=== PATIENT | female | born 1940 | race Caucasian/White ===

== ENCOUNTER → 2016-04-12 | Outpatient (REF) | payer MEDICARE, MEDICAID ==
[~2016-04-12] MED LIST: LASI40TA PO; LEVO50TA5 PO; METF1000 PO; TYLE325T5 PO
== END ==
LOC: M LAB REF 16:37
PROVIDERS: ATTEND Internal Medicine
DX: J06.9 Acute upper respiratory infection, unspecified (principal); R50.9 Fever, unspecified; R05 Cough

== ENCOUNTER → 2016-04-19 | Outpatient (REF) | payer MEDICARE, MEDICAID ==
[2016-04-19 17:57] LABS: ALBUMIN 3.4 GM/DL (3.2-5.2); ALBUMIN/GLOBULIN RATIO 0.79 (1.00-1.93); ALKALINE PHOSPHATASE 91 U/L (45-117); ALT/SGPT 44 U/L (12-78); ANION GAP 12 MEQ/L (8-16); AST/SGOT 30 U/L (15-37); BILIRUBIN,TOTAL 0.7 MG/DL (0.2-1.0); BLOOD UREA NITROGEN 24 MG/DL (7-18); CALCIUM LEVEL 8.6 MG/DL (8.8-10.2); CARBON DIOXIDE LEVEL 24 MEQ/L (21-32); CHLORIDE LEVEL 103 MEQ/L (98-107); CREATININE FOR GFR 0.92 MG/DL (0.55-1.02); GLOMERULAR FILTRATION RATE > 60.0 (>39); GLUCOSE, FASTING 137 MG/DL (83-110); SODIUM LEVEL 139 MEQ/L (136-145); TOTAL PROTEIN 7.7 GM/DL (6.4-8.2)
[2016-04-19 18:15] LABS: MEAN CORPUSCULAR HEMOGLOBIN 29.9 pg (27.0-33.0); MEAN CORPUSCULAR HGB CONC 32.6 g/dl (32.0-36.5); MEAN CORPUSCULAR VOLUME 91.7 fl (80.0-96.0); RED CELL DISTRIBUTION WIDTH 13.2 % (11.5-14.5); WHITE BLOOD COUNT 10.2 K/mm3 (4.0-10.0)
[2016-04-19 18:17] LABS: POTASSIUM SERUM 5.2 MEQ/L (3.5-5.1)
== END ==
LOC: M LAB REF 16:39
PROVIDERS: ATTEND Surgery
DX: E11.621 Type 2 diabetes mellitus with foot ulcer (principal)
CPT/HCPCS: 36415; 80053; 83036; 85027; 97597; G0463

== ENCOUNTER 2016-06-08 02:29 | Emergency (ER) | payer MEDICAID, MEDICARE ==
[~2016-06-08] VITALS: Ht 170.2 cm; Wt 134.2 kg
[2016-06-08] MEDS ORDERED: VALS1TAB49 (02:46)
[2016-06-08] MEDS ORDERED: ELIQ5TAB (02:46)
[2016-06-08] MEDS ORDERED: TRAD5TAB (02:46)
[2016-06-08] MEDS ORDERED: ISOVUE-370 76% 100ML VIAL (Q9967) As Ordered ONE (03:02)
[2016-06-08 03:23] LABS: BASO % 0.4 % (0.0-1.0); EOS # 0.3 K/mm3 (0.0-0.50); EOS % 2.6 % (0.0-3.0); LARGE UNSTAINED CELL # 0.1 K/mm3 (0.0-0.4); LYMPH % 15.2 % (24.0-44.0); MEAN CORPUSCULAR HEMOGLOBIN 29.5 pg (27.0-33.0); MEAN CORPUSCULAR VOLUME 92.4 fl (80.0-96.0); MONO # 0.6 K/mm3 (0.0-0.8); MONO % 4.8 % (0.0-5.0); NEUTROPHILS # 9.5 K/mm3 (1.8-7.7); PLATELET COUNT, AUTOMATED 258 k/mm3 (150-450); RED CELL DISTRIBUTION WIDTH 13.7 % (11.5-14.5); WHITE BLOOD COUNT 12.6 K/mm3 (4.0-10.0)
[2016-06-08 03:40] LABS: ALBUMIN/GLOBULIN RATIO 0.77 (1.00-1.93); BILIRUBIN,DIRECT 0.1 MG/DL (0.0-0.2); BILIRUBIN,TOTAL 0.5 MG/DL (0.2-1.0); CALCIUM LEVEL 8.5 MG/DL (8.8-10.2); CREATININE FOR GFR 1.32 MG/DL (0.55-1.02); GLOMERULAR FILTRATION RATE 41.8 (>39); POTASSIUM SERUM 4.2 MEQ/L (3.5-5.1); TOTAL PROTEIN 6.9 GM/DL (6.4-8.2)
--- NOTE | 2016-06-08 05:20 | REPUSA ---
CLINICAL HISTORY: Chest pain, exclude PE. TECHNIQUE: Multiple incremental axial, coronal and oblique images are obtained from the thoracic inle t to the upper abdomen. Intravenous contrast material was administered as per pulmonary embolism prot ocol. COMMENTS: Moderate cardiomegaly. There is excellent opacification of pulmonary arterial system without evidence for pulmonary embolism . Aorta is of normal caliber without evidence for dissection or aneurysm. There is no evidence of pleural or parenchymal mass. Bilateral basilar atelectatic pulmonary changes. Associated mild bilateral basilar subpleural interstitial thickening. There are no pleural effusions . There is no evidence of hilar or mediastinal lymphadenopathy. Images of the upper abdomen demonstrate no evidence of adrenal mass. The bony structures are free of lytic or blastic lesions. Multilevel degenerative changes are seen in volving the visualized thoracolumbar spine. Scattered calcifications are seen involving the aorta and major branches compatible with atherosclero sis. IMPRESSION: No evidence for pulmonary embolism. Cardiomegaly. Bilateral basilar atelectatic pulmonary changes. Associated bilateral subpleural interstitial pulmonary thickening. Thank you for your kind referral of this patient.
--- NOTE | 2016-06-08 05:20 | REPUSA ---
CLINICAL HISTORY: Abdominal pain. TECHNIQUE: Multiple axial, sagittal and coronal CT images were obtained through the abdomen and pelvi s after administration of intravenous contrast material. COMMENTS: Small sliding-type hiatal hernia. The liver is moderately enlarged with decreased attenuation without mass or defect. There is no intra or extrahepatic biliary ductal dilatation. The spleen is normal. The gallbladder is significantly di stended containing multiple gallstones. The pancreas is of normal contour and attenuation characteris tics. There is no evidence of adrenal mass. Both kidneys demonstrate prompt and equal nephrograms. The kidneys are normal in size, shape and conf iguration. There is no evidence of renal or ureteral mass. No renal or ureteral calculi are identifie d. There is no hydroureter or hydronephrosis. No evidence for appendicitis. There is no bowel wall thickening. No evidence for small or large yisel l obstruction. There is no evidence of abdominal ascites or lymphadenopathy. There is no evidence of intrinsic or extrinsic bladder mass. Thickened bladder. There is no pelvic as cites or lymphadenopathy. Large anterior abdominal hernia containing nonincarcerated large and small bowels. Images of the lung bases show no evidence of pleural or parenchymal mass. There are no pleural effusi ons. The bony structures are free of lytic or blastic lesions. Multilevel degenerative changes are seen in volving the thoracolumbar spine. Scattered calcifications are seen involving the aorta and major bran ches compatible with atherosclerosis. IMPRESSION: Hepatomegaly with fat infiltration. Distended gallbladder. Multiple gallstones. Anterior abdominal hernia containing nonincarcerated segment of the transverse colon and multiple sma ll bowel loops. No associated bowel obstruction. Thickened bladder. Underdistention versus mild cystitis. Thank you for your kind referral of this patient.
--- NOTE | 2016-06-08 07:00 | REPUSA ---
CLINICAL HISTORY: RUQ pain. TECHNIQUE: Realtime sonographic images were obtained in multiple projections. COMMENTS: The visualized liver is of increased echo texture without evidence of mass or defect. There is no int ra or extrahepatic biliary ductal dilatation. The common bile duct measures 3.8 mm. The gallbladder is underdistended containing multiple calculi. The gallbladder wall is not thickened and there is no pericholecystic fluid. The right kidney measures 11.5x5.3x5.2 cm. The visualized portions of the pancreas are unremarkable. IMPRESSION: Fatty liver infiltration. Cholelithiasis. Nondilated common bile duct. Limited evaluation of the pancreas secondary to gaseous bowel distention. Thank you for your kind referral of this patient.
[2016-06-08 10:36] VITALS: BP 132/80
--- NOTE | 2016-06-08 14:40 | ECGEPIP ---
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
--- NOTE | 2016-06-12 14:33 | ECGEPIP ---
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
== END 2016-06-08 10:38 | disposition home or self-care (01) ==
LOC: EDBD 02:29 → M ED 04:19
DX: K80.50 Calculus of bile duct without cholangitis or cholecystitis without obstruction (principal); I48.91 Unspecified atrial fibrillation; E11.9 Type 2 diabetes mellitus without complications; I10 Essential (primary) hypertension; Z79.899 Other long term (current) drug therapy; Z79.84 Long term (current) use of oral hypoglycemic drugs; Z88.0 Allergy status to penicillin; Z88.5 Allergy status to narcotic agent; Z88.8 Allergy status to other drugs, medicaments and biological substances
CPT/HCPCS: 36415; 71275; 74177; 76705; 80048; 80076; 81001; 82550; 82553; 83605; 83690; 84484; 85025; 93005; 93041; 99285; Q9967

== ENCOUNTER → 2017-08-01 | Outpatient (REF) | payer MEDICARE, MEDICAID | LOC: M LAB REF 17:02 | DX: L30.3 Infective dermatitis (principal) | CPT/HCPCS: 87077 ==

== ENCOUNTER 2017-09-12 15:01 | Inpatient (IN) | payer MEDICARE, MEDICAID ==
[2017-09-12 16:41] LABS: HEMATOCRIT 39.2 % (36.0-47.0); MEAN CORPUSCULAR HEMOGLOBIN 29.7 pg (27.0-33.0); MEAN CORPUSCULAR HGB CONC 33.2 g/dl (32.0-36.5); MEAN CORPUSCULAR VOLUME 89.5 fl (80.0-96.0); PLATELET COUNT, AUTOMATED 276 10^3/uL (150-450); RED BLOOD COUNT 4.38 10^6/uL (4.00-5.40); RED CELL DISTRIBUTION WIDTH 14.5 % (11.5-14.5); WHITE BLOOD COUNT 13.6 10^3/uL (4.0-10.0)
[2017-09-12 17:09] LABS: ANION GAP 8 MEQ/L (8-16); BLOOD UREA NITROGEN 31 MG/DL (7-18); C REACTIVE PROTEIN QUANTITATIV 8.33 MG/DL (0.00-0.30); CARBON DIOXIDE LEVEL 29 MEQ/L (21-32); CHLORIDE LEVEL 101 MEQ/L (98-107); CREATININE FOR GFR 1.09 MG/DL (0.55-1.30); ERYTHROCYTE SEDIMENTATION RATE 71 mm/hr (0-30); GLOMERULAR FILTRATION RATE 51.8 (>39); GLUCOSE, FASTING 175 MG/DL (70-100); POTASSIUM SERUM 3.7 MEQ/L (3.5-5.1); SODIUM LEVEL 138 MEQ/L (136-145)
[2017-09-12] MEDS: VANCOMYCIN HCL 1,000 MG, VIAL MATE ADAPTER 1 EACH in D5W 250 ML IV (17:15)
[2017-09-12] MEDS: metroNIDAZOLE 500 MG in APPROPRIATE DILUENT 1 EA IV (17:19)
[2017-09-12] MEDS ORDERED: GLUCAGON FOR INJ 1 MG VIAL (J1610) SC (19:30)
[2017-09-12] MEDS ORDERED: DEXTROSE 50% 50 ML SYRINGE IV (19:30)
[2017-09-12] MEDS ORDERED: GLUCOSE 4 GM CHEW TABLET PO (19:30)
[2017-09-12] MEDS: HEPARIN SOD (PORCINE) 5000 UNITS/ML VIAL SC (21:18)
[2017-09-12] MEDS: AZTREONAM 1 GM in D5W MINI-BAG PLUS 50 ML IV (21:19)
[2017-09-12] MEDS: LOSARTAN 50 MG TAB PO (21:19)
[2017-09-12] MEDS: FUROSEMIDE 80 MG TAB PO (21:19)
[2017-09-13 00:14] LABS: BEDSIDE GLUCOSE 229 MG/DL (83-110)
[2017-09-13] MEDS: AZTREONAM 1 GM in D5W MINI-BAG PLUS 50 ML IV (05:11)
[2017-09-13] MEDS: LEVOTHYROXINE 125MCG TABLET (0.125MG) PO (05:11)
[2017-09-13] MEDS: HEPARIN SOD (PORCINE) 5000 UNITS/ML VIAL SC ×3 (05:11→21:15)
[2017-09-13 06:48] LABS: HEMATOCRIT 37.2 % (36.0-47.0); MEAN CORPUSCULAR HEMOGLOBIN 29.3 pg (27.0-33.0); MEAN CORPUSCULAR HGB CONC 32.3 g/dl (32.0-36.5); PLATELET COUNT, AUTOMATED 248 10^3/uL (150-450); RED BLOOD COUNT 4.09 10^6/uL (4.00-5.40); RED CELL DISTRIBUTION WIDTH 14.5 % (11.5-14.5); WHITE BLOOD COUNT 10.9 10^3/uL (4.0-10.0)
[2017-09-13 07:02] LABS: ANION GAP 7 MEQ/L (8-16); BLOOD UREA NITROGEN 28 MG/DL (7-18); CALCIUM LEVEL 8.8 MG/DL (8.8-10.2); CARBON DIOXIDE LEVEL 30 MEQ/L (21-32); CHLORIDE LEVEL 101 MEQ/L (98-107); CREATININE FOR GFR 0.89 MG/DL (0.55-1.30); GLOMERULAR FILTRATION RATE > 60.0 (>39); GLUCOSE, FASTING 172 MG/DL (70-100); SODIUM LEVEL 138 MEQ/L (136-145)
[2017-09-13] MEDS: HumaLOG INSULIN (NovoLOG) PER UNIT SC ×3 (07:30→17:11)
[2017-09-13] MEDS: FUROSEMIDE 80 MG TAB PO ×2 (08:18→21:16)
[2017-09-13] MEDS: ASPIRIN ENTERIC 325 MG TAB PO (08:18)
[2017-09-13] MEDS: ZINC SULFATE 220 MG CAP PO (08:18)
[2017-09-13] MEDS: ATORVASTATIN 20 MG TAB PO (08:18)
[2017-09-13] MEDS: CLOPIDOGREL 75 MG TAB PO (08:19)
[2017-09-13] MEDS: SPIRONOLACTONE 12.5MG PER 1/2 TABLET PO (08:19)
[2017-09-13] MEDS: LEVEMIR (INSULIN DETEMIR) 1 UNITS/0.01ML SC (10:30)
[2017-09-13 11:59] LABS: BEDSIDE GLUCOSE 241 MG/DL (83-110)
[2017-09-13] MEDS: VANCOMYCIN HCL 1,000 MG, VIAL MATE ADAPTER 1 EACH in D5W 250 ML IV ×2 (12:01→14:00)
[2017-09-13] MEDS: PIPERACILLIN/TAZOBACTAM SOD 3.375 GM in D5W MINI-BAG PLUS 50 ML IV ×2 (14:00→19:41)
[2017-09-13] MEDS: IBUPROFEN 800 MG TAB PO (15:04)
[2017-09-13 16:46] LABS: BEDSIDE GLUCOSE 175 MG/DL (83-110)
[2017-09-13] MEDS: ACETAMINOPHEN TAB 650MG DOSE (2X325MG) PO (18:48)
[2017-09-13 20:33] LABS: BEDSIDE GLUCOSE 220 MG/DL (83-110)
[2017-09-13] MEDS: LOSARTAN 50 MG TAB PO (21:16)
[2017-09-14] MEDS: VANCOMYCIN HCL 1,000 MG, VIAL MATE ADAPTER 1 EACH in D5W 250 ML IV ×2 (00:19→17:53)
[2017-09-14] MEDS: PIPERACILLIN/TAZOBACTAM SOD 3.375 GM in D5W MINI-BAG PLUS 50 ML IV ×4 (02:37→20:02)
[2017-09-14] MEDS: HEPARIN SOD (PORCINE) 5000 UNITS/ML VIAL SC ×3 (05:30→22:38)
[2017-09-14] MEDS: LEVOTHYROXINE 125MCG TABLET (0.125MG) PO (05:30)
[2017-09-14 06:11] LABS: HEMATOCRIT 37.9 % (36.0-47.0); HEMOGLOBIN 12.5 g/dl (12.0-15.5); MEAN CORPUSCULAR HEMOGLOBIN 29.4 pg (27.0-33.0); MEAN CORPUSCULAR VOLUME 89.2 fl (80.0-96.0); PLATELET COUNT, AUTOMATED 275 10^3/uL (150-450); RED BLOOD COUNT 4.25 10^6/uL (4.00-5.40); RED CELL DISTRIBUTION WIDTH 14.4 % (11.5-14.5); WHITE BLOOD COUNT 9.9 10^3/uL (4.0-10.0)
[2017-09-14] MEDS: IBUPROFEN 800 MG TAB PO (06:36)
[2017-09-14 06:40] LABS: ANION GAP 7 MEQ/L (8-16); BLOOD UREA NITROGEN 33 MG/DL (7-18); CALCIUM LEVEL 8.7 MG/DL (8.8-10.2); CARBON DIOXIDE LEVEL 29 MEQ/L (21-32); CHLORIDE LEVEL 100 MEQ/L (98-107); CREATININE FOR GFR 1.22 MG/DL (0.55-1.30); GLOMERULAR FILTRATION RATE 45.5 (>39); GLUCOSE, FASTING 185 MG/DL (70-100); SODIUM LEVEL 136 MEQ/L (136-145)
[2017-09-14] MEDS: HumaLOG INSULIN (NovoLOG) PER UNIT SC ×3 (08:11→17:19)
[2017-09-14] MEDS: LEVEMIR (INSULIN DETEMIR) 1 UNITS/0.01ML SC (08:12)
[2017-09-14] MEDS: SPIRONOLACTONE 12.5MG PER 1/2 TABLET PO (08:12)
[2017-09-14] MEDS: ZINC SULFATE 220 MG CAP PO (08:12)
[2017-09-14] MEDS: CLOPIDOGREL 75 MG TAB PO (08:12)
[2017-09-14] MEDS: FUROSEMIDE 80 MG TAB PO ×2 (08:12→20:03)
[2017-09-14] MEDS: ASPIRIN ENTERIC 325 MG TAB PO (08:13)
[2017-09-14] MEDS: ATORVASTATIN 20 MG TAB PO (08:13)
[2017-09-14 11:58] LABS: BEDSIDE GLUCOSE 267 MG/DL (83-110)
[2017-09-14 12:12] LABS: VANCOMYCIN LEVEL TROUGH 19.9 UG/ML (10.0-20.0)
[2017-09-14 16:47] LABS: BEDSIDE GLUCOSE 178 MG/DL (83-110)
[2017-09-14] MEDS: LOSARTAN 50 MG TAB PO (20:03)
[2017-09-14 21:05] LABS: BEDSIDE GLUCOSE 273 MG/DL (83-110)
[2017-09-15] MEDS: PIPERACILLIN/TAZOBACTAM SOD 3.375 GM in D5W MINI-BAG PLUS 50 ML IV ×3 (02:24→14:00)
[2017-09-15] MEDS: LEVOTHYROXINE 125MCG TABLET (0.125MG) PO (05:30)
[2017-09-15] MEDS: HEPARIN SOD (PORCINE) 5000 UNITS/ML VIAL SC ×2 (05:30→13:50)
[2017-09-15 06:43] LABS: HEMATOCRIT 37.7 % (36.0-47.0); HEMOGLOBIN 12.3 g/dl (12.0-15.5); MEAN CORPUSCULAR HEMOGLOBIN 29.3 pg (27.0-33.0); MEAN CORPUSCULAR HGB CONC 32.6 g/dl (32.0-36.5); MEAN CORPUSCULAR VOLUME 89.8 fl (80.0-96.0); PLATELET COUNT, AUTOMATED 283 10^3/uL (150-450); RED CELL DISTRIBUTION WIDTH 14.4 % (11.5-14.5); WHITE BLOOD COUNT 10.1 10^3/uL (4.0-10.0)
[2017-09-15 07:02] LABS: ANION GAP 7 MEQ/L (8-16); BLOOD UREA NITROGEN 28 MG/DL (7-18); C REACTIVE PROTEIN QUANTITATIV 4.88 MG/DL (0.00-0.30); CALCIUM LEVEL 8.6 MG/DL (8.8-10.2); CARBON DIOXIDE LEVEL 28 MEQ/L (21-32); CHLORIDE LEVEL 102 MEQ/L (98-107); CREATININE FOR GFR 1.13 MG/DL (0.55-1.30); GLOMERULAR FILTRATION RATE 49.7 (>39); GLUCOSE, FASTING 209 MG/DL (70-100); POTASSIUM SERUM 3.7 MEQ/L (3.5-5.1); SODIUM LEVEL 137 MEQ/L (136-145)
[2017-09-15] MEDS: HumaLOG INSULIN (NovoLOG) PER UNIT SC ×3 (07:37→16:46)
[2017-09-15] MEDS: FUROSEMIDE 80 MG TAB PO ×2 (08:53→20:56)
[2017-09-15] MEDS: ASPIRIN ENTERIC 325 MG TAB PO (08:53)
[2017-09-15] MEDS: SPIRONOLACTONE 12.5MG PER 1/2 TABLET PO (08:53)
[2017-09-15] MEDS: CLOPIDOGREL 75 MG TAB PO (08:54)
[2017-09-15] MEDS: LEVEMIR (INSULIN DETEMIR) 1 UNITS/0.01ML SC (08:54)
[2017-09-15] MEDS: ZINC SULFATE 220 MG CAP PO (08:54)
[2017-09-15] MEDS: ATORVASTATIN 20 MG TAB PO (08:54)
[2017-09-15] MEDS: IBUPROFEN 800 MG TAB PO (10:57)
[2017-09-15 11:18] LABS: BEDSIDE GLUCOSE 231 MG/DL (83-110)
[2017-09-15] MEDS: VANCOMYCIN HCL 1,000 MG, VIAL MATE ADAPTER 1 EACH in D5W 250 ML IV (11:55)
[2017-09-15] MEDS: LevoFLOXacin 500 MG TABLET PO (14:48)
[2017-09-15 16:24] LABS: BEDSIDE GLUCOSE 178 MG/DL (83-110)
[2017-09-15 19:41] LABS: BEDSIDE GLUCOSE 246 MG/DL (83-110)
[2017-09-15] MEDS: LOSARTAN 50 MG TAB PO (20:56)
[2017-09-16] MEDS: IBUPROFEN 800 MG TAB PO ×2 (00:33→20:18)
[2017-09-16] MEDS: LevoFLOXacin 250 MG TABLET PO (05:42)
[2017-09-16] MEDS: LEVOTHYROXINE 125MCG TABLET (0.125MG) PO (05:42)
[2017-09-16 06:03] LABS: HEMATOCRIT 38.6 % (36.0-47.0); HEMOGLOBIN 12.6 g/dl (12.0-15.5); MEAN CORPUSCULAR HEMOGLOBIN 29.6 pg (27.0-33.0); MEAN CORPUSCULAR HGB CONC 32.6 g/dl (32.0-36.5); MEAN CORPUSCULAR VOLUME 90.6 fl (80.0-96.0); PLATELET COUNT, AUTOMATED 285 10^3/uL (150-450); RED BLOOD COUNT 4.26 10^6/uL (4.00-5.40); RED CELL DISTRIBUTION WIDTH 14.5 % (11.5-14.5); WHITE BLOOD COUNT 10.6 10^3/uL (4.0-10.0)
[2017-09-16 06:26] LABS: ANION GAP 7 MEQ/L (8-16); BLOOD UREA NITROGEN 31 MG/DL (7-18); C REACTIVE PROTEIN QUANTITATIV 3.76 MG/DL (0.00-0.30); CALCIUM LEVEL 8.9 MG/DL (8.8-10.2); CARBON DIOXIDE LEVEL 30 MEQ/L (21-32); CHLORIDE LEVEL 100 MEQ/L (98-107); CREATININE FOR GFR 1.14 MG/DL (0.55-1.30); GLOMERULAR FILTRATION RATE 49.2 (>39); GLUCOSE, FASTING 211 MG/DL (70-100); POTASSIUM SERUM 4.3 MEQ/L (3.5-5.1); SODIUM LEVEL 137 MEQ/L (136-145)
[2017-09-16] MEDS: FUROSEMIDE 80 MG TAB PO ×2 (08:59→20:20)
[2017-09-16] MEDS: ZINC SULFATE 220 MG CAP PO (08:59)
[2017-09-16] MEDS: SPIRONOLACTONE 12.5MG PER 1/2 TABLET PO (08:59)
[2017-09-16] MEDS: ATORVASTATIN 20 MG TAB PO (08:59)
[2017-09-16] MEDS: ASPIRIN ENTERIC 325 MG TAB PO (09:00)
[2017-09-16] MEDS: LEVEMIR (INSULIN DETEMIR) 1 UNITS/0.01ML SC (09:00)
[2017-09-16] MEDS: CLOPIDOGREL 75 MG TAB PO (09:00)
[2017-09-16] MEDS: HumaLOG INSULIN (NovoLOG) PER UNIT SC ×3 (09:01→16:58)
[2017-09-16 11:43] LABS: BEDSIDE GLUCOSE 116 MG/DL (83-110)
[2017-09-16] MEDS ORDERED: PROPOFOL 200 MG/20 ML VIAL As Ordered ×2 (12:49→13:48)
[2017-09-16] MEDS ORDERED: LIDOCAINE 2% INJ 100 MG/5 ML SDV (FOR ANES.) As Ordered (12:49)
[2017-09-16] MEDS ORDERED: fentaNYL 100 MCG/2 ML INJECTION (J3010) As Ordered (12:50)
[2017-09-16] MEDS ORDERED: MIDAZOLAM INJ 2 MG/2 ML VIAL (J2250) As Ordered (12:50)
[2017-09-16] MEDS ORDERED: TOBRAMYCIN SULF 1.2 GM VIAL As Ordered (12:55)
[2017-09-16] MEDS: LIDOCAINE 2% MDV 20 ML VIAL As Ordered (13:11)
[2017-09-16] MEDS: BUPIVACAINE HCL 0.5% 30 ML VIAL As Ordered (13:11)
[2017-09-16 14:16] LABS: BEDSIDE GLUCOSE 140 MG/DL (83-110)
[2017-09-16] MEDS ORDERED: fentaNYL 100 MCG/2 ML INJECTION (J3010) IV (14:30)
[2017-09-16] MEDS ORDERED: PERCOCET 5MG/325MG TAB PO (14:30)
[2017-09-16] MEDS ORDERED: ONDANSETRON 4MG/2ML VIAL (J2405) IV (14:30)
[2017-09-16 16:48] LABS: BEDSIDE GLUCOSE 146 MG/DL (83-110)
[2017-09-16] MEDS: LR 1,000 ML IV (18:38)
[2017-09-16 19:45] LABS: BEDSIDE GLUCOSE 322 MG/DL (83-110)
[2017-09-16] MEDS: LOSARTAN 50 MG TAB PO (20:20)
[2017-09-16] MEDS: SILVER SULFADIAZINE 1% CR 50 GM JAR TOP (22:01)
[2017-09-16] MEDS: HEPARIN SOD (PORCINE) 5000 UNITS/ML VIAL SC (22:19)
[2017-09-17] MEDS: ACETAMINOPHEN TAB 650MG DOSE (2X325MG) PO ×3 (01:54→12:17)
[2017-09-17] MEDS: HEPARIN SOD (PORCINE) 5000 UNITS/ML VIAL SC ×3 (06:00→20:23)
[2017-09-17] MEDS: LEVOTHYROXINE 125MCG TABLET (0.125MG) PO (06:00)
[2017-09-17] MEDS: LevoFLOXacin 250 MG TABLET PO (06:00)
[2017-09-17 06:17] LABS: HEMATOCRIT 36.7 % (36.0-47.0); HEMOGLOBIN 12.1 g/dl (12.0-15.5); MEAN CORPUSCULAR HEMOGLOBIN 29.5 pg (27.0-33.0); MEAN CORPUSCULAR VOLUME 89.5 fl (80.0-96.0); PLATELET COUNT, AUTOMATED 272 10^3/uL (150-450); RED CELL DISTRIBUTION WIDTH 14.6 % (11.5-14.5); WHITE BLOOD COUNT 11.9 10^3/uL (4.0-10.0)
[2017-09-17 06:27] LABS: ANION GAP 7 MEQ/L (8-16); BLOOD UREA NITROGEN 29 MG/DL (7-18); C REACTIVE PROTEIN QUANTITATIV 2.49 MG/DL (0.00-0.30); CALCIUM LEVEL 8.5 MG/DL (8.8-10.2); CARBON DIOXIDE LEVEL 28 MEQ/L (21-32); CHLORIDE LEVEL 102 MEQ/L (98-107); CREATININE FOR GFR 1.13 MG/DL (0.55-1.30); GLOMERULAR FILTRATION RATE 49.7 (>39); GLUCOSE, FASTING 208 MG/DL (70-100); SODIUM LEVEL 137 MEQ/L (136-145)
[2017-09-17] MEDS: SPIRONOLACTONE 12.5MG PER 1/2 TABLET PO (08:23)
[2017-09-17] MEDS: ZINC SULFATE 220 MG CAP PO (08:23)
[2017-09-17] MEDS: HumaLOG INSULIN (NovoLOG) PER UNIT SC ×3 (08:23→17:03)
[2017-09-17] MEDS: ATORVASTATIN 20 MG TAB PO (08:23)
[2017-09-17] MEDS: FUROSEMIDE 80 MG TAB PO ×2 (08:23→20:22)
[2017-09-17] MEDS: CLOPIDOGREL 75 MG TAB PO (08:23)
[2017-09-17] MEDS: ASPIRIN ENTERIC 325 MG TAB PO (08:23)
[2017-09-17] MEDS: SILVER SULFADIAZINE 1% CR 50 GM JAR TOP ×2 (08:24→21:55)
[2017-09-17] MEDS: LEVEMIR (INSULIN DETEMIR) 1 UNITS/0.01ML SC (08:24)
[2017-09-17] MEDS: IBUPROFEN 800 MG TAB PO ×2 (09:38→20:23)
[2017-09-17 12:01] LABS: BEDSIDE GLUCOSE 262 MG/DL (83-110)
[2017-09-17 16:36] LABS: BEDSIDE GLUCOSE 176 MG/DL (83-110)
[2017-09-17 19:52] LABS: BEDSIDE GLUCOSE 205 MG/DL (83-110)
[2017-09-17] MEDS: LOSARTAN 50 MG TAB PO (20:22)
[2017-09-18] MEDS: LevoFLOXacin 250 MG TABLET PO (05:33)
[2017-09-18] MEDS: LEVOTHYROXINE 125MCG TABLET (0.125MG) PO (05:33)
[2017-09-18] MEDS: HEPARIN SOD (PORCINE) 5000 UNITS/ML VIAL SC (05:34)
[2017-09-18 05:52] LABS: HEMOGLOBIN 12.5 g/dl (12.0-15.5); MEAN CORPUSCULAR HEMOGLOBIN 29.2 pg (27.0-33.0); MEAN CORPUSCULAR HGB CONC 32.1 g/dl (32.0-36.5); MEAN CORPUSCULAR VOLUME 91.1 fl (80.0-96.0); PLATELET COUNT, AUTOMATED 281 10^3/uL (150-450); RED BLOOD COUNT 4.28 10^6/uL (4.00-5.40); RED CELL DISTRIBUTION WIDTH 14.4 % (11.5-14.5); WHITE BLOOD COUNT 11.3 10^3/uL (4.0-10.0)
[2017-09-18 06:23] LABS: ANION GAP 8 MEQ/L (8-16); BLOOD UREA NITROGEN 26 MG/DL (7-18); C REACTIVE PROTEIN QUANTITATIV 2.35 MG/DL (0.00-0.30); CALCIUM LEVEL 8.5 MG/DL (8.8-10.2); CARBON DIOXIDE LEVEL 28 MEQ/L (21-32); CHLORIDE LEVEL 102 MEQ/L (98-107); CREATININE FOR GFR 1.06 MG/DL (0.55-1.30); GLOMERULAR FILTRATION RATE 53.5 (>39); GLUCOSE, FASTING 238 MG/DL (70-100); SODIUM LEVEL 138 MEQ/L (136-145)
[2017-09-18] MEDS: LEVEMIR (INSULIN DETEMIR) 1 UNITS/0.01ML SC (09:17)
[2017-09-18] MEDS: HumaLOG INSULIN (NovoLOG) PER UNIT SC ×2 (09:18→11:38)
[2017-09-18] MEDS: ASPIRIN ENTERIC 325 MG TAB PO (09:18)
[2017-09-18] MEDS: FUROSEMIDE 80 MG TAB PO (09:18)
[2017-09-18] MEDS: CLOPIDOGREL 75 MG TAB PO (09:18)
[2017-09-18] MEDS: SPIRONOLACTONE 12.5MG PER 1/2 TABLET PO (09:18)
[2017-09-18] MEDS: ATORVASTATIN 20 MG TAB PO (09:18)
[2017-09-18] MEDS: ZINC SULFATE 220 MG CAP PO (09:18)
[2017-09-18] MEDS: SILVER SULFADIAZINE 1% CR 50 GM JAR TOP (09:19)
[2017-09-18 11:30] LABS: BEDSIDE GLUCOSE 245 MG/DL (83-110)
== END 2017-09-18 13:45 | disposition home or self-care (01) | DRG 629 ==
LOC: M MSPAV 09-13 16:14 → M ED 15:01 → M ED INP 19:07 → M MS4PR 19:51
PROC: 0Q8L0ZZ Division of Right Tarsal, Open Approach (ICD-10-PCS; principal; 2017-09-16 13:11)
PROC: 0JDQ0ZZ Extraction of Right Foot Subcutaneous Tissue and Fascia, Open Approach (ICD-10-PCS; 2017-09-16 13:11)
DX: E11.621 Type 2 diabetes mellitus with foot ulcer (principal); M86.9 Osteomyelitis, unspecified; M84.477A Pathological fracture, right toe(s), initial encounter for fracture; L03.031 Cellulitis of right toe; N18.2 Chronic kidney disease, stage 2 (mild); I12.9 Hypertensive chronic kidney disease with stage 1 through stage 4 chronic kidney disease, or unspecified chronic kidney disease; E11.22 Type 2 diabetes mellitus with diabetic chronic kidney disease; B96.89 Other specified bacterial agents as the cause of diseases classified elsewhere; E11.69 Type 2 diabetes mellitus with other specified complication; E03.9 Hypothyroidism, unspecified; L97.529 Non-pressure chronic ulcer of other part of left foot with unspecified severity; E66.01 Morbid (severe) obesity due to excess calories; L97.519 Non-pressure chronic ulcer of other part of right foot with unspecified severity; I87.8 Other specified disorders of veins; I48.0 Paroxysmal atrial fibrillation; I25.10 Atherosclerotic heart disease of native coronary artery without angina pectoris; Z96.653 Presence of artificial knee joint, bilateral; Z79.82 Long term (current) use of aspirin; Z79.02 Long term (current) use of antithrombotics/antiplatelets; Z79.899 Other long term (current) drug therapy; Z79.84 Long term (current) use of oral hypoglycemic drugs; Z88.0 Allergy status to penicillin; Z88.5 Allergy status to narcotic agent; Z88.8 Allergy status to other drugs, medicaments and biological substances; Z87.891 Personal history of nicotine dependence

== ENCOUNTER → 2017-09-12 | Outpatient (REF) | payer MEDICARE, MEDICAID | LOC: M LAB REF 15:42 | DX: L03.039 Cellulitis of unspecified toe (principal) ==

== ENCOUNTER 2018-02-02 06:25 | Day surgery (SDC) | payer MEDICARE, MEDICAID ==
[~2018-02-02] VITALS: Ht 170.2 cm; Wt 126.3 kg
[~2018-02-02 06:25] MED LIST changes: +ASPI-222 PO; +ATOR1TAB21 PO; +ELIQ5TAB; +FURO80TA2 PO; +GLIM2TAB PO; +LEVA250T13 PO; +LEVO125T41 PO; +LOSA50TA73 PO; -METF1000 PO; +METF10004 PO; +METF500T4 PO; +PLAV1TAB2 PO; +SILV50CR TOP; +SPIR-10 PO; +TORS20TA2 PO; +TRAD5TAB PO; +VALS1TAB49; +VITA80003 PO; +ZINC220CA PO
[2018-02-02] MEDS ORDERED: LR 1,000 ML IV ONE (06:45)
[2018-02-02] MEDS ORDERED: VANCOMYCIN HCL 1,000 MG, VIAL MATE ADAPTER 1 EACH in D5W 250 ML IV ONE (07:00)
[2018-02-02] MEDS ORDERED: MIDAZOLAM INJ 2 MG/2 ML VIAL (J2250) As Ordered ONE (07:19)
[2018-02-02] MEDS ORDERED: fentaNYL 100 MCG/2 ML INJECTION (J3010) As Ordered ONE (07:19)
[2018-02-02] MEDS ORDERED: LIDOCAINE 2% INJ 100 MG/5 ML SDV (FOR ANES.) As Ordered ONE (07:20)
[2018-02-02] MEDS ORDERED: ONDANSETRON 4MG/2ML VIAL (J2405) As Ordered ONE (07:20)
[2018-02-02] MEDS ORDERED: PROPOFOL 200 MG/20 ML VIAL As Ordered ONE ×3 (07:20→09:20)
[2018-02-02] MEDS ORDERED: dexameTHASONE 4 MG/ML 1ML VIAL (J1100) As Ordered ONE ×2 (07:20→07:52)
[2018-02-02] MEDS ORDERED: FURO80TA2 PO (07:34)
[2018-02-02] MEDS ORDERED: ROPIvacaine 0.5% 30 ML INJECTION (J2795 PER 1MG) As Ordered ONE (07:51)
[2018-02-02] MEDS ORDERED: NEOSPORIN GU IRRIG 20 ML VIAL As Ordered ONE (07:52)
[2018-02-02] MEDS ORDERED: BUPIVACAINE HCL 0.5% 10 ML VIAL As Ordered ONE (07:52)
[2018-02-02] MEDS ORDERED: LIDOCAINE 2% MDV 20 ML VIAL As Ordered ONE (07:52)
[2018-02-02] MEDS ORDERED: BACITRACIN PWD 50,000 UNITS VIAL As Ordered ONE (07:52)
[2018-02-02] MEDS ORDERED: TOBRAMYCIN INJ 80 MG/2 ML VIAL (J3260) As Ordered ONE (08:39)
[2018-02-02] MEDS ORDERED: TOBRAMYCIN SULF 1.2 GM VIAL As Ordered ONE (08:42)
[2018-02-02] MEDS ORDERED: KETAMINE HCL 200 MG/20 ML VIAL As Ordered ONE (09:59)
[2018-02-02] MEDS ORDERED: METOCLOPRAMIDE INJ 10MG/2ML VIAL (J2765) IV PRN (10:15)
[2018-02-02] MEDS ORDERED: LR 1,000 ML IV SCH (10:15)
[2018-02-02] MEDS ORDERED: ONDANSETRON 4MG/2ML VIAL (J2405) IV PRN (10:15)
[2018-02-02] MEDS ORDERED: PERCOCET 5MG/325MG TAB PO PRN (10:15)
[2018-02-02] MEDS ORDERED: fentaNYL 100 MCG/2 ML INJECTION (J3010) IV PRN (10:15)
--- NOTE | 2018-02-02 10:21 | REP ---
Clinical: Status post bunionectomy. Technique: Portable AP, lateral, oblique views of the left foot. Findings: The patient is status post partial amputation at the level of the first metatarsophalangeal joint consistent with bunionectomy. Small residual bony fragments at the resection site are identified. Alignment appears to be satisfactory. Overlying postsurgical soft tissue swelling and small amounts of subcutaneous emphysema noted. Moderate arthritic degenerative changes involve the ankle and mid/hind foot as well as findings to suggest old injuries. Innumerable calcified granulomata noted in the soft tissues overlying the distal tibia / fibula. Impression: 1. Postoperative changes related to bunionectomy. 2. Moderate arthritic and likely post traumatic degenerative changes involving the ankle and mid/hind foot. Electronically Signed by Benjamin Chappell MD 02/02/2018 10:13 A
[2018-02-02 11:40] VITALS: BP 150/72
--- NOTE | 2018-02-05 11:28 | RO ---
DATE OF PROCEDURE: 02/02/2018 PREPROCEDURE DIAGNOSIS: Hallux limitus deformity, left foot, with stage III ulceration left hallux. POSTPROCEDURE DIAGNOSIS: Hallux limitus deformity, left foot, with stage III ulceration left hallux. PROCEDURE: SURGEON: Dr. Yuri Wilkerson DPM BORDER PATROL AGENT: None. ANESTHESIA: Local monitored anesthesia care (MAC). IRRIGATION: Dilute bacitracin, neomycin and polymyxin B solution. HEMOSTASIS: Ankle pneumatic tourniquet at 250 mmHg for 31 minutes. IMPLANTS UTILIZED: Five 5 mm tobramycin-impregnated absorbable beads. DESCRIPTION OF PROCEDURE: On 02/02/2018, this 77-year-old white female was taken from her hospital room to the operating room and placed on the operating table in the supine position. Following the induction of IV sedation and local and regional anesthesia, the left lower extremity was prepped and draped in the usual aseptic manner. Attention was directed to the patient's left foot. The ulcer was isolated with a glove and a 6 cm incision also placed over the dorsal aspect of the 1st metatarsophalangeal joint. The incision was deepened through subcutaneous tissues and a linear capsulotomy was performed in the same plane as the original skin incision. The capsular and periosteal structures were dissected free dorsally, medially and laterally. The hypertrophied medial eminence was osteotomized from dorsal to proximal, extirpated from the wound. Attention was directed to the base of the proximal phalanx where at the neck of the proximal phalanx utilizing a power saw, an osteotomy was performed at the distal metaphyseal-diaphyseal junction of the proximal phalanx and the base of the proximal phalanx was excised. The wound was flushed with copious amounts of dilute bacitracin, neomycin and polymyxin B solution. Five 5 mm tobramycin-impregnated beads were placed into the joint and utilizing two pursestring stitches of #2-0 Monocryl, the capsule was reefed to separate the proximal phalanx and 1st metatarsal head. Subcutaneous tissues were coapted and maintained using #4-0 Monocryl in a simple interrupted type fashion. Skin incisions were coapted and maintained utilizing #4-0 Prolene in a simple interrupted and horizontal mattress type fashion. A sterile dressing was applied consisting of Adaptic, 4 x4s, Carl and Kerlix. The ankle pneumatic tourniquet was rapidly deflated and instantaneous capillary filling time was noted in digits 1 through 5 of the patient's left foot. The patient having apparently tolerated the surgical procedure well was taken from the operating room to the recovery room for further monitoring by the anesthesia department. Surgical specimens were sent to pathology for gross evaluation and postoperative instructions given upon discharge.
== END 2018-02-02 12:09 | disposition home or self-care (01) ==
LOC: M SDC 06:25
PROVIDERS: ATTEND Podiatrist
DX: M20.22 Hallux rigidus, left foot (principal); L97.522 Non-pressure chronic ulcer of other part of left foot with fat layer exposed; I48.91 Unspecified atrial fibrillation; I10 Essential (primary) hypertension; E78.5 Hyperlipidemia, unspecified; E03.9 Hypothyroidism, unspecified; Z88.0 Allergy status to penicillin; Z88.7 Allergy status to serum and vaccine; E11.42 Type 2 diabetes mellitus with diabetic polyneuropathy; E11.51 Type 2 diabetes mellitus with diabetic peripheral angiopathy without gangrene; E11.621 Type 2 diabetes mellitus with foot ulcer; E11.9 Type 2 diabetes mellitus without complications
CPT/HCPCS: 28292; 73630; 88300; C1713; J1100; J2250; J2405; J2795; J3010; J3370

== ENCOUNTER 2018-05-16 10:07 | Emergency (ER) | payer MEDICARE, MEDICAID ==
[~2018-05-16] VITALS: Ht 172.7 cm; Wt 130.0 kg
[~2018-05-16 10:07] MED LIST changes: -LASI40TA PO; +LASI40TA9 PO; -LOSA50TA73 PO; +LOSA50TA88 PO
[2018-05-16] MEDS ORDERED: ACETAMINOPHEN TAB 650MG DOSE (2X325MG) PO ONE (10:45)
--- NOTE | 2018-05-16 11:15 | REP ---
RIGHT ELBOW, FOUR VIEWS: Four views of the right elbow performed. There is no acute fracture or dislocation. There is mild diffuse joint space narrowing as well as spurring. There appears to be mild chondrocalcinosis in the lateral aspect of the joint. No other intrinsic osseous pathology is seen. IMPRESSION: Mild diffuse degenerative changes. No fracture or intrinsic bone disease. Electronically Signed by Kvng Cadena MD 05/16/2018 03:20 P
--- NOTE | 2018-05-16 11:31 | REP ---
Right upper extremity deep vein duplex ultrasound: The deep veins demonstrate normal compression, normal Doppler color flow and normal Doppler waveforms with respiration and augmentation from the brachial veins to the jugular vein. Impression: There is no right upper extremity deep vein thrombus. Electronically Signed by Kvng Suazo MD 05/16/2018 11:23 A
[2018-05-16 11:59] LABS: BASO # 0.1 10^3/uL (0.0-0.2); BASO % 0.6 % (0.0-1.0); EOS # 0.3 10^3/uL (0.0-0.50); EOS % 2.3 % (0.0-3.0); HEMATOCRIT 34.7 % (36.0-47.0); HEMOGLOBIN 10.8 g/dl (12.0-15.5); LYMPH % 15.6 % (24.0-44.0); MEAN CORPUSCULAR HEMOGLOBIN 27.1 pg (27.0-33.0); MEAN CORPUSCULAR HGB CONC 31.1 g/dl (32.0-36.5); MEAN CORPUSCULAR VOLUME 87.2 fl (80.0-96.0); MONO # 0.8 10^3/uL (0.0-0.8); MONO % 6.5 % (0.0-5.0); NEUTROPHILS # 9.5 10^3/uL (1.8-7.7); NEUTROPHILS % 74.4 % (36.0-66.0); PLATELET COUNT, AUTOMATED 324 10^3/uL (150-450); RED BLOOD COUNT 3.98 10^6/uL (4.00-5.40); WHITE BLOOD COUNT 12.7 10^3/uL (4.0-10.0)
[2018-05-16 12:17] LABS: ERYTHROCYTE SEDIMENTATION RATE 66 mm/hr (0-30)
[2018-05-16] MEDS ORDERED: CLEO300C2 PO (12:31)
[2018-05-16 12:36] VITALS: BP 136/64
== END 2018-05-16 12:44 | disposition home or self-care (01) ==
LOC: M ED 10:07 → EDBD 10:07 → M ED 12:44
DX: M19.021 Primary osteoarthritis, right elbow (principal); R22.31 Localized swelling, mass and lump, right upper limb; I10 Essential (primary) hypertension; F41.9 Anxiety disorder, unspecified; Z88.7 Allergy status to serum and vaccine; Z88.8 Allergy status to other drugs, medicaments and biological substances; Z88.0 Allergy status to penicillin; Z88.5 Allergy status to narcotic agent; Z79.01 Long term (current) use of anticoagulants; Z79.82 Long term (current) use of aspirin; Z79.899 Other long term (current) drug therapy; Z79.890 Hormone replacement therapy

== ENCOUNTER 2018-10-17 15:40 | Inpatient (IN) | payer MEDICARE, MEDICAID ==
[2018-10-17] VITALS (8 sets, daily range): BP systolic 134–150; BP diastolic 63–97; O2SAT 98–99
[~2018-10-17] VITALS: Ht 167.6 cm; Wt 114.8 kg
[~2018-10-17 15:40] MED LIST changes: -ATEN50TA2 PO; -C 50TAB PO; -CONRAY-43 43% 50ML VIAL (Q9960) As Ordered ONE; -D-101000 PO; -FARX1TAB3 PO; -LIDOCAINE 1% MDV 20ML VIAL As Ordered ONE; -LOSA25TA14 PO; -PANT500T PO; -SYNT100T PO; -TRIAMCINOLONE ACETONIDE SUSP 40 MG/ML VIAL (J3301) As Ordered ONE; -TRUL0.5I SC; -XARE15TA PO; -[UNRECOGNIZED DRUG - CODE] OU
[2018-10-17] MEDS ORDERED: GLIM2TAB PO (16:11)
[2018-10-17] MEDS ORDERED: FARX1TAB3 PO (16:11)
[2018-10-17 16:46] LABS: BASO # 0.1 10^3/uL (0.0-0.2); BASO % 0.4 % (0.0-1.0); EOS # 0.2 10^3/uL (0.0-0.5); EOS % 1.7 % (0.0-3.0); HEMATOCRIT 23.2 % (36.0-47.0); LYMPH # 1.4 10^3/uL (1.5-5.0); LYMPH % 10.4 % (24.0-44.0); MEAN CORPUSCULAR HEMOGLOBIN 24.7 pg (27.0-33.0); MEAN CORPUSCULAR HGB CONC 30.2 g/dl (32.0-36.5); MONO # 0.5 10^3/uL (0.0-0.8); MONO % 4.1 % (0.0-5.0); NEUTROPHILS # 10.9 10^3/uL (1.5-8.5); NEUTROPHILS % 82.2 % (36.0-66.0); PLATELET COUNT, AUTOMATED 327 10^3/uL (150-450); RED BLOOD COUNT 2.83 10^6/uL (4.00-5.40); WHITE BLOOD COUNT 13.3 10^3/uL (4.0-10.0)
[2018-10-17 17:19] LABS: CALCIUM LEVEL 8.8 MG/DL (8.8-10.2); CK-MB VALUE MASS 1.6 NG/ML (<3.6); CREATININE FOR GFR 1.24 MG/DL (0.55-1.30); GLOMERULAR FILTRATION RATE 44.5 (>39); MB/CK RELATIVE INDEX 3.9 (< OR =4); POTASSIUM SERUM 3.9 MEQ/L (3.5-5.1); TROPONIN I 0.08 NG/ML (< 0.10)
[2018-10-17 17:28] LABS: INR 2.67; PROTHROMBIN TIME 28.3 SECONDS (11.8-14.0)
[2018-10-17 17:29] LABS: PARTIAL THROMBOPLASTIN TIME 43.1 SECONDS (25.0-38.4)
--- NOTE | 2018-10-17 18:26 | REP ---
Portable chest x-ray: Single view. History: Dyspnea and cough. Comparison study: November 19, 2012. Findings: Lungs are symmetrically aerated. No infiltrate is seen. Pleural angles are sharp. The heart is mildly prominent unchanged. Pulmonary vasculature is somewhat cephalized. There are osteoarthritic changes in the shoulders. Impression: Mildly prominent heart. Vascular cephalization. Otherwise no acute disease. Electronically Signed by Trenton Carter MD 10/18/2018 07:51 A
[2018-10-17] MEDS ORDERED: PANTOPRAZOLE 40MG INJ (PROTONIX) (C9113) IV ONE (18:45)
[2018-10-17] MEDS ORDERED: MOM 30ML SUSPENSION UDC PO PRN (19:00)
[2018-10-17] MEDS ORDERED: MAALOX 30 ML SUSP *UDC PO PRN (19:00)
[2018-10-17] MEDS ORDERED: TRUL0.5I SC (19:30)
[2018-10-17] MEDS ORDERED: TRAD5TAB PO (19:30)
[2018-10-17] MEDS ORDERED: ATEN50TA2 PO (20:34)
[2018-10-17] MEDS ORDERED: LOSA25TA14 PO (20:34)
[2018-10-17] MEDS ORDERED: [UNRECOGNIZED DRUG - CODE] OU (20:34)
[2018-10-17] MEDS ORDERED: BYDU2INJ7 SC (20:34)
[2018-10-17] MEDS ORDERED: C 50TAB PO (20:34)
[2018-10-17] MEDS ORDERED: XARE15TA PO (20:34)
[2018-10-17] MEDS ORDERED: D-101000 PO (20:34)
[2018-10-17] MEDS ORDERED: SYNT100T PO (20:34)
[2018-10-17] MEDS ORDERED: PANT500T PO (20:34)
[2018-10-17] MEDS ORDERED: ATOR1TAB21 PO (20:35)
[2018-10-17] MEDS: DOCUSATE SODIUM 100 MG CAP PO SCH (22:09)
[2018-10-17] MEDS: HumaLOG INSULIN (NovoLOG) PER UNIT SC SCH (22:15)
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
[2018-10-17] MEDS ORDERED: SLF 3 ML SYR IV PRN (23:15)
[2018-10-18] VITALS (27 sets, daily range): BP systolic 122–166; BP diastolic 57–75; O2SAT 96–99
[2018-10-18] MEDS ORDERED: FUROSEMIDE 20 MG/2 ML VIAL (J1940) IV ONE ×2 (01:00→04:45)
[2018-10-18] MEDS ORDERED: NS 1,000 ML IV SCH (01:00)
[2018-10-18 02:23] LABS: APPEARANCE, URINE CLEAR (CLEAR); BACTERIA, URINE AUTO 1+ (NEGATIVE); BILIRUBIN, URINE AUTO NEGATIVE (NEGATIVE); BLOOD, URINE BLOOD NEGATIVE (NEGATIVE); COLOR, URINE YELLOW (YELLOW); GLUCOSE, URINE (UA) AUTO 3+ mg/dL (NEGATIVE); KETONE, URINE AUTO NEGATIVE (NEGATIVE); LEUKOCYTE ESTERASE, URINE AUTO NEGATIVE (NEGATIVE); MUCUS, URINE SMALL (NEGATIVE); NITRITE, URINE AUTO NEGATIVE (NEGATIVE); PROTEIN, URINE AUTO NEGATIVE (NEGATIVE); RBC, URINE AUTO 0 /HPF (0-3); SPECIFIC GRAVITY URINE AUTO 1.011 (1.002-1.035); SQUAMOUS EPITHELIAL CELL UR AU 0 /HPF (0-6); UROBILINOGEN, URINE AUTO 0.2 mg/dL (0.0-2.0); WBC, URINE AUTO 4 /HPF (0-3)
[2018-10-18 03:59] LABS: BASO % 0.1 % (0.0-1.0); HEMATOCRIT 27.4 % (36.0-47.0); HEMOGLOBIN 8.6 g/dl (12.0-15.5); LYMPH # 0.8 10^3/uL (1.5-5.0); LYMPH % 7.1 % (24.0-44.0); MEAN CORPUSCULAR HEMOGLOBIN 25.4 pg (27.0-33.0); MEAN CORPUSCULAR HGB CONC 31.4 g/dl (32.0-36.5); MEAN CORPUSCULAR VOLUME 81.1 fl (80.0-96.0); MONO # 0.2 10^3/uL (0.0-0.8); MONO % 2.1 % (0.0-5.0); NEUTROPHILS # 9.7 10^3/uL (1.5-8.5); NEUTROPHILS % 89.9 % (36.0-66.0); PLATELET COUNT, AUTOMATED 304 10^3/uL (150-450); RED BLOOD COUNT 3.38 10^6/uL (4.00-5.40); WHITE BLOOD COUNT 10.8 10^3/uL (4.0-10.0)
[2018-10-18 04:10] LABS: INR 1.54; PROTHROMBIN TIME 18.2 SECONDS (11.8-14.0)
[2018-10-18 04:16] LABS: HEMOGLOBIN A1c 6.7 %
[2018-10-18 04:30] LABS: ALBUMIN 2.9 GM/DL (3.2-5.2); BILIRUBIN,TOTAL 0.7 MG/DL (0.2-1.0); CALCIUM LEVEL 8.5 MG/DL (8.8-10.2); CREATININE FOR GFR 1.35 MG/DL (0.55-1.30); GLOMERULAR FILTRATION RATE 40.4 (>39); MAGNESIUM LEVEL 2.1 MG/DL (1.8-2.4); POTASSIUM SERUM 4.2 MEQ/L (3.5-5.1); TOTAL PROTEIN 6.6 GM/DL (6.4-8.2); TROPONIN I 0.15 NG/ML (< 0.10)
[2018-10-18] MEDS: SLF 3 ML SYR IV SCH ×3 (06:22→21:42)
[2018-10-18] MEDS: LEVOTHYROXINE 100MCG TABLET (0.1MG) PO SCH (06:22)
[2018-10-18] MEDS ORDERED: IPRATROPIUM 0.5MG/ALBUTEROL 2.5MG INH SOL UD 3ML (DUONEB)(J7620) NEB PRN (06:45)
--- NOTE | 2018-10-18 07:28 | ECGEPIP ---
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
[2018-10-18] MEDS: HumaLOG INSULIN (NovoLOG) PER UNIT SC SCH ×4 (07:52→21:00)
[2018-10-18 08:09] LABS: ABG BASE EXCESS -6.9 (-2.0-2.0); ABG HCO3 16.7 MEQ/L (22.0-26.0); ABG O2 SATURATION 97.5 % (95.0-99.0); ABG PARTIAL PRESSURE CO2 27.2 mmHg (35.0-45.0); ABG PARTIAL PRESSURE O2 156.2 mmHg (75.0-100.0); ABG STANDARD HCO3 18.8 MEQ/L (22.0-26.0); ABG TOTAL CO2 17.6 MEQ/L (23.0-31.0); ABG pH (ARTERIAL) 7.407 UNITS (7.350-7.450)
[2018-10-18] MEDS: SPIRONOLACTONE 12.5MG PER 1/2 TABLET PO SCH (08:29)
[2018-10-18] MEDS: GLIMEPIRIDE 2 MG TAB PO SCH (08:29)
[2018-10-18] MEDS: TORSEMIDE 20 MG TAB PO SCH ×2 (08:29→17:08)
[2018-10-18] MEDS: ATORVASTATIN 20 MG TAB PO SCH (08:30)
[2018-10-18] MEDS: ATENOLOL 50 MG TAB PO SCH (08:30)
[2018-10-18] MEDS: metFORMIN XR 500MG TAB *GLUCOPHAGE XR PO SCH ×2 (08:31→21:27)
[2018-10-18] MEDS: DOCUSATE SODIUM 100 MG CAP PO SCH ×2 (08:31→21:27)
--- NOTE | 2018-10-18 08:53 | ECGEPIP ---
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 Small inferior Q waves; could not rule out prior inferior injury. Diffuse ST/T-wave abnormalities No change from 10/17/18. Electronically Signed on 10-18-2018 8:52:58 EDT by Yuri Moreno
[2018-10-18] MEDS ORDERED: FUROSEMIDE 20 MG/2 ML VIAL (J1940) IV SCH (09:00)
[2018-10-18] MEDS: ACETAMINOPHEN TAB 650MG DOSE (2X325MG) PO PRN (13:48)
--- NOTE | 2018-10-18 15:36 | IPNPDOC ---
Text Note Date of Service The patient was seen on 10/18/18. NOTE SUBJECTIVE: This is a 78-year-old female who presented with complaints primarily of shortness of breath and dizziness. She has not had chest pain. She has been intolerant of activity. She has noted remarkable fatigue. Additionally, she is found to have anemia of unclear etiology. Patient has underlying history of atrial fibrillation for which she was usually on chronic anticoagulation with Xarelto. OBJECTIVE: HENT: Neck is supple, no adenopathy or thyromegaly, no remarkable conjunctival pallor Cardiovascular: Patient does have irregular rhythm and grade 2/6 systolic mu rmur. Respiratory: Clear to auscultation, good air movement. Abdomen: Soft, nontender, nondistended, notable central obesity. Bowel tones present. Extremities: Patient does have pitting edema to her feet and ankles and legs, pedal pulses are palpable Neuro: No focal neuromotor or sensory deficits, mobility is limited by fatigue and shortness of breath. Imaging: chest xray Impression: Mildly prominent heart. Vascular cephalization. Otherwise no acute disease. Electronically Signed by Trenton Carter MD 10/18/2018 07:51 A ASSESSMENT/PLAN: 1. Dyspnea. Patient does have cardiomegaly on her chest x-ray. She also had an elevated BNP. She is on a diuresis regimen but still has some peripheral edema.. Plans are to obtain an echocardiogram as we cannot locate any recent one. Concern is raised for some form of congestive heart failure; echocardiogram may help us to characterize this. 2. Chronic atrial fibrillation. The patient remains on atenolol for rate control. We are holding her Xarelto out of concern for GI blood loss. The patient otherwise has SCDs for DVT prophylaxis . 3. Anemia. This is of unclear etiology. We are suspecting GI blood loss. Patient's hemoglobin has improved from 7.0 - 8.6 after transfusion of 1 unit of packed red blood cells. We do not yet have results of stool guaiac. Patient's Xarelto has been held in the interim. 4. Elevated troponin. Troponin has increased to 0.28. May reflect demand ischemia. Following trend, patient remains asymptomatic. 5. Jud-ynnhphm-nongdgzxr diabetes mellitus. Patient has been continued on her usual regimen inclusive of metformin and Amaryl. She also has sliding scale insulin available. Blood sugars are currently ranging 241 - 358. A1c is 6.7. 6. Elevated lactic acid. Patient had lactic acid elevated to 3.5. There is no associated hypotension or tachycardia. There was some leukocytosis with white blood cell count of 13.3, that has resolved to 10.8. Lactic acid has come down to 2.4. There are otherwise no signs of sepsis. We will continue to follow. VS,Fishbone, I+O VS, Fishbone, I+O Laboratory Tests 10/17/18 16:34 Red Blood Count 2.83 L, Mean Corpuscular Volume 82.0, Mean Corpuscular Hemoglobin 24.7 L, Mean Corpuscular Hemoglobin Concent 30.2 L, Red Cell Distribution Width 18.4 H, Neutrophils (%) (Auto) 82.2 H, Lymphocytes (%) (Auto) 10.4 L, Monocytes (%) (Auto) 4.1, Eosinophils (%) (Auto) 1.7, Basophils (%) (Auto) 0.4, Neutrophils # (Auto) 10.9 H, Lymphocytes # (Auto) 1.4 L, Monocytes # (Auto) 0.5, Eosinophils # (Auto) 0.2, Basophils # (Auto) 0.1, Calcium Level 8.8, Total Creatine Kinase 41 10/18/18 03:49 Red Blood Count 3.38 L, Mean Corpuscular Volume 81.1, Mean Corpuscular Hemoglobin 25.4 L, Mean Corpuscular Hemoglobin Concent 31.4 L, Red Cell Distribution Width 17.8 H, Neutrophils (%) (Auto) 89.9 H, Lymphocytes (%) (Auto) 7.1 L, Monocytes (%) (Auto) 2.1, Eosinophils (%) (Auto) 0.0, Basophils (%) (Auto ) 0.1, Neutrophils # (Auto) 9.7 H, Lymphocytes # (Auto) 0.8 L, Monocytes # (Auto) 0.2, Eosinophils # (Auto) 0.0, Basophils # (Auto) 0.0, Calcium Level 8.5 L, Aspartate Amino Transf (AST/SGOT) 25, Alanine Aminotransferase (ALT/SGPT) 40, Alkaline Phosphatase 120 H, Total Bilirubin 0.7, Total Protein 6.6, Albumin 2.9 L Vital Signs Date Time Temp Pulse Resp B/P (MAP) Pulse Ox O2 Delivery O2 Flow Rate FiO2 9/12/19 13:00 98 Room Air 10/18/18 12:00 97.4 78 18 122/57 (78) I&O- Last 24 Hours up to 6 AM 10/18/18 06:00 Intake Total 1300 ml Output Total 1250 ml Balance 50 ml ELIZABET PATINO MD Oct 18, 2018 15:36
[2018-10-18] MEDS: LOSARTAN 25 MG TAB PO SCH (17:09)
--- NOTE | 2018-10-18 18:48 | ECHO ---
DATE OF PROCEDURE:10/18/2018 REFERRING PHYSICIAN: Dr. Munoz. INDICATIONS: Atrial fibrillation. Height: 168 cm Weight: 122 kg DIMENSIONS: IVS 1.2 LV 4.7 LVPW 1.2 Aorta 3.1 LA 4.6 IVC 2.9 FINDINGS: The study is of limited technical quality. It is corresponding to patient's body habitus and the fact that the study was performed only in sitting position. The patient is in atrial fibrillation with controlled rate. Left ventricle is normal size. Overall there is likely normal LV systolic function, I estimate EF around 60-65%. I cannot rule out segmental wall motion abnormalities but it seems unlikely. Right ventricle appears grossly normal size. There is severe biatrial enlargement. Aortic valve is heavily sclerotic, it was poorly visualized so I cannot comment much on its structure. There also very prominent degenerative abnormalities of mitral valve with thickening of mitral leaflets and calcifications at the mitral annulus. Tricuspid and pulmonic valves appear grossly normal. No pericardial effusion is noted. Inferior vena cava is dilated and there is fairly minimal collapse with respiration indicative of likely very high central venous pressure. Aortic root is normal. Aortic arch and abdominal aorta were not well seen. Doppler interrogation of aortic valve reveals mild insufficiency and mild stenosis. Mean gradient was less than 10 mmHg. There is mild mitral insufficiency and mild tricuspid insufficiency. Calculated pulmonary artery pressure is at the minimum in 40s which would correspond to moderate pulmonary hypertension. Evaluation of diastolic function is inconclusive due to underlying atrial fibrillation. CONCLUSIONS: 1. Study is of fair technical quality. 2. Normal LV size with mild LVH and normal LV systolic function. 3. Prominent aortic sclerosis with mild stenosis and mild insufficiency. 4. Degenerative abnormalities of mitral valve resulting in mild mitral insufficiency. 5. Very high central venous pressure. 6. At least moderate pulmonary hypertension. COMMENT: SBE prophylaxis is not recommended. The study is consistent with hypertensive heart disease and probably chronic atrial fibrillation based on severe biatrial enlargement. MTDD
[2018-10-19] VITALS (24 sets, daily range): BP systolic 102–148; BP diastolic 58–66; O2SAT 82–100
[2018-10-19] MEDS: ACETAMINOPHEN TAB 650MG DOSE (2X325MG) PO PRN (04:26)
[2018-10-19] MEDS: LEVOTHYROXINE 100MCG TABLET (0.1MG) PO SCH (04:26)
[2018-10-19 06:19] LABS: CALCIUM LEVEL 8.4 MG/DL (8.8-10.2); CREATININE FOR GFR 1.35 MG/DL (0.55-1.30); GLOMERULAR FILTRATION RATE 40.4 (>39); POTASSIUM SERUM 3.7 MEQ/L (3.5-5.1); TROPONIN I 0.15 NG/ML (< 0.10)
[2018-10-19] MEDS: SLF 3 ML SYR IV SCH ×3 (06:28→21:38)
[2018-10-19 06:35] LABS: HEMATOCRIT 25.8 % (36.0-47.0); MEAN CORPUSCULAR HEMOGLOBIN 24.8 pg (27.0-33.0); MEAN CORPUSCULAR VOLUME 80.1 fl (80.0-96.0); PLATELET COUNT, AUTOMATED 319 10^3/uL (150-450); RED BLOOD COUNT 3.22 10^6/uL (4.00-5.40); WHITE BLOOD COUNT 16.6 10^3/uL (4.0-10.0)
[2018-10-19] MEDS: HumaLOG INSULIN (NovoLOG) PER UNIT SC SCH ×4 (07:53→21:00)
[2018-10-19] MEDS: GLIMEPIRIDE 2 MG TAB PO SCH (07:54)
[2018-10-19] MEDS: TORSEMIDE 20 MG TAB PO SCH (08:15)
[2018-10-19] MEDS: ATENOLOL 50 MG TAB PO SCH (08:16)
[2018-10-19] MEDS: ATORVASTATIN 20 MG TAB PO SCH (08:16)
[2018-10-19] MEDS: metFORMIN XR 500MG TAB *GLUCOPHAGE XR PO SCH ×2 (08:16→21:38)
[2018-10-19] MEDS: SPIRONOLACTONE 12.5MG PER 1/2 TABLET PO SCH (08:16)
[2018-10-19] MEDS: DOCUSATE SODIUM 100 MG CAP PO SCH ×2 (08:16→21:37)
[2018-10-19] MEDS ORDERED: PREVNAR 13 VACCINE SYRINGE (CPT CODE:90670) IM ONE (09:00)
--- NOTE | 2018-10-19 09:42 | IPN ---
DATE OF SERVICE: 10/19/2018 SUBJECTIVE: Patient still complains of some shortness of breath. She has been net negative balance of -1.7 liters, feeling thirsty and requesting for some cold water with ice. Patient's weight is unchanged 123.3 kg with no weight loss over the past 2 days. No fever or chills overnight. OBJECTIVE: PHYSICAL EXAMINATION: Vitals: Temperature 98.4, pulse 67, respiratory 17, blood pressure 148/66, 99% on room air. Generally, patient is awake, alert, oriented to person and place, answering questions appropriately. No use of respiratory accessory muscles. Positive jugular venous distention. Lungs: Diminished, slight crackles at the bases. Heart: S1, S2, regularly irregular. Abdomen is soft, nontender, nondistended. Extremities: 2+ pitting edema. Chronic venous stasis changes. CURRENT MEDICATIONS: - Losartan 25 - atenolol 50 - Lipitor 20 - metformin 1 gram twice daily - spironolactone 12.5 daily - torsemide 40 mg twice daily - glimepiride 2 mg daily - Lispro sliding scale - DuoNebs 3 mL as needed - levothyroxine - saline flush - Colace - acetaminophen - mag oxide - Mylanta LABORATORY DATA: White count 16.6, hemoglobin 8, hematocrit 25.8, platelet count 319. Sodium 139, potassium 3.7, chloride 107, bicarbonate 24, BUN 53, creatinine 1.35, glucose 174, lactic acid 1.8, calcium of 8.4, troponin 0.15. Microbiology: Hemoccult stool positive. Chest x-ray 10/17: Vascular cephalization, no acute disease. Mild prominent heart. Echocardiogram read by Dr. Vergara: Ejection fraction of 60-65%. Cannot rule out segmental wall motion abnormalities but unlikely. Grossly normal RV. Normal LV size, systolic function. Prominent aortic sclerosis with mild stenosis. Very high central venous pressure. At least moderate pulmonary hypertension. ASSESSMENT AND PLAN: This is a 78-year-old female with past medical history significant for chronic atrial fibrillation, hypertensive heart disease, type 2 diabetes, chronic back pain, hypothyroidism and reflex, presented to the emergency room with diaphoresis, shortness of breath, weakness and dizziness who was felt to have severe anemia which was symptomatic and required 2 units of red blood cell transfusion, currently with heme positive stool. IMPRESSION: 1. Symptomatic anemia with shortness of breath, dizziness, palpitations with heme positive stool secondary to gastrointestinal bleed. Patient is agreeable to colonoscopy but will need to get her breathing improved prior to medical clearance to proceed with endoscopy. At this time, patient has been transfused 2 units of blood with improvement of hemoglobin from admission of 7 to 8.6 but currently at 8. She did receive some fluid hydration of 1.2 liters yesterday but remained net negative at -1740. She is continued on fluid restriction. 2. Fluid overload with vascular cephalization and positive lower extremity edema. Echo showed LV size and systolic function are normal with preserved ejection fraction, ejection fraction of 60-65%. She is currently on fluid restriction at 1.2 liters as well as net negative balance with torsemide which we will keep at this time. Continue on spironolactone. May need to reconsider discontinuing metformin if patient currently has persistent fluid overload. 3. Chronic venous insufficiency on torsemide. 4. Possible gastrointestinal bleed with heme positive stool and symptomatic anemia. Colonoscopy once the patient's breathing status is improved. 5. Acute kidney injury secondary to diuresis. Will monitor and renally dose all medications. 6. Chronic atrial fibrillation. Currently rate controlled on atenolol. On no anticoagulation due to heme positive stool and symptomatic anemia on workup for GI to be done once breathing is improved. 7. Dyslipidemia, continue on Lipitor. 8. Type 2 diabetes currently on metformin, glimepiride, sliding scale. Will need to discontinue if patient has persistent fluid overload with heart failure. 9. Hypothyroidism, continue on Synthroid. MTDD
[2018-10-19] MEDS: LOSARTAN 25 MG TAB PO SCH (18:07)
[2018-10-20] VITALS (13 sets, daily range): BP systolic 100–142; BP diastolic 51–63; O2SAT 90–98
[2018-10-20] MEDS: ACETAMINOPHEN TAB 650MG DOSE (2X325MG) PO PRN ×2 (00:15→20:53)
[2018-10-20] MEDS: SLF 3 ML SYR IV SCH ×3 (05:47→20:54)
[2018-10-20] MEDS: LEVOTHYROXINE 100MCG TABLET (0.1MG) PO SCH (05:47)
[2018-10-20] MEDS: ATORVASTATIN 20 MG TAB PO SCH (09:01)
[2018-10-20] MEDS: HumaLOG INSULIN (NovoLOG) PER UNIT SC SCH ×4 (09:01→21:00)
[2018-10-20] MEDS: DOCUSATE SODIUM 100 MG CAP PO SCH ×2 (09:01→20:53)
[2018-10-20] MEDS: metFORMIN XR 500MG TAB *GLUCOPHAGE XR PO SCH ×2 (09:02→20:54)
[2018-10-20] MEDS: SPIRONOLACTONE 12.5MG PER 1/2 TABLET PO SCH (09:02)
[2018-10-20] MEDS: GLIMEPIRIDE 2 MG TAB PO SCH (09:02)
[2018-10-20] MEDS: ATENOLOL 50 MG TAB PO SCH (09:02)
[2018-10-20 09:09] LABS: HEMATOCRIT 28.1 % (36.0-47.0); HEMOGLOBIN 8.6 g/dl (12.0-15.5); MEAN CORPUSCULAR HEMOGLOBIN 25.6 pg (27.0-33.0); MEAN CORPUSCULAR HGB CONC 30.6 g/dl (32.0-36.5); MEAN CORPUSCULAR VOLUME 83.6 fl (80.0-96.0); PLATELET COUNT, AUTOMATED 327 10^3/uL (150-450); RED BLOOD COUNT 3.36 10^6/uL (4.00-5.40); WHITE BLOOD COUNT 14.3 10^3/uL (4.0-10.0)
[2018-10-20 09:25] LABS: ALBUMIN 2.7 GM/DL (3.2-5.2); BILIRUBIN,TOTAL 0.5 MG/DL (0.2-1.0); CALCIUM LEVEL 8.5 MG/DL (8.8-10.2); CREATININE FOR GFR 1.27 MG/DL (0.55-1.30); GLOMERULAR FILTRATION RATE 43.3 (>39); POTASSIUM SERUM 3.7 MEQ/L (3.5-5.1); TOTAL PROTEIN 6.6 GM/DL (6.4-8.2)
[2018-10-20] MEDS: TORSEMIDE 20 MG TAB PO SCH ×2 (12:16→17:41)
[2018-10-20] MEDS: POTASSIUM CHLORIDE 10 MEQ SR TABLET PO SCH (12:17)
--- NOTE | 2018-10-20 15:08 | IPN ---
DATE: 10/20/2018 Kala is seen in the progressive care unit (PCU) while rounding for the hospitalists. She has symptomatic anemia from presumed slow gastrointestinal (GI) blood loss, as well as congestive heart failure with preserved ejection fraction. She was having a good gradual diuresis. She feels progressively less short of breath but still volume overloaded by exam. PHYSICAL EXAM: Blood pressure 142/63, pulse 76, oxygen saturation 98% on room air. Input/output: Negative 2600 over the last 2 days. General appearance: She is lying in a recliner, no distress. No jugular venous distention (JVD) present. Lungs have rales both bases. Heart: Regular rhythm. Abdomen: Soft, nontender. There is 1 to 2+ pitting edema bilaterally. LABORATORY: White count 14.3, hemoglobin 8.6, platelets 327. Sodium 138, potassium 3.7, BUN 54, creatinine 1.27. Blood sugars are less than 200. IMPRESSION: 1. Gastrointestinal bleed. Continue serial CBCs. Colonoscopy pending once her congestive heart failure (CHF) is compensated. 2. Congestive heart failure, preserved ejection fraction. She is having good diuresis, trying to get about a liter per day off. I am going to restart her torsemide 40 mg twice a day, which I think she needs to maintain this diuresis. Supplemental potassium has been ordered. 3. Diabetes. I recommend holding her glimepiride as it will make her prone to hypoglycemia. When she starts her colonoscopy prep, sliding scale insulin and metformin should be sufficient. 4. Chronic kidney disease. Her renal function is improving as she diureses. 5. Hypertensive heart disease. Blood pressure is well controlled on current regimen. 6. Hyperlipidemia. Continue current dose of atorvastatin.
[2018-10-20] MEDS: LOSARTAN 25 MG TAB PO SCH (17:41)
[2018-10-21] VITALS (16 sets, daily range): BP systolic 100–132; BP diastolic 48–65; O2SAT 94–100
[2018-10-21] MEDS: ACETAMINOPHEN TAB 650MG DOSE (2X325MG) PO PRN ×2 (01:58→08:04)
[2018-10-21] MEDS: LEVOTHYROXINE 100MCG TABLET (0.1MG) PO SCH (04:27)
[2018-10-21] MEDS: SLF 3 ML SYR IV SCH ×3 (04:27→21:05)
[2018-10-21 05:36] LABS: HEMATOCRIT 27.2 % (36.0-47.0); HEMOGLOBIN 8.3 g/dl (12.0-15.5); MEAN CORPUSCULAR HEMOGLOBIN 24.9 pg (27.0-33.0); MEAN CORPUSCULAR HGB CONC 30.5 g/dl (32.0-36.5); MEAN CORPUSCULAR VOLUME 81.7 fl (80.0-96.0); PLATELET COUNT, AUTOMATED 316 10^3/uL (150-450); RED BLOOD COUNT 3.33 10^6/uL (4.00-5.40); WHITE BLOOD COUNT 12.7 10^3/uL (4.0-10.0)
[2018-10-21 05:48] LABS: CALCIUM LEVEL 8.2 MG/DL (8.8-10.2); CREATININE FOR GFR 1.23 MG/DL (0.55-1.30); POTASSIUM SERUM 3.8 MEQ/L (3.5-5.1)
[2018-10-21] MEDS: GLIMEPIRIDE 2 MG TAB PO SCH (08:04)
[2018-10-21] MEDS: POTASSIUM CHLORIDE 10 MEQ SR TABLET PO SCH (08:05)
[2018-10-21] MEDS: ATORVASTATIN 20 MG TAB PO SCH (08:05)
[2018-10-21] MEDS: DOCUSATE SODIUM 100 MG CAP PO SCH ×2 (08:05→21:05)
[2018-10-21] MEDS: HumaLOG INSULIN (NovoLOG) PER UNIT SC SCH ×4 (08:05→21:00)
[2018-10-21] MEDS: metFORMIN XR 500MG TAB *GLUCOPHAGE XR PO SCH ×2 (08:05→21:04)
[2018-10-21] MEDS: SPIRONOLACTONE 12.5MG PER 1/2 TABLET PO SCH (08:05)
[2018-10-21] MEDS: TORSEMIDE 20 MG TAB PO SCH ×2 (08:05→17:13)
[2018-10-21] MEDS: ATENOLOL 50 MG TAB PO SCH (08:26)
[2018-10-21] MEDS: LOSARTAN 25 MG TAB PO SCH (17:12)
--- NOTE | 2018-10-21 17:32 | IPNPDOC ---
Text Note Date of Service The patient was seen on 10/21/18. NOTE The patient does not have any complaints of chest pain, shortness of breath or abdominal pain. She still has remarkable peripheral edema. Physical exam See vital signs below HENT: Neck is supple, no adenopathy or thyromegaly, no remarkable conjunctival pallor Cardiovascular: Patient does have irregular rhythm and grade 2/6 systolic murmur. Respiratory: Clear to auscultation, good air movement. Abdomen: Soft, nontender, nondistended, notable central obesity. Bowel tones present. Extremities: Patient does have pitting edema to her feet and ankles and legs, she has developed a shallow weeping ulcer to her right lower extremity, pedal pulses are palpable Neuro: No focal neuromotor or sensory deficits, mobility is limited by fatigue ASSESSMENT/PLAN: Anemia. The patient has confirmed guaiac positive stools. Hemoglobin is currently 8.6; patient received transfusion of 1 unit of packed red blood cells a couple of days ago. Patient is usually on Xarelto for anticoagulation; this has been held. Patient needs optimization of her underlying congestive heart failure prior to undergoing endoscopy. We will need to discuss with the GI service. Atrial fibrillation. The patient remains on atenolol for rate control. We are holding her Xarelto due to GI blood loss. The patient has SCDs for DVT prophylaxis. Acute diastolic Congestive heart failure. The patient does have at least diastolic congestive heart failure. She has moderate pulmonary hypertension with severe biatrial enlargement. Continues on her current diuresis regimen. Her overall respiratory status is stable. Tla-lxfwejb-iudgcuxam diabetes mellitus. Blood sugars range 149-192. Remains on metformin and sliding scale insulin. VS,Fishbone, I+O VS, Fishbone, I+O Laboratory Tests 10/21/18 05:04 Red Blood Count 3.33 L, Mean Corpuscular Volume 81.7, Mean Corpuscular Hemoglobin 24.9 L, Mean Corpuscular Hemoglobin Concent 30.5 L, Red Cell Distribution Width 18.3 H, Calcium Level 8.2 L Vital Signs Date Time Temp Pulse Resp B/P (MAP) Pulse Ox O2 Delivery O2 Flow Rate FiO2 10/21/18 17:12 126/60 10/21/18 16:00 97.9 79 18 98 10/21/18 08:00 Room Air I&O- Last 24 Hours up to 6 AM 10/21/18 06:00 Intake Total 1440 ml Output Total 3250 ml Balance -1810 ml ELIZABET PATINO MD Oct 21, 2018 17:32
[2018-10-22] VITALS (15 sets, daily range): BP systolic 101–131; BP diastolic 53–62; O2SAT 97–100
[2018-10-22] MEDS: ACETAMINOPHEN TAB 650MG DOSE (2X325MG) PO PRN ×2 (00:20→04:12)
[2018-10-22] MEDS: LEVOTHYROXINE 100MCG TABLET (0.1MG) PO SCH (05:38)
[2018-10-22] MEDS: SLF 3 ML SYR IV SCH ×3 (05:38→20:33)
[2018-10-22 06:26] LABS: HEMATOCRIT 28.1 % (36.0-47.0); HEMOGLOBIN 8.5 g/dl (12.0-15.5); MEAN CORPUSCULAR HEMOGLOBIN 25.1 pg (27.0-33.0); MEAN CORPUSCULAR HGB CONC 30.2 g/dl (32.0-36.5); MEAN CORPUSCULAR VOLUME 83.1 fl (80.0-96.0); PLATELET COUNT, AUTOMATED 316 10^3/uL (150-450); RED BLOOD COUNT 3.38 10^6/uL (4.00-5.40); WHITE BLOOD COUNT 13.8 10^3/uL (4.0-10.0)
[2018-10-22 06:48] LABS: CALCIUM LEVEL 8.7 MG/DL (8.8-10.2); CREATININE FOR GFR 1.03 MG/DL (0.55-1.30); GLOMERULAR FILTRATION RATE 55.2 (>39); POTASSIUM SERUM 3.7 MEQ/L (3.5-5.1)
[2018-10-22] MEDS: HumaLOG INSULIN (NovoLOG) PER UNIT SC SCH ×4 (07:48→20:32)
[2018-10-22] MEDS: DOCUSATE SODIUM 100 MG CAP PO SCH ×2 (09:00→20:39)
[2018-10-22] MEDS: POTASSIUM CHLORIDE 10 MEQ SR TABLET PO SCH (09:22)
[2018-10-22] MEDS: ATORVASTATIN 20 MG TAB PO SCH (09:22)
[2018-10-22] MEDS: SPIRONOLACTONE 12.5MG PER 1/2 TABLET PO SCH (09:22)
[2018-10-22] MEDS: GLIMEPIRIDE 2 MG TAB PO SCH (09:22)
[2018-10-22] MEDS: metFORMIN XR 500MG TAB *GLUCOPHAGE XR PO SCH ×2 (09:23→20:39)
[2018-10-22] MEDS: TORSEMIDE 20 MG TAB PO SCH ×2 (09:23→17:19)
[2018-10-22] MEDS: ATENOLOL 50 MG TAB PO SCH (12:42)
[2018-10-22] MEDS: LOSARTAN 25 MG TAB PO SCH (17:20)
--- NOTE | 2018-10-22 21:32 | IPNPDOC ---
Text Note Date of Service The patient was seen on 10/22/18. NOTE The patient does not have any complaints of chest pain, shortness of breath or abdominal pain. She still has remarkable peripheral edema. She exhibits remarkably poor mobility; she requires much assistance to get into a standing position with her walker and her gait is poor. Physical exam See vital signs below HENT: Neck is supple, no adenopathy or thyromegaly, no remarkable conjunctival pallor Cardiovascular: Patient does have irregular rhythm and grade 2/6 systolic murmur. Respiratory: Clear to auscultation, good air movement. Abdomen: Soft, nontender, nondistended, morbid central obesity. Bowel tones present. Extremities: Patient does have pitting edema to her feet and ankles and legs, she has developed a shallow weeping ulcer to her right lower extremity, pedal pulses are palpable Neuro: No focal neuromotor or sensory deficits, mobility is limited by fatigue ASSESSMENT/PLAN: Anemia. The patient has confirmed guaiac positive stools. Hemoglobin is currently 8.6; patient received transfusion of 1 unit of packed red blood cells a couple of days ago. Patient is usually on Xarelto for anticoagulation; this has been held. Patient needs optimization of her underlying congestive heart failure prior to undergoing endoscopy. Hemoglobin is 8.5 today. As she is remaining stable and has underlying medical conditions that pose risks she will need to be optimized before undergoing endoscopy. Would strongly suggest that this be an initial outpatient evaluation. Atrial fibrillation. The patient remains on atenolol for rate control. We are holding her Xarelto due to GI blood loss. The patient has SCDs for DVT prophylaxis. Acute diastolic Congestive heart failure. The patient does have at least diastolic congestive heart failure. She has moderate pulmonary hypertension with severe biatrial enlargement. Continues on her current diuresis regimen. Her overall respiratory status is stable. Fluid balance is a challenge given her underlying obesity. Vog-zrrwgny-unfoxzizx diabetes mellitus. Blood sugars range 149-192. Remains on metformin and sliding scale insulin. VS,Fishbone, I+O VS, Fishbone, I+O Laboratory Tests 10/22/18 05:55 Red Blood Count 3.38 L, Mean Corpuscular Volume 83.1, Mean Corpuscular Hemoglobin 25.1 L, Mean Corpuscular Hemoglobin Concent 30.2 L, Red Cell Distribution Width 18.1 H, Calcium Level 8.7 L Vital Signs Date Time Temp Pulse Resp B/P (MAP) Pulse Ox O2 Delivery O2 Flow Rate FiO2 10/22/18 20:00 97.3 73 18 129/62 (84) 98 10/22/18 13:00 Room Air I&O- Last 24 Hours up to 6 AM 10/22/18 06:00 Intake Total 1080 ml Output Total 3725 ml Balance -2645 ml ELIZABET PATINO MD Oct 22, 2018 21:32
[2018-10-23 04:00] VITALS: BP 142/72
[2018-10-23 05:40] LABS: HEMOGLOBIN 9.3 g/dl (12.0-15.5); MEAN CORPUSCULAR HEMOGLOBIN 24.2 pg (27.0-33.0); MEAN CORPUSCULAR VOLUME 80.7 fl (80.0-96.0); PLATELET COUNT, AUTOMATED 396 10^3/uL (150-450); RED BLOOD COUNT 3.84 10^6/uL (4.00-5.40); WHITE BLOOD COUNT 19.1 10^3/uL (4.0-10.0)
[2018-10-23] MEDS: ACETAMINOPHEN TAB 650MG DOSE (2X325MG) PO PRN ×3 (05:40→23:59)
[2018-10-23] MEDS: LEVOTHYROXINE 100MCG TABLET (0.1MG) PO SCH (05:40)
[2018-10-23] MEDS: SLF 3 ML SYR IV SCH ×3 (05:41→20:27)
[2018-10-23 06:02] LABS: CREATININE FOR GFR 1.04 MG/DL (0.55-1.30); GLOMERULAR FILTRATION RATE 54.6 (>39); POTASSIUM SERUM 4.1 MEQ/L (3.5-5.1)
[2018-10-23] MEDS: HumaLOG INSULIN (NovoLOG) PER UNIT SC SCH ×4 (07:27→20:27)
[2018-10-23 08:00] VITALS: BP 126/62
[2018-10-23] MEDS: GLIMEPIRIDE 2 MG TAB PO SCH (08:15)
[2018-10-23] MEDS: SPIRONOLACTONE 12.5MG PER 1/2 TABLET PO SCH (08:15)
[2018-10-23] MEDS: ATENOLOL 50 MG TAB PO SCH (08:15)
[2018-10-23] MEDS: POTASSIUM CHLORIDE 10 MEQ SR TABLET PO SCH (08:15)
[2018-10-23] MEDS: DOCUSATE SODIUM 100 MG CAP PO SCH ×2 (08:15→20:27)
[2018-10-23] MEDS: TORSEMIDE 20 MG TAB PO SCH ×2 (08:16→17:37)
[2018-10-23] MEDS: ATORVASTATIN 20 MG TAB PO SCH (08:16)
[2018-10-23] MEDS: metFORMIN XR 500MG TAB *GLUCOPHAGE XR PO SCH ×2 (08:16→20:27)
[2018-10-23 12:00] VITALS: BP 115/55
[2018-10-23 16:00] VITALS: BP 142/72
--- NOTE | 2018-10-23 16:32 | IPNPDOC ---
Subjective Date Seen The patient was seen on 10/23/18. Subjective Chief Complaint/HPI On room air in no distress. No active bleeding. has not required a transfusion since admission. hgb stable for past 3 days. She does not have acute diastolic CHF General: Reports: Normal Appetite; Denies: Chills, Night Sweats, Fatigue, Malaise Constitutional: Reports: Fatigue Eyes: Denies: Pain, Vision change ENT: Denies: Head Aches, Ear Pain, Dysphagia Skin: Denies: Rash, Lesions, Breakdown Pulmonary: Reports: Other Symptoms (no orthopnea) Cardiovascular: Reports: Edema (Chronic lymphedema); Denies: Chest Pain, Palpitations, Orthopnea, Paroxysmal Noc. Dyspnea, Lt Headedness Gastrointestinal: Denies: Nausea, Vomiting, Abdominal Pain, Diarrhea, Constipat ion Genitourinary: Denies: Dysuria, Frequency, Incontinence, Retention Hematologic: Denies: Bruising, Bleeding Excessively Musculoskeletal: Denies: Neck Pain, Back Pain, Joint Pain, Muscle Pain, Spasms Neurological: Denies: Weakness, Numbness, Change in speech, Confusion Objective Physical Examination General Exam: Positive: Alert, Cooperative Eye Exam: Positive: Conjunctiva & lids normal ENT Exam: Positive: Atraumatic, Pharynx Normal, Nares Patent Neck Exam: Positive: Supple, +2 carotid pulse wo bruit Chest Exam: Positive: Wheezing (Right apical lobe) Heart Exam: Positive: Irregular Rhythm, Normal S1, Normal S2 Telemetry: Positive: Atrial fibrillation Abdomen Exam: Positive: Normal bowel sounds, Soft Extremity Exam: Positive: Normal pulses, Swelling (2+ bilaterally) Skin Exam: Positive: Nl turgor and temperature, Breakdown (right foot and great toe-wound, kerlex dressing attached with 2x2 gauze. wound w/o erythema or pustular discharge) Neuro Exam: Positive: Normal Speech, Normal Tone, Cranial Nerves 3-12 NL Psych Exam: Positive: Mental status NL, Mood NL, Oriented x 3 Assessment /Plan Assessment # Acute on chronic blood loss Anemia. - The patient has confirmed guaiac positive stools. Hemoglobin is stable following tx prbcs for past 3 days. - consult GI for colonoscopy - continue to hold xarelto - can transfer to floor does not require PCU bed # Paroxysmal Atrial fibrillation. - The patient remains on atenolol for rate control. We are holding her Xarelto due to GI blood loss. The patient has SCDs for DVT prophylaxis. # Chronic diastolic Congestive heart failure. - patient does not have acute diastolic CHF, continue torsemide - She does not require a fluid restriction # Pkg-iodmjzb-elxsuphhk diabetes mellitus. - Blood sugars range 149-192. Remains on metformin and sliding scale insulin. Plan/VTE VTE Prophylaxis Ordered?: Yes VTE Exclusion Mechanical Proph: Miquel Lower Ex DVT VTE Exclusion Pharmacological: Active Bleeding (positive FOC) Plan/Urinary Catheter Urinary Catheter: Place Roberts Reason for insertion/continuin: Assist wound healing Plan IVF: Initiate (small amount due to high BNP and creatinine 1.3) Diet: Advance Activity: Bedrest Therapy: Wound Consult Medications: Bowel Regimen Respiratory: Pulse Ox on Room Air Diagnostics: Check Labs, Repeat Labs in AM, Xrays, Repeat EKG VS, I&O, 24H, Fishbone Vital Signs/I&O Vital Signs Date Time Temp Pulse Resp B/P (MAP) Pulse Ox O2 Delivery O2 Flow Rate FiO2 10/23/18 12:00 99.8 70 17 115/55 (75) 97 10/22/18 13:00 Room Air I&O- Last 24 Hours up to 6 AM 10/23/18 05:59 Intake Total 930 ml Output Total 1150 ml Balance -220 ml Laboratory Data 24H LABS Laboratory Tests 2 10/22/18 16:39: Bedside Glucose (Misc Panel) 116H 10/22/18 20:25: Bedside Glucose (Misc Panel) 161H 10/23/18 05:22: Nucleated Red Blood Cells % (auto) 0.1H, Anion Gap 7L, Glomerular Filtration Rate 54.6, Blood Urea Nitrogen 34H, Creatinine 1.04, Sodium Level 141, Potassium Level 4.1, Chloride Level 104, Carbon Dioxide Level 30, Calcium Level 9.0 10/23/18 11:27: Bedside Glucose (Misc Panel) 277H 10/23/18 16:09: Bedside Glucose (Misc Panel) 106 CBC/BMP Laboratory Tests 10/23/18 05:22 Red Blood Count 3.84 L, Mean Corpuscular Volume 80.7, Mean Corpuscular Hem oglobin 24.2 L, Mean Corpuscular Hemoglobin Concent 30.0 L, Red Cell Distribution Width 18.3 H, Calcium Level 9.0 Microbiology Microbiology 9/12/19 Stool Occult Blood (YURY) - Final, Complete GÉNESIS ARIAS MD Oct 23, 2018 16:32
[2018-10-23] MEDS: LOSARTAN 25 MG TAB PO SCH (17:37)
[2018-10-23 20:00] VITALS: BP 130/60
[2018-10-24 04:00] VITALS: BP 111/53
[2018-10-24 05:40] LABS: HEMATOCRIT 26.6 % (36.0-47.0); HEMOGLOBIN 8.2 g/dl (12.0-15.5); MEAN CORPUSCULAR HEMOGLOBIN 24.9 pg (27.0-33.0); MEAN CORPUSCULAR HGB CONC 30.8 g/dl (32.0-36.5); MEAN CORPUSCULAR VOLUME 80.9 fl (80.0-96.0); PLATELET COUNT, AUTOMATED 299 10^3/uL (150-450); RED BLOOD COUNT 3.29 10^6/uL (4.00-5.40); WHITE BLOOD COUNT 15.3 10^3/uL (4.0-10.0)
[2018-10-24] MEDS: SLF 3 ML SYR IV SCH ×3 (05:55→20:40)
[2018-10-24] MEDS: LEVOTHYROXINE 100MCG TABLET (0.1MG) PO SCH (05:55)
[2018-10-24 06:01] LABS: CALCIUM LEVEL 8.4 MG/DL (8.8-10.2); CREATININE FOR GFR 1.04 MG/DL (0.55-1.30); GLOMERULAR FILTRATION RATE 54.6 (>39); POTASSIUM SERUM 3.4 MEQ/L (3.5-5.1)
[2018-10-24 08:00] VITALS: BP 109/56
[2018-10-24] MEDS: TORSEMIDE 20 MG TAB PO SCH ×2 (08:11→17:18)
[2018-10-24] MEDS: GLIMEPIRIDE 2 MG TAB PO SCH (08:11)
[2018-10-24] MEDS: HumaLOG INSULIN (NovoLOG) PER UNIT SC SCH ×4 (08:11→20:35)
[2018-10-24] MEDS: POTASSIUM CHLORIDE 10 MEQ SR TABLET PO SCH (08:12)
[2018-10-24] MEDS: ATENOLOL 50 MG TAB PO SCH (08:12)
[2018-10-24] MEDS: ATORVASTATIN 20 MG TAB PO SCH (08:13)
[2018-10-24] MEDS: DOCUSATE SODIUM 100 MG CAP PO SCH ×2 (08:13→20:39)
[2018-10-24] MEDS: SPIRONOLACTONE 12.5MG PER 1/2 TABLET PO SCH (08:13)
[2018-10-24] MEDS: metFORMIN XR 500MG TAB *GLUCOPHAGE XR PO SCH ×2 (08:13→20:39)
[2018-10-24 12:00] VITALS: BP 129/60
[2018-10-24] MEDS ORDERED: POTASSIUM CHLORIDE 10 MEQ SR TABLET PO ONE (12:00)
--- NOTE | 2018-10-24 13:13 | IPNPDOC ---
Subjective Date Seen The patient was seen on 10/24/18. Subjective Chief Complaint/HPI c/o right foot sole pain. No trauma overnight. Objective Physical Examination General Exam: Positive: Alert, Cooperative, No Acute Distress Eye Exam: Positive: PERRLA, Conjunctiva & lids normal, EOMI ENT Exam: Positive: Atraumatic, Mucous membr. moist/pink, Pharynx Normal Neck Exam: Positive: Supple; Negative: JVD, thyromegaly Chest Exam: Positive: Wheezing (Right apical lobe) Heart Exam: Positive: Irregular Rhythm, Normal S1, Normal S2 Telemetry: Positive: Atrial fibrillation Abdomen Exam: Positive: Normal bowel sounds, Soft Extremity Exam: Positive: Normal pulses, Swelling (2+ bilaterally), Other (right foot w/o signs of trauma or hematoma. ) Skin Exam: Positive: Nl turgor and temperature, Breakdown (right foot and great toe-wound, kerlex dressing attached with 2x2 gauze. wound w/o erythema or pustular discharge) Neuro Exam: Positive: Normal Speech, Normal Tone, Cranial Nerves 3-12 NL Psych Exam: Positive: Mental status NL, Mood NL, Oriented x 3 Assessment /Plan Assessment # Acute on chronic blood loss Anemia. - The patient has confirmed guaiac positive stools. Hemoglobin remains relatively stable no need for tx at this time. - colonoscopy on 10/26 - continue to hold xarelto # Paroxysmal Atrial fibrillation. - The patient remains on atenolol for rate control. We are holding her Xarelto due to GI blood loss. The patient has SCDs for DVT prophylaxis. # Chronic diastolic Congestive heart failure. - patient does not have acute diastolic CHF, continue torsemide - She does not require a fluid restriction # Jwl-wanvakm-gduiqqhyo diabetes mellitus. - Blood sugars range 149-192. Remains on metformin and sliding scale insulin. # Hypokalemia - continue daily supplementation - K dur 20 mEQ x 1 Plan/VTE VTE Prophylaxis Ordered?: Yes VTE Exclusion Mechanical Proph: Miquel Lower Ex DVT VTE Exclusion Pharmacological: Active Bleeding (positive FOC) VS, I&O, 24H, Fishbone Vital Signs/I&O Vital Signs Date Time Temp Pulse Resp B/P (MAP) Pulse Ox O2 Delivery O2 Flow Rate FiO2 10/24/18 12:00 97.1 76 20 129/60 (83) 99 10/22/18 13:00 Room Air I&O- Last 24 Hours up to 6 AM 10/24/18 06:00 Intake Total 2340 ml Output Total 2150 ml Balance 190 ml Laboratory Data 24H LABS Laboratory Tests 2 10/23/18 16:09: Bedside Glucose (Misc Panel) 106 10/23/18 20:01: Bedside Glucose (Misc Panel) 263H 10/24/18 05:09: Nucleated Red Blood Cells % (auto) 0.0, Anion Gap 8, Glomerular Filtration Rate 54.6, Blood Urea Nitrogen 36H, Creatinine 1.04, Sodium Level 137, Potassium Level 3.4L, Chloride Level 101, Carbon Dioxide Level 28, Calcium Level 8.4L 10/24/18 11:32: Bedside Glucose (Misc Panel) 264H CBC/BMP Laboratory Tests 10/24/18 05:09 Red Blood Count 3.29 L, Mean Corpuscular Volume 80.9, Mean Corpuscular Hemoglobin 24.9 L, Mean Corpuscular Hemoglobin Concent 30.8 L, Red Cell Distribution Width 18.2 H, Calcium Level 8.4 L Microbiology Microbiology 10/18/18 Stool Occult Blood (YURY) - Final, Complete GÉNESIS ARIAS MD Oct 24, 2018 13:13
[2018-10-24] MEDS ORDERED: traMADol 50 MG TAB PO ONE (14:00)
[2018-10-24 16:00] VITALS: BP 103/52
[2018-10-24] MEDS: LOSARTAN 25 MG TAB PO SCH (17:18)
[2018-10-24 20:00] VITALS: BP 113/55
[2018-10-25] MEDS: ACETAMINOPHEN TAB 650MG DOSE (2X325MG) PO PRN (02:50)
[2018-10-25 04:00] VITALS: BP 108/54
[2018-10-25] MEDS: LEVOTHYROXINE 100MCG TABLET (0.1MG) PO SCH (05:32)
[2018-10-25] MEDS: SLF 3 ML SYR IV SCH ×3 (05:33→22:34)
[2018-10-25] MEDS ORDERED: traMADol 50 MG TAB PO ONE (06:00)
[2018-10-25 06:07] LABS: HEMATOCRIT 27.2 % (36.0-47.0); HEMOGLOBIN 8.4 g/dl (12.0-15.5); MEAN CORPUSCULAR HEMOGLOBIN 25.1 pg (27.0-33.0); MEAN CORPUSCULAR HGB CONC 30.9 g/dl (32.0-36.5); MEAN CORPUSCULAR VOLUME 81.4 fl (80.0-96.0); PLATELET COUNT, AUTOMATED 296 10^3/uL (150-450); RED BLOOD COUNT 3.34 10^6/uL (4.00-5.40); WHITE BLOOD COUNT 15.8 10^3/uL (4.0-10.0)
[2018-10-25 06:35] LABS: CALCIUM LEVEL 8.4 MG/DL (8.8-10.2); CREATININE FOR GFR 1.17 MG/DL (0.55-1.30); GLOMERULAR FILTRATION RATE 47.6 (>39); POTASSIUM SERUM 3.7 MEQ/L (3.5-5.1)
[2018-10-25] MEDS ORDERED: GOLYTELY SOLN 4000 ML BTL PO ONE ×2 (07:00→18:00)
[2018-10-25 07:23] VITALS: BP 93/50
[2018-10-25] MEDS: metFORMIN XR 500MG TAB *GLUCOPHAGE XR PO SCH ×2 (08:28→22:34)
[2018-10-25] MEDS: TORSEMIDE 20 MG TAB PO SCH ×2 (08:29→17:42)
[2018-10-25] MEDS: GLIMEPIRIDE 2 MG TAB PO SCH (08:29)
[2018-10-25] MEDS: SPIRONOLACTONE 12.5MG PER 1/2 TABLET PO SCH (08:30)
[2018-10-25] MEDS: DOCUSATE SODIUM 100 MG CAP PO SCH ×2 (08:30→21:00)
[2018-10-25] MEDS: POTASSIUM CHLORIDE 10 MEQ SR TABLET PO SCH (08:30)
[2018-10-25] MEDS: ATORVASTATIN 20 MG TAB PO SCH (08:30)
[2018-10-25] MEDS: ATENOLOL 50 MG TAB PO SCH (08:34)
[2018-10-25] MEDS: HumaLOG INSULIN (NovoLOG) PER UNIT SC SCH ×4 (08:35→22:35)
[2018-10-25 13:10] VITALS: BP 145/74
[2018-10-25 14:00] VITALS: BP 107/51
--- NOTE | 2018-10-25 14:33 | IPNPDOC ---
Subjective Date Seen The patient was seen on 10/25/18. Subjective Chief Complaint/HPI c/o left heel pain this morning, Right sole pain improved with tramadol. No other issues. Objective Physical Examination General Exam: Positive: Alert, Cooperative, No Acute Distress Eye Exam: Positive: PERRLA, Conjunctiva & lids normal, EOMI ENT Exam: Positive: Atraumatic, Mucous membr. moist/pink, Pharynx Normal Neck Exam: Positive: Supple; Negative: JVD, thyromegaly Chest Exam: Positive: Wheezing (Right apical lobe) Heart Exam: Positive: Irregular Rhythm, Normal S1, Normal S2 Telemetry: Positive: Atrial fibrillation Abdomen Exam: Positive: Normal bowel sounds, Soft Extremity Exam: Positive: Normal pulses, Swelling (2+ bilaterally), Other (left foot w/o signs of trauma or hematoma. point tenderness with palpation at left heel) Skin Exam: Positive: Nl turgor and temperature, Breakdown (right foot and great toe-wound, kerlex dressing attached with 2x2 gauze. wound w/o erythema or pus tular discharge) Neuro Exam: Positive: Normal Speech, Normal Tone, Cranial Nerves 3-12 NL Psych Exam: Positive: Mental status NL, Mood NL, Oriented x 3 Assessment /Plan Assessment # Acute on chronic blood loss Anemia. - The patient has confirmed guaiac positive stools. Hemoglobin remains relatively stable no need for tx at this time. - colonoscopy on 10/26, bowel prep tonight - continue to hold xarelto # Paroxysmal Atrial fibrillation. - The patient remains on atenolol for rate control. We are holding her Xarelto due to GI blood loss. The patient has SCDs for DVT prophylaxis. # Chronic diastolic Congestive heart failure. - patient does not have acute diastolic CHF, continue torsemide - She does not require a fluid restriction # Tkz-bfbvpqf-uowbdymzc diabetes mellitus. - Blood sugars range 149-192. Remains on metformin and sliding scale insulin. # Hypokalemia - K 3.7 following supplementation # B/l heel pain likely mild plantar fasciitis - tramadol prn pain Plan/VTE VTE Prophylaxis Ordered?: Yes VTE Exclusion Mechanical Proph: Miquel Lower Ex DVT VTE Exclusion Pharmacological: Active Bleeding (positive FOC) VS, I&O, 24H, Fishbone Vital Signs/I&O Vital Signs Date Time Temp Pulse Resp B/P (MAP) Pulse Ox O2 Delivery O2 Flow Rate FiO2 10/25/18 08:34 84 136/64 10/25/18 07:23 97.9 20 95 10/22/18 13:00 Room Air I&O- Last 24 Hours up to 6 AM 10/25/18 06:00 Intake Total 900 ml Output Total 2200 ml Balance -1300 ml Laboratory Data 24H LABS Laboratory Tests 2 10/24/18 17:07: Bedside Glucose (Misc Panel) 215H 10/24/18 20:32: Bedside Glucose (Misc Panel) 178H 10/25/18 05:42: Nucleated Red Blood Cells % (auto) 0.0, Anion Gap 8, Glomerular Filtration Rate 47.6, Blood Urea Nitrogen 42H, Creatinine 1.17, Sodium Level 134L, Potassium Level 3.7, Chloride Level 99, Carbon Dioxide Level 27, Calcium Level 8.4L 10/25/18 12:00: Bedside Glucose (Misc Panel) 152H CBC/BMP Laboratory Tests 10/25/18 05:42 Red Blood Count 3.34 L, Mean Corpuscular Volume 81.4, Mean Corpuscular Hemog lobin 25.1 L, Mean Corpuscular Hemoglobin Concent 30.9 L, Red Cell Distribution Width 18.0 H, Calcium Level 8.4 L Microbiology Microbiology 10/18/18 Stool Occult Blood (YURY) - Final, Complete GÉNESIS ARIAS MD Oct 25, 2018 14:33
[2018-10-25] MEDS: LOSARTAN 25 MG TAB PO SCH (17:42)
[2018-10-25 22:00] VITALS: BP 150/82
[2018-10-25] MEDS: traMADol 50 MG TAB PO PRN (22:43)
[2018-10-26] MEDS: SLF 3 ML SYR IV SCH ×3 (05:59→22:00)
[2018-10-26] MEDS: LEVOTHYROXINE 100MCG TABLET (0.1MG) PO SCH (05:59)
[2018-10-26 06:00] VITALS: BP 130/74
[2018-10-26 06:16] LABS: HEMATOCRIT 30.4 % (36.0-47.0); HEMOGLOBIN 9.2 g/dl (12.0-15.5); MEAN CORPUSCULAR HEMOGLOBIN 24.7 pg (27.0-33.0); MEAN CORPUSCULAR HGB CONC 30.3 g/dl (32.0-36.5); MEAN CORPUSCULAR VOLUME 81.7 fl (80.0-96.0); PLATELET COUNT, AUTOMATED 390 10^3/uL (150-450); RED BLOOD COUNT 3.72 10^6/uL (4.00-5.40); WHITE BLOOD COUNT 20.1 10^3/uL (4.0-10.0)
[2018-10-26 06:32] LABS: CALCIUM LEVEL 8.7 MG/DL (8.8-10.2); CREATININE FOR GFR 1.04 MG/DL (0.55-1.30); GLOMERULAR FILTRATION RATE 54.6 (>39); POTASSIUM SERUM 3.4 MEQ/L (3.5-5.1)
[2018-10-26] MEDS: ATENOLOL 50 MG TAB PO SCH (08:04)
[2018-10-26] MEDS: ATORVASTATIN 20 MG TAB PO SCH (08:05)
[2018-10-26] MEDS: metFORMIN XR 500MG TAB *GLUCOPHAGE XR PO SCH (08:05)
[2018-10-26] MEDS: POTASSIUM CHLORIDE 10 MEQ SR TABLET PO SCH (08:05)
[2018-10-26] MEDS: GLIMEPIRIDE 2 MG TAB PO SCH (08:06)
[2018-10-26] MEDS: HumaLOG INSULIN (NovoLOG) PER UNIT SC SCH ×4 (08:07→21:00)
[2018-10-26] MEDS: DOCUSATE SODIUM 100 MG CAP PO SCH ×2 (08:07→21:00)
[2018-10-26] MEDS: ACETAMINOPHEN TAB 650MG DOSE (2X325MG) PO PRN (08:18)
[2018-10-26] MEDS: TORSEMIDE 20 MG TAB PO SCH ×2 (09:48→17:38)
[2018-10-26] MEDS: SPIRONOLACTONE 12.5MG PER 1/2 TABLET PO SCH (09:48)
[2018-10-26 14:00] VITALS: BP 126/64
[2018-10-26] MEDS ORDERED: PROPOFOL 200 MG/20 ML VIAL As Ordered ONE (15:08)
[2018-10-26] MEDS ORDERED: LIDOCAINE 2% INJ 100 MG/5 ML SDV (FOR ANES.) As Ordered ONE (15:08)
[2018-10-26] MEDS ORDERED: PHENYLephrine HCL 500 MCG/5 ML (100MCG/ML) SYRINGE (J2370) As Ordered ONE (15:21)
--- NOTE | 2018-10-26 15:29 | ROOR ---
Patient Name: Kala Melendez Procedure Date: 10/26/2018 3:07 PM Date of : 1940 Age: 78 Room: [facility] Gender: Female Note Status: Finalized Procedure: Upper Endoscopy + Biopsies Indications: Iron deficiency anemia Providers: Refugio Joseph MD Referring MD: Caterina Lugo DO Requesting Provider: Medicines: Monitored Anesthesia Care Complications: No immediate complications. Procedure: Pre-Anesthesia Assessment: - The heart rate, respiratory rate, oxygen saturations, blood pressure, adequacy of pulmonary ventilation, and response to care were monitored throughout the procedure. The Endoscope was introduced through the mouth, and advanced to the second part of duodenum. The upper GI endoscopy was accomplished without difficulty. The patient tolerated the procedure well. Findings: The Z-line was irregular and was found 40 cm from the incisors. Diffuse mild inflammation characterized by congestion (edema), erosions, erythema and friability was found on the greater curvature of the stomach. Biopsies were taken with a cold forceps for histology. The exam of the duodenum was otherwise normal. Biopsies for histology were taken with a cold forceps in the first portion of the duodenum for evaluation of celiac disease. The exam was otherwise without abnormality. Impression: - Z-line irregular, 40 cm from the incisors. - Mucosal changes suspicious for gastritis. Biopsied. - The examination was otherwise normal. - Biopsies were taken with a cold forceps for evaluation of celiac disease. - The examination was otherwise normal. Recommendation: - Patient has a contact number available for emergencies. The signs and symptoms of potential delayed complications were discussed with the patient. Return to normal activities tomorrow. Written discharge instructions were provided to the patient. - Resume previous diet. - Return patient to hospital [facility] for ongoing care. - The findings and recommendations were discussed with the patient. Refugio Joseph MD Refugio Joseph MD 10/26/2018 3:28:58 PM Electronically signed by Refugio Joseph MD Number of Addenda: 0 Note Initiated On: 10/26/2018 3:07 PM Estimated Blood Loss: Estimated blood loss: none.
--- NOTE | 2018-10-26 15:48 | IPNPDOC ---
Subjective Date Seen The patient was seen on 10/26/18. Subjective Chief Complaint/HPI Resting in bed, was on the toilet for 6 hours last night with bowel prep. Objective Physical Examination General Exam: Positive: Alert, Cooperative, No Acute Distress Eye Exam: Positive: PERRLA, Conjunctiva & lids normal, EOMI ENT Exam: Positive: Atraumatic, Mucous membr. moist/pink, Pharynx Normal Neck Exam: Positive: Supple; Negative: JVD, thyromegaly Chest Exam: Positive: Clear to auscultation, Normal air movement Heart Exam: Positive: Irregular Rhythm, Normal S1, Normal S2 Abdomen Exam: Positive: Normal bowel sounds, Soft Extremity Exam: Positive: Normal pulses, Swelling (2+ bilaterally), Other (left foot w/o signs of trauma or hematoma. point tenderness with palpation at left heel) Skin Exam: Positive: Nl turgor and temperature, Breakdown (right foot and great toe-wound, kerlex dressing attached with 2x2 gauze. wound w/o erythema or pustular discharge) Neuro Exam: Positive: Normal Speech, Normal Tone, Cranial Nerves 3-12 NL Psych Exam: Positive: Mental status NL, Oriented x 3 Assessment /Plan Assessment # Acute on chronic blood loss Anemia. - The patient has confirmed guaiac positive stools. Hemoglobin remains relatively stable no need for tx at this time. - colonoscopy/EGD today - continue to hold xarelto # Paroxysmal Atrial fibrillation. - The patient remains on atenolol for rate control. We are holding her Xarelto due to GI blood loss. The patient has SCDs for DVT prophylaxis. # Chronic diastolic Congestive heart failure. - patient does not have acute diastolic CHF, continue torsemide - She does not require a fluid restriction # Pil-bvpmxpe-nfuztmgye diabetes mellitus. - continue metformin and sliding scale insulin. # Hypokalemia - increase to Kdur to bid with recent bowel prep # B/l heel pain likely mild plantar fasciitis - tramadol prn pain Plan/VTE VTE Prophylaxis Ordered?: Yes VTE Exclusion Mechanical Proph: Miquel Lower Ex DVT VTE Exclusion Pharmacological: Active Bleeding (positive FOC) VS, I&O, 24H, Fishbone Vital Signs/I&O Vital Signs Date Time Temp Pulse Resp B/P (MAP) Pulse Ox O2 Delivery O2 Flow Rate FiO2 10/26/18 14:00 99.1 80 17 126/64 (84) 99 10/22/18 13:00 Room Air I&O- Last 24 Hours up to 6 AM 10/26/18 06:00 Intake Total 4850 ml Output Total 701 ml Balance 4149 ml Laboratory Data 24H LABS Laboratory Tests 2 10/25/18 17:26: Bedside Glucose (Misc Panel) 159H 10/25/18 20:54: Bedside Glucose (Misc Panel) 306H 10/25/18 22:31: Bedside Glucose (Misc Panel) 389H 10/26/18 05:33: Nucleated Red Blood Cells % (auto) 0.0, Anion Gap 10, Glomerular Filtration Rate 54.6, Blood Urea Nitrogen 27H, Creatinine 1.04, Sodium Level 138, Potassium Level 3.4L, Chloride Level 99, Carbon Dioxide Level 29, Calcium Level 8.7L 10/26/18 11:36: Bedside Glucose (Misc Panel) 99 CBC/BMP Laboratory Tests 10/26/18 05:33 Red Blood Count 3.72 L, Mean Corpuscular Volume 81.7, Mean Corpuscular Hemoglobin 24.7 L, Mean Corpuscular Hemoglobin Concent 30.3 L, Red Cell Distribution Width 18.5 H, Calcium Level 8.7 L Microbiology Microbiology 10/18/18 Stool Occult Blood (YURY) - Final, Complete GÉNESIS ARIAS MD Oct 26, 2018 15:48
--- NOTE | 2018-10-26 15:58 | ROOR ---
Patient Name: Kala Melendez Procedure Date: 10/26/2018 3:07 PM Date of : 1940 Age: 78 Room: [facility] Gender: Female Note Status: Finalized Procedure: Total Colonoscopy to Cecum Indications: Iron deficiency anemia Providers: Refugio Joseph MD Referring MD: Caterina Lugo DO Requesting Provider: Medicines: Monitored Anesthesia Care Complications: No immediate complications. Procedure: Pre-Anesthesia Assessment: - The heart rate, respiratory rate, oxygen saturations, blood pressure, adequacy of pulmonary ventilation, and response to care were monitored throughout the procedure. The Colonoscope was introduced through the anus and advanced to the cecum, identified by appendiceal orifice and ileocecal valve. The colonoscopy was performed without difficulty. The patient tolerated the procedure well. The quality of the bowel preparation was good. Findings: The perianal and digital rectal examinations were normal. Non-bleeding internal hemorrhoids were found during retroflexion. The hemorrhoids were small and Grade I (internal hemorrhoids that do not prolapse). Multiple small and large-mouthed diverticula were found in the recto-sigmoid colon, sigmoid colon and descending colon. The exam was otherwise without abnormality on direct and retroflexion views. Impression: - Non-bleeding internal hemorrhoids. - Diverticulosis in the recto-sigmoid colon, in the sigmoid colon and in the descending colon. - The examination was otherwise normal on direct and retroflexion views. - No specimens collected. - The exam was otherwise normal to the cecum. Recommendation: - Patient has a contact number available for emergencies. The signs and symptoms of potential delayed complications were discussed with the patient. Return to normal activities tomorrow. Written discharge instructions were provided to the patient. - High fiber diet. - Discharge patient to home. - Continue present medications. - Return to referring physician. - The findings and recommendations were discussed with the patient. Refugio Joseph MD Refugio Joseph MD 10/26/2018 3:58:16 PM Electronically signed by Refugio Joseph MD Number of Addenda: 0 Note Initiated On: 10/26/2018 3:07 PM Estimated Blood Loss: Estimated blood loss: none.
[2018-10-26 17:10] VITALS: BP 126/63
[2018-10-26] MEDS: LOSARTAN 25 MG TAB PO SCH (17:39)
[2018-10-26] MEDS: traMADol 50 MG TAB PO PRN (18:41)
[2018-10-26 22:00] VITALS: BP 118/65
[2018-10-27] MEDS: POTASSIUM CHLORIDE 10 MEQ SR TABLET PO SCH ×3 (01:12→20:45)
[2018-10-27] MEDS: metFORMIN XR 500MG TAB *GLUCOPHAGE XR PO SCH ×3 (01:12→20:45)
[2018-10-27] MEDS: LEVOTHYROXINE 100MCG TABLET (0.1MG) PO SCH (05:49)
[2018-10-27] MEDS: traMADol 50 MG TAB PO PRN (05:49)
[2018-10-27] MEDS: SLF 3 ML SYR IV SCH ×3 (05:49→20:46)
[2018-10-27 06:00] VITALS: BP 132/70
[2018-10-27 06:20] LABS: HEMOGLOBIN 8.2 g/dl (12.0-15.5); MEAN CORPUSCULAR HEMOGLOBIN 24.6 pg (27.0-33.0); MEAN CORPUSCULAR HGB CONC 30.4 g/dl (32.0-36.5); MEAN CORPUSCULAR VOLUME 81.1 fl (80.0-96.0); PLATELET COUNT, AUTOMATED 272 10^3/uL (150-450); RED BLOOD COUNT 3.33 10^6/uL (4.00-5.40); WHITE BLOOD COUNT 12.7 10^3/uL (4.0-10.0)
[2018-10-27 06:44] LABS: BLOOD UREA NITROGEN 22 MG/DL (7-18); CALCIUM LEVEL 8.4 MG/DL (8.8-10.2); CARBON DIOXIDE LEVEL 29 MEQ/L (21-32); CHLORIDE LEVEL 99 MEQ/L (98-107); CREATININE FOR GFR 0.92 MG/DL (0.55-1.30); GLOMERULAR FILTRATION RATE > 60.0 (>39); GLUCOSE, FASTING 132 MG/DL (70-100); POTASSIUM SERUM 3.6 MEQ/L (3.5-5.1); SODIUM LEVEL 135 MEQ/L (136-145)
[2018-10-27] MEDS: ATENOLOL 50 MG TAB PO SCH (09:00)
[2018-10-27] MEDS: DOCUSATE SODIUM 100 MG CAP PO SCH ×2 (09:00→20:45)
[2018-10-27] MEDS: SPIRONOLACTONE 12.5MG PER 1/2 TABLET PO SCH (09:00)
[2018-10-27] MEDS: TORSEMIDE 20 MG TAB PO SCH ×2 (09:00→17:00)
[2018-10-27] MEDS: GLIMEPIRIDE 2 MG TAB PO SCH (09:48)
[2018-10-27] MEDS: ATORVASTATIN 20 MG TAB PO SCH (09:48)
[2018-10-27] MEDS: HumaLOG INSULIN (NovoLOG) PER UNIT SC SCH ×4 (09:49→20:47)
[2018-10-27 14:00] VITALS: BP 112/86
--- NOTE | 2018-10-27 14:23 | IPNPDOC ---
Subjective Date Seen The patient was seen on 10/27/18. Subjective Chief Complaint/HPI Doing fine this morning, her feet her less. No bleeding following EGD w/ biopsy or colonscopy. No abd pain. c/o LUE arm pain w/o swelling, I told her it's likely from positioning during scope. Pulmonary: Denies: Other Symptoms Objective Physical Examination General Exam: Positive: Alert, Cooperative, No Acute Distress Eye Exam: Positive: PERRLA, EOMI ENT Exam: Positive: Atraumatic, Mucous membr. moist/pink, Pharynx Normal Neck Exam: Positive: Supple; Negative: JVD, thyromegaly Chest Exam: Positive: Clear to auscultation, Normal air movement Heart Exam: Positive: Irregular Rhythm, Normal S1, Normal S2 Abdomen Exam: Positive: Normal bowel sounds, Soft; Negative: Tenderness Extremity Exam: Positive: Normal pulses, Swelling (2+ bilaterally), Other (left foot w/o signs of trauma or hematoma. point tenderness with palpation at left heel) Skin Exam: Positive: Nl turgor and temperature, Breakdown (right foot and great toe-wound, kerlex dressing attached with 2x2 gauze. wound w/o erythema or pustular discharge) Neuro Exam: Positive: Normal Speech, Normal Tone Psych Exam: Positive: Mental status NL, Oriented x 3 Assessment /Plan Assessment # Acute on chronic blood loss Anemia. - The patient has confirmed guaiac positive stools. Hemoglobin remains relatively stable no need for tx at this time. - s/p colonoscopy/EGD (10/26) reports reviewed: mild gastritis s/p gastric biopsy, diverticulosis w/o signs of bleeding, and internal hemorrhoids - suspect she likely had diverticular bleed vs SB bleed - resume xarelto, and monitor - CBC + BMP daily # Paroxysmal Atrial fibrillation. - rate controlled with atenolol, resume xarelto 15 mg daily. # Chronic diastolic Congestive heart failure. - patient does not have acute diastolic CHF, continue torsemide - She does not require a fluid restriction # Qiy-nidshbw-nwuyippuc diabetes mellitus. - continue metformin and sliding scale insulin. # Hypokalemia - increase to Kdur to bid with recent bowel prep # B/l heel pain likely mild plantar fasciitis - tramadol prn pain Dispo: ECF on monday, if CBC stable on xarelto Plan/VTE VTE Prophylaxis Ordered?: Yes VTE Exclusion Mechanical Proph: N/A:VTE Prophy Ordered VTE Exclusion Pharmacological: N/A:VTE Prophy Ordered VS, I&O, 24H, Fishbone Vital Signs/I&O Vital Signs Date Time Temp Pulse Resp B/P (MAP) Pulse Ox O2 Delivery O2 Flow Rate FiO2 10/27/18 09:00 93 112/60 10/27/18 06:19 16 10/27/18 06:00 98.6 94 10/22/18 13:00 Room Air I&O- Last 24 Hours up to 6 AM 10/27/18 06:00 Intake Total 420 ml Output Total 700 ml Balance -280 ml Laboratory Data 24H LABS Laboratory Tests 2 10/26/18 17:06: Bedside Glucose (Misc Panel) 104 10/26/18 22:08: Bedside Glucose (Misc Panel) 237H 10/27/18 06:00: Nucleated Red Blood Cells % (auto) 0.0, Anion Gap 7L, Glomerular Filtration Rate > 60.0, Blood Urea Nitrogen 22H, Creatinine 0.92, Sodium Level 135L, Potassium Level 3.6, Chloride Level 99, Carbon Dioxide Level 29, Calcium Level 8.4L 10/27/18 11:55: Bedside Glucose (Misc Panel) 183H CBC/BMP Laboratory Tests 10/27/18 06:00 Red Blood Count 3.33 L, Mean Corpuscular Volume 81.1, Mean Corpuscular Hemoglobin 24.6 L, Mean Corpuscular Hemoglobin Concent 30.4 L, Red Cell Distr ibution Width 18.1 H, Calcium Level 8.4 L Microbiology Microbiology 10/18/18 Stool Occult Blood (YURY) - Final, Complete GÉNESIS ARIAS MD Oct 27, 2018 14:23
[2018-10-27] MEDS: VITAMIN D 1,000 INTERNATIONAL UNITS TABLET PO SCH (15:18)
[2018-10-27] MEDS: PANTOPRAZOLE 20 MG TAB PO SCH (15:19)
[2018-10-27] MEDS: LOSARTAN 25 MG TAB PO SCH (17:03)
[2018-10-27] MEDS: RIVAROXABAN 15 MG TAB (XARELTO) PO SCH (17:06)
[2018-10-27 22:00] VITALS: BP 107/58
[2018-10-28] MEDS: traMADol 50 MG TAB PO PRN ×3 (01:16→19:22)
[2018-10-28] MEDS: ACETAMINOPHEN TAB 650MG DOSE (2X325MG) PO PRN (03:50)
[2018-10-28 06:00] VITALS: BP 131/64
[2018-10-28] MEDS: LEVOTHYROXINE 100MCG TABLET (0.1MG) PO SCH (06:02)
[2018-10-28] MEDS: SLF 3 ML SYR IV SCH ×3 (06:03→20:04)
[2018-10-28 06:17] LABS: HEMATOCRIT 25.3 % (36.0-47.0); HEMOGLOBIN 7.8 g/dl (12.0-15.5); MEAN CORPUSCULAR HGB CONC 30.8 g/dl (32.0-36.5); MEAN CORPUSCULAR VOLUME 81.1 fl (80.0-96.0); PLATELET COUNT, AUTOMATED 254 10^3/uL (150-450); RED BLOOD COUNT 3.12 10^6/uL (4.00-5.40); WHITE BLOOD COUNT 13.2 10^3/uL (4.0-10.0)
[2018-10-28 06:41] LABS: BLOOD UREA NITROGEN 21 MG/DL (7-18); CALCIUM LEVEL 8.4 MG/DL (8.8-10.2); CARBON DIOXIDE LEVEL 24 MEQ/L (21-32); CHLORIDE LEVEL 103 MEQ/L (98-107); CREATININE FOR GFR 0.87 MG/DL (0.55-1.30); GLOMERULAR FILTRATION RATE > 60.0 (>39); GLUCOSE, FASTING 137 MG/DL (70-100); SODIUM LEVEL 136 MEQ/L (136-145)
[2018-10-28] MEDS: TORSEMIDE 20 MG TAB PO SCH ×2 (08:25→18:08)
[2018-10-28] MEDS: DOCUSATE SODIUM 100 MG CAP PO SCH ×2 (08:25→20:03)
[2018-10-28] MEDS: GLIMEPIRIDE 2 MG TAB PO SCH (08:26)
[2018-10-28] MEDS: ATORVASTATIN 20 MG TAB PO SCH (08:26)
[2018-10-28] MEDS: metFORMIN XR 500MG TAB *GLUCOPHAGE XR PO SCH ×2 (08:26→20:03)
[2018-10-28] MEDS: SPIRONOLACTONE 12.5MG PER 1/2 TABLET PO SCH (08:26)
[2018-10-28] MEDS: VITAMIN D 1,000 INTERNATIONAL UNITS TABLET PO SCH (08:26)
[2018-10-28] MEDS: POTASSIUM CHLORIDE 10 MEQ SR TABLET PO SCH ×2 (08:26→20:03)
[2018-10-28] MEDS: PANTOPRAZOLE 20 MG TAB PO SCH (08:26)
[2018-10-28] MEDS: HumaLOG INSULIN (NovoLOG) PER UNIT SC SCH ×4 (08:27→20:34)
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
[2018-10-28] MEDS: ATENOLOL 50 MG TAB PO SCH (09:09)
--- NOTE | 2018-10-28 10:09 | IPNPDOC ---
Subjective Date Seen The patient was seen on 10/28/18. Subjective Chief Complaint/HPI c/o left arm and neck pain following EGD and colonscopy on monday. No other complaints. No melena/hematochezia since receiving xarelto last night. Objective Physical Examination General Exam: Positive: Alert, Cooperative, Mild Distress (neck pain) Eye Exam: Positive: PERRLA, EOMI ENT Exam: Positive: Atraumatic, Mucous membr. moist/pink, Pharynx Normal Neck Exam: Positive: Supple; Negative: JVD, thyromegaly Chest Exam: Positive: Clear to auscultation, Normal air movement Heart Exam: Positive: Irregular Rhythm, Normal S1, Normal S2 Abdomen Exam: Positive: Normal bowel sounds, Soft; Negative: Tenderness Extremity Exam: Positive: Normal pulses, Tenderness (LUE and neck tenderness to palpation, no signs of hematoma, erythema or trauma), Swelling (2+ bilaterally), Other (left foot w/o signs of trauma or hematoma. point tenderness with palpation at left heel) Skin Exam: Positive: Nl turgor and temperature, Breakdown (right foot and great toe-wound, kerlex dressing attached with 2x2 gauze. wound w/o erythema or pustular discharge) Neuro Exam: Positive: Normal Speech, Normal Tone Psych Exam: Positive: Mental status NL, Oriented x 3 Assessment /Plan Assessment # Acute on chronic blood loss Anemia. - The patient has confirmed guaiac positive stools. Hemoglobin remains relatively stable no need for tx at this time. - s/p colonoscopy/EGD (10/26) reports reviewed: mild gastritis s/p gastric biopsy, diverticulosis w/o signs of bleeding, and internal hemorrhoids - suspect she likely had diverticular bleed vs SB bleed - resume xarelto, and monitor - hgb 7.8 mg/dl this am, but was 8.2 gm/dl 4 days ago, likely represents lab variance, no signs of active bleeding. - can start iron tablets tomorrow - CBC + BMP daily # Paroxysmal Atrial fibrillation. - rate controlled with atenolol, resumed xarelto 15 mg daily. # Chronic diastolic Congestive heart failure. - patient does not have acute diastolic CHF, continue torsemide - She does not require a fluid restriction # Kbm-kwhazlx-njfpowjos diabetes mellitus. - continue metformin and sliding scale insulin. # Hypokalemia - increase to Kdur to bid with recent bowel prep. K+ stable this am. # B/l heel pain likely mild plantar fasciitis # LUE arm and Neck pain following EGD and colonoscopy likely due to positioning during procedure - tramadol prn pain # Mild Gastritis - protonix 20 mg daily Dispo: ECF on monday, if CBC stable on xarelto Problems (1) GI bleed Status: Acute Response to Treatment: Worse Discussed With: Patient Problem Text: Plan/VTE VTE Prophylaxis Ordered?: Yes VTE Exclusion Mechanical Proph: N/A:VTE Prophy Ordered VTE Exclusion Pharmacological: N/A:VTE Prophy Ordered VS, I&O, 24H, Fishbone Vital Signs/I&O Vital Signs Date Time Temp Pulse Resp B/P (MAP) Pulse Ox O2 Delivery O2 Flow Rate FiO2 10/28/18 09:09 98 131/64 10/28/18 06:00 98.4 17 95 10/22/18 13:00 Room Air I&O- Last 24 Hours up to 6 AM 10/28/18 06:00 Intake Total 880 ml Output Total 1000 ml Balance -120 ml Laboratory Data 24H LABS Laboratory Tests 2 10/27/18 11:55: Bedside Glucose (Misc Panel) 183H 10/27/18 16:36: Bedside Glucose (Misc Panel) 173H 10/27/18 20:47: Bedside Glucose (Misc Panel) 198H 10/28/18 06:01: Nucleated Red Blood Cells % (auto) 0.0, Anion Gap 9, Glomerular Filtration Rate > 60.0, Blood Urea Nitrogen 21H, Creatinine 0.87, Sodium Level 136, Potassium Level 4.0, Chloride Level 103, Carbon Dioxide Level 24, Calcium Level 8.4L CBC/BMP Laboratory Tests 10/28/18 06:01 Red Blood Count 3.12 L, Mean Corpuscular Volume 81.1, Mean Corpuscular Hemoglobin 25.0 L, Mean Corpuscular Hemoglobin Concent 30.8 L, Red Cell Distribution Width 18.4 H, Calcium Level 8.4 L Microbiology Microbiology 10/18/18 Stool Occult Blood (YURY) - Final, Complete GÉNESIS ARIAS MD Oct 28, 2018 10:09
[2018-10-28 14:00] VITALS: BP 106/49
[2018-10-28] MEDS: RIVAROXABAN 15 MG TAB (XARELTO) PO SCH (18:08)
[2018-10-28] MEDS: LOSARTAN 25 MG TAB PO SCH (18:09)
[2018-10-28] MEDS ORDERED: PILL CUTTER 1 EACH XX PRN (19:45)
[2018-10-28 22:00] VITALS: BP 125/53
[2018-10-29] MEDS: traMADol 50 MG TAB PO PRN ×2 (01:56→05:58)
[2018-10-29] MEDS: ACETAMINOPHEN TAB 650MG DOSE (2X325MG) PO PRN (04:29)
[2018-10-29] MEDS: SLF 3 ML SYR IV SCH ×3 (05:57→20:30)
[2018-10-29] MEDS: LEVOTHYROXINE 100MCG TABLET (0.1MG) PO SCH (05:57)
[2018-10-29 06:00] VITALS: BP 122/54
[2018-10-29 06:06] LABS: HEMATOCRIT 25.4 % (36.0-47.0); HEMOGLOBIN 7.8 g/dl (12.0-15.5); MEAN CORPUSCULAR HEMOGLOBIN 24.2 pg (27.0-33.0); MEAN CORPUSCULAR HGB CONC 30.7 g/dl (32.0-36.5); MEAN CORPUSCULAR VOLUME 78.9 fl (80.0-96.0); PLATELET COUNT, AUTOMATED 273 10^3/uL (150-450); RED BLOOD COUNT 3.22 10^6/uL (4.00-5.40); WHITE BLOOD COUNT 13.4 10^3/uL (4.0-10.0)
[2018-10-29 06:24] LABS: BLOOD UREA NITROGEN 21 MG/DL (7-18); CALCIUM LEVEL 8.2 MG/DL (8.8-10.2); CARBON DIOXIDE LEVEL 26 MEQ/L (21-32); CHLORIDE LEVEL 100 MEQ/L (98-107); CREATININE FOR GFR 0.92 MG/DL (0.55-1.30); GLOMERULAR FILTRATION RATE > 60.0 (>39); GLUCOSE, FASTING 107 MG/DL (70-100); POTASSIUM SERUM 3.9 MEQ/L (3.5-5.1); SODIUM LEVEL 135 MEQ/L (136-145)
[2018-10-29] MEDS: HumaLOG INSULIN (NovoLOG) PER UNIT SC SCH ×4 (07:30→20:21)
[2018-10-29] MEDS: ATENOLOL 50 MG TAB PO SCH (09:00)
[2018-10-29] MEDS: ATORVASTATIN 20 MG TAB PO SCH (10:19)
[2018-10-29] MEDS: GLIMEPIRIDE 2 MG TAB PO SCH (10:19)
[2018-10-29] MEDS: FERROUS SULFATE 325MG TAB PO SCH (10:20)
[2018-10-29] MEDS: POTASSIUM CHLORIDE 10 MEQ SR TABLET PO SCH ×2 (10:20→20:38)
[2018-10-29] MEDS: TORSEMIDE 20 MG TAB PO SCH ×2 (10:21→17:50)
[2018-10-29] MEDS: DOCUSATE SODIUM 100 MG CAP PO SCH ×2 (10:21→20:38)
[2018-10-29] MEDS: VITAMIN D 1,000 INTERNATIONAL UNITS TABLET PO SCH (10:22)
[2018-10-29] MEDS: PANTOPRAZOLE 20 MG TAB PO SCH (10:22)
[2018-10-29] MEDS: SPIRONOLACTONE 12.5MG PER 1/2 TABLET PO SCH (10:22)
[2018-10-29] MEDS: metFORMIN XR 500MG TAB *GLUCOPHAGE XR PO SCH ×2 (10:25→20:38)
[2018-10-29 14:00] VITALS: BP 101/59
--- NOTE | 2018-10-29 14:12 | IPNPDOC ---
Subjective Date Seen The patient was seen on 10/29/18. Subjective Chief Complaint/HPI LUE and neck pain better today. No active bleeding since resuming xarelto. Denies any CP/lightheadedness/back pain. arthalgias and myalgias controlled tramadol. Objective Physical Examination General Exam: Positive: Alert, Cooperative, No Acute Distress Eye Exam: Positive: PERRLA, EOMI ENT Exam: Positive: Atraumatic, Mucous membr. moist/pink, Pharynx Normal Neck Exam: Positive: Supple; Negative: JVD, thyromegaly Chest Exam: Positive: Clear to auscultation, Normal air movement Heart Exam: Positive: Irregular Rhythm, Normal S1, Normal S2 Abdomen Exam: Positive: Normal bowel sounds, Soft; Negative: Tenderness Extremity Exam: Positive: Normal pulses, Tenderness (LUE and neck tenderness to palpation, no signs of hematoma, erythema or trauma), Swelling (2+ bilaterally) Skin Exam: Positive: Nl turgor and temperature, Breakdown (right foot and great toe-wound, kerlex dressing attached with 2x2 gauze. wound w/o erythema or pustular discharge) Neuro Exam: Positive: Normal Speech, Normal Tone Psych Exam: Positive: Mental status NL, Oriented x 3 Assessment /Plan Assessment # Symptomatic acute on chronic blood loss Anemia. - The patient has confirmed guaiac positive stools. Hemoglobin remains relatively stable no need for tx at this time. - s/p PRBC tx x 2 (10/18) - s/p colonoscopy/EGD (10/26) reports reviewed: mild gastritis s/p gastric biopsy, diverticulosis w/o signs of bleeding, and internal hemorrhoids - suspect she likely had diverticular bleed vs SB bleed - xarelto resumed, hgb remains stable - hgb 7.8 mg/dl this am, but was 8.2 gm/dl 5 days ago, likely represents lab variance, no signs of active bleeding. - start Ferrous sulfate 325 mg daily, will need repeat CBC in 1 week after discharge - CBC + BMP daily # Paroxysmal Atrial fibrillation. - rate controlled with atenolol, Xarelto 15 mg daily. - BP lower since bowel prep, will decrease atenolol to 25 mg daily today # Chronic diastolic Congestive heart failure. - patient does not have acute diastolic CHF, continue torsemide - She does not require a fluid restriction # Jva-wnqpfto-kvihfxuqa diabetes mellitus. - continue metformin and sliding scale insulin. # Hypokalemia - increase to Kdur to bid with recent bowel prep. K+ (3.9) stable this am. # B/l heel pain likely mild plantar fasciitis # LUE arm and Neck pain following EGD and colonoscopy likely due to positioning during procedure - tramadol prn pain # Mild Gastritis - protonix 20 mg daily Dispo: Discussed at [facility] this am, medically stable for discharge to ECF/ARU, CM working on bed. Plan/VTE VTE Prophylaxis Ordered?: Yes VTE Exclusion Mechanical Proph: N/A:VTE Prophy Ordered VTE Exclusion Pharmacological: N/A:VTE Prophy Ordered VS, I&O, 24H, Fishbone Vital Signs/I&O Vital Signs Date Time Temp Pulse Resp B/P (MAP) Pulse Ox O2 Delivery O2 Flow Rate FiO2 10/29/18 09:00 88 105/55 10/29/18 06:28 17 10/29/18 06:00 97.6 93 I&O- Last 24 Hours up to 6 AM 10/29/18 06:00 Intake Total 1560 ml Output Total 1750 ml Balance -190 ml Laboratory Data 24H LABS Laboratory Tests 2 10/28/18 16:43: Bedside Glucose (Misc Panel) 162H 10/28/18 20:33: Bedside Glucose (Misc Panel) 240H 10/29/18 05:50: Nucleated Red Blood Cells % (auto) 0.0, Anion Gap 9, Glomerular Filtration Rate > 60.0, Blood Urea Nitrogen 21H, Creatinine 0.92, Sodium Level 135L, Potassium Level 3.9, Chloride Level 100, Carbon Dioxide Level 26, Calcium Level 8.2L 10/29/18 10:20: Bedside Glucose (Misc Panel) 228H 10/29/18 11:08: Bedside Glucose (Misc Panel) 242H CBC/BMP Laboratory Tests 10/29/18 05:50 Red Blood Count 3.22 L, Mean Corpuscular Volume 78.9 L, Mean Corpuscular Hemoglobin 24.2 L, Mean Corpuscular Hemoglobin Concent 30.7 L, Red Cell Distribution Width 18.4 H, Calcium Level 8.2 L GÉNESIS ARIAS MD Oct 29, 2018 14:12
[2018-10-29] MEDS: RIVAROXABAN 15 MG TAB (XARELTO) PO SCH (17:50)
[2018-10-29] MEDS: LOSARTAN 25 MG TAB PO SCH (17:53)
[2018-10-29] MEDS ORDERED: DEXTROSE 50% 50 ML SYRINGE IV PRN (19:45)
[2018-10-29] MEDS ORDERED: GLUCOSE 4 GM CHEW TABLET PO PRN (19:45)
[2018-10-29] MEDS ORDERED: GLUCAGON FOR INJ 1 MG VIAL (J1610) SC PRN (19:45)
[2018-10-29 22:00] VITALS: BP 118/58
[2018-10-30 04:00] VITALS: BP 121/54
[2018-10-30] MEDS: SLF 3 ML SYR IV SCH (06:00)
[2018-10-30 06:17] LABS: HEMATOCRIT 28.3 % (36.0-47.0); HEMOGLOBIN 8.6 g/dl (12.0-15.5); MEAN CORPUSCULAR HEMOGLOBIN 24.7 pg (27.0-33.0); MEAN CORPUSCULAR HGB CONC 30.4 g/dl (32.0-36.5); MEAN CORPUSCULAR VOLUME 81.3 fl (80.0-96.0); PLATELET COUNT, AUTOMATED 304 10^3/uL (150-450); RED BLOOD COUNT 3.48 10^6/uL (4.00-5.40); WHITE BLOOD COUNT 12.6 10^3/uL (4.0-10.0)
[2018-10-30] MEDS: LEVOTHYROXINE 100MCG TABLET (0.1MG) PO SCH (06:18)
[2018-10-30 06:49] LABS: BLOOD UREA NITROGEN 24 MG/DL (7-18); CALCIUM LEVEL 8.6 MG/DL (8.8-10.2); CARBON DIOXIDE LEVEL 28 MEQ/L (21-32); CHLORIDE LEVEL 98 MEQ/L (98-107); CREATININE FOR GFR 0.89 MG/DL (0.55-1.30); GLOMERULAR FILTRATION RATE > 60.0 (>39); GLUCOSE, FASTING 90 MG/DL (70-100); POTASSIUM SERUM 3.7 MEQ/L (3.5-5.1); SODIUM LEVEL 135 MEQ/L (136-145)
[2018-10-30] MEDS: HumaLOG INSULIN (NovoLOG) PER UNIT SC SCH ×4 (07:30→21:00)
[2018-10-30] MEDS: metFORMIN XR 500MG TAB *GLUCOPHAGE XR PO SCH ×2 (09:19→21:31)
[2018-10-30] MEDS: VITAMIN D 1,000 INTERNATIONAL UNITS TABLET PO SCH (09:20)
[2018-10-30] MEDS: ATENOLOL 25 MG TAB PO SCH (09:21)
[2018-10-30] MEDS: SPIRONOLACTONE 12.5MG PER 1/2 TABLET PO SCH (09:21)
[2018-10-30] MEDS: DOCUSATE SODIUM 100 MG CAP PO SCH ×2 (09:22→21:30)
[2018-10-30] MEDS: FERROUS SULFATE 325MG TAB PO SCH (09:22)
[2018-10-30] MEDS: GLIMEPIRIDE 2 MG TAB PO SCH (09:23)
[2018-10-30] MEDS: TORSEMIDE 20 MG TAB PO SCH ×2 (09:23→18:11)
[2018-10-30] MEDS: POTASSIUM CHLORIDE 10 MEQ SR TABLET PO SCH ×2 (09:24→21:30)
[2018-10-30] MEDS: ATORVASTATIN 20 MG TAB PO SCH (09:24)
[2018-10-30] MEDS: PANTOPRAZOLE 20 MG TAB PO SCH (09:25)
[2018-10-30 14:00] VITALS: BP 127/56
[2018-10-30] MEDS: RIVAROXABAN 15 MG TAB (XARELTO) PO SCH (18:11)
[2018-10-30] MEDS: LOSARTAN 25 MG TAB PO SCH (18:14)
--- NOTE | 2018-10-30 18:49 | IPNPDOC ---
Text Note Date of Service The patient was seen on 10/30/18. NOTE Subjective Her neck pain, arthalgias and myalgias are well controlled with her tramadol, no complaints this morning Objective Vitals: see below General Exam: Alert, Cooperative, No Acute Distress Eye Exam: PERRLA, EOMI, anicteric ENT Exam: Atraumatic, MMM, Pharynx Normal Neck Exam: Supple Chest Exam: Clear to auscultation, no crackles or wheezing Heart Exam: Irregularly irregular Abdomen Exam: Normoactive bowel sounds, Soft, nontender Extremity Exam: Good distal pulses, LUE and neck continue to be tender to palpation. Swelling (2+ bilaterally) Skin Exam: Right foot and great toe-wound with dressing, no erythema or discharge noted Psych Exam: Positive: Mental status NL, Oriented x 3 Labs: reviewed. No new imaging. Assessment 78 yo W with AF on xeralto who was admitted with symptomatic anemia with +FOBT s/p EGD/colo without sites of active bleeding s/p 2U pRBCs now stable and restarted back on xeralto with stable Hgb, pending placement. Assessment # Symptomatic acute on chronic blood loss Anemia. - The patient has confirmed guaiac positive stools. - s/p colonoscopy/EGD (10/26) reports reviewed: mild gastritis s/p gastric biopsy, diverticulosis w/o signs of bleeding, and internal hemorrhoids - suspect she likely had diverticular bleed vs SB bleed - xarelto resumed, hgb remains stable - continue Ferrous sulfate 325 mg daily, will need repeat CBC in 1 week after discharge - CBC + BMP daily # Paroxysmal Atrial fibrillation. - rate controlled with atenolol, Xarelto 15 mg daily. - BP lower since bowel prep, continue atenolol @ 25 mg today # Chronic diastolic Congestive heart failure. - patient does not have acute diastolic CHF, continue torsemide - She does not require a fluid restriction # Ukx-gbmzuat-joxovscdd diabetes mellitus. - continue metformin and sliding scale insulin. # Hypokalemia - monitor daily and replete # B/l heel pain likely mild plantar fasciitis # LUE arm and Neck pain following EGD and colonoscopy likely due to positioning during procedure - tramadol prn for pain # Mild Gastritis - protonix 20 mg daily Dispo:Medically stable for discharge to ECF/STR, CM working on bed. VS,Fishbone, I+O VS, Jerrellquincy, I+O Laboratory Tests 10/30/18 05:56 Red Blood Count 3.48 L, Mean Corpuscular Volume 81.3, Mean Corpuscular Hemoglobin 24.7 L, Mean Corpuscular Hemoglobin Concent 30.4 L, Red Cell Distribution Width 18.5 H, Calcium Level 8.6 L Vital Signs Date Time Temp Pulse Resp B/P (MAP) Pulse Ox O2 Delivery O2 Flow Rate FiO2 10/30/18 18:14 117/89 10/30/18 14:00 98.2 89 20 97 I&O- Last 24 Hours up to 6 AM 10/30/18 05:59 Intake Total 2060 ml Output Total 2700 ml Balance -640 ml RADHA DANIEL MD Oct 30, 2018 18:49
--- NOTE | 2018-10-30 21:36 | DSES ---
DATE OF ADMISSION: 10/17/2018 DATE OF DISCHARGE: DISCHARGE DIAGNOSES: 1. Symptomatic acute on chronic blood loss anemia. 2. Paroxysmal atrial fibrillation. 3. Acute on chronic diastolic congestive heart failure. 4. Chronic venous stasis dermatitis. 5. Ghx-noaswcm-vejcmoonx diabetes mellitus, type 2. 6. Hypokalemia. 7. Mild gastritis, status post esophagogastroduodenoscopy (EGD) with gastric bypass. 8. Acute kidney injury secondary to overdiuresis which has resolved. 9. Hyperlipidemia. PROCEDURES PERFORMED DURING THIS HOSPITALIZATION: 1. Esophagogastroduodenoscopy (EGD) with biopsy. 2. Colonoscopy. 3. Transfusion of two units of packed red blood cells on 10/17/2018. CONSULTANTS ON THE CASE: Dr. Joseph of gastroenterology service. DISPOSITION: The patient will be discharged to an extended care facility. DISCHARGE INSTRUCTIONS: The patient is instructed to have a repeat complete blood count (CBC) in one week. She is to continue with her Xarelto. Should her CBC counts drop, her Xarelto is to be immediately stopped. The patient should be transfused as needed and she should likely followup with Dr. Joseph as an outpatient for capsule endoscopy and with her calculator operator for consideration for a Watchman's procedure. CONDITION ON DISCHARGE: Stable. RELEVANT IMAGING STUDIES: Echocardiogram showed moderate pulmonary hypertension, mild aortic stenosis with mild aortic insufficiency, mild mitral insufficiency, bilateral atrial enlargement, and preserved left ventricular ejection fraction. Chest x-ray showed mildly prominent heart, vascular cephalization, otherwise no acute disease. RELEVANT LABORATORY DATA: On admission, the patient's white count was 13.3, hemoglobin was 7, hematocrit was 23.2, platelet count was 327,000. Following transfusion of two units of packed red blood cells, her hemoglobin improved to 8.6 with hematocrit 27.4 and her platelet count of 304. On admission, her PT was 28.3, INR was 2.67, PTT was 43.1. Sodium was 138, potassium was 3.4, chloride 99, bicarbonate 29, anion gap 10, BUN was 27, creatinine was 1, glucose 189, calcium was 8.7, procalcitonin was 0.08. Lactic acid on admission was 3.5 and normalized with treatment. NT-pro BNP was 21,830, troponin 0.08, TSH was 2, initial troponin was 0.08 but did peak at 0.28 before trending down to 0.15. This was felt to be secondary to her acute blood loss anemia. Echocardiogram as listed above did not show any evidence of wall motion abnormalities. Stool was positive for occult blood. For discharge medications, please reference discharge paperwork. HOSPITAL COURSE: Ms. Melendez is a pleasant 78-year-old woman who has history of paroxysmal to chronic atrial fibrillation and she is on Xarelto. She had presented to the hospital following a presyncopal event associated with increasing shortness of breath, lightheadedness, and weakness. Upon admission, she was found to have a hemoglobin of 7 which was a significant decline from her previous hemoglobin on record. She was transfused two units of packed red blood cells with improvement in her hemoglobin to 8.6. She was noted to be quite dehydrated with a lactic acidemia. The patient was hydrated with IV fluids with improvement in her lactic acid. Chest x-ray showed some mild pulmonary vascular congestion and she has chronic venous stasis dermatitis and lymphedema. Echocardiogram was obtained as she had mildly elevated troponins. This failed to show any wall motion abnormalities. She did have moderate pulmonary hypertension with preserved left ventricular ejection fraction. The patient was initially diuresed as they were concerned that she was in acute heart failure. Therefore, her hospitalization was prolonged. Her hemoglobin has remained stable and her symptoms resolved once she received blood. She was treated with IV Lasix. However, this led to some mild acute kidney injury (ELISA) and this was discontinued. She was switched over to her torsemide. Gastroenterology was consulted. The patient underwent esophagogastroduodenoscopy (EGD). She was found to have mild gastritis on her EGD. Biopsies were taken and the results are pending at this time. She then underwent a colonoscopy following a good preparation. No evidence of acute bleeding was noted. The patient was resumed on her Xarelto. Her hemoglobin levels have been monitored and have remained stable. She has been started on iron tablets. She has been seen by physical therapy (PT) and occupational therapy (OT) and deemed a candidate for subacute rehabilitation given her generalized deconditioning from this hospitalization. She will be discharged to an extended care facility once a bed is available to her. She will need a repeat complete blood count (CBC) within a week's time and ongoing vigilance for any possible gastrointestinal (GI) bleeding while on Xarelto. At discharge, the patient's temperature is 97.5, pulse is 88, respirations 17, blood pressure is 105/55, oxygen saturation is 93% on room air. In general, the patient is alert and oriented times three. She appears in no acute distress. She is resting comfortably. Her breathing is nonlabored. She is acyanotic. Head is atraumatic. Her pupils are symmetric and react to light. Oropharynx is clear. Neck is supple. No visible jugular venous distention. Lung sounds appreciated without wheezes, rales or rhonchi. Heart is S1, S2. She is currently in an irregular rate and rhythm consistent with rate controlled atrial fibrillation. Abdomen is soft, nontender, nondistended. She has no ascites. She has a protuberant abdomen consistent with a central adiposity. Her extremities are without any significant cyanosis or clubbing. She has chronic lower extremity lymphedema, 3+ bilaterally without any significant lower extremity lesions. On neurologic examination, cranial nerves II-XII are grossly intact. The patient has no facial asymmetry. Her speech is fluent. She is moving all four extremities in a coordinating and spontaneous manner. Gait is observed with the walker and appears to be stable. She is not favoring any one particular side. A total of 40 minutes was spent on discharge.
[2018-10-30 22:00] VITALS: BP 127/84
[2018-10-31] MEDS: LEVOTHYROXINE 100MCG TABLET (0.1MG) PO SCH (05:34)
[2018-10-31 06:00] VITALS: BP 113/55
[2018-10-31 06:08] LABS: HEMATOCRIT 27.3 % (36.0-47.0); HEMOGLOBIN 8.4 g/dl (12.0-15.5); MEAN CORPUSCULAR HEMOGLOBIN 24.9 pg (27.0-33.0); MEAN CORPUSCULAR HGB CONC 30.8 g/dl (32.0-36.5); PLATELET COUNT, AUTOMATED 303 10^3/uL (150-450); RED BLOOD COUNT 3.37 10^6/uL (4.00-5.40); WHITE BLOOD COUNT 9.9 10^3/uL (4.0-10.0)
[2018-10-31 06:31] LABS: BLOOD UREA NITROGEN 26 MG/DL (7-18); CALCIUM LEVEL 8.3 MG/DL (8.8-10.2); CARBON DIOXIDE LEVEL 30 MEQ/L (21-32); CHLORIDE LEVEL 98 MEQ/L (98-107); GLOMERULAR FILTRATION RATE > 60.0 (>39); GLUCOSE, FASTING 89 MG/DL (70-100); POTASSIUM SERUM 3.8 MEQ/L (3.5-5.1); SODIUM LEVEL 137 MEQ/L (136-145)
[2018-10-31] MEDS: HumaLOG INSULIN (NovoLOG) PER UNIT SC SCH ×4 (07:30→21:00)
[2018-10-31] MEDS: VITAMIN D 1,000 INTERNATIONAL UNITS TABLET PO SCH (07:57)
[2018-10-31] MEDS: metFORMIN XR 500MG TAB *GLUCOPHAGE XR PO SCH ×2 (07:57→21:58)
[2018-10-31] MEDS: TORSEMIDE 20 MG TAB PO SCH ×2 (07:57→17:37)
[2018-10-31] MEDS: DOCUSATE SODIUM 100 MG CAP PO SCH ×2 (07:57→21:58)
[2018-10-31] MEDS: ATENOLOL 25 MG TAB PO SCH (07:58)
[2018-10-31] MEDS: ATORVASTATIN 20 MG TAB PO SCH (07:58)
[2018-10-31] MEDS: FERROUS SULFATE 325MG TAB PO SCH (07:58)
[2018-10-31] MEDS: SPIRONOLACTONE 12.5MG PER 1/2 TABLET PO SCH (07:58)
[2018-10-31] MEDS: GLIMEPIRIDE 2 MG TAB PO SCH (07:58)
[2018-10-31] MEDS: PANTOPRAZOLE 20 MG TAB PO SCH (07:58)
[2018-10-31] MEDS: POTASSIUM CHLORIDE 10 MEQ SR TABLET PO SCH ×2 (07:59→21:58)
--- NOTE | 2018-10-31 14:01 | IPNPDOC ---
Text Note Date of Service The patient was seen on 10/31/18. NOTE Subjective No complaints this morning, sitting in chair doing word search Objective Vitals: see below General Exam: Alert, Cooperative, No Acute Distress Eye Exam: PERRLA, EOMI, anicteric ENT Exam: Atraumatic, MMM, Pharynx Normal Neck Exam: Supple Chest Exam: Clear to auscultation, no crackles or wheezing Heart Exam: regular this morning, no murmurs Abdomen Exam: Normoactive bowel sounds, Soft, nontender Extremity Exam: Good distal pulses, LUE and neck continue to be tender to palpation. 2+ LE edema Skin Exam: Right foot and great toe-wound with dressing, no erythema or discharge noted Psych Exam: Positive: Mental status NL, Oriented x 3 Labs: reviewed. No new imaging. Assessment 78 yo W with AF on xeralto who was admitted with symptomatic anemia with +FOBT s/p EGD/colo without sites of active bleeding s/p 2U pRBCs now stable and restarted back on xeralto with stable Hgb, pending placement. Assessment # Symptomatic acute on chronic blood loss Anemia. - The patient has confirmed guaiac positive stools. - s/p colonoscopy/EGD (10/26) reports reviewed: mild gastritis s/p gastric biopsy, diverticulosis w/o signs of bleeding, and internal hemorrhoids - suspect she likely had diverticular bleed vs SB bleed - xarelto resumed, hgb remains stable - continue Ferrous sulfate 325 mg daily, will need repeat CBC in 1 week after discharge - CBC + BMP daily, stable # Paroxysmal Atrial fibrillation. - rate controlled with atenolol, Xarelto 15 mg daily. - BP lower since bowel prep, continue atenolol @ 25 mg today # Chronic diastolic Congestive heart failure. - patient does not have acute diastolic CHF, continue home torsemide - She does not require a fluid restriction # Fwy-oqiskuk-kdwrdyjzi diabetes mellitus. - continue metformin and sliding scale insulin. # Hypokalemia - monitor daily and replete # B/l heel pain likely mild plantar fasciitis # LUE arm and Neck pain following EGD and colonoscopy likely due to positioning during procedure - tramadol prn for pain # Mild Gastritis - protonix 20 mg daily Dispo:Medically stable for discharge to ECF/STR, GLADYS working on placement VS,Fishbone, I+O VS, Fishbone, I+O Laboratory Tests 10/31/18 05:38 Red Blood Count 3.37 L, Mean Corpuscular Volume 81.0, Mean Corpuscular Hemoglobin 24.9 L, Mean Corpuscular Hemoglobin Concent 30.8 L, Red Cell Distribu tion Width 18.4 H, Calcium Level 8.3 L Vital Signs Date Time Temp Pulse Resp B/P (MAP) Pulse Ox O2 Delivery O2 Flow Rate FiO2 10/31/18 07:58 69 122/60 10/31/18 06:00 98.1 20 97 I&O- Last 24 Hours up to 6 AM 10/31/18 06:00 Intake Total 1373 ml Output Total 1950 ml Balance -577 ml RADHA DANIEL MD Oct 31, 2018 14:01
[2018-10-31] MEDS: LOSARTAN 25 MG TAB PO SCH (17:37)
[2018-10-31] MEDS: RIVAROXABAN 15 MG TAB (XARELTO) PO SCH (17:37)
[2018-10-31 22:00] VITALS: BP 164/64
[2018-11-01] MEDS: traMADol 50 MG TAB PO PRN (03:53)
[2018-11-01] MEDS: ACETAMINOPHEN TAB 650MG DOSE (2X325MG) PO PRN (05:43)
[2018-11-01] MEDS: LEVOTHYROXINE 100MCG TABLET (0.1MG) PO SCH (05:43)
[2018-11-01 06:00] VITALS: BP 123/58
[2018-11-01] MEDS: FERROUS SULFATE 325MG TAB PO SCH (08:27)
[2018-11-01] MEDS: HumaLOG INSULIN (NovoLOG) PER UNIT SC SCH ×4 (08:27→21:00)
[2018-11-01] MEDS: ATORVASTATIN 20 MG TAB PO SCH (08:28)
[2018-11-01] MEDS: metFORMIN XR 500MG TAB *GLUCOPHAGE XR PO SCH ×2 (08:28→20:26)
[2018-11-01] MEDS: VITAMIN D 1,000 INTERNATIONAL UNITS TABLET PO SCH (08:28)
[2018-11-01] MEDS: PANTOPRAZOLE 20 MG TAB PO SCH ×2 (08:28→20:26)
[2018-11-01] MEDS: DOCUSATE SODIUM 100 MG CAP PO SCH ×2 (08:28→20:25)
[2018-11-01] MEDS: GLIMEPIRIDE 2 MG TAB PO SCH (08:28)
[2018-11-01] MEDS: POTASSIUM CHLORIDE 10 MEQ SR TABLET PO SCH ×2 (08:29→20:25)
[2018-11-01 08:30] VITALS: BP 97/49
[2018-11-01] MEDS: ATENOLOL 25 MG TAB PO SCH (08:30)
--- NOTE | 2018-11-01 08:32 | IPNPDOC ---
Text Note Date of Service The patient was seen on 11/01/18. NOTE Subjective No complaints this morning, sitting in her usual chair, napping Objective Vitals: see below General Exam: Alert, Cooperative, No Acute Distress Eye Exam: PERRLA, EOMI, anicteric ENT Exam: Atraumatic, MMM, Pharynx Normal Neck Exam: Supple Chest Exam: Clear to auscultation, no crackles or wheezing Heart Exam: regular this morning, no murmurs Abdomen Exam: Normoactive bowel sounds, Soft, nontender Extremity Exam: Good distal pulses, LUE and neck continue to be tender to palpation. 2+ LE edema Skin Exam: Right foot and great toe-wound with dressing, no erythema or discharge noted Psych Exam: Positive: Mental status NL, Oriented x 3 Labs: reviewed. No new imaging. Assessment 78 yo W with AF on xeralto who was admitted with symptomatic anemia with +FOBT s/p EGD/colo without sites of active bleeding s/p 2U pRBCs now stable and restarted back on xeralto with stable Hgb, pending placement. Plan: Remains the same as yesterday, pending placement. At this time tolerating Xeralto with stable H/H. # Symptomatic acute on chronic blood loss Anemia. - The patient has confirmed guaiac positive stools. - s/p colonoscopy/EGD (10/26) reports reviewed: mild gastritis s/p gastric biopsy, diverticulosis w/o signs of bleeding, and internal hemorrhoids - suspect she likely had diverticular bleed vs SB bleed - xarelto resumed, hgb remains stable - continue Ferrous sulfate 325 mg daily, will need repeat CBC in 1 week after discharge - CBC + BMP daily, stable # Paroxysmal Atrial fibrillation. - rate controlled with atenolol, Xarelto 15 mg daily. - BP lower since bowel prep, continue atenolol @ 25 mg today # Chronic diastolic Congestive heart failure. - patient does not have acute diastolic CHF, continue home torsemide - She does not require a fluid restriction # Pwy-tjmaikh-etpsjiucd diabetes mellitus. - continue metformin and sliding scale insulin. # Hypokalemia - monitor daily and replete # B/l heel pain likely mild plantar fasciitis # LUE arm and Neck pain following EGD and colonoscopy likely due to positioning during procedure - tramadol prn for pain # Mild Gastritis - protonix 20 mg daily Dispo:Medically stable for discharge to ECF/STR, CM working on placement VS,Fishbone, I+O VS, Fishbone, I+O Vital Signs Date Time Temp Pulse Resp B/P (MAP) Pulse Ox O2 Delivery O2 Flow Rate FiO2 11/01/18 06:00 97.2 68 18 123/58 (79) 96 I&O- Last 24 Hours up to 6 AM 11/01/18 05:59 Intake Total 1870 ml Output Total 2800 ml Balance -930 ml RADHA DANIEL MD Nov 01, 2018 08:32
[2018-11-01] MEDS: SPIRONOLACTONE 12.5MG PER 1/2 TABLET PO SCH (09:00)
[2018-11-01] MEDS: TORSEMIDE 20 MG TAB PO SCH ×2 (09:00→17:06)
[2018-11-01 10:30] VITALS: BP 104/48
[2018-11-01 14:00] VITALS: BP 110/56
[2018-11-01] MEDS: LOSARTAN 25 MG TAB PO SCH (17:07)
[2018-11-01] MEDS: RIVAROXABAN 15 MG TAB (XARELTO) PO SCH (17:07)
[2018-11-01] MEDS: metroNIDAZOLE (FLAGYL) 500 MG TAB PO SCH (20:25)
[2018-11-01] MEDS: CLARITHROMYCIN 250 MG TAB PO SCH (20:26)
[2018-11-01 22:00] VITALS: BP 116/69
[2018-11-02] MEDS: LEVOTHYROXINE 100MCG TABLET (0.1MG) PO SCH (05:54)
[2018-11-02 06:00] VITALS: BP 124/61
[2018-11-02 07:03] LABS: HEMATOCRIT 28.8 % (36.0-47.0); HEMOGLOBIN 8.9 g/dl (12.0-15.5); MEAN CORPUSCULAR HEMOGLOBIN 24.3 pg (27.0-33.0); MEAN CORPUSCULAR HGB CONC 30.9 g/dl (32.0-36.5); MEAN CORPUSCULAR VOLUME 78.7 fl (80.0-96.0); PLATELET COUNT, AUTOMATED 355 10^3/uL (150-450); RED BLOOD COUNT 3.66 10^6/uL (4.00-5.40); WHITE BLOOD COUNT 9.8 10^3/uL (4.0-10.0)
[2018-11-02 07:20] LABS: CALCIUM LEVEL 8.6 MG/DL (8.8-10.2); CREATININE FOR GFR 0.97 MG/DL (0.55-1.30); GLOMERULAR FILTRATION RATE 59.1 (>39); POTASSIUM SERUM 3.5 MEQ/L (3.5-5.1)
[2018-11-02] MEDS: HumaLOG INSULIN (NovoLOG) PER UNIT SC SCH ×4 (07:30→20:29)
[2018-11-02] MEDS: DOCUSATE SODIUM 100 MG CAP PO SCH ×2 (07:52→20:41)
[2018-11-02] MEDS: VITAMIN D 1,000 INTERNATIONAL UNITS TABLET PO SCH (07:52)
[2018-11-02] MEDS: TORSEMIDE 20 MG TAB PO SCH ×2 (07:52→17:26)
[2018-11-02] MEDS: ATORVASTATIN 20 MG TAB PO SCH (07:52)
[2018-11-02] MEDS: PANTOPRAZOLE 20 MG TAB PO SCH ×2 (07:52→20:39)
[2018-11-02] MEDS: CLARITHROMYCIN 250 MG TAB PO SCH ×2 (07:53→20:40)
[2018-11-02] MEDS: ATENOLOL 25 MG TAB PO SCH (07:53)
[2018-11-02] MEDS: SPIRONOLACTONE 12.5MG PER 1/2 TABLET PO SCH (07:53)
[2018-11-02] MEDS: GLIMEPIRIDE 2 MG TAB PO SCH (07:53)
[2018-11-02] MEDS: POTASSIUM CHLORIDE 10 MEQ SR TABLET PO SCH ×2 (07:53→20:40)
[2018-11-02] MEDS: metFORMIN XR 500MG TAB *GLUCOPHAGE XR PO SCH ×2 (07:53→20:40)
[2018-11-02] MEDS: metroNIDAZOLE (FLAGYL) 500 MG TAB PO SCH ×3 (07:54→20:39)
[2018-11-02] MEDS: FERROUS SULFATE 325MG TAB PO SCH (07:54)
--- NOTE | 2018-11-02 07:58 | IPNPDOC ---
Text Note Date of Service The patient was seen on 11/02/18. NOTE Subjective No complaints this morning, sitting up in chair, doing a word search Objective: STABLE EXAM Vitals: see below General Exam: Alert, Cooperative, No Acute Distress Eye Exam: PERRLA, EOMI, anicteric ENT Exam: Atraumatic, MMM, Pharynx Normal Neck Exam: Supple Chest Exam: Clear to auscultation, no crackles or wheezing Heart Exam: regular this morning, no murmurs Abdomen Exam: Normoactive bowel sounds, Soft, nontender Extremity Exam: Good distal pulses, LUE and neck continue to be tender to palpation. 2+ LE edema Skin Exam: Right foot and great toe-wound with dressing, no erythema or discharge noted Psych Exam: Positive: Mental status NL, Oriented x 3 Labs: reviewed. No new imaging. Assessment 78 yo W with AF on xeralto who was admitted with symptomatic anemia with +FOBT s/p EGD/colo without sites of active bleeding s/p 2U pRBCs now stable and res tarted back on xeralto with stable Hgb, with EGD path report showing H.pylori infection, thus started on triple therapy, pending placement. Plan: EGD pathology results showed H.pylori infection, so was started on triple therapy. Otherwise the plan remains the same, pending placement. # Symptomatic acute on chronic blood loss Anemia. - The patient has confirmed guaiac positive stools. - s/p colonoscopy/EGD (10/26) reports reviewed: mild gastritis s/p gastric biopsy, diverticulosis w/o signs of bleeding, and internal hemorrhoids - suspect she likely had diverticular bleed vs SB bleed - xarelto resumed, hgb remains stable - continue Ferrous sulfate 325 mg daily, will need repeat CBC in 1 week after discharge - CBC + BMP daily, stable #H.pylori infection confirmed by gastric biopsies per EGD path report: -started claritho BID/switched PPI to BID/flagyl TID (allergic to amox) # Paroxysmal Atrial fibrillation. - rate controlled with atenolol, Xarelto 15 mg daily. - BP lower since bowel prep, continue atenolol @ 25 mg today # Chronic diastolic Congestive heart failure. - patient does not have acute diastolic CHF, continue home torsemide - She does not require a fluid restriction # Hxb-ieotrde-sefesttql diabetes mellitus. - continue metformin and sliding scale insulin. # Hypokalemia - monitor daily and replete # B/l heel pain likely mild plantar fasciitis # LUE arm and Neck pain following EGD and colonoscopy likely due to positioning during procedure - tramadol prn for pain # Mild Gastritis - protonix 20 mg BID Dispo:Medically stable for discharge to ECF/STR, CM working on placement VS,Fishbone, I+O VS, Fishbone, I+O Laboratory Tests 11/02/18 06:45 Red Blood Count 3.66 L, Mean Corpuscular Volume 78.7 L, Mean Corpuscular Hemoglobin 24.3 L, Mean Corpuscular Hemoglobin Concent 30.9 L, Red Cell Dis tribution Width 18.5 H, Calcium Level 8.6 L Vital Signs Date Time Temp Pulse Resp B/P (MAP) Pulse Ox O2 Delivery O2 Flow Rate FiO2 11/02/18 06:00 99.3 89 20 124/61 (82) 96 I&O- Last 24 Hours up to 6 AM 11/02/18 06:00 Intake Total 2260 ml Output Total 2350 ml Balance -90 ml RADHA DANIEL MD Nov 02, 2018 07:58
[2018-11-02] MEDS ORDERED: POTASSIUM CHLORIDE 10 MEQ SR TABLET PO ONE (08:00)
[2018-11-02 14:00] VITALS: BP 100/46
[2018-11-02] MEDS: LOSARTAN 25 MG TAB PO SCH (17:25)
[2018-11-02] MEDS: RIVAROXABAN 15 MG TAB (XARELTO) PO SCH (17:26)
[2018-11-02 22:00] VITALS: BP 106/48
[2018-11-03] MEDS: LEVOTHYROXINE 100MCG TABLET (0.1MG) PO SCH (05:43)
[2018-11-03] MEDS: traMADol 50 MG TAB PO PRN ×2 (05:44→14:44)
[2018-11-03 06:00] VITALS: BP 105/48
[2018-11-03 07:06] LABS: HEMATOCRIT 28.8 % (36.0-47.0); HEMOGLOBIN 8.8 g/dl (12.0-15.5); MEAN CORPUSCULAR HEMOGLOBIN 24.9 pg (27.0-33.0); MEAN CORPUSCULAR HGB CONC 30.6 g/dl (32.0-36.5); MEAN CORPUSCULAR VOLUME 81.4 fl (80.0-96.0); PLATELET COUNT, AUTOMATED 370 10^3/uL (150-450); RED BLOOD COUNT 3.54 10^6/uL (4.00-5.40); WHITE BLOOD COUNT 10.3 10^3/uL (4.0-10.0)
--- NOTE | 2018-11-03 07:17 | IPNPDOC ---
Text Note Date of Service The patient was seen on 11/03/18. NOTE Subjective No complaints this morning Objective: STABLE EXAM Vitals: see below General Exam: Alert, Cooperative, No Acute Distress Eye Exam: PERRLA, EOMI, anicteric ENT Exam: Atraumatic, MMM, Pharynx Normal Neck Exam: Supple Chest Exam: Clear to auscultation, no crackles or wheezing Heart Exam: regular this morning, no murmurs Abdomen Exam: Normoactive bowel sounds, Soft, nontender Extremity Exam: Good distal pulses, LUE and neck continue to be tender to palpation. 2+ LE edema Skin Exam: Right foot and great toe-wound with dressing, no erythema or discharge noted Psych Exam: Positive: Mental status NL, Oriented x 3 Labs: reviewed. No new imaging. Assessment 78 yo W with AF on xeralto who was admitted with symptomatic anemia with +FOBT s/p EGD/colo without sites of active bleeding s/p 2U pRBCs now stable and restarted back on xeralto with stable Hgb, with EGD path report showing H.pylori infection, thus started on triple therapy, pending placement. Plan: pending placement # Symptomatic acute on chronic blood loss Anemia. - +FOBT --> s/p colonoscopy/EGD (10/26) reports reviewed: mild gastritis s/p gastric biopsy, diverticulosis w/o signs of bleeding, and internal hemorrhoids - suspect she likely had diverticular bleed vs SB bleed - xarelto resumed, hgb remains stable - continue Ferrous sulfate 325 mg daily, will need repeat CBC in 1 week after discharge - CBC + BMP daily, stable #H.pylori infection confirmed by gastric biopsies per EGD path report: -started claritho BID/PPI BID/flagyl TID (allergic to amox) on 11/01 - to end on 11/10/2018 # Paroxysmal Atrial fibrillation. - rate controlled with atenolol, Xarelto 15 mg daily. - BP lower since bowel prep, continue atenolol @ 25 mg today # Chronic diastolic Congestive heart failure. - patient does not have acute diastolic CHF, continue home torsemide - She does not require a fluid restriction # Vhx-kawbmqe-gssfjlakf diabetes mellitus. - continue metformin and sliding scale insulin. # Hypokalemia - monitor daily and replete # B/l heel pain likely mild plantar fasciitis # LUE arm and Neck pain following EGD and colonoscopy likely due to positioning during procedure - tramadol prn for pain # Mild Gastritis - protonix 20 mg BID Dispo:Medically stable for discharge to [facility]/STR, CM working on placement VS,Fishbone, I+O VS, Fishbone, I+O Laboratory Tests 11/03/18 06:34 Red Blood Count 3.54 L, Mean Corpuscular Volume 81.4, Mean Corpuscular Hemoglobin 24.9 L, Mean Corpuscular Hemoglobin Concent 30.6 L, Red Cell Distribution Width 18.5 H Vital Signs Date Time Temp Pulse Resp B/P (MAP) Pulse Ox O2 Delivery O2 Flow Rate FiO2 11/03/18 06:14 16 11/03/18 06:00 97.3 97 105/48 (59) 96 I&O- Last 24 Hours up to 6 AM 11/03/18 05:59 Intake Total 2700 ml Output Total 3150 ml Balance -450 ml RADHA DANIEL MD Nov 03, 2018 07:17
[2018-11-03 07:42] LABS: CREATININE FOR GFR 0.97 MG/DL (0.55-1.30); GLOMERULAR FILTRATION RATE 59.1 (>39); MAGNESIUM LEVEL 1.2 MG/DL (1.8-2.4); POTASSIUM SERUM 3.8 MEQ/L (3.5-5.1)
[2018-11-03] MEDS: metFORMIN XR 500MG TAB *GLUCOPHAGE XR PO SCH ×2 (08:43→22:08)
[2018-11-03] MEDS: metroNIDAZOLE (FLAGYL) 500 MG TAB PO SCH ×3 (08:43→22:09)
[2018-11-03] MEDS: HumaLOG INSULIN (NovoLOG) PER UNIT SC SCH ×4 (08:43→22:10)
[2018-11-03] MEDS: TORSEMIDE 20 MG TAB PO SCH ×2 (08:44→17:10)
[2018-11-03] MEDS: VITAMIN D 1,000 INTERNATIONAL UNITS TABLET PO SCH (08:44)
[2018-11-03] MEDS: CLARITHROMYCIN 250 MG TAB PO SCH ×2 (08:44→22:09)
[2018-11-03] MEDS: SPIRONOLACTONE 12.5MG PER 1/2 TABLET PO SCH (08:44)
[2018-11-03] MEDS: POTASSIUM CHLORIDE 10 MEQ SR TABLET PO SCH ×2 (08:45→22:09)
[2018-11-03] MEDS: ATENOLOL 25 MG TAB PO SCH (08:45)
[2018-11-03] MEDS: GLIMEPIRIDE 2 MG TAB PO SCH (08:45)
[2018-11-03] MEDS: PANTOPRAZOLE 20 MG TAB PO SCH ×2 (08:45→22:09)
[2018-11-03] MEDS: ATORVASTATIN 20 MG TAB PO SCH (08:46)
[2018-11-03] MEDS: FERROUS SULFATE 325MG TAB PO SCH (08:46)
[2018-11-03] MEDS: DOCUSATE SODIUM 100 MG CAP PO SCH ×2 (08:46→22:09)
[2018-11-03 14:00] VITALS: BP 120/56
[2018-11-03] MEDS: RIVAROXABAN 15 MG TAB (XARELTO) PO SCH (17:09)
[2018-11-03] MEDS: LOSARTAN 25 MG TAB PO SCH (17:09)
[2018-11-03 22:00] VITALS: BP 105/41
[2018-11-04] MEDS: traMADol 50 MG TAB PO PRN (03:42)
[2018-11-04] MEDS ORDERED: ONDANSETRON 4 MG ORAL DISINTEGRATING TAB (Q0162 PER 1MG) PO PRN (05:00)
[2018-11-04] MEDS: LEVOTHYROXINE 100MCG TABLET (0.1MG) PO SCH (05:19)
[2018-11-04 06:00] VITALS: BP 106/42
[2018-11-04 07:28] LABS: HEMATOCRIT 28.5 % (36.0-47.0); HEMOGLOBIN 8.6 g/dl (12.0-15.5); MEAN CORPUSCULAR HEMOGLOBIN 24.6 pg (27.0-33.0); MEAN CORPUSCULAR HGB CONC 30.2 g/dl (32.0-36.5); MEAN CORPUSCULAR VOLUME 81.7 fl (80.0-96.0); PLATELET COUNT, AUTOMATED 396 10^3/uL (150-450); RED BLOOD COUNT 3.49 10^6/uL (4.00-5.40); WHITE BLOOD COUNT 11.1 10^3/uL (4.0-10.0)
[2018-11-04 07:53] LABS: CALCIUM LEVEL 8.2 MG/DL (8.8-10.2); CREATININE FOR GFR 1.08 MG/DL (0.55-1.30); GLOMERULAR FILTRATION RATE 52.2 (>39); POTASSIUM SERUM 3.7 MEQ/L (3.5-5.1)
--- NOTE | 2018-11-04 08:58 | IPNPDOC ---
Text Note Date of Service The patient was seen on 11/04/18. NOTE Subjective No complaints this morning, doing her usual word search in a chair Objective: STABLE EXAM Vitals: see below General Exam: Alert, Cooperative, No Acute Distress Eye Exam: PERRLA, EOMI, anicteric ENT Exam: Atraumatic, MMM, Pharynx Normal Neck Exam: Supple Chest Exam: Clear to auscultation, no crackles or wheezing Heart Exam: regular this morning, no murmurs Abdomen Exam: Normoactive bowel sounds, Soft, nontender Extremity Exam: Good distal pulses, LUE and neck continue to be tender to palpation. 2+ LE edema Skin Exam: Right foot and great toe-wound with dressing, no erythema or discharge noted Psych Exam: Positive: Mental status NL, Oriented x 3 Labs: reviewed. No new imaging. Assessment 78 yo W with AF on xeralto who was admitted with symptomatic anemia with +FOBT s/p EGD/colo without sites of active bleeding s/p 2U pRBCs now stable and resta rted back on xeralto with stable Hgb, with EGD path report showing H.pylori infection, thus started on triple therapy, pending placement. Plan: pending placement # Symptomatic acute on chronic blood loss Anemia. - +FOBT --> s/p colonoscopy/EGD (10/26) reports reviewed: mild gastritis s/p gastric biopsy, diverticulosis w/o signs of bleeding, and internal hemorrhoids - suspect she likely had diverticular bleed vs SB bleed - xarelto resumed, hgb remains stable - continue Ferrous sulfate 325 mg daily, will need repeat CBC in 1 week after discharge - CBC + BMP daily, stable #H.pylori infection confirmed by gastric biopsies per EGD path report: -started claritho BID/PPI BID/flagyl TID (allergic to amox) on 11/01 - to end on 11/10/2018 # Paroxysmal Atrial fibrillation. - rate controlled with atenolol, Xarelto 15 mg daily. - BP lower since bowel prep, continue atenolol @ 25 mg today # Chronic diastolic Congestive heart failure. - patient does not have acute diastolic CHF, continue home torsemide - She does not require a fluid restriction # Vwi-joilnut-modszhfzf diabetes mellitus. - continue metformin and sliding scale insulin. # Hypokalemia - monitor daily and replete # B/l heel pain likely mild plantar fasciitis # LUE arm and Neck pain following EGD and colonoscopy likely due to positioning during procedure - tramadol prn for pain # Mild Gastritis - protonix 20 mg BID Dispo:Medically stable for discharge to [facility]/STR, CM working on placement VS,Fishbone, I+O VS, Fishbone, I+O Laboratory Tests 11/04/18 07:01 Red Blood Count 3.49 L, Mean Corpuscular Volume 81.7, Mean Corpuscular Hemoglobin 24.6 L, Mean Corpuscular Hemoglobin Concent 30.2 L, Red Cell Distribution Width 18.5 H, Calcium Level 8.2 L Vital Signs Date Time Temp Pulse Resp B/P (MAP) Pulse Ox O2 Delivery O2 Flow Rate FiO2 11/04/18 06:00 96.9 83 17 106/42 (76) 96 I&O- Last 24 Hours up to 6 AM 11/04/18 05:59 Intake Total 1836 ml Output Total 2900 ml Balance -1064 ml RADHA DANIEL MD Nov 04, 2018 08:58
[2018-11-04] MEDS: metFORMIN XR 500MG TAB *GLUCOPHAGE XR PO SCH ×2 (09:11→21:11)
[2018-11-04] MEDS: DOCUSATE SODIUM 100 MG CAP PO SCH ×2 (09:12→21:11)
[2018-11-04] MEDS: ATORVASTATIN 20 MG TAB PO SCH (09:12)
[2018-11-04] MEDS: SPIRONOLACTONE 12.5MG PER 1/2 TABLET PO SCH (09:12)
[2018-11-04] MEDS: CLARITHROMYCIN 250 MG TAB PO SCH ×2 (09:12→21:11)
[2018-11-04] MEDS: PANTOPRAZOLE 20 MG TAB PO SCH ×2 (09:12→21:13)
[2018-11-04] MEDS: VITAMIN D 1,000 INTERNATIONAL UNITS TABLET PO SCH (09:12)
[2018-11-04] MEDS: POTASSIUM CHLORIDE 10 MEQ SR TABLET PO SCH ×2 (09:12→21:10)
[2018-11-04] MEDS: GLIMEPIRIDE 2 MG TAB PO SCH (09:13)
[2018-11-04] MEDS: metroNIDAZOLE (FLAGYL) 500 MG TAB PO SCH ×3 (09:13→21:11)
[2018-11-04] MEDS: FERROUS SULFATE 325MG TAB PO SCH (09:13)
[2018-11-04] MEDS: TORSEMIDE 20 MG TAB PO SCH ×2 (09:13→16:47)
[2018-11-04] MEDS: HumaLOG INSULIN (NovoLOG) PER UNIT SC SCH ×4 (09:14→21:00)
[2018-11-04] MEDS: ATENOLOL 25 MG TAB PO SCH (09:18)
[2018-11-04 14:00] VITALS: BP 102/42
[2018-11-04] MEDS: RIVAROXABAN 15 MG TAB (XARELTO) PO SCH (16:48)
[2018-11-04] MEDS: LOSARTAN 25 MG TAB PO SCH (16:48)
[2018-11-05] MEDS: traMADol 50 MG TAB PO PRN (01:36)
[2018-11-05] MEDS: ACETAMINOPHEN TAB 650MG DOSE (2X325MG) PO PRN (04:31)
[2018-11-05] MEDS: LEVOTHYROXINE 100MCG TABLET (0.1MG) PO SCH (05:59)
[2018-11-05 06:12] LABS: HEMATOCRIT 26.2 % (36.0-47.0); HEMOGLOBIN 8.2 g/dl (12.0-15.5); MEAN CORPUSCULAR HEMOGLOBIN 24.6 pg (27.0-33.0); MEAN CORPUSCULAR HGB CONC 31.3 g/dl (32.0-36.5); MEAN CORPUSCULAR VOLUME 78.4 fl (80.0-96.0); PLATELET COUNT, AUTOMATED 405 10^3/uL (150-450); RED BLOOD COUNT 3.34 10^6/uL (4.00-5.40); WHITE BLOOD COUNT 11.8 10^3/uL (4.0-10.0)
[2018-11-05 06:33] LABS: CREATININE FOR GFR 1.12 MG/DL (0.55-1.30); GLOMERULAR FILTRATION RATE 50.1 (>39); POTASSIUM SERUM 3.8 MEQ/L (3.5-5.1)
[2018-11-05 08:45] VITALS: BP 104/48
[2018-11-05] MEDS: HumaLOG INSULIN (NovoLOG) PER UNIT SC SCH ×4 (08:48→20:20)
[2018-11-05] MEDS: metroNIDAZOLE (FLAGYL) 500 MG TAB PO SCH ×3 (08:48→20:19)
[2018-11-05] MEDS: FERROUS SULFATE 325MG TAB PO SCH (08:49)
[2018-11-05] MEDS: metFORMIN XR 500MG TAB *GLUCOPHAGE XR PO SCH ×2 (08:49→20:19)
[2018-11-05] MEDS: PANTOPRAZOLE 20 MG TAB PO SCH ×2 (08:49→20:19)
[2018-11-05] MEDS: POTASSIUM CHLORIDE 10 MEQ SR TABLET PO SCH ×2 (08:49→20:19)
[2018-11-05] MEDS: DOCUSATE SODIUM 100 MG CAP PO SCH ×2 (08:49→20:19)
[2018-11-05] MEDS: ATORVASTATIN 20 MG TAB PO SCH (08:49)
[2018-11-05] MEDS: VITAMIN D 1,000 INTERNATIONAL UNITS TABLET PO SCH (08:50)
[2018-11-05] MEDS: CLARITHROMYCIN 250 MG TAB PO SCH ×2 (08:50→20:20)
[2018-11-05] MEDS: GLIMEPIRIDE 2 MG TAB PO SCH (08:50)
--- NOTE | 2018-11-05 08:50 | IPNPDOC ---
Text Note Date of Service The patient was seen on 11/05/18. NOTE Subjective No complaints this morning I am to update HCP today on her clinical status and discharge planning progress Objective: STABLE EXAM Vitals: see below General Exam: Alert, Cooperative, No Acute Distress Eye Exam: PERRLA, EOMI, anicteric ENT Exam: Atraumatic, MMM, Pharynx Normal Neck Exam: Supple Chest Exam: Clear to auscultation, no crackles or wheezing Heart Exam: regular this morning, no murmurs Abdomen Exam: Normoactive bowel sounds, Soft, nontender Extremity Exam: Good distal pulses, LUE and neck continue to be tender to palpation. 2+ LE edema Skin Exam: Right foot and great toe-wound with dressing, no erythema or discharge noted Psych Exam: Positive: Mental status NL, Oriented x 3 Labs: reviewed. No new imaging. Assessment 78 yo W with AF on xeralto who was admitted with symptomatic anemia with +FOBT s/p EGD/colo without sites of active bleeding s/p 2U pRBCs now stable and restarted back on xeralto with stable Hgb, with EGD path report showing H.pylori infection, thus started on triple therapy, pending placement. Plan: pending placement # Symptomatic acute on chronic blood loss Anemia. - +FOBT --> s/p colonoscopy/EGD (10/26) reports reviewed: mild gastritis s/p gastric biopsy, diverticulosis w/o signs of bleeding, and internal hemorrhoids - suspect she likely had diverticular bleed vs SB bleed - xarelto resumed, hgb remains stable - continue Ferrous sulfate 325 mg daily, will need repeat CBC in 1 week after discharge - CBC + BMP daily, stable #H.pylori infection confirmed by gastric biopsies per EGD path report: -started claritho BID/PPI BID/flagyl TID (allergic to amox) on 11/01 - to end on 11/10/2018 # Paroxysmal Atrial fibrillation. - rate controlled with atenolol, Xarelto 15 mg daily. - BP lower since bowel prep, continue atenolol @ 25 mg today # Chronic diastolic Congestive heart failure. - patient does not have acute diastolic CHF, continue home torsemide - She does not require a fluid restriction # Jyp-ozurgvv-totrdhxdu diabetes mellitus. - continue metformin and sliding scale insulin. # Hypokalemia - monitor daily and replete # B/l heel pain likely mild plantar fasciitis # LUE arm and Neck pain following EGD and colonoscopy likely due to positioning during procedure - tramadol prn for pain # Mild Gastritis - protonix 20 mg BID Dispo:Medically stable for discharge to [facility]/STR, CM working on placement VS,Fishbone, I+O VS, Fishbone, I+O Laboratory Tests 11/05/18 05:44 Red Blood Count 3.34 L, Mean Corpuscular Volume 78.4 L, Mean Corpuscular Hemoglobin 24.6 L, Mean Corpuscular Hemoglobin Concent 31.3 L, Red Cell Distribution Width 18.5 H, Calcium Level 8.0 L Vital Signs Date Time Temp Pulse Resp B/P (MAP) Pulse Ox O2 Delivery O2 Flow Rate FiO2 11/05/18 02:06 18 11/04/18 16:48 102/42 11/04/18 14:00 97.1 76 96 I&O- Last 24 Hours up to 6 AM 11/05/18 06:00 Intake Total 600 ml Output Total 1250 ml Balance -650 ml RADHA DANIEL MD Nov 05, 2018 08:50
[2018-11-05] MEDS: SPIRONOLACTONE 12.5MG PER 1/2 TABLET PO SCH (09:00)
[2018-11-05] MEDS: ATENOLOL 25 MG TAB PO SCH (09:00)
[2018-11-05] MEDS: TORSEMIDE 20 MG TAB PO SCH ×2 (09:00→17:12)
[2018-11-05 14:00] VITALS: BP 118/53
[2018-11-05 14:12] VITALS: BP 112/46
[2018-11-05] MEDS: LOSARTAN 25 MG TAB PO SCH (17:11)
[2018-11-05] MEDS: RIVAROXABAN 15 MG TAB (XARELTO) PO SCH (17:11)
[2018-11-05 22:00] VITALS: BP 138/66
[2018-11-06] MEDS: traMADol 50 MG TAB PO PRN ×2 (04:30→08:46)
[2018-11-06] MEDS: LEVOTHYROXINE 100MCG TABLET (0.1MG) PO SCH (05:32)
[2018-11-06 06:00] VITALS: BP 134/64
[2018-11-06 06:44] LABS: HEMATOCRIT 28.9 % (36.0-47.0); HEMOGLOBIN 8.9 g/dl (12.0-15.5); MEAN CORPUSCULAR HEMOGLOBIN 24.9 pg (27.0-33.0); MEAN CORPUSCULAR HGB CONC 30.8 g/dl (32.0-36.5); MEAN CORPUSCULAR VOLUME 80.7 fl (80.0-96.0); PLATELET COUNT, AUTOMATED 456 10^3/uL (150-450); RED BLOOD COUNT 3.58 10^6/uL (4.00-5.40)
[2018-11-06 07:05] LABS: CALCIUM LEVEL 8.8 MG/DL (8.8-10.2); CREATININE FOR GFR 0.96 MG/DL (0.55-1.30); GLOMERULAR FILTRATION RATE 59.8 (>39); POTASSIUM SERUM 3.8 MEQ/L (3.5-5.1)
[2018-11-06] MEDS: HumaLOG INSULIN (NovoLOG) PER UNIT SC SCH ×4 (07:30→21:00)
[2018-11-06 07:55] LABS: MAGNESIUM LEVEL 1.4 MG/DL (1.8-2.4)
[2018-11-06 08:33] VITALS: BP 122/52
[2018-11-06] MEDS: VITAMIN D 1,000 INTERNATIONAL UNITS TABLET PO SCH (08:35)
[2018-11-06] MEDS: metroNIDAZOLE (FLAGYL) 500 MG TAB PO SCH ×3 (08:35→21:37)
[2018-11-06] MEDS: ATORVASTATIN 20 MG TAB PO SCH (08:36)
[2018-11-06] MEDS: CLARITHROMYCIN 250 MG TAB PO SCH ×2 (08:36→21:37)
[2018-11-06] MEDS: FERROUS SULFATE 325MG TAB PO SCH (08:36)
[2018-11-06] MEDS: POTASSIUM CHLORIDE 10 MEQ SR TABLET PO SCH ×2 (08:36→21:37)
[2018-11-06] MEDS: SPIRONOLACTONE 12.5MG PER 1/2 TABLET PO SCH (08:37)
[2018-11-06] MEDS: TORSEMIDE 20 MG TAB PO SCH ×2 (08:37→17:00)
[2018-11-06] MEDS: GLIMEPIRIDE 2 MG TAB PO SCH (08:37)
[2018-11-06] MEDS: metFORMIN XR 500MG TAB *GLUCOPHAGE XR PO SCH ×2 (08:37→21:37)
[2018-11-06] MEDS: ATENOLOL 25 MG TAB PO SCH (08:37)
[2018-11-06] MEDS: PANTOPRAZOLE 20 MG TAB PO SCH ×2 (08:37→21:37)
[2018-11-06] MEDS: DOCUSATE SODIUM 100 MG CAP PO SCH ×2 (08:41→21:38)
[2018-11-06] MEDS ORDERED: MAGNESIUM OXIDE 400 MG TAB (MAG-OX) PO SCH (09:00)
--- NOTE | 2018-11-06 11:26 | IPNPDOC ---
Text Note Date of Service The patient was seen on 11/06/18. NOTE Subjective: Patient seen and examined at bedside. No new medical complaints this morning. No acute overnight events reported. Objective: Vitals: see below General Exam: Alert, Cooperative, No Acute Distress Eye Exam: PERRLA, EOMI, anicteric ENT Exam: Atraumatic, MMM, Pharynx Normal Neck Exam: Supple Chest Exam: Clear to auscultation, no crackles or wheezing Heart Exam: regular this morning, no murmurs Abdomen Exam: Normoactive bowel sounds, Soft, nontender Extremity Exam: no edema Assessment: 78 yo W with AF on xeralto who was admitted with symptomatic anemia with +FOBT s/p EGD/colo without sites of active bleeding s/p 2U pRBCs now stable and restarted back on xeralto, with EGD path report showing H.pylori infection, thus started on triple abx therapy, pending placement. # Symptomatic acute on chronic blood loss Anemia. - +FOBT --> s/p colonoscopy/EGD (10/26) reports reviewed: mild gastritis s/p gastric biopsy, diverticulosis w/o signs of bleeding, and internal hemorrhoids - suspect she likely had diverticular bleed vs SB bleed - xarelto resumed, hgb remains stable - continue Ferrous sulfate 325 mg daily, will need repeat CBC in 1 week after discharge - CBC + BMP daily, stable #H.pylori infection confirmed by gastric biopsies per EGD path report: -started claritho BID/PPI BID/flagyl TID (allergic to amox) on 11/01 - to end on 11/10/2018 # Paroxysmal Atrial fibrillation. - rate controlled with atenolol, Xarelto 15 mg daily. - BP lower since bowel prep, continue atenolol @ 25 mg today # Chronic diastolic Congestive heart failure. - patient does not have acute diastolic CHF, continue home torsemide - She does not require a fluid restriction # Rbg-iarngdl-ifaehyvkj diabetes mellitus. - continue metformin and sliding scale insulin. # Hypokalemia - monitor daily and replete # B/l heel pain likely mild plantar fasciitis # LUE arm and Neck pain following EGD and colonoscopy likely due to positioning during procedure - tramadol prn for pain # Mild Gastritis - protonix 20 mg BID #DVT prophylaxis - as above on xarelto Dispo: Medically stable for discharge to ECF/STR, CM working on placement VS,Fishbone, I+O VS, Fishbone, I+O Laboratory Tests 11/06/18 06:24 Red Blood Count 3.58 L, Mean Corpuscular Volume 80.7, Mean Corpuscular Hemoglobin 24.9 L, Mean Corpuscular Hemoglobin Concent 30.8 L, Red Cell Distribution Width 18.4 H, Calcium Level 8.8 Vital Signs Date Time Temp Pulse Resp B/P (MAP) Pulse Ox O2 Delivery O2 Flow Rate FiO2 11/06/18 09:20 17 11/06/18 08:33 88 122/52 (75) 11/06/18 06:00 97.3 97 I&O- Last 24 Hours up to 6 AM 11/06/18 06:00 Intake Total 1500 ml Output Total 2725 ml Balance -1225 ml MATT SANTILLAN MD Nov 06, 2018 11:26
[2018-11-06] MEDS ORDERED: MAG SULF 1GM/100ML (MAG RUN) 1 GM in IV 1 EA IV ONE (12:00)
[2018-11-06 14:00] VITALS: BP 106/50
[2018-11-06 15:29] VITALS: BP 104/48
[2018-11-06] MEDS: LOSARTAN 25 MG TAB PO SCH (17:11)
[2018-11-06] MEDS: RIVAROXABAN 15 MG TAB (XARELTO) PO SCH (17:23)
[2018-11-06 22:00] VITALS: BP 102/55
[2018-11-07] MEDS: traMADol 50 MG TAB PO PRN ×2 (00:31→05:56)
[2018-11-07] MEDS: LEVOTHYROXINE 100MCG TABLET (0.1MG) PO SCH (05:55)
[2018-11-07 06:00] VITALS: BP 104/52
[2018-11-07] MEDS: HumaLOG INSULIN (NovoLOG) PER UNIT SC SCH ×4 (08:28→21:00)
[2018-11-07] MEDS: POTASSIUM CHLORIDE 10 MEQ SR TABLET PO SCH ×2 (08:30→21:30)
[2018-11-07] MEDS: MAGNESIUM OXIDE 400 MG TAB (MAG-OX) PO SCH ×2 (08:30→21:30)
[2018-11-07] MEDS: metFORMIN XR 500MG TAB *GLUCOPHAGE XR PO SCH ×2 (08:30→21:34)
[2018-11-07] MEDS: TORSEMIDE 20 MG TAB PO SCH ×2 (08:31→17:20)
[2018-11-07] MEDS: SPIRONOLACTONE 12.5MG PER 1/2 TABLET PO SCH (08:31)
[2018-11-07] MEDS: VITAMIN D 1,000 INTERNATIONAL UNITS TABLET PO SCH (08:31)
[2018-11-07] MEDS: PANTOPRAZOLE 20 MG TAB PO SCH ×2 (08:31→21:33)
[2018-11-07] MEDS: DOCUSATE SODIUM 100 MG CAP PO SCH ×2 (08:32→21:31)
[2018-11-07] MEDS: CLARITHROMYCIN 250 MG TAB PO SCH ×2 (08:32→21:30)
[2018-11-07] MEDS: GLIMEPIRIDE 2 MG TAB PO SCH (08:32)
[2018-11-07] MEDS: metroNIDAZOLE (FLAGYL) 500 MG TAB PO SCH ×3 (08:33→21:30)
[2018-11-07] MEDS: FERROUS SULFATE 325MG TAB PO SCH (08:33)
[2018-11-07] MEDS: ATORVASTATIN 20 MG TAB PO SCH (08:33)
[2018-11-07] MEDS: ATENOLOL 25 MG TAB PO SCH (08:37)
--- NOTE | 2018-11-07 08:45 | IPNPDOC ---
Text Note Date of Service The patient was seen on 11/07/18. NOTE Subjective: Patient seen and examined at bedside. No new medical complaints this morning. No acute overnight events reported. Objective: Vitals: see below General Exam: NAD, sitting comfortably in chair, elderly HEENT: NC/AT, EOMI Neck Exam: Supple Chest Exam: CTA B/L Heart Exam: +S1S2, RRR Abdomen Exam: soft, NT, +BS Extremity Exam: no edema Assessment: 78 yo W with AF on Xeralto admitted for symptomatic anemia with +FOBT s/p EGD/colo without sites of active bleeding s/p 2U pRBCs now stable and restarted back on xeralto, with EGD path report showing H.pylori infection, thus started on triple abx therapy, pending placement. # Symptomatic acute on chronic blood loss Anemia. - +FOBT --> s/p colonoscopy/EGD (10/26) reports reviewed: mild gastritis s/p gastric biopsy, diverticulosis w/o signs of bleeding, and internal hemorrhoids - suspect she likely had diverticular bleed vs SB bleed - xarelto resumed, hgb remains stable - continue Ferrous sulfate 325 mg daily, will need repeat CBC in 1 week after discharge - CBC + BMP daily, stable #H.pylori infection confirmed by gastric biopsies per EGD path report: -started claritho BID/PPI BID/flagyl TID (allergic to amox) on 11/01 - to end on 11/10/2018 # Paroxysmal Atrial fibrillation. - rate controlled with atenolol, Xarelto 15 mg daily. - BP lower since bowel prep, continue atenolol @ 25 mg today # Chronic diastolic Congestive heart failure. - patient does not have acute diastolic CHF, continue home torsemide - She does not require a fluid restriction # Fnm-finfbsp-dbchhdsim diabetes mellitus. - continue metformin and sliding scale insulin. # Hypokalemia - monitor daily and replete # B/l heel pain likely mild plantar fasciitis # LUE arm and Neck pain following EGD and colonoscopy likely due to positioning during procedure - tramadol prn for pain # Mild Gastritis - protonix 20 mg BID #hypomagnesemia - mag 400 BID - at home was taking 500 qhs #DVT prophylaxis - as above on xarelto Dispo: Medically stable for discharge to ECF/STR, CM working on placement VS,Angelica, I+O VS, Fishbone, I+O Vital Signs Date Time Temp Pulse Resp B/P (MAP) Pulse Ox O2 Delivery O2 Flow Rate FiO2 11/07/18 08:37 88 99/53 11/07/18 06:43 16 11/07/18 06:00 97.8 94 I&O- Last 24 Hours up to 6 AM 11/07/18 06:00 Intake Total 2586 ml Output Total 2550 ml Balance 36 ml MATT SANTILLAN MD Nov 07, 2018 08:45
[2018-11-07 14:00] VITALS: BP 110/53
[2018-11-07] MEDS: LOSARTAN 25 MG TAB PO SCH (17:22)
[2018-11-07] MEDS: RIVAROXABAN 15 MG TAB (XARELTO) PO SCH (17:22)
[2018-11-07 22:00] VITALS: BP 114/60
[2018-11-08] MEDS: traMADol 50 MG TAB PO PRN ×3 (01:01→11:16)
[2018-11-08] MEDS: LEVOTHYROXINE 100MCG TABLET (0.1MG) PO SCH (05:36)
[2018-11-08 06:00] VITALS: BP 113/61
[2018-11-08 07:43] LABS: HEMATOCRIT 28.9 % (36.0-47.0); HEMOGLOBIN 8.9 g/dl (12.0-15.5); MEAN CORPUSCULAR HEMOGLOBIN 24.7 pg (27.0-33.0); MEAN CORPUSCULAR HGB CONC 30.8 g/dl (32.0-36.5); MEAN CORPUSCULAR VOLUME 80.1 fl (80.0-96.0); PLATELET COUNT, AUTOMATED 521 10^3/uL (150-450); RED BLOOD COUNT 3.61 10^6/uL (4.00-5.40); WHITE BLOOD COUNT 10.9 10^3/uL (4.0-10.0)
[2018-11-08 08:04] LABS: BLOOD UREA NITROGEN 22 MG/DL (7-18); CARBON DIOXIDE LEVEL 29 MEQ/L (21-32); CHLORIDE LEVEL 100 MEQ/L (98-107); CREATININE FOR GFR 0.88 MG/DL (0.55-1.30); GLOMERULAR FILTRATION RATE > 60.0 (>39); GLUCOSE, FASTING 103 MG/DL (70-100); MAGNESIUM LEVEL 1.2 MG/DL (1.8-2.4); POTASSIUM SERUM 3.7 MEQ/L (3.5-5.1); SODIUM LEVEL 137 MEQ/L (136-145)
[2018-11-08 08:10] VITALS: BP 120/68
[2018-11-08] MEDS: CLARITHROMYCIN 250 MG TAB PO SCH ×2 (09:19→21:45)
[2018-11-08] MEDS: GLIMEPIRIDE 2 MG TAB PO SCH (09:19)
[2018-11-08] MEDS: SPIRONOLACTONE 12.5MG PER 1/2 TABLET PO SCH (09:20)
[2018-11-08] MEDS: metroNIDAZOLE (FLAGYL) 500 MG TAB PO SCH ×3 (09:20→21:45)
[2018-11-08] MEDS: ATORVASTATIN 20 MG TAB PO SCH (09:20)
[2018-11-08] MEDS: VITAMIN D 1,000 INTERNATIONAL UNITS TABLET PO SCH (09:20)
[2018-11-08] MEDS: metFORMIN XR 500MG TAB *GLUCOPHAGE XR PO SCH ×2 (09:20→21:44)
[2018-11-08] MEDS: DOCUSATE SODIUM 100 MG CAP PO SCH ×2 (09:20→21:45)
[2018-11-08] MEDS: PANTOPRAZOLE 20 MG TAB PO SCH ×2 (09:21→21:53)
[2018-11-08] MEDS: POTASSIUM CHLORIDE 10 MEQ SR TABLET PO SCH ×2 (09:21→21:45)
[2018-11-08] MEDS: TORSEMIDE 20 MG TAB PO SCH ×2 (09:21→17:50)
[2018-11-08] MEDS: ATENOLOL 25 MG TAB PO SCH (09:22)
[2018-11-08] MEDS: FERROUS SULFATE 325MG TAB PO SCH (09:22)
[2018-11-08] MEDS: MAGNESIUM OXIDE 400 MG TAB (MAG-OX) PO SCH ×2 (09:23→21:45)
[2018-11-08] MEDS: HumaLOG INSULIN (NovoLOG) PER UNIT SC SCH ×4 (09:44→21:00)
--- NOTE | 2018-11-08 10:43 | IPNPDOC ---
Text Note Date of Service The patient was seen on 11/08/18. NOTE Subjective: Patient seen and examined at bedside. No new medical complaints this morning. No acute overnight events reported. Objective: Vitals: see below General Exam: NAD, sitting comfortably in chair, elderly HEENT: NC/AT, EOMI Neck Exam: Supple Chest Exam: CTA B/L Heart Exam: +S1S2, RRR Abdomen Exam: soft, NT, +BS Extremity Exam: no edema Assessment: 78 yo W with AF on Xeralto admitted for symptomatic anemia with +FOBT s/p EGD/colo without sites of active bleeding s/p 2U pRBCs now stable and restarted back on xeralto, with EGD path report showing H.pylori infection, thus started on triple abx therapy, pending placement. # Symptomatic acute on chronic blood loss Anemia. - +FOBT --> s/p colonoscopy/EGD (10/26) reports reviewed: mild gastritis s/p gastric biopsy, diverticulosis w/o signs of bleeding, and internal hemorrhoids - suspect she likely had diverticular bleed vs SB bleed - xarelto resumed, hgb remains stable - continue Ferrous sulfate 325 mg daily, will need repeat CBC in 1 week after discharge - CBC + BMP daily, stable #hypomagnesemia - d/w patient for IV access - agreeable - parenteral replacement #H.pylori infection confirmed by gastric biopsies per EGD path report: -started claritho BID/PPI BID/flagyl TID (allergic to amox) on 11/01 - to end on 11/10/2018 # Paroxysmal Atrial fibrillation. - rate controlled with atenolol, Xarelto 15 mg daily. - BP lower since bowel prep, continue atenolol @ 25 mg today # Chronic HFpEF - continue home torsemide # Rqn-gakilou-iezcpelib diabetes mellitus. - continue metformin and sliding scale insulin. # Hypokalemia - monitor daily and replete # B/l heel pain likely mild plantar fasciitis # LUE arm and Neck pain following EGD and colonoscopy likely due to positioning during procedure - tramadol prn for pain # Mild Gastritis - protonix 20 mg BID #hypomagnesemia - mag 400 BID - at home was taking 500 qhs #DVT prophylaxis - as above on xarelto Dispo: Medically stable for discharge to STR, CM working on placement VS,Fishbone, I+O VS, Fishbone, I+O Laboratory Tests 11/08/18 07:20 Red Blood Count 3.61 L, Mean Corpuscular Volume 80.1, Mean Corpuscular Hemoglobin 24.7 L, Mean Corpuscular Hemoglobin Concent 30.8 L, Red Cell Distribution Width 18.3 H, Calcium Level 8.0 L Vital Signs Date Time Temp Pulse Resp B/P (MAP) Pulse Ox O2 Delivery O2 Flow Rate FiO2 11/08/18 09:22 84 120/68 11/08/18 08:10 98.5 16 98 I&O- Last 24 Hours up to 6 AM 11/08/18 06:00 Intake Total 1980 ml Output Total 2550 ml Balance -570 ml MATT SANTILLAN MD Nov 08, 2018 10:43
[2018-11-08] MEDS: MAG SULF 1GM/100ML (MAG RUN) 1 GM in IV 1 EA IV SCH ×2 (13:28→14:31)
[2018-11-08 14:00] VITALS: BP 102/58
[2018-11-08] MEDS: LOSARTAN 25 MG TAB PO SCH (17:50)
[2018-11-08] MEDS: RIVAROXABAN 15 MG TAB (XARELTO) PO SCH (17:50)
[2018-11-08 22:00] VITALS: BP 113/58
[2018-11-09] MEDS: traMADol 50 MG TAB PO PRN (01:14)
[2018-11-09] MEDS: LEVOTHYROXINE 100MCG TABLET (0.1MG) PO SCH (05:30)
[2018-11-09 06:00] VITALS: BP 97/53
[2018-11-09] MEDS ORDERED: MAG SULF 1GM/100ML (MAG RUN) 1 GM in IV 1 EA IV ONE (07:30)
[2018-11-09] MEDS: HumaLOG INSULIN (NovoLOG) PER UNIT SC SCH ×2 (08:20→12:07)
[2018-11-09] MEDS: VITAMIN D 1,000 INTERNATIONAL UNITS TABLET PO SCH (08:21)
[2018-11-09] MEDS: GLIMEPIRIDE 2 MG TAB PO SCH (08:21)
[2018-11-09] MEDS: FERROUS SULFATE 325MG TAB PO SCH (08:22)
[2018-11-09] MEDS: ATORVASTATIN 20 MG TAB PO SCH (08:22)
[2018-11-09] MEDS: MAGNESIUM OXIDE 400 MG TAB (MAG-OX) PO SCH (08:22)
[2018-11-09] MEDS: POTASSIUM CHLORIDE 10 MEQ SR TABLET PO SCH (08:22)
[2018-11-09] MEDS: SPIRONOLACTONE 12.5MG PER 1/2 TABLET PO SCH (08:22)
[2018-11-09] MEDS: metroNIDAZOLE (FLAGYL) 500 MG TAB PO SCH (08:22)
[2018-11-09 08:23] VITALS: BP 103/54
[2018-11-09] MEDS: ATENOLOL 25 MG TAB PO SCH (08:23)
[2018-11-09] MEDS: TORSEMIDE 20 MG TAB PO SCH (08:24)
[2018-11-09] MEDS: PANTOPRAZOLE 20 MG TAB PO SCH (08:24)
[2018-11-09] MEDS: DOCUSATE SODIUM 100 MG CAP PO SCH (08:24)
[2018-11-09] MEDS: metFORMIN XR 500MG TAB *GLUCOPHAGE XR PO SCH (08:25)
[2018-11-09] MEDS: CLARITHROMYCIN 250 MG TAB PO SCH (08:25)
[2018-11-09] MEDS ORDERED: ATEN25TA PO (10:46)
[2018-11-09] MEDS ORDERED: FERR325T18 PO (10:46)
[2018-11-09] MEDS ORDERED: CLAR250T22 PO (10:46)
[2018-11-09] MEDS ORDERED: FLAG500T PO (10:46)
[2018-11-09] MEDS ORDERED: PANT20TA2 PO (10:48)
--- NOTE | 2018-11-09 12:04 | DS.PDOC ---
Discharge Summary General Date of Admission Oct 17, 2018 at 18:48 Date of Discharge 11/09/18 Discharge Summary PROCEDURES PERFORMED DURING STAY: [None]. DISCHARGE DIAGNOSES: # Symptomatic acute on chronic blood loss Anemia. #hypomagnesemia #H.pylori infection confirmed by gastric biopsies per EGD path report: # Paroxysmal Atrial fibrillation. # Chronic HFpEF # Gio-ounitiv-obazbsbwt diabetes mellitus. # Hypokalemia # B/l heel pain likely mild plantar fasciitis # LUE arm and Neck pain following EGD and colonoscopy likely due to positioning during procedure # Mild Gastritis COMPLICATIONS/CHIEF COMPLAINT: Anemia,Shortness Of Breath. Hospital Course: Please see previous discharge summary from 10/30/18 for further details. Briefly, a 78 year-old elderly female presents to [facility] ED with complaints of shortness of breath, dizziness, palpitations that worsened ambulation. She reported symptoms worsening for two days. Her dizziness worsened to the point to where she had to hold onto the wall to make it to the restroom once she made it to the restroom. She attempted to raise up off the toilet and fell between the toilet and the bathtub, but was unable to due to her weakness and dizziness, and therefore she had to use her medical alert neck to call the EMS. Upon EMS arrival, they assessed her and her blood pressure systolically was in the 70s. She has significant medical history of atrial fibrillation on Xarelto, essential hypertension, diabetes mellitus type 2, insulin-dependent, chronic back pain, hypothyroidism and GERD. Arriving at the ED, patient underwent CT head imaging, which is negative for acute intracranial hemorrhage, and her hemoglobin and hematocrit is 7/23.2, chads score 3. # Symptomatic acute on chronic blood loss Anemia. - +FOBT --> s/p colonoscopy/EGD (10/26) reports reviewed: mild gastritis s/p gastric biopsy, diverticulosis w/o signs of bleeding, and internal hemorrhoids - suspect she likely had diverticular bleed vs SB bleed - xarelto resumed, hgb remains stable - continue Ferrous sulfate 325 mg daily, will need repeat CBC in 1 week after discharge - CBC + BMP daily, stable #hypomagnesemia - d/w patient for IV access - agreeable - parenteral replacement in hospital - resume oral on discharge #H.pylori infection confirmed by gastric biopsies per EGD path report: -started claritho BID/PPI BID/flagyl TID (allergic to amox) on 11/01 - to end on 11/10/2018 # Paroxysmal Atrial fibrillation. - rate controlled with atenolol, Xarelto 15 mg daily. - BP lower since bowel prep, continue atenolol @ 25 mg # Chronic HFpEF - continue home torsemide # Pau-txjfqne-gbefkfrxa diabetes mellitus. # Hypokalemia # B/l heel pain likely mild plantar fasciitis # LUE arm and Neck pain following EGD and colonoscopy likely due to positioning during procedure - tramadol prn for pain # Mild Gastritis #hypomagnesemia - resume home dosage - 500 qhs DISCHARGE MEDICATIONS: Please see below. ALLERGIES: Please see below. PHYSICAL EXAMINATION ON DISCHARGE: VITAL SIGNS: Please see below. General Exam: NAD, sitting comfortably in chair, elderly HEENT: NC/AT, EOMI Neck Exam: Supple Chest Exam: CTA B/L Heart Exam: +S1S2, RRR Abdomen Exam: soft, NT, +BS Extremity Exam: no edema LABORATORY DATA: Please see below. ACTIVITY: [As tolerated]. DISCHARGE PLAN: D/C to [facility] for STR DISCHARGE INSTRUCTIONS: 1. Follow up with PCP in 3-5 days DISCHARGE CONDITION: [Stable]. TIME SPENT ON DISCHARGE: 35 minutes. Vital Signs/I&Os Vital Signs Date Time Temp Pulse Resp B/P (MAP) Pulse Ox O2 Delivery O2 Flow Rate FiO2 11/09/18 08:23 100 103/54 11/09/18 06:00 97.6 18 94 I&O- Last 24 Hours up to 6 AM 11/09/18 05:59 Intake Total 2210 ml Output Total 2650 ml Balance -440 ml Laboratory Data Labs 24H Laboratory Tests 2 11/08/18 16:45: Magnesium Level 1.9 11/08/18 16:46: Bedside Glucose (Misc Panel) 255H 11/08/18 21:40: Bedside Glucose (Misc Panel) 201H 11/09/18 05:34: Magnesium Level 1.6L 11/09/18 08:00: Bedside Glucose (Misc Panel) 236H 11/09/18 11:22: Bedside Glucose (Misc Panel) 216H FSBS Laboratory Tests Test 11/08/18 16:46 11/08/18 21:40 11/09/18 08:00 11/09/18 11:22 Range/Units Bedside Glucose (Misc Panel) 255 201 236 216 83-110 MG/DL Discharge Medications Scheduled Ascorbic Acid (Vitamin C) 500 Mg Tablet, 500 MG PO DAILY, (Reported) Atenolol (Atenolol) 25 Mg Tablet, 25 MG PO DAILY Atorvastatin Calcium (Atorvastatin Calcium) 20 Mg Tablet, 20 MG PO DAILY, (Reported) Cholecalciferol (Vitamin D3) (Vitamin D3) 1,000 Unit Capsule, 3,000 UNIT PO DAILY, (Reported) Chromium Picolinate (Chromium Picolinate) 1,000 Mcg Tablet, 2,000 MCG PO DAILY, (Reported) Clarithromycin (Clarithromycin) 250 Mg Tablet, 500 MG PO BID Dapagliflozin Propanediol (Farxiga) 10 Mg Tablet, 5 MG PO DAILY, (Reported) TAKES AT 0600 Exenatide Microspheres (Bydureon Bcise) 2 Mg/0.85 Ml Auto.injct, 2 MG SC 1XWK, (Reported) TAKES ON MONDAY Ferrous Sulfate (Ferrous Sulfate) 325 Mg Tablet, 325 MG PO DAILY Glimepiride (Glimepiride) 2 Mg Tablet, 2 MG PO DAILY, (Reported) Glucosamine/D3/Boswellia Kayleen (Osteo Bi-Flex Caplet) 1 Each Tablet, 2 TAB PO QHS, (Reported) Lactobacillus Acidophilus (Probiotic) 1 Each Capsule, 2 CAP PO DAILY, (Reported) Levothyroxine Sodium (Synthroid) 100 Mcg Tablet, 100 MCG PO DAILY, (Reported) TAKES AT 0500 Linagliptin (Tradjenta) 5 Mg Tablet, 5 MG PO DAILY, (Reported) Losartan Potassium (Losartan Potassium) 25 Mg Tablet, 25 MG PO QPM, (Reported) TAKES AT DINNERTIME Magnesium (Magnesium) 250 Mg Tablet, 500 MG PO QHS, (Reported) Metformin HCl (Metformin HCl ER) 500 Mg Tab, 1,000 MG PO BID, (Reported) Metronidazole (Flagyl) 500 Mg Tablet, 500 MG PO TID Mineral Oil/Petrolatum,White (Soothe Night Time Lub Eye Oint) 3.5 Gm Oint...g., 1 DOSE OU QHS, (Reported) Pancreat/Betaine/Pepsin/Bromel (Super Enzyme Caps) 1 Each Capsule, 2 EACH PO QHS, (Reported) Pantoprazole Sodium (Pantoprazole Sodium) 20 Mg Tablet.dr, 20 MG PO BID Pantothenic Acid (Vit B5) (Pantothenic Acid) 500 Mg Tablet, 1,000 MG PO DAILY, (Reported) Rivaroxaban (Xarelto) 15 Mg Tablet, 15 MG PO DAILY, (Reported) Spironolactone (Spironolactone) 25 Mg Tab, 12.5 MG PO DAILY, (Reported) Torsemide (Torsemide) 20 Mg Tablet, 40 MG PO BID, (Reported) Ubidecarenone (Coq-10) 100 Mg Capsule, 200 MG PO DAILY, (Reported) [cinnergy] , 2 TAB PO DAILY, (Reported) [nattokinase-serrape] , 2 TAB PO QHS, (Reported) Scheduled PRN S-Adenosylmethionine Sul Tosyl (Willard-E) 400 Mg Tablet, 400 MG PO BID PRN for DEPRESSION, (Reported) Allergies Coded Allergies: Tricyclic Compounds (Verified Allergy, Mild, rash, 05/16/18) Influenza Virus Vaccines (Verified Allergy, Unknown, 05/16/18) "never so sick in my life" amoxicillin (Verified Allergy, Unknown, 05/16/18) clavulanic acid (Verified Allergy, Unknown, 05/16/18) phenylephrine (Verified Allergy, Unknown, 05/16/18) morphine (Verified Adverse Reaction, Mild, nausea/vomitting, 05/16/18) MATT SANTILLAN MD Nov 09, 2018 12:04
== END 2018-11-09 13:42 | DRG 378 ==
LOC: M ED 15:40 → M ED INP 18:48 → M PCU 21:25 → M MSPAV 10-25 12:52
PROVIDERS: ADMIT Internal Medicine; ATTEND Internal Medicine
PROC: 30233N1 Transfusion of Nonautologous Red Blood Cells into Peripheral Vein, Percutaneous Approach (ICD-10-PCS; principal; 2018-10-17)
PROC: 0DB68ZX Excision of Stomach, Via Natural or Artificial Opening Endoscopic, Diagnostic (ICD-10-PCS; 2018-10-26)
PROC: 0DJD8ZZ Inspection of Lower Intestinal Tract, Via Natural or Artificial Opening Endoscopic (ICD-10-PCS; 2018-10-26)
DX: K92.2 Gastrointestinal hemorrhage, unspecified (principal); I50.32 Chronic diastolic (congestive) heart failure; D62 Acute posthemorrhagic anemia; N17.9 Acute kidney failure, unspecified; E87.2 Acidosis; I13.0 Hypertensive heart and chronic kidney disease with heart failure and stage 1 through stage 4 chronic kidney disease, or unspecified chronic kidney disease; A08.39 Other viral enteritis; E83.42 Hypomagnesemia; I48.0 Paroxysmal atrial fibrillation; E11.9 Type 2 diabetes mellitus without complications; M72.2 Plantar fascial fibromatosis; K29.70 Gastritis, unspecified, without bleeding; K57.30 Diverticulosis of large intestine without perforation or abscess without bleeding; K64.8 Other hemorrhoids; E03.9 Hypothyroidism, unspecified; Z79.01 Long term (current) use of anticoagulants; K21.9 Gastro-esophageal reflux disease without esophagitis; E87.6 Hypokalemia; Z79.899 Other long term (current) drug therapy; Z88.0 Allergy status to penicillin; Z88.8 Allergy status to other drugs, medicaments and biological substances; Z88.7 Allergy status to serum and vaccine; Z88.5 Allergy status to narcotic agent; E78.5 Hyperlipidemia, unspecified; I87.2 Venous insufficiency (chronic) (peripheral); N18.9 Chronic kidney disease, unspecified; Z96.651 Presence of right artificial knee joint; Z96.652 Presence of left artificial knee joint; Z95.2 Presence of prosthetic heart valve; I27.20 Pulmonary hypertension, unspecified

== ENCOUNTER → 2018-10-17 | Outpatient (CLI) | payer MEDICARE, MEDICAID ==
[~2018-10-17] MED LIST changes: -ASPI-222 PO; +ASPI-527 PO; +ATEN25TA PO; +ATEN50TA2 PO; +BYDU2INJ7 SC; +C 50TAB PO; +CHRO1000 PO; +CLEO300C2 PO; +CONRAY-43 43% 50ML VIAL (Q9960) As Ordered ONE; +COQ-100C5 PO; +D-101000 PO; +FARX1TAB3 PO; +HM M250T PO; +LIDOCAINE 1% MDV 20ML VIAL As Ordered ONE; +LOSA25TA14 PO; +METF-791 PO; -METF500T4 PO; +MOOD400T PO; +NATTOKINASE PO; +OSTE5TAB PO; +PANC1CAP3 PO; +PANT500T PO; +PROBCAP14 PO; +SERRAPEPTASE PO; +SYNT100T PO; +TRIAMCINOLONE ACETONIDE SUSP 40 MG/ML VIAL (J3301) As Ordered ONE; +TRUL0.5I SC; +VITA-176 PO; +VITAMIN PO; +XARE10TA PO; +XARE15TA PO; +[UNRECOGNIZED DRUG - CODE] OU; +[UNRECOGNIZED DRUG - OTHER] PO
--- NOTE | 2018-10-17 16:43 | REP ---
LEFT HIP INJECTION The procedure was performed under the direct supervision of Dr. amado. The benefits and risks including but not limited to pain infection bleeding and anaphylaxis were explained to the patient and informed consent was obtained. The left femoral neck was localized using fluoroscopic guidance. The skin was prepped and draped in a sterile fashion. 1% lidocaine was used as a local anesthetic. Using fluoroscopic guidance a 22-gauge spinal needle was inserted and advanced to the femoral neck. 1 ml of Conray 43 was injected to verify placement. 6 ml of a solution containing 5 ml of 1% lidocaine and 1 ml of Kenalog 40 mg injected. The needle was then removed. The patient tolerated the procedure well and there were no immediate complications. Less than 6 seconds of fluoroscopy time was utilized for this procedure. Reviewed by KAT Gr 10/17/2018 03:56 P Electronically Signed by Trenton Carter MD 10/17/2018 04:34 P
== END ==
LOC: M RADPRO 14:23
PROVIDERS: ATTEND Physician Assistant Medical
DX: M16.12 Unilateral primary osteoarthritis, left hip (principal)

== ENCOUNTER → 2018-11-15 | Outpatient (REF) ==
[~2018-11-15] MED LIST changes: +ATEN50TA2 PO; +C 50TAB PO; +CLAR250T22 PO; +D-101000 PO; +FARX1TAB3 PO; +FERR325T18 PO; +FLAG500T PO; +LOSA25TA14 PO; +PANT20TA2 PO; +PANT500T PO; +SYNT100T PO; +TRUL0.5I SC; +XARE15TA PO; +[UNRECOGNIZED DRUG - CODE] OU
[2018-11-15 08:30] LABS: HEMATOCRIT 29.6 % (36.0-47.0); MEAN CORPUSCULAR HEMOGLOBIN 24.3 pg (27.0-33.0); MEAN CORPUSCULAR HGB CONC 30.4 g/dl (32.0-36.5); MEAN CORPUSCULAR VOLUME 79.8 fl (80.0-96.0); PLATELET COUNT, AUTOMATED 465 10^3/uL (150-450); RED BLOOD COUNT 3.71 10^6/uL (4.00-5.40); WHITE BLOOD COUNT 10.8 10^3/uL (4.0-10.0)
[2018-11-15 08:59] LABS: CALCIUM LEVEL 8.7 MG/DL (8.8-10.2); CREATININE FOR GFR 1.05 MG/DL (0.55-1.30); MAGNESIUM LEVEL 1.7 MG/DL (1.8-2.4)
== END ==
LOC: SKLAB7 07:00
PROVIDERS: ATTEND Internal Medicine
DX: D64.9 Anemia, unspecified (principal); I10 Essential (primary) hypertension; E11.9 Type 2 diabetes mellitus without complications; E87.6 Hypokalemia

== ENCOUNTER → 2018-11-22 | Outpatient (REF) ==
[~2018-11-22] MED LIST changes: -GLIM2TAB PO; +GLIM2TAB2 PO
[2018-11-22 08:43] LABS: HEMATOCRIT 32.3 % (36.0-47.0); HEMOGLOBIN 9.8 g/dl (12.0-15.5); MEAN CORPUSCULAR HEMOGLOBIN 24.6 pg (27.0-33.0); MEAN CORPUSCULAR HGB CONC 30.3 g/dl (32.0-36.5); PLATELET COUNT, AUTOMATED 343 10^3/uL (150-450); RED BLOOD COUNT 3.99 10^6/uL (4.00-5.40); WHITE BLOOD COUNT 10.8 10^3/uL (4.0-10.0)
[2018-11-22 09:02] LABS: CALCIUM LEVEL 8.7 MG/DL (8.8-10.2); CREATININE FOR GFR 1.17 MG/DL (0.55-1.30); GLOMERULAR FILTRATION RATE 47.6 (>39); MAGNESIUM LEVEL 1.8 MG/DL (1.8-2.4); POTASSIUM SERUM 4.1 MEQ/L (3.5-5.1)
== END ==
LOC: SKLAB7 07:00
PROVIDERS: ATTEND Internal Medicine
DX: E87.6 Hypokalemia (principal); D64.9 Anemia, unspecified

== ENCOUNTER → 2018-11-29 | Outpatient (REF) ==
[2018-11-29 08:56] LABS: HEMATOCRIT 32.7 % (36.0-47.0); HEMOGLOBIN 9.9 g/dl (12.0-15.5); MEAN CORPUSCULAR HEMOGLOBIN 24.1 pg (27.0-33.0); MEAN CORPUSCULAR HGB CONC 30.3 g/dl (32.0-36.5); MEAN CORPUSCULAR VOLUME 79.8 fl (80.0-96.0); PLATELET COUNT, AUTOMATED 374 10^3/uL (150-450); WHITE BLOOD COUNT 12.6 10^3/uL (4.0-10.0)
[2018-11-29 09:25] LABS: CALCIUM LEVEL 9.2 MG/DL (8.8-10.2); CREATININE FOR GFR 1.1 MG/DL (0.55-1.30); GLOMERULAR FILTRATION RATE 51.1 (>39); POTASSIUM SERUM 4.4 MEQ/L (3.5-5.1)
== END ==
LOC: SKLAB7 11:53
PROVIDERS: ATTEND Internal Medicine
DX: I48.91 Unspecified atrial fibrillation (principal); I10 Essential (primary) hypertension; E11.9 Type 2 diabetes mellitus without complications

== ENCOUNTER → 2018-11-30 | Outpatient (REF) ==
[2018-11-30 07:06] LABS: HEMATOCRIT 31.3 % (36.0-47.0); HEMOGLOBIN 9.5 g/dl (12.0-15.5); MEAN CORPUSCULAR HEMOGLOBIN 24.5 pg (27.0-33.0); MEAN CORPUSCULAR HGB CONC 30.4 g/dl (32.0-36.5); MEAN CORPUSCULAR VOLUME 80.7 fl (80.0-96.0); PLATELET COUNT, AUTOMATED 342 10^3/uL (150-450); RED BLOOD COUNT 3.88 10^6/uL (4.00-5.40); WHITE BLOOD COUNT 11.1 10^3/uL (4.0-10.0)
== END ==
LOC: SKLAB7 07:00
PROVIDERS: ATTEND Internal Medicine
DX: D72.829 Elevated white blood cell count, unspecified (principal)

== ENCOUNTER → 2018-12-06 | Outpatient (REF) ==
[~2018-12-06] MED LIST changes: -VALS1TAB49; +VALS40TA9
[2018-12-06 09:19] LABS: HEMATOCRIT 32.3 % (36.0-47.0); HEMOGLOBIN 9.7 g/dl (12.0-15.5); MEAN CORPUSCULAR HEMOGLOBIN 24.7 pg (27.0-33.0); MEAN CORPUSCULAR VOLUME 82.2 fl (80.0-96.0); PLATELET COUNT, AUTOMATED 310 10^3/uL (150-450); RED BLOOD COUNT 3.93 10^6/uL (4.00-5.40); WHITE BLOOD COUNT 10.1 10^3/uL (4.0-10.0)
[2018-12-06 09:40] LABS: CREATININE FOR GFR 1.1 MG/DL (0.55-1.30); GLOMERULAR FILTRATION RATE 51.1 (>39); MAGNESIUM LEVEL 2.2 MG/DL (1.8-2.4); POTASSIUM SERUM 4.3 MEQ/L (3.5-5.1)
== END ==
LOC: SKLAB7 07:00
PROVIDERS: ATTEND Internal Medicine
DX: I10 Essential (primary) hypertension (principal); E11.9 Type 2 diabetes mellitus without complications; E61.2 Magnesium deficiency

== ENCOUNTER → 2018-12-07 | Outpatient (REF) ==
[~2018-12-07] MED LIST changes: +VALS1TAB49; -VALS40TA9
[2018-12-07 08:51] LABS: CALCIUM LEVEL 9.1 MG/DL (8.8-10.2); CREATININE FOR GFR 1.14 MG/DL (0.55-1.30); GLOMERULAR FILTRATION RATE 49.1 (>39)
== END ==
LOC: SKLAB7 08:00
PROVIDERS: ATTEND Internal Medicine
DX: R60.9 Edema, unspecified (principal)

== ENCOUNTER → 2018-12-10 | Outpatient (REF) ==
[2018-12-10 07:52] LABS: CALCIUM LEVEL 8.5 MG/DL (8.8-10.2); CREATININE FOR GFR 1.19 MG/DL (0.55-1.30); GLOMERULAR FILTRATION RATE 46.7 (>39); POTASSIUM SERUM 3.9 MEQ/L (3.5-5.1)
== END ==
LOC: SKLAB7 08:00
PROVIDERS: ATTEND Internal Medicine
DX: R60.9 Edema, unspecified (principal)

== ENCOUNTER → 2019-01-24 | Outpatient (REF) | payer MEDICARE, MEDICAID ==
[~2019-01-24] MED LIST changes: -VALS1TAB49; +VALS40TA9
[2019-01-24 11:35] LABS: HEMATOCRIT 37.9 % (36.0-47.0); HEMOGLOBIN 11.4 g/dl (12.0-15.5); MEAN CORPUSCULAR HEMOGLOBIN 25.3 pg (27.0-33.0); MEAN CORPUSCULAR HGB CONC 30.1 g/dl (32.0-36.5); PLATELET COUNT, AUTOMATED 322 10^3/uL (150-450); RED BLOOD COUNT 4.51 10^6/uL (4.00-5.40); WHITE BLOOD COUNT 11.8 10^3/uL (4.0-10.0)
[2019-01-24 12:02] LABS: HEMOGLOBIN A1c 6.8 %
[2019-01-24 12:32] LABS: ALBUMIN 3.1 GM/DL (3.2-5.2); BILIRUBIN,TOTAL 0.7 MG/DL (0.2-1.0); CALCIUM LEVEL 8.7 MG/DL (8.8-10.2); CREATININE FOR GFR 1.41 MG/DL (0.55-1.30); GLOMERULAR FILTRATION RATE 38.4 (>39); POTASSIUM SERUM 4.1 MEQ/L (3.5-5.1); TOTAL PROTEIN 7.8 GM/DL (6.4-8.2)
== END ==
LOC: M LAB REF 11:17
PROVIDERS: ATTEND Internal Medicine
DX: E11.9 Type 2 diabetes mellitus without complications (principal); N18.3 Chronic kidney disease, stage 3 (moderate)

== ENCOUNTER 2019-02-08 17:22 | Emergency (ER) | payer MEDICAID, MEDICARE ==
[~2019-02-08] VITALS: Ht 167.6 cm; Wt 104.9 kg
--- NOTE | 2019-02-08 18:12 | REPVR ---
PROCEDURE INFORMATION: Exam: CT Head Without Contrast Exam date and time: 02/08/2019 5:37 PM Age: 78 years old Clinical indication: Injury or trauma; Fall; Initial encounter; Blunt trauma (contusions or hematomas) TECHNIQUE: Imaging protocol: Computed tomography of the head without contrast. Radiation optimization: All CT scans at this facility use at least one of these dose optimization techniques: automated exposure control; mA and/or kV adjustment per patient size (includes targeted exams where dose is matched to clinical indication); or iterative reconstruction. COMPARISON: CT Head without contrast 11/23/2012 2:30 AM FINDINGS: Brain: Chronic lacunar infarct of the right thalamus. There are moderate periventricular and subcortical lucencies consistent with chronic microvascular ischemic changes. The amado-white differentiation is maintained. No hemorrhage. No edema. Ventricles: Normal. No ventriculomegaly. Bones/joints: Acute fracture of the left nasal bone. Sinuses: Visualized sinuses are unremarkable. No fluid levels. Mastoid air cells: Mucous retention cyst/polyp of the right sphenoid sinus. Soft tissues: Unremarkable. IMPRESSION: No acute intracranial abnormality. Chronic microvascular ischemic changes. Electronically signed by: Jared Vigil On 02/08/2019 18:12:18 PM
--- NOTE | 2019-02-08 18:21 | REPVR ---
PROCEDURE INFORMATION: Exam: CT Cervical Spine Without Contrast Exam date and time: 02/08/2019 5:37 PM Age: 78 years old Clinical indication: Injury or trauma; Fall; Initial encounter; Blunt trauma TECHNIQUE: Imaging protocol: Computed tomography images of the cervical spine without contrast. Radiation optimization: All CT scans at this facility use at least one of these dose optimization techniques: automated exposure control; mA and/or kV adjustment per patient size (includes targeted exams where dose is matched to clinical indication); or iterative reconstruction. COMPARISON: No relevant prior studies available. FINDINGS: Vertebrae: No acute fracture. Normal alignment. Discs/Spinal canal/Neural foramina: Multilevel degenerative disc disease. Moderate spinal canal stenosis with the disc osteophyte complex at the C3-C4 C5-C6 and C6-C7 levels. Soft tissues: Unremarkable. Lungs: Lung apices are normal. IMPRESSION: No acute abnormality. Electronically signed by: Jared Vigil On 02/08/2019 18:21:08 PM
[2019-02-08 20:08] VITALS: BP 124/62
== END 2019-02-08 20:13 | disposition home or self-care (01) ==
LOC: M ED 17:22
DX: S00.03XA Contusion of scalp, initial encounter (principal); W01.0XXA Fall on same level from slipping, tripping and stumbling without subsequent striking against object, initial encounter; Y92.010 Kitchen of single-family (private) house as the place of occurrence of the external cause; I10 Essential (primary) hypertension; E11.9 Type 2 diabetes mellitus without complications; I48.91 Unspecified atrial fibrillation; K21.9 Gastro-esophageal reflux disease without esophagitis; E78.5 Hyperlipidemia, unspecified; Z79.899 Other long term (current) drug therapy; Z79.890 Hormone replacement therapy; Z79.84 Long term (current) use of oral hypoglycemic drugs; Z88.0 Allergy status to penicillin; Z88.1 Allergy status to other antibiotic agents; Z88.5 Allergy status to narcotic agent; Z88.7 Allergy status to serum and vaccine; Z88.8 Allergy status to other drugs, medicaments and biological substances

== ENCOUNTER 2019-08-16 13:54 | Inpatient (IN) | payer MEDICARE, MEDICAID ==
[~2019-08-16] VITALS: Ht 165.1 cm; Wt 101.1 kg
[~2019-08-16 13:54] MED LIST changes: -AMLO5TAB6 PO; -CEFU50TA PO; -FERR325T81 PO; -KLOR10TA76 PO; -METO5TA PO; -POTA10CA32 PO; -TORS100T PO; -VITA500075 PO
[2019-08-16 14:46] LABS: VENOUS BASE EXCESS -7.4 (-2.0-2.0); VENOUS HCO3 16.4 MEQ/L (23.0-27.0); VENOUS O2 SATURATION 96.1 % (60.0-80.0); VENOUS PARTIAL PRESSURE CO2 28.2 mmHg (38.0-50.0); VENOUS PH 7.383 UNITS (7.330-7.430); VENOUS STANDARD HCO3 18.4 MEQ/L; VENOUS TOTAL CO2 17.3 MEQ/L (24.0-28.0)
[2019-08-16 14:50] LABS: BASO # 0.1 10^3/uL (0.0-0.2); BASO % 0.4 % (0.0-1.0); EOS # 0.1 10^3/uL (0.0-0.5); EOS % 0.5 % (0.0-3.0); HEMATOCRIT 32.6 % (36.0-47.0); HEMOGLOBIN 10.9 g/dl (12.0-15.5); LYMPH # 1.4 10^3/uL (1.5-5.0); LYMPH % 10.5 % (24.0-44.0); MEAN CORPUSCULAR HEMOGLOBIN 30.7 pg (27.0-33.0); MEAN CORPUSCULAR HGB CONC 33.4 g/dl (32.0-36.5); MEAN CORPUSCULAR VOLUME 91.8 fl (80.0-96.0); MONO # 0.8 10^3/uL (0.0-0.8); MONO % 5.6 % (0.0-5.0); NEUTROPHILS # 11.2 10^3/uL (1.5-8.5); NEUTROPHILS % 82.3 % (36.0-66.0); PLATELET COUNT, AUTOMATED 314 10^3/uL (150-450); RED BLOOD COUNT 3.55 10^6/uL (4.00-5.40); WHITE BLOOD COUNT 13.6 10^3/uL (4.0-10.0)
[2019-08-16] MEDS ORDERED: POTA10CA32 PO (14:53)
[2019-08-16] MEDS ORDERED: NS 1,000 ML IV ONE ×2 (15:15→15:30)
[2019-08-16] MEDS ORDERED: POTASSIUM CHLORIDE 10 MEQ SR TABLET PO SCH (15:30)
[2019-08-16 15:43] LABS: ALBUMIN 3.2 GM/DL (3.2-5.2); BILIRUBIN,DIRECT 0.2 MG/DL (0.0-0.2); BILIRUBIN,TOTAL 0.6 MG/DL (0.2-1.0); CK-MB VALUE MASS 1.9 NG/ML (<3.6); MB/CK RELATIVE INDEX 2.5 (< OR =4); THYROID STIMULATING HORMONE 2.51 uIU/ML (0.358-3.740); THYROXINE (T4) 10.2 UG/DL (4.5-12.0); TOTAL PROTEIN 7.3 GM/DL (6.4-8.2); TROPONIN I 0.02 NG/ML (< 0.10)
[2019-08-16 15:52] LABS: MAGNESIUM LEVEL 2.4 MG/DL (1.8-2.4)
[2019-08-16] MEDS ORDERED: POTASSIUM CHLORIDE 10 MEQ SR TABLET PO ONE (16:00)
[2019-08-16] MEDS ORDERED: ATEN25TA PO (16:29)
[2019-08-16] MEDS ORDERED: TORS100T PO (16:29)
[2019-08-16] MEDS ORDERED: FERR325T81 PO (16:29)
[2019-08-16] MEDS ORDERED: VITA500075 PO (16:29)
[2019-08-16] MEDS ORDERED: METO5TA PO (16:31)
[2019-08-16] MEDS ORDERED: TRUL0.5I SC (16:31)
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
[2019-08-16 17:53] LABS: HEMOGLOBIN A1c 5.7 %
[2019-08-16 18:00] VITALS: BP 96/54
[2019-08-16 19:04] LABS: CREATININE FOR GFR 2.86 MG/DL (0.55-1.30); GLOMERULAR FILTRATION RATE 16.9 (>39); POTASSIUM SERUM 3.2 MEQ/L (3.5-5.1)
[2019-08-16 19:08] LABS: ALBUMIN 3.3 GM/DL (3.2-5.2); CALCIUM LEVEL 9.1 MG/DL (8.8-10.2); CREATININE FOR GFR 2.84 MG/DL (0.55-1.30); GLOMERULAR FILTRATION RATE 17.1 (>39); PHOSPHORUS LEVEL 5.4 MG/DL (2.5-4.9); POTASSIUM SERUM 3.2 MEQ/L (3.5-5.1)
[2019-08-16 19:37] LABS: CREATININE,RANDOM URINE 17.7 MG/DL; SODIUM,RANDOM URINE 87 MEQ/L
[2019-08-16 20:00] VITALS: BP 97/52
--- NOTE | 2019-08-16 21:39 | ECGEPIP ---
[facility] - ED Test Date: 2019-08-16 Pat Name: CARMENCITA AYON Department: Room: - Gender: Female Care Specialist: NATHALIE : 1940 Requested By: Uzair Trujillo Order Number: [id number] Reading MD: Karin Deleon Measurements Intervals [place] Rate: 76 P: WI: 0 QRS: 36 QRSD: 117 T: 20 QT: 428 QTc: 482 Interpretive Statements ATRIAL FIBRILLATION MODERATE INTRAVENTRICULAR CONDUCTION DELAY ABNORMAL RHYTHM ECG Electronically Signed on 08-16-2019 21:38:53 EDT by Karin Deleon
[2019-08-16] MEDS: ATORVASTATIN 20 MG TAB PO SCH (21:52)
[2019-08-16] MEDS: POTASSIUM CHLORIDE 10 MEQ SR TABLET PO SCH (21:52)
[2019-08-16] MEDS: PANTOPRAZOLE 20 MG TAB PO SCH (21:52)
[2019-08-16] MEDS: NYSTATIN 100,000 UNITS/GM TOPICAL PWD 15 GM TOP SCH (21:53)
[2019-08-16] MEDS: NS 1,000 ML IV SCH (22:26)
[2019-08-17] VITALS: BP 98/54
[2019-08-17] MEDS: ACETAMINOPHEN 650MG ER TAB (TYLENOL ARTHRITIS) PO PRN ×2 (01:48→21:13)
[2019-08-17 04:00] VITALS: BP 107/54
[2019-08-17 05:55] LABS: MEAN CORPUSCULAR HEMOGLOBIN 30.8 pg (27.0-33.0); MEAN CORPUSCULAR HGB CONC 33.3 g/dl (32.0-36.5); MEAN CORPUSCULAR VOLUME 92.3 fl (80.0-96.0); PLATELET COUNT, AUTOMATED 260 10^3/uL (150-450); RED BLOOD COUNT 3.25 10^6/uL (4.00-5.40); WHITE BLOOD COUNT 11.5 10^3/uL (4.0-10.0)
[2019-08-17 06:19] LABS: CALCIUM LEVEL 8.3 MG/DL (8.8-10.2); CREATININE FOR GFR 2.67 MG/DL (0.55-1.30); GLOMERULAR FILTRATION RATE 18.3 (>39); POTASSIUM SERUM 3.5 MEQ/L (3.5-5.1)
[2019-08-17] MEDS: LEVOTHYROXINE 100MCG TABLET (0.1MG) PO SCH (06:34)
[2019-08-17 08:00] VITALS: BP 109/56
[2019-08-17] MEDS: NS 1,000 ML IV SCH (08:00)
[2019-08-17] MEDS: ASCORBIC ACID 500 MG TAB PO SCH (08:36)
[2019-08-17] MEDS: PANTOPRAZOLE 20 MG TAB PO SCH ×2 (08:36→21:13)
[2019-08-17] MEDS: RIVAROXABAN 15 MG TAB (XARELTO) PO SCH (08:36)
[2019-08-17] MEDS: FERROUS SULFATE 325MG TAB PO SCH (08:37)
[2019-08-17] MEDS: POTASSIUM CHLORIDE 10 MEQ SR TABLET PO SCH ×2 (08:37→21:13)
[2019-08-17] MEDS: VITAMIN D 1,000 INTERNATIONAL UNITS TABLET PO SCH (08:38)
[2019-08-17] MEDS: NYSTATIN 100,000 UNITS/GM TOPICAL PWD 15 GM TOP SCH ×3 (08:38→21:14)
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
--- NOTE | 2019-08-17 11:28 | REP ---
PORTABLE CHEST: AP portable view of the chest is performed and compared to prior study of 10/17/2018. There is no change since that prior exam. There is mild cardiomegaly and venous hypertension. No infiltrate is seen. There is calcification of the thoracic aorta. Mediastinal silhouette is unchanged. There are degenerative changes of the spine. IMPRESSION: Stable exam. No acute findings. Electronically Signed by Kvng Cadena MD 08/18/2019 11:25 P
[2019-08-17 12:00] VITALS: BP 123/62
--- NOTE | 2019-08-17 14:33 | REP ---
RENAL ULTRASOUND: Real-time sonographic evaluation of kidneys performed. Kidneys are normal in size and echotexture, right kidney measuring 10.3 x 5.0 x 5.0 cm and left kidney 11.1 x 4.7 x 4.7 cm. There is no hydronephrosis or nephrolithiasis identified. Incidental note is made of multiple gallstones in the gallbladder. Urinary bladder is empty. IMPRESSION: No evidence of renal stone or hydronephrosis. Multiple gallstones incidentally noted in the gallbladder. Electronically Signed by Kvng Cadena MD 08/18/2019 11:34 P
[2019-08-17 16:00] VITALS: BP 132/77
--- NOTE | 2019-08-17 17:33 | IPNPDOC ---
Text Note Date of Service The patient was seen on 08/17/19. NOTE SUBJECTIVE Ms. Melendez is a 79-year-old female with a history of chronic kidney disease and cardiac disease. She is known to this internal communications writer from prior admission. For this admission she was noted to have abnormal laboratory values and feeling ill. OBJECTIVE Please see vital signs below Physical exam: General: Patient is sitting up in a chair complaining of boredom HENT: Neck is supple, no adenopathy or thyromegaly, oral mucosa is moist, no scleral injection or icterus. CV: Regular rate and rhythm with a normal S1 and S2 and no appreciable murmur. RESP: Patient had some occasional right-sided coarse breath sounds that cleared readily with cough, otherwise no wheezing ABD: Soft, nontender, nondistended, bowel tones present, moderate central obesity EXT: She has perhaps trace edema to her lower extremities, pedal pulses are palpable Laboratory data of interest: White blood cell count has decreased from 13.6- 11.5. Creatinine has decreased from 2.84-2.61. Her baseline is approximately 1.4. Lactic acid is noted to be 2.7. ASSESSMENT/PLAN: 1. Acute renal failure--this is felt to be primarily prerenal with contributory factors of dehydration, volume depletion with hypotension, medication effects from metolazone, torsemide, losartan, metformin. The patient has responded to withholding her medications and giving IV hydration, urrently at 100 mL's per hour of normal saline. Continuing to monitor her electrolytes and renal function. 2. Lactic acidosis--likely due to dehydration. The patient does not currently exhibit signs of sepsis such as fever, leukocytosis, hypotension or tachycardia.. Blood and urine culture results are pending. Patient still does not otherwise require antibiotics at this time. 3. Patient has chronic atrial fibrillation. She is usually on atenolol for rate control. Her rate is currently stable without it. Anticoagulation with Xarelto is held due to acute kidney injury. May need to transition to alternative anticoagulation. 4. NIDDM--reasonably controlled with sliding scale insulin while in the hospital. 5. Heart failure--the patient has a history of known chronic diastolic congestive heart failure with pulmonary hypertension. This accounts for her baseline diuretic therapy. She is stable for now. The patient reconfirms with this internal communications writer that she is to be DNR and that she is not to have dialysis. VS,Fishbone, I+O VS, Fishbone, I+O Laboratory Tests 08/16/19 18:25 08/17/19 05:20 Vital Signs Date Time Temp Pulse Resp B/P (MAP) Pulse Ox O2 Delivery O2 Flow Rate FiO2 08/17/19 16:00 98.1 74 18 132/77 (95) 100 Room Air I&O- Last 24 Hours up to 6 AM 08/17/19 06:00 Intake Total 1570 ml Output Total 1650 ml Balance -80 ml ELIZABET PATINO MD Aug 17, 2019 17:33
[2019-08-17 20:00] VITALS: BP 118/84
[2019-08-17] MEDS: ATORVASTATIN 20 MG TAB PO SCH (21:13)
[2019-08-18] VITALS: BP 118/57
[2019-08-18] MEDS: POLYVINYL ALCOHOL OPHTH SOLN 15 ML(LIQUITEARS) OU PRN ×2 (00:13→09:18)
[2019-08-18 04:00] VITALS: BP 132/60
[2019-08-18] MEDS: LEVOTHYROXINE 100MCG TABLET (0.1MG) PO SCH (05:29)
[2019-08-18 05:49] LABS: HEMATOCRIT 29.7 % (36.0-47.0); HEMOGLOBIN 9.8 g/dl (12.0-15.5); MEAN CORPUSCULAR HEMOGLOBIN 30.6 pg (27.0-33.0); MEAN CORPUSCULAR VOLUME 92.8 fl (80.0-96.0); PLATELET COUNT, AUTOMATED 229 10^3/uL (150-450); WHITE BLOOD COUNT 10.2 10^3/uL (4.0-10.0)
[2019-08-18 06:20] LABS: CALCIUM LEVEL 8.4 MG/DL (8.8-10.2); CREATININE FOR GFR 2.15 MG/DL (0.55-1.30); GLOMERULAR FILTRATION RATE 23.5 (>39); POTASSIUM SERUM 3.8 MEQ/L (3.5-5.1)
[2019-08-18 08:00] VITALS: BP 118/58
--- NOTE | 2019-08-18 08:12 | IPN ---
DATE OF VISIT: 08/17/2019 Mrs. Melendez is seen this morning on her bedside. She is feeling better and denies any vomiting or diarrhea. She was admitted yesterday and noticed to have acute kidney injury. She is currently being treated with intravenous (IV) fluids and antibiotics for urinary tract infection (UTI). Her blood urea nitrogen (BUN) was 130 yesterday and creatinine 2.86. Today, her BUN has come down to 125 and creatinine is 2.67. On physical exam, temperature 97.2 degrees Fahrenheit, heart rate 86 per minute and respiratory rate 18 per minute. Blood pressure 109/56 mmHg and oxygen saturation 98% on room air. Head is atraumatic. Neck supple and jugular venous distention (JVD) not abnormally elevated. Heart sounds are regular and lungs sound clear to auscultation. Abdomen soft with a large hernia in lower abdomen. Bowel sounds are present. Extremities have no cyanosis or clubbing. She seems to have some chronic stasis changes on her legs. Neurologically, she is grossly intact. Today's labs show sodium 135, potassium 3.5, CO2 23, BUN 125 and creatinine 2.67. Glucose 75 and calcium 8.3. Hemoglobin is 10.0 and hematocrit 30. PROBLEMS: 1. Acute kidney injury superimposed on chronic kidney disease. Kidney function started to improve. I would recommend to continue with IV fluid at this point. She also had a Roberts catheter, which is draining clear urine. There is no emergent indication for dialysis at this point and we will recheck her renal profile tomorrow morning. 2. Hyponatremia. Sodium level has improved up to 135 today. We will continue with normal saline. 3. Hypokalemia. Potassium level has also improved slightly and we will continue with potassium supplements. Electrolytes should be checked again. 4. Anemia. Anemia is stable and she is receiving oral iron supplement. We will recheck her complete blood count (CBC) tomorrow.
[2019-08-18] MEDS: ASCORBIC ACID 500 MG TAB PO SCH (09:17)
[2019-08-18] MEDS: VITAMIN D 1,000 INTERNATIONAL UNITS TABLET PO SCH (09:17)
[2019-08-18] MEDS: POTASSIUM CHLORIDE 10 MEQ SR TABLET PO SCH ×2 (09:17→20:35)
[2019-08-18] MEDS: PANTOPRAZOLE 20 MG TAB PO SCH ×2 (09:18→20:35)
[2019-08-18] MEDS: FERROUS SULFATE 325MG TAB PO SCH (09:18)
[2019-08-18] MEDS: NYSTATIN 100,000 UNITS/GM TOPICAL PWD 15 GM TOP SCH ×3 (09:18→20:50)
[2019-08-18] MEDS: RIVAROXABAN 15 MG TAB (XARELTO) PO SCH (09:18)
[2019-08-18] MEDS ORDERED: cefTRIAXone SOD 1GM VIAL (J0696 PER 250MG) IM SCH (11:00)
[2019-08-18] MEDS: cefTRIAXone SOD 1 GM in D5W MINI-BAG PLUS 50 ML IV SCH (11:18)
--- NOTE | 2019-08-18 13:28 | IPN ---
DATE OF VISIT: 08/18/2019 Mrs. Melendez is seen this morning on her bedside. She currently has a sitter in the room. Nursing staff reports that she had developed increased leg edema due to which intravenous (IV) fluid was stopped last evening. Patient has no dyspnea or chest pain. She has significant fungal dermatitis, particularly in her skin folds. No nausea or vomiting reported and she has decent oral intake. On physical exam, temperature 97.6 degrees Fahrenheit, heart rate 68 per minute and respiratory rate 20 per minute. Blood pressure 118/58 mmHg and oxygen saturation 98%. Head is atraumatic. Neck supple and jugular venous distention (JVD) difficult to be assessed. Heart sounds are regular and lungs with slightly diminished breath sounds at bases. Abdomen soft and nontender. A large hernia is present in the lower abdomen. Extremities have no cyanosis or clubbing. She does have peripheral edema at least 1+ on her legs. Neurologically, she is awake and without a focal deficit. Today's labs show WBC count 10.2, hemoglobin 9.8 and hematocrit 29.7. Sodium 139, potassium 3.8, CO2 23, BUN 110 and creatinine 2.15. Glucose 141 and calcium 8.4. PROBLEMS: 1. Acute renal failure superimposed on chronic kidney disease. Gradual improvement in kidney function is noticed. IV fluid has been stopped due to increasing lower extremity edema. Patient has good oral intake and we will continue to monitor. I do not feel that intravenous fluid is needed at this point. 2. Hyponatremia. Sodium level has corrected to normal range. IV fluid has already been stopped. 3. Urinary tract infection (UTI). Patient was not receiving any antibiotic. Nursing staff reported that urine culture has come back positive for Escherichia (E) coli, which is sensitive to everything except levofloxacin. I am starting her on Rocephin 1 gram intravenously every 24 hours and we will see how she does. 4. Anemia. Her anemia is stable at this point and does not need any urgent intervention.
[2019-08-18 14:45] VITALS: BP 128/74
--- NOTE | 2019-08-18 16:39 | IPNPDOC ---
Text Note Date of Service The patient was seen on 08/18/19. NOTE SUBJECTIVE Ms. Melendez is a 79-year-old female with a history of chronic kidney disease and cardiac disease. 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 She has had recurrent acute exacerbation of her chronic kidney disease. OBJECTIVE Please see vital signs below Physical exam: General: Patient is upright in bed but wants to sleep HENT: Neck is supple, no adenopathy or thyromegaly, oral mucosa is moist, no scleral injection or icterus. CV: Regular rate and rhythm with a normal S1 and S2 and no appreciable murmur. RESP: Occasional coarse breath sounds, otherwise no wheezing or cough ABD: Soft, nontender, nondistended, bowel tones present, moderate central obesity EXT: She has perhaps trace - 1+ edema to her lower extremities, pedal pulses are palpable Laboratory data of interest: Creatinine has decreased from 2.67 to 2.15. Her baseline is approximately 1.4. Lactic acid is noted to be normalized to 1.1. ASSESSMENT/PLAN: 1. Acute renal failure--this is felt to be primarily prerenal with contributory factors of dehydration, volume depletion with hypotension, medication effects from metolazone, torsemide, losartan, metformin. The patient has responded to withholding her medications and giving IV hydration--this has now been stopped. Continuing to monitor electrolytes and renal function. 2. Lactic acidosis--likely due to dehydration. The patient does not currently exhibit signs of sepsis such as fever, leukocytosis, hypotension or tachycardia.. Blood and urine culture results are pending. Patient still does not otherwise require antibiotics at this time. Patient has exhibited lactic acidosis with prior episodes of acute on chronic kidney disease. 3. Patient has chronic atrial fibrillation. She is usually on atenolol for rate control. It has been held out of concern for causing hypotension. Her rate is currently stable without it. Anticoagulation with Xarelto is held due to acute kidney injury. May need to transition to alternative anticoagulation. 4. NIDDM--reasonably controlled with sliding scale insulin while in the hospital. 5. Heart failure--the patient has a history of known chronic diastolic congestive heart failure with pulmonary hypertension. This accounts for her baseline diuretic therapy which has been held. She is stable for now. 6. Urinary tract infection--Urine culture is positive for Escherichia coli which is resistant to Levaquin but otherwise pansensitive. Dosing and route of ceftriaxone has been discussed with the pharmacy service. Clarification: MOLST form is again reviewed and patient is DNI. VS,Angelica, I+O VS, Angelica, I+O Laboratory Tests 08/18/19 05:35 Vital Signs Date Time Temp Pulse Resp B/P (MAP) Pulse Ox O2 Delivery O2 Flow Rate FiO2 08/18/19 14:45 97.6 89 16 128/74 (92) 100 Room Air I&O- Last 24 Hours up to 6 AM 08/18/19 06:00 Intake Total 2370 ml Output Total 2600 ml Balance -230 ml ELIZABET PATINO MD Aug 18, 2019 16:39
[2019-08-18] MEDS: ACETAMINOPHEN 650MG ER TAB (TYLENOL ARTHRITIS) PO PRN (20:35)
[2019-08-18] MEDS: ATORVASTATIN 20 MG TAB PO SCH (20:35)
[2019-08-18] MEDS ORDERED: MIRALAX *UNIT DOSE* 17GM PACKET PO PRN (21:15)
[2019-08-18 22:00] VITALS: BP 109/59
[2019-08-19] MEDS: ACETAMINOPHEN 650MG ER TAB (TYLENOL ARTHRITIS) PO PRN (05:54)
[2019-08-19] MEDS: LEVOTHYROXINE 100MCG TABLET (0.1MG) PO SCH (05:54)
[2019-08-19 06:00] VITALS: BP 125/65
[2019-08-19 06:22] LABS: HEMATOCRIT 30.9 % (36.0-47.0); HEMOGLOBIN 10.2 g/dl (12.0-15.5); MEAN CORPUSCULAR HEMOGLOBIN 30.5 pg (27.0-33.0); MEAN CORPUSCULAR VOLUME 92.5 fl (80.0-96.0); PLATELET COUNT, AUTOMATED 240 10^3/uL (150-450); RED BLOOD COUNT 3.34 10^6/uL (4.00-5.40)
[2019-08-19 06:45] LABS: CALCIUM LEVEL 8.7 MG/DL (8.8-10.2); CREATININE FOR GFR 1.79 MG/DL (0.55-1.30); GLOMERULAR FILTRATION RATE 29.1 (>39); POTASSIUM SERUM 3.4 MEQ/L (3.5-5.1)
[2019-08-19] MEDS: FERROUS SULFATE 325MG TAB PO SCH (08:16)
[2019-08-19] MEDS: POTASSIUM CHLORIDE 10 MEQ SR TABLET PO SCH ×2 (08:16→21:10)
[2019-08-19] MEDS: ASCORBIC ACID 500 MG TAB PO SCH (08:17)
[2019-08-19] MEDS: RIVAROXABAN 15 MG TAB (XARELTO) PO SCH (08:17)
[2019-08-19] MEDS: PANTOPRAZOLE 20 MG TAB PO SCH ×2 (08:17→21:10)
[2019-08-19] MEDS: VITAMIN D 1,000 INTERNATIONAL UNITS TABLET PO SCH (08:17)
[2019-08-19] MEDS: NYSTATIN 100,000 UNITS/GM TOPICAL PWD 15 GM TOP SCH ×3 (08:18→21:11)
[2019-08-19] MEDS: cefTRIAXone SOD 1 GM in D5W MINI-BAG PLUS 50 ML IV SCH (11:05)
--- NOTE | 2019-08-19 13:35 | IPN ---
DATE OF VISIT: 08/19/2019 Mrs. Melendez is seen this morning on her bedside. She is sitting in the recliner chair at present relaxing. She denies any nausea, vomiting or diarrhea. She reports that she did get up and walk to the bathroom with the help of staff. She has no fever or chills. On physical exam, temperature 98.1 degrees Fahrenheit, heart rate 84 per minute and respiratory rate 18 per minute. Blood pressure 125/65 mmHg and oxygen saturation 96% on room air. Head is atraumatic. Neck supple and jugular venous distention (JVD) not abnormally elevated. Heart sounds are irregular in rhythm and lungs sound clear to auscultation. Abdomen soft and nontender, and a large hernia is unchanged on her lower abdominal wall. Extremities have chronic stasis changes with mild edema. There is no cyanosis or clubbing. Neurologically, she is at her baseline mentation. Today's labs show WBC count 11.0, hemoglobin 10.2 and hematocrit 30.9. Sodium 135, potassium 3.4, CO2 21, BUN 87 and creatinine 1.79. PROBLEMS: 1: Acute renal failure superimposed on chronic kidney disease. Kidney function is improving nicely and she is currently not receiving any IV fluid. Her oral intake is adequate and we will continue to watch her without any further IV fluid. She does not have any uremic symptoms. 2. Hypokalemia. She is receiving oral potassium chloride 40 mEq twice a day and will continue with the same. 3. Hyponatremia. Sodium level is borderline and does not need any intervention at this point. 4. Anemia. Her anemia is stable and does not need any intervention. 5. Urinary tract infection (UTI). She remains on Rocephin 1 gram every 24 hours and currently asymptomatic.
[2019-08-19 14:00] VITALS: BP 128/66
[2019-08-19 16:06] LABS: ANTINUCLEAR ANTIBODIES DIRECT Negative (Negative)
--- NOTE | 2019-08-19 17:24 | IPNPDOC ---
Text Note Date of Service The patient was seen on 08/19/19. NOTE SUBJECTIVE Ms. Melendez is a 79-year-old female with a history of chronic kidney disease and cardiac disease. She is known to this report writer from prior admission. She has had recurrent acute exacerbation of her chronic kidney disease. She is improving daily. Roberts catheter was removed this morning. She has displayed some blood from her urethra. Please note, patient has been restarted on her Xarelto. OBJECTIVE Please see vital signs below Physical exam: General: Patient is comfortable in [place] chair HENT: Neck is supple, no adenopathy or thyromegaly, oral mucosa is moist, no scleral injection or icterus. CV: Regular rate and rhythm with a normal S1 and S2 and no appreciable murmur. RESP: Occasional coarse breath sounds, otherwise no wheezing or cough ABD: Soft, nontender, nondistended, bowel tones present, moderate central obesity EXT: She has perhaps trace - 1+ edema to her lower extremities, pedal pulses are palpable NEURO: No focal neuromotor or sensory deficit PSYCH: Patient had been reported to have made suicidal statements; the patient has not made any such statements to this report writer and she definitely is not suicidal--denies any plan of harming herself. Laboratory data of interest: Creatinine has decreased from 2.15 to 1.79. Her baseline is approximately 1.4. Lactic acid is noted to be normalized to 1.1. Hemoglobin is stable at 10.2. ASSESSMENT/PLAN: 1. Acute renal failure--this is felt to be primarily prerenal with contributory factors of dehydration, volume depletion with hypotension, medication effects from metolazone, torsemide, losartan, metformin. The patient has responded to withholding her medications and giving IV hydration--this has now been stopped. Continuing to monitor electrolytes and renal function. 2. Lactic acidosis--likely due to dehydration. The patient does not currently exhibit signs of sepsis such as fever, leukocytosis, hypotension or tachycardia.. Blood and urine culture results are pending. Patient still does n ot otherwise require antibiotics at this time. Patient has exhibited lactic acidosis with prior episodes of acute on chronic kidney disease. 3. Patient has chronic atrial fibrillation. She is usually on atenolol for rate control. It has been held out of concern for causing hypotension. Her rate and blood pressure are currently stable without it. Anticoagulation with Xarelto was held due to acute kidney injury and has been resumed. 4. NIDDM--reasonably controlled with sliding scale insulin while in the hospital. Metformin was held due to impaired renal function. Consider resuming Trulicity and glimeperide. 5. Heart failure--the patient has a history of known chronic diastolic congestive heart failure with pulmonary hypertension. This accounts for her baseline diuretic therapy which has been held. She is stable for now. Resume diuretics, perhaps at lower dose, when okay with renal service. 6. Urinary tract infection--Urine culture is positive for Escherichia coli which is resistant to Levaquin but otherwise pansensitive. Dosing and route of ceftriaxone has been discussed with the pharmacy service. The patient does not have suicidal ideation and does not require a sitter. VS,[place], I+O VS, [place], I+O Laboratory Tests 08/19/19 05:38 Vital Signs Date Time Temp Pulse Resp B/P (MAP) Pulse Ox O2 Delivery O2 Flow Rate FiO2 08/19/19 14:00 97.9 85 17 128/66 (86) 99 Room Air I&O- Last 24 Hours up to 6 AM 08/19/19 06:00 Intake Total 1260 ml Output Total 2150 ml Balance -890 ml ELIZABET PATINO MD Aug 19, 2019 17:24
[2019-08-19] MEDS: ATORVASTATIN 20 MG TAB PO SCH (21:10)
[2019-08-19 22:00] VITALS: BP 128/66
[2019-08-20] MEDS: LEVOTHYROXINE 100MCG TABLET (0.1MG) PO SCH (05:34)
[2019-08-20 06:00] VITALS: BP 150/87
[2019-08-20 06:44] LABS: HEMATOCRIT 31.5 % (36.0-47.0); HEMOGLOBIN 10.2 g/dl (12.0-15.5); MEAN CORPUSCULAR HEMOGLOBIN 30.5 pg (27.0-33.0); MEAN CORPUSCULAR HGB CONC 32.4 g/dl (32.0-36.5); MEAN CORPUSCULAR VOLUME 94.3 fl (80.0-96.0); PLATELET COUNT, AUTOMATED 234 10^3/uL (150-450); RED BLOOD COUNT 3.34 10^6/uL (4.00-5.40)
[2019-08-20 07:09] LABS: CALCIUM LEVEL 8.8 MG/DL (8.8-10.2); CREATININE FOR GFR 1.55 MG/DL (0.55-1.30); GLOMERULAR FILTRATION RATE 34.3 (>39)
[2019-08-20] MEDS: RIVAROXABAN 15 MG TAB (XARELTO) PO SCH (07:58)
[2019-08-20] MEDS: POTASSIUM CHLORIDE 10 MEQ SR TABLET PO SCH (07:58)
[2019-08-20] MEDS: ASCORBIC ACID 500 MG TAB PO SCH (07:58)
[2019-08-20] MEDS: FERROUS SULFATE 325MG TAB PO SCH (07:59)
[2019-08-20] MEDS: VITAMIN D 1,000 INTERNATIONAL UNITS TABLET PO SCH (07:59)
[2019-08-20] MEDS: PANTOPRAZOLE 20 MG TAB PO SCH (07:59)
[2019-08-20] MEDS: NYSTATIN 100,000 UNITS/GM TOPICAL PWD 15 GM TOP SCH ×2 (08:00→15:44)
[2019-08-20] MEDS: cefTRIAXone SOD 1 GM in D5W MINI-BAG PLUS 50 ML IV SCH (11:13)
[2019-08-20 14:00] VITALS: BP 140/70
[2019-08-20] MEDS ORDERED: KLOR10TA76 PO (15:32)
[2019-08-20] MEDS ORDERED: CEFU50TA PO (15:33)
[2019-08-20] MEDS ORDERED: AMLO5TAB6 PO (15:34)
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
[2019-08-20 16:16] LABS: TOTAL PROTEIN 7.9 GM/DL (6.4-8.2)
[2019-08-20 16:21] LABS: ALBUMIN 3.81 GM/DL (3.29-5.55); ALBUMIN % 48.2 % (55.8-66.1); ALPHA-1-GLOBULIN % 4.2 % (2.9-4.9); ALPHA-1-GLOBULINS 0.33 GM/DL (0.17-0.41); ALPHA-2-GLOBULINS 1.02 GM/DL (0.42-0.99); ALPHA-2-GLOBULINS % 12.9 % (7.1-11.8); BETA-1-GLOBULINS 0.57 GM/DL (0.28-0.60); BETA-1-GLOBULINS % 7.2 % (4.7-7.2); BETA-2-GLOBULINS 0.58 GM/DL (0.19-0.55); BETA-2-GLOBULINS % 7.4 % (3.2-6.5); GAMMA GLOBULIN % 20.1 % (11.1-18.8); GAMMA GLOBULINS 1.59 GM/DL (0.65-1.58)
--- NOTE | 2019-08-20 18:46 | IPN ---
DATE: 08/20/2019 Mrs. Melendez is seen this morning on her bedside. She is currently getting ready for her physical therapy. She has been feeling well and has adequate oral intake. Her acute renal failure has been improving nicely. She denies any dyspnea or chest pain. PHYSICAL EXAMINATION: Temperature 97.9 degrees Fahrenheit, heart rate 80 per minute and respiratory rate 16 per minute. Blood pressure 150/87 mmHg and oxygen saturation 97% on room air. Her lungs have been clear to auscultation. Heart sounds regular and abdomen is soft with a large abdominal hernia. Extremities have chronic stasis with mild edema. Neurologically she is awake, alert and oriented times three. Today's labs show WBC count 12.0, hemoglobin 10.2 and hematocrit 31.3. Platelets 234. Sodium 136, potassium 4.0, CO2 of 24, BUN 65 and creatinine 1.55. PROBLEMS: 1. Acute renal failure superimposed on chronic kidney disease. Kidney function is improving nicely. She has not been on IV fluid, and her oral intake is adequate. Her electrolytes are stable. 2. Urinary tract infection (UTI). She has been on antibiotic and currently asymptomatic. I would recommend to treat her at least 5 days. She is currently on ceftriaxone 1 gram every 24 hours. 3. Disposition: From a renal standpoint, the patient is doing very well, and I am going to sign off. Please do not hesitate to call should you need any further assistance.
== END 2019-08-20 17:49 | disposition home or self-care (01) | DRG 683 ==
LOC: EDBD 13:54 → M ED 13:54 → M ED INP 15:17 → ENRESERV 16:15 → M PCU 17:56 → M MS5PR 08-18 14:35
PROVIDERS: ADMIT General Practice; ATTEND Internal Medicine
DX: N17.9 Acute kidney failure, unspecified (principal); I50.32 Chronic diastolic (congestive) heart failure; I13.0 Hypertensive heart and chronic kidney disease with heart failure and stage 1 through stage 4 chronic kidney disease, or unspecified chronic kidney disease; I48.20 Chronic atrial fibrillation, unspecified; N39.0 Urinary tract infection, site not specified; E87.1 Hypo-osmolality and hyponatremia; E87.2 Acidosis; Z79.01 Long term (current) use of anticoagulants; N18.3 Chronic kidney disease, stage 3 (moderate); E11.9 Type 2 diabetes mellitus without complications; I08.0 Rheumatic disorders of both mitral and aortic valves; D50.9 Iron deficiency anemia, unspecified; I27.20 Pulmonary hypertension, unspecified; I87.8 Other specified disorders of veins; E03.9 Hypothyroidism, unspecified; K21.9 Gastro-esophageal reflux disease without esophagitis; I87.2 Venous insufficiency (chronic) (peripheral); M54.5 Low back pain; I25.10 Atherosclerotic heart disease of native coronary artery without angina pectoris; Z95.2 Presence of prosthetic heart valve; E87.6 Hypokalemia; B96.29 Other Escherichia coli [E. coli] as the cause of diseases classified elsewhere; Z79.899 Other long term (current) drug therapy; Z88.5 Allergy status to narcotic agent; Z88.8 Allergy status to other drugs, medicaments and biological substances; Z88.0 Allergy status to penicillin; Z88.7 Allergy status to serum and vaccine; K43.9 Ventral hernia without obstruction or gangrene

== ENCOUNTER → 2019-08-16 | Outpatient (REF) | payer MEDICARE, MEDICAID ==
[~2019-08-16] MED LIST changes: +AMLO5TAB6 PO; +CEFU50TA PO; +FERR325T81 PO; -GLIM2TAB2 PO; +GLIM2TAB4 PO; +KLOR10TA76 PO; -METF-791 PO; +METF-838 PO; +METO5TA PO; +POTA10CA32 PO; +TORS100T PO; +VITA500075 PO
[2019-08-16 12:46] LABS: ALBUMIN 3.1 GM/DL (3.2-5.2); BILIRUBIN,TOTAL 0.6 MG/DL (0.2-1.0); CALCIUM LEVEL 9.2 MG/DL (8.8-10.2); CREATININE FOR GFR 2.96 MG/DL (0.55-1.30); GLOMERULAR FILTRATION RATE 16.3 (>39); POTASSIUM SERUM 2.9 MEQ/L (3.5-5.1); THYROID STIMULATING HORMONE 2.41 uIU/ML (0.358-3.740); TOTAL PROTEIN 7.2 GM/DL (6.4-8.2)
== END ==
LOC: M LAB REF 10:21
PROVIDERS: ATTEND Internal Medicine
DX: E03.9 Hypothyroidism, unspecified (principal); I50.32 Chronic diastolic (congestive) heart failure; Z79.01 Long term (current) use of anticoagulants

== ENCOUNTER 2019-08-20 16:29 | Inpatient (IN) | payer MEDICARE, MEDICAID ==
[~2019-08-20] VITALS: Ht 165.1 cm; Wt 101.0 kg
[~2019-08-20 16:29] MED LIST changes: +AMLO5TAB6 PO; +CEFU50TA PO; +FERR325T81 PO; +KLOR10TA76 PO; +METO5TA PO; +POTA10CA32 PO; +TORS100T PO; +VITA500075 PO
[2019-08-20] MEDS: HumaLOG INSULIN (NovoLOG) PER UNIT SC SCH ×2 (17:30→21:02)
[2019-08-20] MEDS ORDERED: GLUCAGON INJ 1MG VIAL SC PRN (17:30)
[2019-08-20] MEDS ORDERED: DEXTROSE 50% 50 ML SYRINGE IV PRN (17:30)
[2019-08-20] MEDS ORDERED: GLUCOSE 4GM CHEW TABLET PO PRN (17:30)
[2019-08-20] MEDS ORDERED: MOM 30ML SUSPENSION UDC PO PRN (17:30)
[2019-08-20 17:45] VITALS: BP 160/85
[2019-08-20 20:00] VITALS: BP 133/62
[2019-08-20] MEDS ORDERED: POTASSIUM CHLORIDE 10 MEQ SR TABLET PO SCH (21:00)
[2019-08-20] MEDS: SENNA 8.6 MG TAB (SENOKOT) PO SCH (21:01)
[2019-08-20] MEDS: MAGNESIUM OXIDE 400 MG TAB (MAG-OX) PO SCH (21:01)
[2019-08-20] MEDS: ATORVASTATIN 20 MG TAB PO SCH (21:01)
[2019-08-20] MEDS: PANTOPRAZOLE 20 MG TAB PO SCH (21:01)
[2019-08-20] MEDS: CEFUROXIME 500 MG TAB PO SCH (21:01)
[2019-08-20] MEDS: LACTOBACILLUS ACIDOPHILUS CAP (BACID) PO SCH (21:01)
[2019-08-20] MEDS: DOCUSATE SODIUM 100 MG CAP PO SCH (21:01)
[2019-08-20] MEDS: POLYVINYL ALCOHOL OPHTH SOLN 15 ML(LIQUITEARS) OU SCH (21:06)
[2019-08-20] MEDS: NYSTATIN 100,000 UNITS/GM TOPICAL PWD 15 GM TOP SCH (21:06)
[2019-08-20] MEDS: REMEDY PHYTOPLEX Z-GUARD PASTE 113GM TUBE (FROM STOREROOM PRODUCT) TOP SCH (21:14)
[2019-08-20] MEDS: CO-ENZYME Q10 50 MG CAP PO SCH (21:20)
[2019-08-21] MEDS: ACETAMINOPHEN TAB 650MG DOSE (2X325MG) PO PRN ×2 (03:49→21:45)
[2019-08-21 06:00] VITALS: BP 137/71
[2019-08-21] MEDS: LEVOTHYROXINE 100MCG TABLET (0.1MG) PO SCH (06:06)
[2019-08-21 06:41] LABS: BASO # 0.1 10^3/uL (0.0-0.2); BASO % 0.4 % (0.0-1.0); EOS # 0.3 10^3/uL (0.0-0.5); EOS % 2.6 % (0.0-3.0); HEMATOCRIT 32.3 % (36.0-47.0); HEMOGLOBIN 10.4 g/dl (12.0-15.5); LYMPH # 2.5 10^3/uL (1.5-5.0); LYMPH % 19.3 % (24.0-44.0); MEAN CORPUSCULAR HEMOGLOBIN 30.6 pg (27.0-33.0); MEAN CORPUSCULAR HGB CONC 32.2 g/dl (32.0-36.5); MONO # 0.8 10^3/uL (0.0-0.8); MONO % 6.3 % (0.0-5.0); NEUTROPHILS % 70.6 % (36.0-66.0); PLATELET COUNT, AUTOMATED 233 10^3/uL (150-450); WHITE BLOOD COUNT 12.7 10^3/uL (4.0-10.0)
[2019-08-21 07:09] LABS: ALBUMIN 2.8 GM/DL (3.2-5.2); BILIRUBIN,TOTAL 0.5 MG/DL (0.2-1.0); CALCIUM LEVEL 8.7 MG/DL (8.8-10.2); CREATININE FOR GFR 1.49 MG/DL (0.55-1.30); GLOMERULAR FILTRATION RATE 35.9 (>39); POTASSIUM SERUM 4.8 MEQ/L (3.5-5.1); TOTAL PROTEIN 6.6 GM/DL (6.4-8.2)
[2019-08-21] MEDS: REMEDY PHYTOPLEX Z-GUARD PASTE 113GM TUBE (FROM STOREROOM PRODUCT) TOP SCH ×3 (09:00→21:47)
[2019-08-21] MEDS: LACTOBACILLUS ACIDOPHILUS CAP (BACID) PO SCH ×3 (09:07→21:45)
[2019-08-21] MEDS: CO-ENZYME Q10 50 MG CAP PO SCH ×2 (09:07→21:46)
[2019-08-21] MEDS: ASCORBIC ACID 500 MG TAB PO SCH (09:08)
[2019-08-21] MEDS: GLIMEPIRIDE 1 MG TABLET PO SCH (09:08)
[2019-08-21] MEDS: FERROUS SULFATE 325MG TAB PO SCH (09:08)
[2019-08-21] MEDS: POTASSIUM CHLORIDE 10 MEQ SR TABLET PO SCH (09:08)
[2019-08-21] MEDS: DOCUSATE SODIUM 100 MG CAP PO SCH ×2 (09:08→21:45)
[2019-08-21] MEDS: HumaLOG INSULIN (NovoLOG) PER UNIT SC SCH ×4 (09:08→21:47)
[2019-08-21] MEDS: RIVAROXABAN 15 MG TAB (XARELTO) PO SCH (09:08)
[2019-08-21] MEDS: CEFUROXIME 500 MG TAB PO SCH ×2 (09:08→21:46)
[2019-08-21] MEDS: PANTOPRAZOLE 20 MG TAB PO SCH ×2 (09:09→21:46)
[2019-08-21] MEDS: NYSTATIN 100,000 UNITS/GM TOPICAL PWD 15 GM TOP SCH ×2 (09:09→21:47)
[2019-08-21] MEDS: POLYVINYL ALCOHOL OPHTH SOLN 15 ML(LIQUITEARS) OU SCH ×3 (09:09→21:46)
--- NOTE | 2019-08-21 10:08 | HPEPDOC ---
Machinery Repair Maintenance Supervisor Note DATE OF ADMISSION: 08-20-19 DATE OF SERVICE: 08-21-19 TIME OF ADMISSION: Please refer to physician's admission order. SOURCE OF ADMISSION INFORMATION: [facility] record and patient CHIEF COMPLAINT: ELISA with UTI HISTORY OF PRESENT ILLNESS: 79F pmh CKD 3, HTN, DM, Afib on AC, hypothyroidism, chronic diastolic CHF, gastritis and chronic back pain was admitted to [facility] ED on 08-16-19 complaining of weakness with recent diarrhea. She was hypotensive, started on antibiotics for E. Coli UTI and found to have acute kidney failure. She was given IVF hydration, her BP meds held, and she was followed by renal. Her leukocytosis improved in addition to her kidney function, however she required additional assistance with walking and ADLs below her prior level of function and was deemed medically appropriate for discharge to ARU on 08-20-19. REVIEW OF SYSTEMS: The following is a completed review of systems and has been reviewed. Review of systems otherwise unremarkable. PAIN: Patient self reports no pain EYES: No recent vision changes EARS, NOSE, & THROAT: No throat pain, or dysphagia, or rhinorrhea CARDIOVASCULAR: Denies chest pain or palpitations PULMONARY: Denies shortness of breath GASTROINTESTINAL: Denies constipation/diarrhea GENITOURINARY: denies dysuria MUSCULOSKELETAL: generalized weakness NEUROLOGICAL: denies tremor or paresthesias HEMATOLOGICAL: +anemia SKIN: rash under breasts PSYCHIATRIC: Unremarkable All other review of systems found to be negative. PAST MEDICAL HISTORY: as per HPI PAST SURGICAL HISTORY: CAD with stents, bilateral knee surgery, tonsillectomy, mandibular and clavicular repair ALLERGIES: Please see below. MEDICATIONS: Please see below. SOCIAL HISTORY: No etoh/illicit drugs/smoking DIET: low sodium PHYSICAL EXAMINATION: VITAL SIGNS: Please see below. GENERAL:Pleasant and cooperative. No acute distress. HEENT: PERRL. Extraocular movements intact. Clear conjunctiva CARDIOVASCULAR: Regular rate and rhythm. No murmurs, rubs, or gallops LUNGS: Clear to auscultation bilaterally. No wheezes. No rhonchi ABDOMEN: Soft, nontender, nondistended. Positive bowel sounds. Normal active bowel sounds NEUROLOGICAL: Alert and oriented times three. Cranial nerves II through XII grossly intact. Sensation grossly intact EXTREMITIES: 5-\\5 strength bilateral upper extremities. 5-\\5 strength right lower extremity. 5-/5 strength in left lower extremity. bilat LE swelling SKIN: blanchable sacral erythema LABORATORY DATA: Please see below. IMAGING:Imaging documentation personally reviewed by record FUNCTIONAL STATUS: Premorbid: Modified Independent with all activities of daily life as well as mobility On Admission: Min-Mod assist for functional transfers, ambulation, dressing, toileting, bed mobility GOALS: Mod-I for functional transfers, ambulation household distances, dressing, toileting, bathing ASSESSMENT:79-year-old F with past medical history of CKD who presents status post sepsis carmen to UTI with ELISA PLAN: 1. Rehab- PT/OT advance gait and ADLs, strengthen/stretch/maintain ROM all 4limbs 2. neuro- monitor for delirium 3. CArdiac- hx of chronic diastolic CHF, will order daily weights, and fluid restrict to 2L while monitoring for ELISA - home BP meds restarted, will watch for changes in kidney function- medicine consulted to assist in overall management -CAD with Afib c/u beta-segun, Xarelto -HLD c/u statin 4. Resp- monitor for infection, encourage incentive spirometry 5. Endo hx of hypothyroidism, c/u synthroid -DM c/u glimepiride, will order ISS 6. - c/u cefuroxime for UTI 7. GI ppx- protonix 8. DVT ppx on xarelto 9. Pain- tylneol prn 10. Daniela- recent ELISA in setting of CKD- monitor and treat if needed 11. Dispo- TBD POST ADMISSION PHYSICIAN EVALUATION: Medical and functional status: Description of medical status, medical asses sment: As above. Rehabilitation diagnosis and current and prior cold morbid medical conditions as above. Risk of complications and plans to mitigate them as above. Description of functional status current status is as above. Prior status as above. Status compared to preadmission: There are no clinically significant differences between the patient's current status and the information described on the preadmission screening document. Treatment plan anticipated: Treatment plan is as described above. Required disciplines including physical therapy, occupational therapy, others as noted above. Intensity of services: 3 hours a day, 6 days a week. Special considerations: There are no specific special or safety considerations that would likely preclude immediate implementation of an intensive ramirez abilitation program or subsequently influence the plan of care. ATTESTATION: Considering all the information above, it is my best judgment that this patient requires intensive rehabilitation therapy as described above and an inpatient hospital environment due to the complexity of nursing, medical, and rehabilitation needs required by the patient. Furthermore, this patient can reasonably be expected to participate in an benefit from an inpatient rehabilitation stay with an interdisciplinary team approach to the delivery of rehabilitation care under the direction and supervision of rehabilitation physician. PROGNOSIS: Excellent ESTIMATED LENGTH OF STAY: 10-14 days. PROJECTED DISCHARGE DESTINATION: Home with family support and any durable medical equipment required to increase functional safety and mobility. TIME SPENT COUNSELING AND COORDINATING INITIAL CARE: Greater than 70 minutes. Vital Signs Vital Sign - Last 24 Hours 08/20/19 08/20/19 08/21/19 17:45 20:00 06:00 Temp 97.5 97.6 98.4 Pulse 102 88 90 Resp 19 17 16 B/P (MAP) 160/85 (110) 133/62 (85) 137/71 (93) Pulse Ox 98 98 96 O2 Delivery Room Air Room Air Room Air Laboratory Data CBC/BMP Laboratory Tests 08/21/19 06:15 Labs 24H Laboratory Tests 2 08/21/19 06:15: Immature Granulocyte % (Auto) 0.8, Neutrophils (%) (Auto) 70.6H, Lymphocytes (%) (Auto) 19.3L, Monocytes (%) (Auto) 6.3H, Eosinophils (%) (Auto) 2.6, Basophils (%) (Auto) 0.4, Neutrophils # (Auto) 9.0H, Lymphocytes # (Auto) 2.5, Monocytes # (Auto) 0.8, Eosinophils # (Auto) 0.3, Basophils # (Auto) 0.1, Nucleated Red Blood Cells % (auto) 0.0, Anion Gap 6L, Glomerular Filtration Rate 35.9L, Calcium Level 8.7L, Total Bilirubin 0.5, Aspartate Amino Transf (AST/SGOT) 33, Alanine Aminotransferase (ALT/SGPT) 51, Alkaline Phosphatase 94, Total Protein 6.6, Albumin 2.8L, Albumin/Globulin Ratio 0.7L Home Medications Scheduled Ascorbic Acid (Vitamin C) 500 Mg Tablet, 500 MG PO DAILY, (Reported) Atenolol (Atenolol) 25 Mg Tablet, 25 MG PO DAILY, (Reported) Cefuroxime Axetil (Cefuroxime) 500 Mg Tablet, 500 MG PO BID Cholecalciferol (Vitamin D3) (Vitamin D3) 125 Mcg Capsule, 5,000 UNITS PO DAILY, (Reported) Chromium Picolinate (Chromium Picolinate) 1,000 Mcg Tablet, 1,000 MCG PO BID, (Reported) Dulaglutide (Trulicity) 1.5 Mg/0.5 Ml Pen.injctr, 1.5 MG SC QWEEK, (Reported) TUESDAYS Ferrous Sulfate (Iron) 325 Mg Tablet, 65 MG PO DAILY, (Reported) Glimepiride (Glimepiride) 2 Mg Tablet, 1 MG PO DAILY, (Reported) Glucosamine/D3/Boswellia Kayleen (Osteo Bi-Flex Caplet) 1 Each Tablet, 1 TAB PO BID, (Reported) Lactobacillus Acidophilus (Probiotic) 1 Each Capsule, 2 CAP PO BID, (Reported) Levothyroxine Sodium (Synthroid) 100 Mcg Tablet, 100 MCG PO DAILY, (Reported) TAKES AT 0500 Magnesium (Magnesium) 250 Mg Tablet, 500 MG PO QHS, (Reported) Mineral Oil/Petrolatum,White (Soothe Night Time Lub Eye Oint) 3.5 Gm Oint...g., 1 APLCT OU BID, (Reported) Pancreat/Betaine/Pepsin/Bromel (Super Enzyme Caps) 1 Each Capsule, 2 EACH PO QHS, (Reported) Pantothenic Acid (Vit B5) (Pantothenic Acid) 500 Mg Tablet, 1,000 MG PO DAILY, (Reported) Potassium Chloride (Klor-Con M10) 10 Meq Tab.er.prt, 40 MEQ PO BID Rivaroxaban (Xarelto) 15 Mg Tablet, 15 MG PO DAILY, (Reported) Ubidecarenone (Coq-10) 100 Mg Capsule, 100 MG PO BID, (Reported) [cinnergy] , 2 TAB PO DAILY, (Reported) [nattokinase-serrape] , 2 TAB PO QHS, (Reported) Scheduled PRN S-Adenosylmethionine Sul Tosyl (Willard-E) 400 Mg Tablet, 400 MG PO BID PRN for DEPRESSION, (Reported) Allergies Coded Allergies: Tricyclic Compounds (Verified Allergy, Mild, rash, 05/16/18) Influenza Virus Vaccines (Verified Allergy, Unknown, 05/16/18) "never so sick in my life" amoxicillin (Verified Allergy, Unknown, 05/16/18) clavulanic acid (Verified Allergy, Unknown, 05/16/18) phenylephrine (Verified Allergy, Unknown, 05/16/18) morphine (Verified Adverse Reaction, Mild, nausea/vomitting, 05/16/18) A-FIB/CHADSVASC A-FIB History Current/History of A-Fib/PAF?: Yes Current PO Anticoag Therapy: Yes EMMA DIAZ MD Aug 21, 2019 10:08
[2019-08-21 14:00] VITALS: BP 139/63
[2019-08-21 20:18] VITALS: BP 150/70
[2019-08-21] MEDS: ATORVASTATIN 20 MG TAB PO SCH (21:45)
[2019-08-21] MEDS: MAGNESIUM OXIDE 400 MG TAB (MAG-OX) PO SCH (21:46)
[2019-08-21] MEDS: SENNA 8.6 MG TAB (SENOKOT) PO SCH (21:46)
[2019-08-22] MEDS: LEVOTHYROXINE 100MCG TABLET (0.1MG) PO SCH (05:50)
[2019-08-22 05:53] VITALS: BP 134/62
[2019-08-22] MEDS: HumaLOG INSULIN (NovoLOG) PER UNIT SC SCH ×4 (08:57→21:00)
[2019-08-22] MEDS: LACTOBACILLUS ACIDOPHILUS CAP (BACID) PO SCH ×3 (09:28→21:04)
[2019-08-22] MEDS: GLIMEPIRIDE 1 MG TABLET PO SCH (09:28)
[2019-08-22] MEDS: ASCORBIC ACID 500 MG TAB PO SCH (09:28)
[2019-08-22] MEDS: CO-ENZYME Q10 50 MG CAP PO SCH ×2 (09:28→21:04)
[2019-08-22] MEDS: RIVAROXABAN 15 MG TAB (XARELTO) PO SCH (09:28)
[2019-08-22] MEDS: DOCUSATE SODIUM 100 MG CAP PO SCH ×2 (09:28→21:04)
[2019-08-22] MEDS: CEFUROXIME 500 MG TAB PO SCH ×2 (09:28→21:04)
[2019-08-22] MEDS: FERROUS SULFATE 325MG TAB PO SCH (09:29)
[2019-08-22] MEDS: POLYVINYL ALCOHOL OPHTH SOLN 15 ML(LIQUITEARS) OU SCH ×3 (09:29→21:06)
[2019-08-22] MEDS: POTASSIUM CHLORIDE 10 MEQ SR TABLET PO SCH (09:29)
[2019-08-22] MEDS: PANTOPRAZOLE 20 MG TAB PO SCH ×2 (09:29→21:05)
[2019-08-22] MEDS: NYSTATIN 100,000 UNITS/GM TOPICAL PWD 15 GM TOP SCH ×2 (09:30→21:06)
[2019-08-22] MEDS: REMEDY PHYTOPLEX Z-GUARD PASTE 113GM TUBE (FROM STOREROOM PRODUCT) TOP SCH ×3 (09:30→21:06)
--- NOTE | 2019-08-22 09:36 | IPNPDOC ---
PM&R Progress Note DATE OF SERVICE: Aug 22, 2019 Promotional Marketing Agent Progress Note Subjective: Patient reporting she feels still pretty weak and denies shortness of breath. REVIEW OF SYSTEMS: The following is a completed review of systems and has been reviewed. Review of systems otherwise unremarkable. PAIN: Patient self reports no pain EYES: No recent vision changes EARS, NOSE, & THROAT: No throat pain, or dysphagia, or rhinorrhea CARDIOVASCULAR: Denies chest pain or palpitations PULMONARY: Denies shortness of breath GASTROINTESTINAL: Denies constipation/diarrhea GENITOURINARY: denies dysuria MUSCULOSKELETAL: generalized weakness NEUROLOGICAL: denies tremor or paresthesias HEMATOLOGICAL: +anemia SKIN: rash under breasts PSYCHIATRIC: Unremarkable All other review of systems found to be negative. PHYSICAL EXAMINATION: VITAL SIGNS: Please see below. GENERAL:Pleasant and cooperative. No acute distress. HEENT: PERRL. Extraocular movements intact. Clear conjunctiva CARDIOVASCULAR: Regular rate and rhythm. No murmurs, rubs, or gallops LUNGS: Clear to auscultation bilaterally. No wheezes. No rhonchi ABDOMEN: Soft, nontender, nondistended. Positive bowel sounds. Normal active bowel sounds NEUROLOGICAL: Alert and oriented times three. Cranial nerves II through XII grossly intact. Sensation grossly intact EXTREMITIES: 5-\\5 strength bilateral upper extremities. 5-\\5 strength right lower extremity. 5-/5 strength in left lower extremity. bilat LE swelling ASSESSMENT:79-year-old F with past medical history of CKD who presents status post sepsis carmen to UTI with ELISA PLAN: 1. Rehab- PT/OT advance gait and ADLs, strengthen/stretch/maintain ROM all 4limbs 2. neuro- monitor for delirium 3. CArdiac- hx of chronic diastolic CHF, will order daily weights, and fluid restrict to 2L while monitoring for ELISA - home BP meds held due to recent ELISA, medicine consulted to assist in overall management -CAD with Afib c/u beta-segun, Xarelto -HLD c/u statin 4. Resp- monitor for infection, encourage incentive spirometry 5. Endo hx of hypothyroidism, c/u synthroid -DM c/u glimepiride, c/u ISS 6. - c/u cefuroxime for UTI 7. GI ppx- protonix 8. DVT ppx on xarelto 9. Pain- tylneol prn 10. Daniela- recent ELISA in setting of CKD- monitor and treat if needed 11. Dispo- TBD Allergies Coded Allergies: Tricyclic Compounds (Verified Allergy, Mild, rash, 05/16/18) Influenza Virus Vaccines (Verified Allergy, Unknown, 05/16/18) "never so sick in my life" amoxicillin (Verified Allergy, Unknown, 05/16/18) clavulanic acid (Verified Allergy, Unknown, 05/16/18) phenylephrine (Verified Allergy, Unknown, 05/16/18) morphine (Verified Adverse Reaction, Mild, nausea/vomitting, 05/16/18) Vital Signs Vital Signs Date Time Temp Pulse Resp B/P (MAP) Pulse Ox O2 Delivery O2 Flow Rate FiO2 08/22/19 05:53 97.3 79 16 134/62 (86) 97 Room Air Laboratory Data Labs 24H Laboratory Tests 2 08/21/19 11:31: Bedside Glucose (Misc Panel) 170H 08/21/19 16:45: Bedside Glucose (Misc Panel) 149H 08/21/19 19:47: Bedside Glucose (Misc Panel) 289H 08/22/19 05:53: Bedside Glucose (Misc Panel) 130H Current Medications Current Medications Current Medications Medications (Trade) Dose Ordered Sig/Chaka Route PRN Reason Start Time Stop Time Status Last Admin Dose Admin Acetaminophen (Tylenol Tab) 650 mg Q4HP PRN PO fever/MILD PAIN (PS 1-4) 08/20/19 17:30 08/21/19 21:45 Artificial Tears (Akwa Tears) 2 drop TID OU 08/20/19 21:00 08/22/19 09:29 Ascorbic Acid (Vitamin C) 500 mg DAILY PO 08/21/19 09:00 08/22/19 09:28 Atorvastatin Calcium (Lipitor) 20 mg QHS PO 08/20/19 21:00 08/21/19 21:45 Cefuroxime Axetil (Ceftin) 500 mg BID PO 08/20/19 21:00 08/23/19 09:01 08/22/19 09:28 Coenzyme Q10 (Coenzyme Q10) 100 mg BID PO 08/20/19 21:00 09/19/19 20:59 08/22/19 09:28 Dextrose (Dextrose 50%) 25 ml ASDIRECTED PRN IV SEE LABEL COMMENTS 08/20/19 17:30 Docusate Sodium (Colace) 100 mg BID PO 08/20/19 21:00 08/22/19 09:28 Ferrous Sulfate (Ferrous Sulfate) 325 mg DAILY PO 08/21/19 09:00 08/22/19 09:29 Glimepiride (Amaryl) 1 mg DAILY@08 PO 08/21/19 08:00 08/22/19 09:28 Glucagon (Glucagon) 1 mg ASDIRECTED PRN SC SEE LABEL COMMENTS 08/20/19 17:30 Glucose (Glucose) 16 GM ASDIRECTED PRN PO SEE LABEL COMMENTS 08/20/19 17:30 Insulin Human Lispro (HumaLOG INSULIN) SEE PROTOCOL TABLE AC SC 08/20/19 17:30 08/22/19 08:57 Insulin Human Lispro (HumaLOG INSULIN) SEE PROTOCOL TABLE QHS SC 08/20/19 21:00 08/21/19 21:47 Lactobacillus Acidophilus (Bacid) 1 ea TID PO 08/20/19 21:00 08/22/19 09:28 Levothyroxine Sodium (Synthroid) 100 mcg DAILY@06 PO 08/21/19 06:00 08/22/19 05:50 Magnesium Hydroxide (Milk Of Magnesia) 30 ml DAILYPRN PRN PO CONSTIPATION 08/20/19 17:30 Magnesium Oxide (Mag-Ox) 400 mg QHS PO 08/20/19 21:00 08/21/19 21:46 Nystatin (Mycostatin Powder, Nystop) apply to under emiliano... BID TOP 08/20/19 21:00 08/22/19 09:30 Pantoprazole Sodium (Protonix) 20 mg BID PO 08/20/19 21:00 08/22/19 09:29 Potassium Chloride (Micro-K Extencaps) 40 meq BID PO 08/20/19 21:00 08/21/19 08:01 DC 08/20/19 21:02 Potassium Chloride (Micro-K Extencaps) 40 meq DAILY PO 08/21/19 09:00 08/22/19 09:29 Rivaroxaban (Xarelto) 15 mg DAILY@0800 PO 08/21/19 08:00 08/22/19 09:28 Senna (Senokot) 1 tab QHS PO 08/20/19 21:00 08/21/19 21:46 EMMA DIAZ MD Aug 22, 2019 09:36
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
[2019-08-22 14:00] VITALS: BP 134/59
[2019-08-22 20:30] VITALS: BP 127/58
[2019-08-22] MEDS: SENNA 8.6 MG TAB (SENOKOT) PO SCH (21:00)
[2019-08-22] MEDS: MAGNESIUM OXIDE 400 MG TAB (MAG-OX) PO SCH (21:04)
[2019-08-22] MEDS: LEVEMIR (INSULIN DETEMIR) 1 UNITS/0.01ML SC SCH (21:05)
[2019-08-22] MEDS: ATORVASTATIN 20 MG TAB PO SCH (21:05)
[2019-08-23 06:00] VITALS: BP 149/82
[2019-08-23] MEDS: LEVOTHYROXINE 100MCG TABLET (0.1MG) PO SCH (06:04)
[2019-08-23 07:47] LABS: BASO # 0.1 10^3/uL (0.0-0.2); BASO % 0.5 % (0.0-1.0); EOS # 0.4 10^3/uL (0.0-0.5); HEMOGLOBIN 10.1 g/dl (12.0-15.5); LYMPH # 2.2 10^3/uL (1.5-5.0); LYMPH % 20.6 % (24.0-44.0); MEAN CORPUSCULAR HEMOGLOBIN 30.6 pg (27.0-33.0); MEAN CORPUSCULAR HGB CONC 31.6 g/dl (32.0-36.5); MONO # 0.7 10^3/uL (0.0-0.8); MONO % 6.9 % (0.0-5.0); NEUTROPHILS # 7.1 10^3/uL (1.5-8.5); PLATELET COUNT, AUTOMATED 230 10^3/uL (150-450); WHITE BLOOD COUNT 10.6 10^3/uL (4.0-10.0)
[2019-08-23 08:08] LABS: CALCIUM LEVEL 8.7 MG/DL (8.8-10.2); CREATININE FOR GFR 1.5 MG/DL (0.55-1.30); GLOMERULAR FILTRATION RATE 35.7 (>39); POTASSIUM SERUM 5.3 MEQ/L (3.5-5.1)
[2019-08-23] MEDS: REMEDY PHYTOPLEX Z-GUARD PASTE 113GM TUBE (FROM STOREROOM PRODUCT) TOP SCH ×3 (09:00→20:01)
[2019-08-23] MEDS: CO-ENZYME Q10 50 MG CAP PO SCH ×2 (09:00→20:07)
[2019-08-23] MEDS: FERROUS SULFATE 325MG TAB PO SCH (09:36)
[2019-08-23] MEDS: DOCUSATE SODIUM 100 MG CAP PO SCH ×2 (09:37→20:07)
[2019-08-23] MEDS: RIVAROXABAN 15 MG TAB (XARELTO) PO SCH (09:37)
[2019-08-23] MEDS: ASCORBIC ACID 500 MG TAB PO SCH (09:37)
[2019-08-23] MEDS: PANTOPRAZOLE 20 MG TAB PO SCH ×2 (09:37→20:07)
[2019-08-23] MEDS: POTASSIUM CHLORIDE 10 MEQ SR TABLET PO SCH (09:37)
[2019-08-23] MEDS: GLIMEPIRIDE 1 MG TABLET PO SCH (09:37)
[2019-08-23] MEDS: LACTOBACILLUS ACIDOPHILUS CAP (BACID) PO SCH ×3 (09:37→20:07)
[2019-08-23] MEDS: CEFUROXIME 500 MG TAB PO SCH (09:38)
[2019-08-23] MEDS: HumaLOG INSULIN (NovoLOG) PER UNIT SC SCH ×4 (09:40→21:00)
[2019-08-23] MEDS: POLYVINYL ALCOHOL OPHTH SOLN 15 ML(LIQUITEARS) OU SCH ×3 (09:43→20:08)
[2019-08-23] MEDS: NYSTATIN 100,000 UNITS/GM TOPICAL PWD 15 GM TOP SCH ×2 (09:43→20:00)
[2019-08-23] MEDS ORDERED: PATIROMER SORBITEX CALCIUM 8.4 GM POWDER PACKET (VELTASSA) PO ONE (12:00)
[2019-08-23 14:00] VITALS: BP 132/60
--- NOTE | 2019-08-23 16:46 | IPNPDOC ---
PM&R Progress Note DATE OF SERVICE: Aug 23, 2019 [employer] Progress Note Subjective: Patient reporting she feels well today and does not want a laxative at night. She is open to being followed by a kidney doctor for her medication and fluid management. REVIEW OF SYSTEMS: The following is a completed review of systems and has been reviewed. Review of systems otherwise unremarkable. PAIN: Patient self reports no pain EYES: No recent vision changes EARS, NOSE, & THROAT: No throat pain, or dysphagia, or rhinorrhea CARDIOVASCULAR: Denies chest pain or palpitations PULMONARY: Denies shortness of breath GASTROINTESTINAL: Denies constipation/diarrhea GENITOURINARY: denies dysuria MUSCULOSKELETAL: generalized weakness NEUROLOGICAL: denies tremor or paresthesias HEMATOLOGICAL: +anemia SKIN: rash under breasts PSYCHIATRIC: Unremarkable All other review of systems found to be negative. PHYSICAL EXAMINATION: VITAL SIGNS: Please see below. GENERAL:Pleasant and cooperative. No acute distress. HEENT: PERRL. Extraocular movements intact. Clear conjunctiva CARDIOVASCULAR: Regular rate and rhythm. No murmurs, rubs, or gallops LUNGS: Clear to auscultation bilaterally. No wheezes. No rhonchi ABDOMEN: Soft, nontender, nondistended. Positive bowel sounds. Normal active bowel sounds NEUROLOGICAL: Alert and oriented times three. Cranial nerves II through XII grossly intact. Sensation grossly intact EXTREMITIES: 5-\\5 strength bilateral upper extremities. 5-\\5 strength right lower extremity. 5-/5 strength in left lower extremity. bilat LE swelling ASSESSMENT:79-year-old F with past medical history of CKD who presents status po st sepsis carmen to UTI with ELISA PLAN: 1. Rehab- PT/OT advance gait and ADLs, strengthen/stretch/maintain ROM all 4limbs 2. neuro- monitor for delirium 3. CArdiac- hx of chronic diastolic CHF, c/u daily weights, will increase fluid restriction to 1800cc and start back spironolactone for bilat edema - medicine consulted to assist in overall management -CAD with Afib c/u beta-segun, Xarelto -HLD c/u statin 4. Resp- monitor for infection, encourage incentive spirometry 5. Endo hx of hypothyroidism, c/u synthroid -DM c/u glimepiride, c/u ISS 6. - c/u cefuroxime for UTI 7. GI ppx- protonix 8. DVT ppx on xarelto 9. Pain- tylneol prn 10. Renal- recent ELISA in setting of CKD- monitor and treat if needed -will order renal consult for fluid management in setting of recent ELISA and start back spironolactone in the meantime 11. Dispo- TBD Allergies Coded Allergies: Tricyclic Compounds (Verified Allergy, Mild, rash, 05/16/18) Influenza Virus Vaccines (Verified Allergy, Unknown, 05/16/18) "never so sick in my life" amoxicillin (Verified Allergy, Unknown, 05/16/18) clavulanic acid (Verified Allergy, Unknown, 05/16/18) phenylephrine (Verified Allergy, Unknown, 05/16/18) morphine (Verified Adverse Reaction, Mild, nausea/vomitting, 05/16/18) Vital Signs Vital Signs Date Time Temp Pulse Resp B/P (MAP) Pulse Ox O2 Delivery O2 Flow Rate FiO2 08/23/19 14:00 97.5 84 18 132/60 (84) 97 Room Air Laboratory Data CBC/BMP Laboratory Tests 08/23/19 07:24 Labs 24H Laboratory Tests 2 08/22/19 16:43: Bedside Glucose (Misc Panel) 103 08/22/19 20:09: Bedside Glucose (Misc Panel) 222H 08/23/19 06:40: Bedside Glucose (Misc Panel) 135H 08/23/19 07:24: Immature Granulocyte % (Auto) 1.0, Neutrophils (%) (Auto) 67.0H, Lymphocytes (%) (Auto) 20.6L, Monocytes (%) (Auto) 6.9H, Eosinophils (%) (Auto) 4.0H, Basophils (%) (Auto) 0.5, Neutrophils # (Auto) 7.1, Lymphocytes # (Auto) 2.2, Monocytes # (Auto) 0.7, Eosinophils # (Auto) 0.4, Basophils # (Auto) 0.1, Nucleated Red B lood Cells % (auto) 0.0, Anion Gap 10, Glomerular Filtration Rate 35.7L, Calcium Level 8.7L 08/23/19 11:40: Bedside Glucose (Misc Panel) 176H Current Medications Current Medications Current Medications Medications (Trade) Dose Ordered Sig/Chaka Route PRN Reason Start Time Stop Time Status Last Admin Dose Admin Acetaminophen (Tylenol Tab) 650 mg Q4HP PRN PO fever/MILD PAIN (PS 1-4) 08/20/19 17:30 08/21/19 21:45 Artificial Tears (Akwa Tears) 2 drop TID OU 08/20/19 21:00 08/23/19 09:43 Ascorbic Acid (Vitamin C) 500 mg DAILY PO 08/21/19 09:00 08/23/19 09:37 Atorvastatin Calcium (Lipitor) 20 mg QHS PO 08/20/19 21:00 08/22/19 21:05 Cefuroxime Axetil (Ceftin) 500 mg BID PO 08/20/19 21:00 08/23/19 09:01 DC 08/23/19 09:38 Coenzyme Q10 (Coenzyme Q10) 100 mg BID PO 08/20/19 21:00 09/19/19 20:59 08/22/19 21:04 Dextrose (Dextrose 50%) 25 ml ASDIRECTED PRN IV SEE LABEL COMMENTS 08/20/19 17:30 Docusate Sodium (Colace) 100 mg BID PO 08/20/19 21:00 08/23/19 09:37 Ferrous Sulfate (Ferrous Sulfate) 325 mg DAILY PO 08/21/19 09:00 08/23/19 09:36 Glimepiride (Amaryl) 1 mg DAILY@08 PO 08/21/19 08:00 08/23/19 09:59 DC 08/23/19 09:37 Glimepiride (Amaryl) 2 mg DAILY@08 PO 08/24/19 08:00 Glucagon (Glucagon) 1 mg ASDIRECTED PRN SC SEE LABEL COMMENTS 08/20/19 17:30 Glucose (Glucose) 16 GM ASDIRECTED PRN PO SEE LABEL COMMENTS 08/20/19 17:30 Insulin Detemir (Levemir Insulin) 15 units QHS SC 08/22/19 21:00 08/22/19 21:05 Insulin Human Lispro (HumaLOG INSULIN) SEE PROTOCOL TABLE AC SC 08/20/19 17:30 08/23/19 13:41 Insulin Human Lispro (HumaLOG INSULIN) SEE PROTOCOL TABLE QHS SC 08/20/19 21:00 08/21/19 21:47 Lactobacillus Acidophilus (Bacid) 1 ea TID PO 08/20/19 21:00 08/23/19 09:37 Levothyroxine Sodium (Synthroid) 100 mcg DAILY@06 PO 08/21/19 06:00 08/23/19 06:04 Magnesium Hydroxide (Milk Of Magnesia) 30 ml DAILYPRN PRN PO CONSTIPATION 08/20/19 17:30 Magnesium Oxide (Mag-Ox) 400 mg QHS PO 08/20/19 21:00 08/22/19 21:04 Nystatin (Mycostatin Powder, Nystop) apply to under emiliano... BID TOP 08/20/19 21:00 08/23/19 09:43 Pantoprazole Sodium (Protonix) 20 mg BID PO 08/20/19 21:00 08/23/19 09:37 Potassium Chloride (Micro-K Extencaps) 40 meq BID PO 08/20/19 21:00 08/21/19 08:01 DC 08/20/19 21:02 Potassium Chloride (Micro-K Extencaps) 40 meq DAILY PO 08/21/19 09:00 08/23/19 14:59 DC 08/23/19 09:37 Rivaroxaban (Xarelto) 15 mg DAILY@0800 PO 08/21/19 08:00 08/23/19 09:37 Senna (Senokot) 1 tab QHS PO 08/20/19 21:00 08/21/19 21:46 EMMA DIAZ MD Aug 23, 2019 16:46
[2019-08-23] MEDS ORDERED: SENNA 8.6 MG TAB (SENOKOT) PO PRN (17:00)
[2019-08-23 20:00] VITALS: BP 140/64
[2019-08-23] MEDS: MAGNESIUM OXIDE 400 MG TAB (MAG-OX) PO SCH (20:07)
[2019-08-23] MEDS: ATORVASTATIN 20 MG TAB PO SCH (20:07)
[2019-08-23] MEDS: LEVEMIR (INSULIN DETEMIR) 1 UNITS/0.01ML SC SCH (20:08)
[2019-08-24] MEDS: LEVOTHYROXINE 100MCG TABLET (0.1MG) PO SCH (05:29)
[2019-08-24 05:42] VITALS: BP 146/67
[2019-08-24 07:26] LABS: CALCIUM LEVEL 8.4 MG/DL (8.8-10.2); CHOLESTEROL RISK RATIO 3.157 (<5); CREATININE FOR GFR 1.32 MG/DL (0.55-1.30); GLOMERULAR FILTRATION RATE 41.3 (>39)
[2019-08-24] MEDS: CO-ENZYME Q10 50 MG CAP PO SCH ×2 (09:00→20:13)
[2019-08-24] MEDS: HumaLOG INSULIN (NovoLOG) PER UNIT SC SCH ×4 (09:33→20:00)
[2019-08-24] MEDS: FERROUS SULFATE 325MG TAB PO SCH (09:33)
[2019-08-24] MEDS: RIVAROXABAN 15 MG TAB (XARELTO) PO SCH (09:33)
[2019-08-24] MEDS: PANTOPRAZOLE 20 MG TAB PO SCH ×2 (09:33→20:13)
[2019-08-24] MEDS: DOCUSATE SODIUM 100 MG CAP PO SCH ×2 (09:33→20:00)
[2019-08-24] MEDS: LACTOBACILLUS ACIDOPHILUS CAP (BACID) PO SCH ×3 (09:33→20:13)
[2019-08-24] MEDS: ASCORBIC ACID 500 MG TAB PO SCH (09:33)
[2019-08-24] MEDS: SPIRONOLACTONE 12.5MG PER 1/2 TABLET PO SCH (09:33)
[2019-08-24] MEDS: NYSTATIN 100,000 UNITS/GM TOPICAL PWD 15 GM TOP SCH ×2 (09:34→20:13)
[2019-08-24] MEDS: POLYVINYL ALCOHOL OPHTH SOLN 15 ML(LIQUITEARS) OU SCH ×3 (09:34→20:16)
[2019-08-24] MEDS: GLIMEPIRIDE 1 MG TABLET PO SCH (09:36)
[2019-08-24] MEDS: REMEDY PHYTOPLEX Z-GUARD PASTE 113GM TUBE (FROM STOREROOM PRODUCT) TOP SCH ×3 (09:39→20:15)
[2019-08-24 14:00] VITALS: BP 135/61
--- NOTE | 2019-08-24 14:58 | IPNPDOC ---
Date Seen The patient was seen on 08/24/19. Progress Note SUBJECTIVE: Patient reported feeling well today. States that PT has been telling her that she's walking better. Denies any discomfort of physical complaints. Objective: PHYSICAL EXAMINATION: General: No acute distress, Alert Eyes: Normal sclera, EOMI HENT: Atraumatic Cardiovascular: Normal rate, normal rhythm. Pulmonary: Clear to auscultation b/l, no wheezing GI: Soft, nontender, nondistended Skin: Warm and dry Neuro: CN grossly intact. No focal deficits. Generalized weakness. Psych: oriented x 3 LABORATORY DATA, IMAGING STUDIES, MICROBIOLOGY: Please see below. DVT prophylaxis ordered?: Xarelto ASSESSMENT AND PLAN: 1. LE weakness - c/w daily PT and OT as needed. 2. chronic Afib - rate controlled. Maintained on Xarelto for AC. 3. Hypothyroidism - c/w Synthroid 100 mcg daily. 4. NIDDM - c/w Glimepiride in addition to ISS coverage. - Metformin had been held due to ELISA. Also on Trulicity and glimeperide at home. - Will start on low dose levemir and titrate up to avoid spikes in BS. Titrate up as tolerated while patient is inpatient. 5. HFpEF - Fluid restriction to 2L daily. - Monitor weight. 6. HLD - Atorvastatin 20mg. 7. CKD III - Recent ELSIA on CKD. Monitor periodic BMP, avoid nephrotoxic agents as much as possible. 8. E. coli UTI resistant to levaquin - Complete course of cefuroxime. 9. iron deficiency anemia - c/w ferrous sulfate daily. DVT ppx: Xarelto for Afib already Code status: Can do CPR but is DNI. VS, I&O, 24H, Fishbone Vital Signs/I&O Vital Signs Date Time Temp Pulse Resp B/P (MAP) Pulse Ox O2 Delivery O2 Flow Rate FiO2 08/24/19 14:00 98.7 83 18 135/61 (85) 95 Room Air I&O- Last 24 Hours up to 6 AM 08/24/19 06:00 Intake Total 990 ml Balance 990 ml Laboratory Data 24H LABS Laboratory Tests 2 08/23/19 17:13: Bedside Glucose (Misc Panel) 110 08/23/19 20:32: Bedside Glucose (Misc Panel) 147H 08/24/19 06:14: Bedside Glucose (Misc Panel) 135H 08/24/19 06:18: Anion Gap 4L, Glomerular Filtration Rate 41.3, Calcium Level 8.4L, Triglycerides Level 45, Total Cholesterol 120, LDL Cholesterol 73, Non-HDL Cholesterol (LDL + VLDL) 82, Total HDL Cholesterol 38L, Cholesterol/HDL Ratio 3.157 08/24/19 12:20: Bedside Glucose (Misc Panel) 109 CBC/BMP Laboratory Tests 08/24/19 06:18 AGUSTIN GARCIA MD Aug 24, 2019 14:58
[2019-08-24] MEDS: TORSEMIDE 20 MG TAB PO SCH (16:49)
[2019-08-24 20:00] VITALS: BP 133/59
[2019-08-24] MEDS: LEVEMIR (INSULIN DETEMIR) 1 UNITS/0.01ML SC SCH (20:13)
[2019-08-24] MEDS: ATORVASTATIN 20 MG TAB PO SCH (20:13)
[2019-08-24] MEDS: MAGNESIUM OXIDE 400 MG TAB (MAG-OX) PO SCH (20:13)
[2019-08-24] MEDS: ACETAMINOPHEN TAB 650MG DOSE (2X325MG) PO PRN (22:29)
[2019-08-25] MEDS: LEVOTHYROXINE 100MCG TABLET (0.1MG) PO SCH (05:53)
[2019-08-25] MEDS: ACETAMINOPHEN TAB 650MG DOSE (2X325MG) PO PRN (05:55)
[2019-08-25 06:00] VITALS: BP 141/73
[2019-08-25] MEDS: HumaLOG INSULIN (NovoLOG) PER UNIT SC SCH ×4 (07:07→20:01)
--- NOTE | 2019-08-25 07:10 | IPN ---
DATE: 08/24/2019 SUBJECTIVE: The patient was seen and examined at the bedside today morning in the rehab unit. The rehab physician requested reconsult on the patient. She was initially seen by myself during inpatient hospitalization for acute renal failure, dehydration and urinary tract infection. Renal function had improved. Now since she is getting physical therapy, her leg edema is getting worse. Previously she used to be on diuretics that were stopped because of acute kidney injury (ELISA), so the rehab service wants us to evaluate her for initiation of diuretic therapy. I saw and evaluated the patient today morning at the bedside. She had just come back after getting her physical therapy. She denies any active complaints at this time. OBJECTIVE: Vital Signs: Temperature is 98.7 degrees Fahrenheit, blood pressure 135/61, pulse is 83, respiratory rate of 18, saturating 95% on room air. Intake and Output: Urine output recorded yesterday as 675 mL. She has had 6 voids since overnight and urine output exactly is not recorded. Weight in the bed scale is not available from today. However, 4 days ago, her weight was 101.1 kg. PHYSICAL EXAMINATION: General: The patient is awake, alert, oriented x3, sitting up in the sofa. She is obese. Head and Neck Exam: Extraocular muscles intact. Pupils equally round and reactive to light. Mucous membranes are moist. Neck is supple. There is no jugular venous distention (JVD). Cardiovascular: S1, S2. Regular rate. 2+ edema in the bilateral legs starting from ankles up to the mid han. Respiratory: Mildly decreased breath sounds at the bases, otherwise no active rales or rhonchi. Abdomen: Soft, obese, positive bowel sounds. Nontender. No organomegaly. Musculoskeletal: The patient has edema of both legs as mentioned above, otherwise no clubbing or cyanosis. OPERATIONS REPRESENTATIVE: No focal deficit. Power is 5/5 in bilateral upper extremities. LAB REVIEW: CBC showed a WBC of 10.6, hemoglobin 10.1, platelets of 230. BMP showed sodium 130, potassium is 5, chloride 111, bicarb 23, BUN 36, creatinine is 1.3. CURRENT INPATIENT MEDICATIONS: The patient's medications were all reviewed by myself. She is currently on Tylenol, vitamin C, Lipitor 20 mg daily, coenzyme Q 10, Colace 100 mg twice a day, iron tablet 1 tablet daily, glimepiride 2 mg by mouth daily, insulin Levemir 15 units at bedtime, insulin lispro sliding scale, levothyroxine 100 mcg by mouth daily, magnesium oxide 400 mg at bedtime, Nystatin powder, Protonix 40 mg by mouth twice a day, Xarelto 15 mg by mouth daily, and spironolactone 12.5 mg by mouth daily. ASSESSMENT/PLAN: 1. Chronic kidney disease stage III. The patient recently had ELISA secondary to dehydration and urinary tract infection (UTI). Renal function is stable. Creatinine has been fluctuating at around 1.3-1.5. I am going to start the patient on low dose of diuretics now. 2. Heart failure with preserved ejection fraction. Clinically, the patient looks like she is gaining weight now. She has lower extremity edema. She used to be on torsemide 50 mg by mouth twice a day along with twice a week metolazone and spironolactone. She is currently just on low dose of spironolactone. Because of worsening edema I am starting her on low dose of torsemide 20 mg by mouth twice a day. If needed, dose will be adjusted after the patient's response to diuretic. 3. Recent E-coli urinary tract infection. It was resistant to Levaquin. She has completed a course of cefuxorime. She is asymptomatic at this time. 4. Iron-deficiency anemia. Hemoglobin is stable at more than 10. Continue by mouth iron. No need of FRITZ administration at this time. 5. Diabetes mellitus type 2 insulin dependent. Continue current dose of glimeperide, Levemir and insulin sliding scale. Avoid use of metformin.
[2019-08-25] MEDS: DOCUSATE SODIUM 100 MG CAP PO SCH ×2 (08:46→20:33)
[2019-08-25] MEDS: TORSEMIDE 20 MG TAB PO SCH ×2 (08:46→16:50)
[2019-08-25] MEDS: ASCORBIC ACID 500 MG TAB PO SCH (08:46)
[2019-08-25] MEDS: PANTOPRAZOLE 20 MG TAB PO SCH ×2 (08:46→20:33)
[2019-08-25] MEDS: SPIRONOLACTONE 12.5MG PER 1/2 TABLET PO SCH (08:47)
[2019-08-25] MEDS: LACTOBACILLUS ACIDOPHILUS CAP (BACID) PO SCH ×3 (08:47→20:33)
[2019-08-25] MEDS: FERROUS SULFATE 325MG TAB PO SCH (08:47)
[2019-08-25] MEDS: RIVAROXABAN 15 MG TAB (XARELTO) PO SCH (08:47)
[2019-08-25] MEDS: NYSTATIN 100,000 UNITS/GM TOPICAL PWD 15 GM TOP SCH ×2 (08:47→20:35)
[2019-08-25] MEDS: GLIMEPIRIDE 1 MG TABLET PO SCH (08:47)
[2019-08-25] MEDS: CO-ENZYME Q10 50 MG CAP PO SCH ×2 (08:47→20:34)
[2019-08-25] MEDS: POLYVINYL ALCOHOL OPHTH SOLN 15 ML(LIQUITEARS) OU SCH ×3 (08:47→20:34)
[2019-08-25] MEDS: REMEDY PHYTOPLEX Z-GUARD PASTE 113GM TUBE (FROM STOREROOM PRODUCT) TOP SCH ×3 (08:48→20:35)
[2019-08-25 10:21] LABS: ALBUMIN 2.4 GM/DL (3.2-5.2); CALCIUM LEVEL 8.1 MG/DL (8.8-10.2); CREATININE FOR GFR 1.44 MG/DL (0.55-1.30); GLOMERULAR FILTRATION RATE 37.4 (>39); PHOSPHORUS LEVEL 3.7 MG/DL (2.5-4.9); POTASSIUM SERUM 4.4 MEQ/L (3.5-5.1)
[2019-08-25 14:00] VITALS: BP 143/66
[2019-08-25 19:50] VITALS: BP 130/62
[2019-08-25] MEDS: ATORVASTATIN 20 MG TAB PO SCH (20:33)
[2019-08-25] MEDS: MAGNESIUM OXIDE 400 MG TAB (MAG-OX) PO SCH (20:34)
[2019-08-25] MEDS: LEVEMIR (INSULIN DETEMIR) 1 UNITS/0.01ML SC SCH (20:34)
[2019-08-26] MEDS: LEVOTHYROXINE 100MCG TABLET (0.1MG) PO SCH (05:30)
[2019-08-26 05:40] VITALS: BP 145/65
[2019-08-26] MEDS: HumaLOG INSULIN (NovoLOG) PER UNIT SC SCH ×4 (07:30→21:00)
[2019-08-26] MEDS: RIVAROXABAN 15 MG TAB (XARELTO) PO SCH (08:00)
[2019-08-26 08:41] LABS: BASO % 0.4 % (0.0-1.0); EOS # 0.4 10^3/uL (0.0-0.5); EOS % 3.6 % (0.0-3.0); HEMATOCRIT 31.6 % (36.0-47.0); HEMOGLOBIN 10.2 g/dl (12.0-15.5); LYMPH # 1.8 10^3/uL (1.5-5.0); LYMPH % 17.6 % (24.0-44.0); MEAN CORPUSCULAR HEMOGLOBIN 31.2 pg (27.0-33.0); MEAN CORPUSCULAR HGB CONC 32.3 g/dl (32.0-36.5); MEAN CORPUSCULAR VOLUME 96.6 fl (80.0-96.0); MONO # 0.9 10^3/uL (0.0-0.8); MONO % 8.3 % (0.0-5.0); NEUTROPHILS # 7.2 10^3/uL (1.5-8.5); NEUTROPHILS % 69.5 % (36.0-66.0); PLATELET COUNT, AUTOMATED 216 10^3/uL (150-450); RED BLOOD COUNT 3.27 10^6/uL (4.00-5.40); WHITE BLOOD COUNT 10.4 10^3/uL (4.0-10.0)
[2019-08-26 09:07] LABS: CALCIUM LEVEL 8.2 MG/DL (8.8-10.2); CREATININE FOR GFR 1.54 MG/DL (0.55-1.30); GLOMERULAR FILTRATION RATE 34.6 (>39); POTASSIUM SERUM 3.5 MEQ/L (3.5-5.1)
[2019-08-26] MEDS: DOCUSATE SODIUM 100 MG CAP PO SCH ×2 (09:57→21:25)
[2019-08-26] MEDS: SPIRONOLACTONE 25 MG TAB PO SCH (09:57)
[2019-08-26] MEDS: TORSEMIDE 20 MG TAB PO SCH ×2 (09:57→17:45)
[2019-08-26] MEDS: CO-ENZYME Q10 50 MG CAP PO SCH ×2 (09:57→21:25)
[2019-08-26] MEDS: FERROUS SULFATE 325MG TAB PO SCH (09:57)
[2019-08-26] MEDS: GLIMEPIRIDE 1 MG TABLET PO SCH (09:58)
[2019-08-26] MEDS: PANTOPRAZOLE 20 MG TAB PO SCH ×2 (09:59→21:25)
[2019-08-26] MEDS: LACTOBACILLUS ACIDOPHILUS CAP (BACID) PO SCH ×3 (09:59→21:24)
[2019-08-26] MEDS: ASCORBIC ACID 500 MG TAB PO SCH (09:59)
[2019-08-26] MEDS ORDERED: POTASSIUM CHLORIDE 10 MEQ SR TABLET PO ONE (10:00)
[2019-08-26] MEDS: POLYVINYL ALCOHOL OPHTH SOLN 15 ML(LIQUITEARS) OU SCH ×3 (10:00→21:24)
[2019-08-26] MEDS: NYSTATIN 100,000 UNITS/GM TOPICAL PWD 15 GM TOP SCH ×2 (10:01→21:23)
[2019-08-26] MEDS: REMEDY PHYTOPLEX Z-GUARD PASTE 113GM TUBE (FROM STOREROOM PRODUCT) TOP SCH ×3 (10:01→21:24)
[2019-08-26] MEDS: POTASSIUM CHLORIDE 10 MEQ SR TABLET PO SCH (11:12)
--- NOTE | 2019-08-26 11:22 | IPN ---
DATE: 08/25/2019 SUBJECTIVE: The patient was seen and examined this afternoon at the bedside. She was actually sitting on the sofa and getting ready to eat her lunch when I saw her. She denies any acute active complaints. She just reports that after starting diuretics, she started making more urine. She otherwise has no active complaints. OBJECTIVE: Vital signs: Temperature is 97.8 degrees Fahrenheit, blood pressure 143/66, pulse is 92, respiratory of 17. Saturating 97% on room air. Intake and output: Urine output exactly is not recorded. However, she had 13 voids yesterday and 8voids so far today since overnight. Weight in the bed scale is 98.7 kg. PHYSICAL EXAMINATION: GENERAL: The patient is awake, alert, oriented times three, sitting up in the sofa. HEAD AND NECK EXAM: Extraocular muscles intact. Pupils equally round and reactive to light. Mucous membranes are moist. Neck is supple. There is no hypertensive vascular disease (JVD). CARDIOVASCULAR: S1, S2 regular rate 2+ edema of the bilateral ankles up to the mid han. RESPIRATORY: Mildly decreased breath sounds at the bases, otherwise no active rales or rhonchi. ABDOMEN: Abdomen is soft, positive bowel sounds. It is obese. I could not appreciate any organomegaly. MUSCULOSKELETAL: No clubbing or cyanosis. Pulses are 2+. CLEAN UP WORKER: No focal deficit. Power is 5/5 in all extremities. LAB REVIEW: BMP done this morning showed sodium 137, potassium 4.4, chloride 108, bicarb 22, BUN 35, creatinine is 1.4, it was 1.3 yesterday, phosphorus 3.7, albumin is 2.4. ASSESSMENT/PLAN: 1. Chronic kidney disease stage III: The patient's creatinine this morning is 1.4, which is close to her baseline. Okay to continue diuretics as mentioned below. 2. Heart failure with preserved ejection fraction: The patient was restarted on torsemide 20 mg by mouth twice a day. Continue current dose. Monitor daily intake and output. If needed, dose will be increased for persistent lower extremity edema. 3. Iron-deficiency anemia: Continue oral iron. No need of FRITZ at this time. 4. Diabetes mellitus type 2. Continue insulin and glimepiride. She is not a candidate for metformin because of chronic kidney disease stage III.
--- NOTE | 2019-08-26 11:57 | IPNPDOC ---
PM&R Progress Note DATE OF SERVICE: Aug 26, 2019 [employer] Progress Note Subjective: Patient seen in therapy after having an episode of dizziness which she said had passed since sitting down. She denies chest pain or difficulty breathing. REVIEW OF SYSTEMS: The following is a completed review of systems and has been reviewed. Review of systems otherwise unremarkable. PAIN: Patient self reports no pain EYES: No recent vision changes EARS, NOSE, & THROAT: No throat pain, or dysphagia, or rhinorrhea CARDIOVASCULAR: Denies chest pain or palpitations PULMONARY: Denies shortness of breath GASTROINTESTINAL: Denies constipation/diarrhea GENITOURINARY: denies dysuria MUSCULOSKELETAL: generalized weakness NEUROLOGICAL: denies tremor or paresthesias HEMATOLOGICAL: +anemia SKIN: rash under breasts PSYCHIATRIC: Unremarkable All other review of systems found to be negative. PHYSICAL EXAMINATION: VITAL SIGNS: Please see below. GENERAL:Pleasant and cooperative. No acute distress. HEENT: PERRL. Extraocular movements intact. Clear conjunctiva CARDIOVASCULAR: Regular rate and rhythm. No murmurs, rubs, or gallops LUNGS: Clear to auscultation bilaterally. No wheezes. No rhonchi ABDOMEN: Soft, nontender, nondistended. Positive bowel sounds. Normal active bowel sounds NEUROLOGICAL: Alert and oriented times three. Cranial nerves II through XII grossly intact. Sensation grossly intact EXTREMITIES: 5-\\5 strength bilateral upper extremities. 5-\\5 strength right lower extremity. 5-/5 strength in left lower extremity. bilat LE swelling ASSESSMENT:79-year-old F with past medical history of CKD who presents status post sepsis carmen to UTI with ELISA PLAN: 1. Rehab- PT/OT advance gait and ADLs, strengthen/stretch/maintain ROM all 4limbs 2. neuro- monitor for delirium 3. CArdiac- hx of chronic diastolic CHF, c/u daily weights, c/u fluid restriction to 1800cc and diuretics - medicine consulted to assist in overall management -CAD with Afib c/u beta-segun, Xarelto -patient's family requesting she be taken off of statin as she was not on one all year because it gives her muscle pain, will lower Atorvastatin dose to 10mg and monitor as patient with known cardiac disease, CKD, and DM 4. Resp- monitor for infection, encourage incentive spirometry 5. Endo hx of hypothyroidism, c/u synthroid -DM c/u glimepiride, c/u ISS 6. - s/p course of cefuroxime for UTI 7. GI ppx- protonix 8. DVT ppx on xarelto 9. Pain- tylneol prn 10. Renal- recent ELISA in setting of CKD- monitor and treat if needed -renal consulted for fluid management, c/u spironolactone and torsemide, will add back daily potassium and monitor 11. Dispo- TBD Allergies Coded Allergies: Tricyclic Compounds (Verified Allergy, Mild, rash, 05/16/18) Influenza Virus Vaccines (Verified Allergy, Unknown, 05/16/18) "never so sick in my life" amoxicillin (Verified Allergy, Unknown, 05/16/18) clavulanic acid (Verified Allergy, Unknown, 05/16/18) phenylephrine (Verified Allergy, Unknown, 05/16/18) morphine (Verified Adverse Reaction, Mild, nausea/vomitting, 05/16/18) Vital Signs Vital Signs Date Time Temp Pulse Resp B/P (MAP) Pulse Ox O2 Delivery O2 Flow Rate FiO2 08/26/19 05:40 97.1 79 18 145/65 (91) 96 Room Air Laboratory Data CBC/BMP Laboratory Tests 08/26/19 07:34 Labs 24H Laboratory Tests 2 08/25/19 16:06: Bedside Glucose (Misc Panel) 130H 08/25/19 19:43: Bedside Glucose (Misc Panel) 136H 08/26/19 05:46: Bedside Glucose (Misc Panel) 88 08/26/19 07:34: Immature Granulocyte % (Auto) 0.6, Neutrophils (%) (Auto) 69.5H, Lymphocytes (%) (Auto) 17.6L, Monocytes (%) (Auto) 8.3H, Eosinophils (%) (Auto) 3.6H, Basophils (%) (Auto) 0.4, Neutrophils # (Auto) 7.2, Lymphocytes # (Auto) 1.8, Monocytes # (Auto) 0.9H, Eosinophils # (Auto) 0.4, Basophils # (Auto) 0.0, Nucleated Red Blood Cells % (auto) 0.0, Anion Gap 9, Glomerular Filtration Rate 34.6L, Calcium Level 8.2L Current Medications Current Medications Current Medications Medications (Trade) Dose Ordered Sig/Chaka Route PRN Reason Start Time Stop Time Status Last Admin Dose Admin Acetaminophen (Tylenol Tab) 650 mg Q4HP PRN PO fever/MILD PAIN (PS 1-4) 08/20/19 17:30 08/25/19 05:55 Artificial Tears (Akwa Tears) 2 drop TID OU 08/20/19 21:00 08/26/19 10:00 Ascorbic Acid (Vitamin C) 500 mg DAILY PO 08/21/19 09:00 08/26/19 09:59 Atorvastatin Calcium (Lipitor) 20 mg QHS PO 08/20/19 21:00 08/26/19 09:54 DC 08/25/19 20:33 Cefuroxime Axetil (Ceftin) 500 mg BID PO 08/20/19 21:00 08/23/19 09:01 DC 08/23/19 09:38 Coenzyme Q10 (Coenzyme Q10) 100 mg BID PO 08/20/19 21:00 09/19/19 20:59 08/26/19 09:57 Dextrose (Dextrose 50%) 25 ml ASDIRECTED PRN IV SEE LABEL COMMENTS 08/20/19 17:30 Docusate Sodium (Colace) 100 mg BID PO 08/20/19 21:00 08/26/19 09:57 Ferrous Sulfate (Ferrous Sulfate) 325 mg DAILY PO 08/21/19 09:00 08/26/19 09:57 Glimepiride (Amaryl) 1 mg DAILY@08 PO 08/21/19 08:00 08/23/19 09:59 DC 08/23/19 09:37 Glimepiride (Amaryl) 2 mg DAILY@08 PO 08/24/19 08:00 08/26/19 09:58 Glucagon (Glucagon) 1 mg ASDIRECTED PRN SC SEE LABEL COMMENTS 08/20/19 17:30 Glucose (Glucose) 16 GM ASDIRECTED PRN PO SEE LABEL COMMENTS 08/20/19 17:30 Insulin Detemir (Levemir Insulin) 15 units QHS SC 08/22/19 21:00 08/26/19 09:49 DC 08/25/19 20:34 Insulin Human Lispro (HumaLOG INSULIN) SEE PROTOCOL TABLE AC SC 08/20/19 17:30 08/25/19 16:50 Insulin Human Lispro (HumaLOG INSULIN) SEE PROTOCOL TABLE QHS SC 08/20/19 21:00 08/21/19 21:47 Lactobacillus Acidophilus (Bacid) 1 ea TID PO 08/20/19 21:00 08/26/19 09:59 Levothyroxine Sodium (Synthroid) 100 mcg DAILY@06 PO 08/21/19 06:00 08/26/19 05:30 Magnesium Hydroxide (Milk Of Magnesia) 30 ml DAILYPRN PRN PO CONSTIPATION 08/20/19 17:30 Magnesium Oxide (Mag-Ox) 400 mg QHS PO 08/20/19 21:00 08/25/19 20:34 Nystatin (Mycostatin Powder, Nystop) apply to under emiliano... BID TOP 08/20/19 21:00 08/26/19 10:01 Pantoprazole Sodium (Protonix) 20 mg BID PO 08/20/19 21:00 08/26/19 09:59 Potassium Chloride (Micro-K Extencaps) 40 meq BID PO 08/20/19 21:00 08/21/19 08:01 DC 08/20/19 21:02 Potassium Chloride (Micro-K Extencaps) 40 meq DAILY PO 08/21/19 09:00 08/23/19 14:59 DC 08/23/19 09:37 Potassium Chloride (Micro-K Extencaps) 40 meq DAILY PO 08/26/19 10:00 08/26/19 11:12 Rivaroxaban (Xarelto) 15 mg DAILY@0800 PO 08/21/19 08:00 08/26/19 09:49 DC 08/25/19 08:47 Senna (Senokot) 1 tab QHS PO 08/20/19 21:00 08/23/19 16:45 DC 08/21/19 21:46 Senna (Senokot) 1 tab QHS PRN PO constipation 08/23/19 17:00 Spironolactone (Aldactone) 12.5 mg DAILY PO 08/24/19 09:00 08/25/19 12:33 DC 08/25/19 08:47 Spironolactone (Aldactone) 25 mg DAILY PO 08/26/19 09:00 08/26/19 09:57 Torsemide (Demadex) 20 mg BID@,17 PO 08/24/19 17:00 08/26/19 09:57 EMMA DIAZ MD Aug 26, 2019 11:57
--- NOTE | 2019-08-26 13:52 | IPN ---
DATE OF SERVICE: 08/26/2019 SUBJECTIVE: Patient was seen and examined at the bedside today morning in the rehab unit. Patient is afebrile, hemodynamically stable. She is responding well to the current diuretic dose. Renal function is stable. Creatinine has been fluctuating at around 1.4-1.5. She denies any active complaints at this time. OBJECTIVE: VITAL SIGNS: Temperature is 97.1 degrees Fahrenheit. Blood pressure 145/65. Pulse is 79, respiratory rate of 18, saturating 96% on room air. INTAKE/OUTPUT: Urine output recorded is 500 mL yesterday, 1.5 liters so far today since overnight. Some of the voids are not being recorded. Weight in the bed scale is 101.9 kg. PHYSICAL EXAMINATION: GENERAL: Patient is awake, alert, oriented times three, sitting up in the bed in no apparent distress. HEAD/NECK EXAM: Extraocular muscles intact. Pupils equally round and reactive to light. Mucous membranes are moist is supple. There is no significant elevated jugular venous distention (JVD). CARDIOVASCULAR SYSTEM: S1, S2, regular rate. 2+ edema on the bilateral lower extremities starting from the ankle all the way up to mid shins. RESPIRATORY: Chest is clear to auscultation bilaterally. Bilateral equal air entry. No rales or rhonchi. ABDOMEN: Obese. Positive bowel sounds. I could not appreciate any JVD. MUSCULOSKELETAL: No clubbing or cyanosis. Pulses are 2+ and 2+ edema as mentioned above. CENTRAL NERVOUS SYSTEM (INSTRUCTIONAL SERVICES SPECIALIST): No focal deficit. Power is 5/5 in all extremities. LAB REVIEW: CBC showed WBC 10.4, hemoglobin 10.2, platelets are 216. BMP showed sodium 141, potassium 3.5, chloride 108, bicarbonate 24, BUN 38, creatinine is 1.5, calcium is 8.2. CURRENT INPATIENT MEDICATIONS: Patient's medications were all reviewed by myself. Her Lipitor dose has been decreased to 10 mg at bedtime. She was given a dose of potassium chloride 40 mEq in the morning. Xarelto has been stopped. She continues to be on torsemide 20 mg by mouth twice a day. ASSESSMENT/PLAN: 1. Chronic kidney disease, stage III. Patient continues to be on spironolactone and torsemide. Renal function is staying stable. Creatinine is 1.5 today, which is close to her baseline. Continue to monitor for now. 2. Heart failure with preserved ejection fraction. Patient still has edema on the lower extremities. Continue torsemide 20 twice a day, and spironolactone has been increased to 25 mg by mouth daily. 3. Hypokalemia. Potassium level is dropping because of diuretics. Spironolactone is already increased. However, patient was given KCl 40 mEq in the morning. 4. Iron-deficiency anemia. Hemoglobin is stable. Continue current dose of oral iron. 5. Diabetes mellitus, type 2. Insulin management is per medical team. A wide use of metformin in this patient glucose levels are within the acceptable range.
[2019-08-26 14:00] VITALS: BP 116/55
--- NOTE | 2019-08-26 15:57 | IPNPDOC ---
Date Seen The patient was seen on 08/26/19. Progress Note SUBJECTIVE: Patient reportedly was dizzy while walking today. When seen sitting in the chair, she denies any dizziness or discomfort. BP was noted to be 180 systolic at that time. Patient states that it will go down and does not want any more medications to take. Objective: PHYSICAL EXAMINATION: General: No acute distress, Alert Eyes: Normal sclera, EOMI HENT: Atraumatic Cardiovascular: Normal rate. 1-2+ pitting edema b/l. Pulmonary: Clear to auscultation b/l, no wheezing GI: Soft, nontender, nondistended Skin: Warm and dry Neuro: CN grossly intact. No focal deficits. Generalized weakness. Psych: oriented x 3 LABORATORY DATA, IMAGING STUDIES, MICROBIOLOGY: Please see below. DVT prophylaxis ordered?: Xarelto ASSESSMENT AND PLAN: 1. LE weakness - c/w daily PT and OT as needed. 2. chronic Afib - rate controlled. Maintained on Xarelto for AC. 3. Hypothyroidism - c/w Synthroid 100 mcg daily. 4. NIDDM - c/w Glimepiride in addition to ISS coverage. - Metformin had been held due to ELISA. Also on Trulicity and glimeperide at home. - Will start on low dose levemir and titrate up to avoid spikes in BS. Titrate up as tolerated while patient is inpatient. 5. HFpEF - Fluid restriction. torsemide 20mg BID, spironolactone 25mg daily. - Monitor weight. 6. HLD - Atorvastatin 10mg. 7. CKD III - Recent ELISA on CKD. Monitor periodic BMP, avoid nephrotoxic agents when possibl e. - Nephrology also following. 8. E. coli UTI resistant to levaquin - Complete course of cefuroxime. 9. iron deficiency anemia - c/w ferrous sulfate daily. DVT ppx: Already on Xarelto. Code status: Can do CPR but is DNI. VS, I&O, 24H, Fishbone Vital Signs/I&O Vital Signs Date Time Temp Pulse Resp B/P (MAP) Pulse Ox O2 Delivery O2 Flow Rate FiO2 08/26/19 05:40 97.1 79 18 145/65 (91) 96 Room Air I&O- Last 24 Hours up to 6 AM 08/26/19 06:00 Intake Total 1320 ml Output Total 1350 ml Balance -30 ml Laboratory Data 24H LABS Laboratory Tests 2 08/25/19 16:06: Bedside Glucose (Misc Panel) 130H 08/25/19 19:43: Bedside Glucose (Misc Panel) 136H 08/26/19 05:46: Bedside Glucose (Misc Panel) 88 08/26/19 07:34: Immature Granulocyte % (Auto) 0.6, Neutrophils (%) (Auto) 69.5H, Lymphocytes (%) (Auto) 17.6L, Monocytes (%) (Auto) 8.3H, Eosinophils (%) (Auto) 3.6H, Basophils (%) (Auto) 0.4, Neutrophils # (Auto) 7.2, Lymphocytes # (Auto) 1.8, Monocytes # (Auto) 0.9H, Eosinophils # (Auto) 0.4, Basophils # (Auto) 0.0, Nucleated Red Blood Cells % (auto) 0.0, Anion Gap 9, Glomerular Filtration Rate 34.6L, Calcium Level 8.2L 08/26/19 11:45: Bedside Glucose (Misc Panel) 226H CBC/BMP Laboratory Tests 08/26/19 07:34 AGUSTIN GARCIA MD Aug 26, 2019 15:57
[2019-08-26 20:20] VITALS: BP 145/66
[2019-08-26] MEDS: ATORVASTATIN 10 MG TAB PO SCH (21:24)
[2019-08-26] MEDS: MAGNESIUM OXIDE 400 MG TAB (MAG-OX) PO SCH (21:24)
[2019-08-27] MEDS: ACETAMINOPHEN TAB 650MG DOSE (2X325MG) PO PRN (01:40)
[2019-08-27] MEDS: LEVOTHYROXINE 100MCG TABLET (0.1MG) PO SCH (05:46)
[2019-08-27 05:51] VITALS: BP 119/56
[2019-08-27] MEDS: HumaLOG INSULIN (NovoLOG) PER UNIT SC SCH ×4 (09:34→21:00)
[2019-08-27] MEDS: ASCORBIC ACID 500 MG TAB PO SCH (09:35)
[2019-08-27] MEDS: LACTOBACILLUS ACIDOPHILUS CAP (BACID) PO SCH ×3 (09:35→21:06)
[2019-08-27] MEDS: RIVAROXABAN 15 MG TAB (XARELTO) PO SCH (09:35)
[2019-08-27] MEDS: GLIMEPIRIDE 1 MG TABLET PO SCH (09:35)
[2019-08-27] MEDS: TORSEMIDE 20 MG TAB PO SCH ×2 (09:36→16:26)
[2019-08-27] MEDS: POTASSIUM CHLORIDE 10 MEQ SR TABLET PO SCH (09:36)
[2019-08-27] MEDS: FERROUS SULFATE 325MG TAB PO SCH (09:36)
[2019-08-27] MEDS: DOCUSATE SODIUM 100 MG CAP PO SCH ×2 (09:36→21:06)
[2019-08-27] MEDS: PANTOPRAZOLE 20 MG TAB PO SCH ×2 (09:36→21:06)
[2019-08-27] MEDS: NYSTATIN 100,000 UNITS/GM TOPICAL PWD 15 GM TOP SCH ×2 (09:37→21:06)
[2019-08-27] MEDS: SPIRONOLACTONE 25 MG TAB PO SCH (09:37)
[2019-08-27] MEDS: POLYVINYL ALCOHOL OPHTH SOLN 15 ML(LIQUITEARS) OU SCH ×3 (09:37→21:06)
[2019-08-27] MEDS: CO-ENZYME Q10 50 MG CAP PO SCH ×2 (09:37→21:06)
[2019-08-27] MEDS: REMEDY PHYTOPLEX Z-GUARD PASTE 113GM TUBE (FROM STOREROOM PRODUCT) TOP SCH ×3 (09:38→21:05)
[2019-08-27 14:00] VITALS: BP 128/58
[2019-08-27 20:30] VITALS: BP 159/70
[2019-08-27] MEDS: ATORVASTATIN 10 MG TAB PO SCH (21:06)
[2019-08-27] MEDS: MAGNESIUM OXIDE 400 MG TAB (MAG-OX) PO SCH (21:06)
--- NOTE | 2019-08-27 23:23 | IPNPDOC ---
Date Seen The patient was seen on 08/27/19. Progress Note SUBJECTIVE: Kala was seen and examined today by the nephrology service while seated in a bedside chair in ARU. She has undergone her physical therapy sessions today and tolerated them well. She remains hemodynamically stable and afebrile with stable renal functioning documented on prior days. There were no labs ordered for today to this point. She is eating and drinking without any issues, and denies any current fever, chills, shortness of breath, chest pain, palpitations, nausea, or vomiting either currently or during the overnight period. OBJECTIVE PHYSICAL EXAMINATION: VITAL SIGNS: Please see below. GENERAL: Pleasant, elderly female seated upright in bedside chair with her legs elevated. No acute distress. She is alert and oriented 3. HEENT: Normocephalic, atraumatic. Wearing eyeglasses. Noninjected, anicteric sclera. Mucous membranes continued to be moist. Neck is supple and trachea is m idline. There is no significant JVD appreciated. CARDIOVASCULAR: Regular rhythm with controlled rate. Positive S1, S2. She myrtle nues to have significant 2+ bilateral lower extremity pitting edema from the ankles moving proximally over the shins. RESPIRATORY: Clear to auscultation bilaterally with no adventitious breath sounds appreciated. Mildly diminished tidal volume. Symmetric chest expansion. Speaking full sentences. Breathing room air. ABDOMINAL: Obese and soft. There remains a significant ventral hernia present. There is no guarding or rigidity. Normoactive bowel sounds throughout. EXTREMITIES: Significant 2+ bilateral lower extremity pitting edema. Remains on exam today from the ankles moving proximally over the shins. There is no appreciated clubbing or cyanosis. 2+ radial pulses bilaterally. NEUROLOGICAL: Awake, alert and oriented 3. No focal neurologic deficits appreciated. Non-dysarthric speech. Responds appropriate to questions or commands. PSYCHOLOGICAL: Mood and affect appear appropriate. LABORATORY DATA, IMAGING STUDIES, MICROBIOLOGY: Please see below. PROBLEMS: #Stage III chronic kidney disease -No morning labs were ordered today, but renal function remains stable over the past few days. Her creatinine runs between 1.4 and 1.5, which is close to her baseline. She has been receiving both spironolactone and torsemide. With her continued significant bilateral lower extremity pitting edema, we will increase her torsemide dosing to 40 mg twice a day from 20 mg twice a day. #HFpEF -Due to continued bilateral lower extremity pitting edema, we will increase her torsemide dose from 20 mg twice a day to 40 mg twice twice a day. The spironolactone dose was increased to 25 mg two days ago. #Hypokalemia -No morning labs ordered for the patient. Her serum potassium levels likely were dropping secondary to administration of diuretics. The spironolactone was increased to 25 mg a couple days ago. Patient was also given 40 mEq of potassium chloride as well. #Deficiency anemia -No morning labs were ordered today, although hemoglobin levels were stable on previous days. We will continue with her oral dose of iron supplementation. #Type 2 diabetes mellitus -Diabetic management for patient is per the hospitalist teams discretion area. Her serum glucose levels have been within acceptable range on previous days labsN No labs have been ordered for today at this point. Thank you for allowing us to participate in the care of Kala while she is in ARU.. We will continue to monitor for response with increased torsemide dosing initiated today. Should any questions arise from a renal standpoint, please do contact us, thank you. VS, I&O, 24H, Fishbone Vital Signs/I&O Vital Signs Date Time Temp Pulse Resp B/P (MAP) Pulse Ox O2 Delivery O2 Flow Rate FiO2 08/27/19 14:00 97.6 98 20 128/58 (81) 100 Room Air I&O- Last 24 Hours up to 6 AM 08/27/19 06:00 Intake Total 1820 ml Output Total 1750 ml Balance 70 ml Laboratory Data 24H LABS Laboratory Tests 2 08/27/19 05:56: Bedside Glucose (Misc Panel) 126H 08/27/19 11:11: Bedside Glucose (Misc Panel) 209H 08/27/19 16:35: Bedside Glucose (Misc Panel) 122H 08/27/19 21:09: Bedside Glucose (Misc Panel) 172H GME ATTESTATION GME ATTESTATION My faculty preceptor for this patient encounter was physically present during the encounter and was fully available. All aspects of the patient interview, examination, medical decision making process, and medical care plan development were reviewed and approved by the faculty preceptor. The faculty preceptor is aware and concurs with the plan as stated in the body of this note and will attest to such by his/her cosignature. ATTENDING NOTE CKD3 HFpEF LE Edema HTN Iron def anemia DM type2. Torsemide increased to 40 mg bid due to Edema. Spironolactone 25 mg. cont oral iron. BRANDT RICHARDSON D.O. Aug 27, 2019 23:23 GANESH JAUREGUI MD Aug 28, 2019 22:05
[2019-08-28 05:24] VITALS: BP 146/66
[2019-08-28] MEDS: LEVOTHYROXINE 100MCG TABLET (0.1MG) PO SCH (06:18)
[2019-08-28 07:25] LABS: BASO # 0.1 10^3/uL (0.0-0.2); BASO % 0.5 % (0.0-1.0); EOS # 0.4 10^3/uL (0.0-0.5); EOS % 3.3 % (0.0-3.0); HEMATOCRIT 31.2 % (36.0-47.0); LYMPH # 2.2 10^3/uL (1.5-5.0); LYMPH % 19.4 % (24.0-44.0); MEAN CORPUSCULAR HEMOGLOBIN 30.7 pg (27.0-33.0); MEAN CORPUSCULAR HGB CONC 32.1 g/dl (32.0-36.5); MEAN CORPUSCULAR VOLUME 95.7 fl (80.0-96.0); MONO # 0.9 10^3/uL (0.0-0.8); MONO % 8.5 % (0.0-5.0); NEUTROPHILS # 7.5 10^3/uL (1.5-8.5); NEUTROPHILS % 67.8 % (36.0-66.0); PLATELET COUNT, AUTOMATED 216 10^3/uL (150-450); RED BLOOD COUNT 3.26 10^6/uL (4.00-5.40); WHITE BLOOD COUNT 11.1 10^3/uL (4.0-10.0)
[2019-08-28 07:49] LABS: CALCIUM LEVEL 8.4 MG/DL (8.8-10.2); CREATININE FOR GFR 1.48 MG/DL (0.55-1.30); GLOMERULAR FILTRATION RATE 36.2 (>39); POTASSIUM SERUM 3.8 MEQ/L (3.5-5.1)
[2019-08-28] MEDS: PANTOPRAZOLE 20 MG TAB PO SCH ×2 (08:20→20:44)
[2019-08-28] MEDS: POTASSIUM CHLORIDE 10 MEQ SR TABLET PO SCH (08:20)
[2019-08-28] MEDS: GLIMEPIRIDE 1 MG TABLET PO SCH (08:20)
[2019-08-28] MEDS: TORSEMIDE 20 MG TAB PO SCH ×2 (08:20→17:46)
[2019-08-28] MEDS: CO-ENZYME Q10 50 MG CAP PO SCH ×2 (08:20→20:44)
[2019-08-28] MEDS: RIVAROXABAN 15 MG TAB (XARELTO) PO SCH (08:20)
[2019-08-28] MEDS: HumaLOG INSULIN (NovoLOG) PER UNIT SC SCH ×4 (08:20→20:44)
[2019-08-28] MEDS: ASCORBIC ACID 500 MG TAB PO SCH (08:20)
[2019-08-28] MEDS: DOCUSATE SODIUM 100 MG CAP PO SCH ×2 (08:21→20:44)
[2019-08-28] MEDS: LACTOBACILLUS ACIDOPHILUS CAP (BACID) PO SCH ×3 (08:21→20:44)
[2019-08-28] MEDS: SPIRONOLACTONE 25 MG TAB PO SCH (08:21)
[2019-08-28] MEDS: FERROUS SULFATE 325MG TAB PO SCH (08:21)
[2019-08-28] MEDS: NYSTATIN 100,000 UNITS/GM TOPICAL PWD 15 GM TOP SCH ×2 (08:21→20:45)
[2019-08-28] MEDS: POLYVINYL ALCOHOL OPHTH SOLN 15 ML(LIQUITEARS) OU SCH ×3 (08:21→20:44)
[2019-08-28] MEDS: REMEDY PHYTOPLEX Z-GUARD PASTE 113GM TUBE (FROM STOREROOM PRODUCT) TOP SCH ×3 (08:21→20:45)
--- NOTE | 2019-08-28 12:04 | IPNPDOC ---
PM&R Progress Note DATE OF SERVICE: Aug 27, 2019 Anodizing Line Operator Progress Note Subjective: Patient seen in in therapy, concerned that her blood pressure was in the 150s, but was told that this was to be expected with exertion and that the diuretics she is on will help keep her pressure lower. She denies feeling dizzy or having chest pain. REVIEW OF SYSTEMS: The following is a completed review of systems and has been reviewed. Review of systems otherwise unremarkable. PAIN: Patient self reports no pain EYES: No recent vision changes EARS, NOSE, & THROAT: No throat pain, or dysphagia, or rhinorrhea CARDIOVASCULAR: Denies chest pain or palpitations PULMONARY: Denies shortness of breath GASTROINTESTINAL: Denies constipation/diarrhea GENITOURINARY: denies dysuria MUSCULOSKELETAL: generalized weakness NEUROLOGICAL: denies tremor or paresthesias HEMATOLOGICAL: +anemia SKIN: rash under breasts PSYCHIATRIC: Unremarkable All other review of systems found to be negative. PHYSICAL EXAMINATION: VITAL SIGNS: Please see below. GENERAL:Pleasant and cooperative. No acute distress. HEENT: PERRL. Extraocular movements intact. Clear conjunctiva CARDIOVASCULAR: Regular rate and rhythm. No murmurs, rubs, or gallops LUNGS: Clear to auscultation bilaterally. No wheezes. No rhonchi ABDOMEN: Soft, nontender, nondistended. Positive bowel sounds. Normal active bowel sounds NEUROLOGICAL: Alert and oriented times three. Cranial nerves II through XII grossly intact. Sensation grossly intact EXTREMITIES: 5-\\5 strength bilateral upper extremities. 5-\\5 strength right lower extremity. 5-/5 strength in left lower extremity. bilat LE swelling ASSESSMENT:79-year-old F with past medical history of CKD who presents status post sepsis carmen to UTI with ELISA PLAN: 1. Rehab- PT/OT advance gait and ADLs, strengthen/stretch/maintain ROM all 4lim bs- ambulating with RW 2. neuro- monitor for delirium 3. CArdiac- hx of chronic diastolic CHF, c/u daily weights, c/u fluid restriction to 1800cc and diuretics - medicine consulted to assist in overall management -CAD with Afib c/u beta-segun, Xarelto -patient's family requesting she be taken off of statin as she was not on one all year because it gives her muscle pain, will lower Atorvastatin dose to 10mg and monitor as patient with known cardiac disease, CKD, and DM 4. Resp- monitor for infection, encourage incentive spirometry 5. Endo hx of hypothyroidism, c/u synthroid -DM c/u glimepiride, c/u ISS 6. - s/p course of cefuroxime for UTI-denies dysuria 7. GI ppx- protonix 8. DVT ppx on xarelto 9. Pain- tylneol prn 10. Renal- recent ELISA in setting of CKD- monitor and treat if needed -renal consulted for fluid management, c/u spironolactone and torsemide,c/u daily potassium and monitor 11. [id number] to home Allergies Coded Allergies: Tricyclic Compounds (Verified Allergy, Mild, rash, 05/16/18) Influenza Virus Vaccines (Verified Allergy, Unknown, 05/16/18) "never so sick in my life" amoxicillin (Verified Allergy, Unknown, 05/16/18) clavulanic acid (Verified Allergy, Unknown, 05/16/18) phenylephrine (Verified Allergy, Unknown, 05/16/18) morphine (Verified Adverse Reaction, Mild, nausea/vomitting, 05/16/18) Vital Signs Vital Signs Date Time Temp Pulse Resp B/P (MAP) Pulse Ox O2 Delivery O2 Flow Rate FiO2 08/28/19 05:24 97.9 98 18 146/66 (92) 97 Room Air Laboratory Data CBC/BMP Laboratory Tests 08/28/19 06:43 Labs 24H Laboratory Tests 2 08/27/19 16:35: Bedside Glucose (Misc Panel) 122H 08/27/19 21:09: Bedside Glucose (Misc Panel) 172H 08/28/19 06:20: Bedside Glucose (Misc Panel) 123H 08/28/19 06:43: Immature Granulocyte % (Auto) 0.5, Neutrophils (%) (Auto) 67.8H, Lymphocytes (%) (Auto) 19.4L, Monocytes (%) (Auto) 8.5H, Eosinophils (%) (Auto) 3.3H, Basophils (%) (Auto) 0.5, Neutrophils # (Auto) 7.5, Lymphocytes # (Auto) 2.2, Monocytes # (Auto) 0.9H, Eosinophils # (Auto) 0.4, Basophils # (Auto) 0.1, Nucleated Red Blood Cells % (auto) 0.0, Anion Gap 6L, Glomerular Filtration Rate 36.2L, Calcium Level 8.4L Current Medications Current Medications Current Medications Medications (Trade) Dose Ordered Sig/Chaka Route PRN Reason Start Time Stop Time Status Last Admin Dose Admin Acetaminophen (Tylenol Tab) 650 mg Q4HP PRN PO fever/MILD PAIN (PS 1-4) 08/20/19 17:30 08/27/19 01:40 Artificial Tears (Akwa Tears) 2 drop TID OU 08/20/19 21:00 08/28/19 08:21 Ascorbic Acid (Vitamin C) 500 mg DAILY PO 08/21/19 09:00 08/28/19 08:20 Atorvastatin Calcium (Lipitor) 10 mg QHS PO 08/26/19 21:00 08/27/19 21:06 Atorvastatin Calcium (Lipitor) 20 mg QHS PO 08/20/19 21:00 08/26/19 09:54 DC 08/25/19 20:33 Cefuroxime Axetil (Ceftin) 500 mg BID PO 08/20/19 21:00 08/23/19 09:01 DC 08/23/19 09:38 Coenzyme Q10 (Coenzyme Q10) 100 mg BID PO 08/20/19 21:00 09/19/19 20:59 08/28/19 08:20 Dextrose (Dextrose 50%) 25 ml ASDIRECTED PRN IV SEE LABEL COMMENTS 08/20/19 17:30 Docusate Sodium (Colace) 100 mg BID PO 08/20/19 21:00 08/28/19 08:21 Ferrous Sulfate (Ferrous Sulfate) 325 mg DAILY PO 08/21/19 09:00 08/28/19 08:21 Glimepiride (Amaryl) 1 mg DAILY@08 PO 08/21/19 08:00 08/23/19 09:59 DC 08/23/19 09:37 Glimepiride (Amaryl) 2 mg DAILY@08 PO 08/24/19 08:00 08/28/19 08:20 Glucagon (Glucagon) 1 mg ASDIRECTED PRN SC SEE LABEL COMMENTS 08/20/19 17:30 Glucose (Glucose) 16 GM ASDIRECTED PRN PO SEE LABEL COMMENTS 08/20/19 17:30 Insulin Detemir (Levemir Insulin) 15 units QHS SC 08/22/19 21:00 08/26/19 09:49 DC 08/25/19 20:34 Insulin Human Lispro (HumaLOG INSULIN) SEE PROTOCOL TABLE AC SC 08/20/19 17:30 08/28/19 08:20 Insulin Human Lispro (HumaLOG INSULIN) SEE PROTOCOL TABLE QHS SC 08/20/19 21:00 08/21/19 21:47 Lactobacillus Acidophilus (Bacid) 1 ea TID PO 08/20/19 21:00 08/28/19 08:21 Levothyroxine Sodium (Synthroid) 100 mcg DAILY@06 PO 08/21/19 06:00 08/28/19 06:18 Magnesium Hydroxide (Milk Of Magnesia) 30 ml DAILYPRN PRN PO CONSTIPATION 08/20/19 17:30 Magnesium Oxide (Mag-Ox) 400 mg QHS PO 08/20/19 21:00 08/27/19 21:06 Nystatin (Mycostatin Powder, Nystop) apply to under emiliano... BID TOP 08/20/19 21:00 08/28/19 08:21 Pantoprazole Sodium (Protonix) 20 mg BID PO 08/20/19 21:00 08/28/19 08:20 Potassium Chloride (Micro-K Extencaps) 40 meq BID PO 08/20/19 21:00 08/21/19 08:01 DC 08/20/19 21:02 Potassium Chloride (Micro-K Extencaps) 40 meq DAILY PO 08/21/19 09:00 08/23/19 14:59 DC 08/23/19 09:37 Potassium Chloride (Micro-K Extencaps) 40 meq DAILY PO 08/26/19 10:00 08/28/19 08:20 Rivaroxaban (Xarelto) 15 mg DAILY@0800 PO 08/21/19 08:00 08/26/19 09:49 DC 08/25/19 08:47 Rivaroxaban (Xarelto) 15 mg DAILY@0800 PO 08/26/19 08:00 08/28/19 08:20 Senna (Senokot) 1 tab QHS PO 08/20/19 21:00 08/23/19 16:45 DC 08/21/19 21:46 Senna (Senokot) 1 tab QHS PRN PO constipation 08/23/19 17:00 Spironolactone (Aldactone) 12.5 mg DAILY PO 08/24/19 09:00 08/25/19 12:33 DC 08/25/19 08:47 Spironolactone (Aldactone) 25 mg DAILY PO 08/26/19 09:00 08/28/19 08:21 Torsemide (Demadex) 20 mg BID@, PO 08/24/19 17:00 08/27/19 10:59 DC 08/27/19 09:36 Torsemide (Demadex) 40 mg BID@, PO 08/27/19 17:00 08/28/19 08:20 EMMA DIAZ MD Aug 28, 2019 12:04
--- NOTE | 2019-08-28 12:05 | IPNPDOC ---
PM&R Progress Note DATE OF SERVICE: Aug 28, 2019 [employer]visor [employer] Progress Note Subjective: Patient encouraged to use a standard walker to ensure a safe discharge home, she states she prefers the rolling walker. REVIEW OF SYSTEMS: The following is a completed review of systems and has been reviewed. Review of systems otherwise unremarkable. PAIN: Patient self reports no pain EYES: No recent vision changes EARS, NOSE, & THROAT: No throat pain, or dysphagia, or rhinorrhea CARDIOVASCULAR: Denies chest pain or palpitations PULMONARY: Denies shortness of breath GASTROINTESTINAL: Denies constipation/diarrhea GENITOURINARY: denies dysuria MUSCULOSKELETAL: generalized weakness NEUROLOGICAL: denies tremor or paresthesias HEMATOLOGICAL: +anemia SKIN: rash under breasts PSYCHIATRIC: Unremarkable All other review of systems found to be negative. PHYSICAL EXAMINATION: VITAL SIGNS: Please see below. GENERAL:Pleasant and cooperative. No acute distress. HEENT: PERRL. Extraocular movements intact. Clear conjunctiva CARDIOVASCULAR: Regular rate and rhythm. No murmurs, rubs, or gallops LUNGS: Clear to auscultation bilaterally. No wheezes. No rhonchi ABDOMEN: Soft, nontender, nondistended. Positive bowel sounds. Normal active bowel sounds NEUROLOGICAL: Alert and oriented times three. Cranial nerves II through XII grossly intact. Sensation grossly intact EXTREMITIES: 5-\\5 strength bilateral upper extremities. 5-\\5 strength right lower extremity. 5-/5 strength in left lower extremity. bilat LE swelling ASSESSMENT:79-year-old F with past medical history of CKD who presents status post sepsis carmen to UTI with ELISA PLAN: 1. Rehab- PT/OT advance gait and ADLs, strengthen/stretch/maintain ROM all 4limbs- ambulating with RW and standard walker at stand-by assist to Mod-I level 2. neuro- monitor for delirium 3. CArdiac- hx of chronic diastolic CHF, c/u daily weights, c/u fluid restriction to 1800cc and diuretics - medicine consulted to assist in overall management -CAD with Afib c/u beta-segun, Xarelto -patient's family requesting she be taken off of statin as she was not on one all year because it gives her muscle pain, c/u lower dose Atorvastatin dose to 10mg and monitor as patient with known cardiac disease, CKD, and DM 4. Resp- monitor for infection, encourage incentive spirometry 5. Endo hx of hypothyroidism, c/u synthroid -DM c/u glimepiride, c/u ISS 6. - s/p course of cefuroxime for UTI-denies dysuria 7. GI ppx- protonix 8. DVT ppx on xarelto 9. Pain- tylneol prn 10. Renal- recent ELISA in setting of CKD- renal consulted for fluid management, c/u spironolactone and torsemide (increased dose to 40mg BID) recs appreciated ,c/u daily potassium and monitor 11. [id number] to home, home eval scheduled 08-30-19 Allergies Coded Allergies: Tricyclic Compounds (Verified Allergy, Mild, rash, 05/16/18) Influenza Virus Vaccines (Verified Allergy, Unknown, 05/16/18) "never so sick in my life" amoxicillin (Verified Allergy, Unknown, 05/16/18) clavulanic acid (Verified Allergy, Unknown, 05/16/18) phenylephrine (Verified Allergy, Unknown, 05/16/18) morphine (Verified Adverse Reaction, Mild, nausea/vomitting, 05/16/18) Vital Signs Vital Signs Date Time Temp Pulse Resp B/P (MAP) Pulse Ox O2 Delivery O2 Flow Rate FiO2 08/28/19 05:24 97.9 98 18 146/66 (92) 97 Room Air Laboratory Data CBC/BMP Laboratory Tests 08/28/19 06:43 Labs 24H Laboratory Tests 2 08/27/19 16:35: Bedside Glucose (Misc Panel) 122H 08/27/19 21:09: Bedside Glucose (Misc Panel) 172H 08/28/19 06:20: Bedside Glucose (Misc Panel) 123H 08/28/19 06:43: Immature Granulocyte % (Auto) 0.5, Neutrophils (%) (Auto) 67.8H, Lymphocytes (%) (Auto) 19.4L, Monocytes (%) (Auto) 8.5H, Eosinophils (%) (Auto) 3.3H, Basophils (%) (Auto) 0.5, Neutrophils # (Auto) 7.5, Lymphocytes # (Auto) 2.2, Monocytes # (Auto) 0.9H, Eosinophils # (Auto) 0.4, Basophils # (Auto) 0.1, Nucleated Red Blood Cells % (auto) 0.0, Anion Gap 6L, Glomerular Filtration Rate 36.2L, Calcium Level 8.4L 08/28/19 12:01: Bedside Glucose (Misc Panel) 187H Current Medications Current Medications Current Medications Medications (Trade) Dose Ordered Sig/Chaka Route PRN Reason Start Time Stop Time Status Last Admin Dose Admin Acetaminophen (Tylenol Tab) 650 mg Q4HP PRN PO fever/MILD PAIN (PS 1-4) 08/20/19 17:30 08/27/19 01:40 Artificial Tears (Akwa Tears) 2 drop TID OU 08/20/19 21:00 08/28/19 08:21 Ascorbic Acid (Vitamin C) 500 mg DAILY PO 08/21/19 09:00 08/28/19 08:20 Atorvastatin Calcium (Lipitor) 10 mg QHS PO 08/26/19 21:00 08/27/19 21:06 Atorvastatin Calcium (Lipitor) 20 mg QHS PO 08/20/19 21:00 08/26/19 09:54 DC 08/25/19 20:33 Cefuroxime Axetil (Ceftin) 500 mg BID PO 08/20/19 21:00 08/23/19 09:01 DC 08/23/19 09:38 Coenzyme Q10 (Coenzyme Q10) 100 mg BID PO 08/20/19 21:00 09/19/19 20:59 08/28/19 08:20 Dextrose (Dextrose 50%) 25 ml ASDIRECTED PRN IV SEE LABEL COMMENTS 08/20/19 17:30 Docusate Sodium (Colace) 100 mg BID PO 08/20/19 21:00 08/28/19 08:21 Ferrous Sulfate (Ferrous Sulfate) 325 mg DAILY PO 08/21/19 09:00 08/28/19 08:21 Glimepiride (Amaryl) 1 mg DAILY@08 PO 08/21/19 08:00 08/23/19 09:59 DC 08/23/19 09:37 Glimepiride (Amaryl) 2 mg DAILY@08 PO 08/24/19 08:00 08/28/19 08:20 Glucagon (Glucagon) 1 mg ASDIRECTED PRN SC SEE LABEL COMMENTS 08/20/19 17:30 Glucose (Glucose) 16 GM ASDIRECTED PRN PO SEE LABEL COMMENTS 08/20/19 17:30 Insulin Detemir (Levemir Insulin) 15 units QHS SC 08/22/19 21:00 7/20/20 09:49 DC 08/25/19 20:34 Insulin Human Lispro (HumaLOG INSULIN) SEE PROTOCOL TABLE AC SC 08/20/19 17:30 08/28/19 08:20 Insulin Human Lispro (HumaLOG INSULIN) SEE PROTOCOL TABLE QHS SC 08/20/19 21:00 08/21/19 21:47 Lactobacillus Acidophilus (Bacid) 1 ea TID PO 08/20/19 21:00 08/28/19 08:21 Levothyroxine Sodium (Synthroid) 100 mcg DAILY@06 PO 08/21/19 06:00 08/28/19 06:18 Magnesium Hydroxide (Milk Of Magnesia) 30 ml DAILYPRN PRN PO CONSTIPATION 08/20/19 17:30 Magnesium Oxide (Mag-Ox) 400 mg QHS PO 08/20/19 21:00 08/27/19 21:06 Nystatin (Mycostatin Powder, Nystop) apply to under emiliano... BID TOP 08/20/19 21:00 08/28/19 08:21 Pantoprazole Sodium (Protonix) 20 mg BID PO 08/20/19 21:00 08/28/19 08:20 Potassium Chloride (Micro-K Extencaps) 40 meq BID PO 08/20/19 21:00 08/21/19 08:01 DC 08/20/19 21:02 Potassium Chloride (Micro-K Extencaps) 40 meq DAILY PO 08/21/19 09:00 08/23/19 14:59 DC 08/23/19 09:37 Potassium Chloride (Micro-K Extencaps) 40 meq DAILY PO 08/26/19 10:00 08/28/19 08:20 Rivaroxaban (Xarelto) 15 mg DAILY@0800 PO 08/21/19 08:00 08/26/19 09:49 DC 08/25/19 08:47 Rivaroxaban (Xarelto) 15 mg DAILY@0800 PO 08/26/19 08:00 08/28/19 08:20 Senna (Senokot) 1 tab QHS PO 08/20/19 21:00 08/23/19 16:45 DC 08/21/19 21:46 Senna (Senokot) 1 tab QHS PRN PO constipation 08/23/19 17:00 Spironolactone (Aldactone) 12.5 mg DAILY PO 08/24/19 09:00 08/25/19 12:33 DC 08/25/19 08:47 Spironolactone (Aldactone) 25 mg DAILY PO 08/26/19 09:00 08/28/19 08:21 Torsemide (Demadex) 20 mg BID@, PO 08/24/19 17:00 08/27/19 10:59 DC 08/27/19 09:36 Torsemide (Demadex) 40 mg BID@, PO 08/27/19 17:00 08/28/19 08:20 EMMA DIAZ MD Aug 28, 2019 12:05
[2019-08-28 14:00] VITALS: BP 130/60
[2019-08-28 20:00] VITALS: BP 144/64
[2019-08-28] MEDS: MAGNESIUM OXIDE 400 MG TAB (MAG-OX) PO SCH (20:44)
[2019-08-28] MEDS: ATORVASTATIN 10 MG TAB PO SCH (20:44)
--- NOTE | 2019-08-28 23:51 | IPNPDOC ---
Date Seen The patient was seen on 08/28/19. Progress Note SUBJECTIVE: Kala was seen and examined this morning by the nephrology service while sitting in a bedside chair in ARU. She reports tolerating her morning PT sessions well and feels she's making tangible progress with her rehab.. She remains hemodynamically stable and afebrile. She had 575 mL of urine output over the most recent 24 hour period ending at midnight. This passed overnight. This is decreased from the 2 L that were removed in the previous 24 hour period. We increased her torsemide dosing yesterday to 40 mg twice a day from 20 mg twice a day. She is eating and drinking without any issues and denies any current or overnight fever, chills, chest pain, palpitations, shortness of breath, nausea, or vomiting. OBJECTIVE PHYSICAL EXAMINATION: VITAL SIGNS: Please see below. GENERAL: Pleasant, elderly female seated upright in bedside chair. No acute distress. She is alert and oriented 3. HEENT: Normocephalic, atraumatic. Wearing eyeglasses. Noninjected, anicteric sc idalia. Mucous membranes continued to be moist. Neck is supple and trachea is midline. There is no significant JVD appreciated. CARDIOVASCULAR: Regular rhythm with controlled rate. Positive S1, S2. She continues to have significant 2+ bilateral lower extremity pitting edema from the ankles moving proximally to the mid shins. RESPIRATORY: Clear to auscultation bilaterally with no adventitious breath sounds appreciated. Mildly diminished tidal volume. Symmetric chest expansion. Speaking full sentences. Breathing room air. ABDOMINAL: Obese and soft. There remains a significant ventral hernia present. There is no guarding or rigidity. Normoactive bowel sounds throughout. EXTREMITIES: Significant 2+ bilateral lower extremity pitting edema remains on exam today from the ankles moving proximally to the mid shins. There is no appreciated clubbing or cyanosis. 2+ radial pulses bilaterally. NEUROLOGICAL: Awake, alert and oriented 3. No focal neurologic deficits appreciated. Non-dysarthric speech. Responds appropriate to questions or commands. PSYCHOLOGICAL: Mood and affect appear appropriate. LABORATORY DATA, IMAGING STUDIES, MICROBIOLOGY: Please see below. PROBLEMS: #Stage III chronic kidney disease -Morning labs today showed slight mild improvement in her serum creatinine and GFR today versus Monday when labs were previously, last drawn. Her creatinine has been running between 1.4 and 1.5 during this inpatient stay, which is close to her baseline. She has been receiving both spironolactone and torsemide. Her torsemide dosing was increased yesterday to 40 mg twice a day from the previous 20 mg twice a day. Her urine output dropped in the past 24 hours to 575 mL versus over 2 L that were documented in the previous 24 hour period. We will continue to monitor her renal status and urine output. #HFpEF -Due to continued bilateral lower extremity pitting edema, her torsemide was increased to 40 mg twice a day yesterday. She again has 2+ pitting edema of bilateral lower extremities that moves proximally up to the midshin. #Hypokalemia -Serum potassium increased to 3.8 today from last measured dose two days ago of 3.5. She is receiving 40 mg twice a day of torsemide, but also did have an increase in her spironolactone dosage to 25 mg. Her last oral potassium chloride supplementation was 2 days ago. We will continue to monitor on follow-up metabolic panels. #Anemia -Measured hemoglobin this morning was 10, after being 10.2 on most recent previous measurement from 08/25. We will continue with her oral dose of iron supplementation. Her hemoglobin has remained stable over this current stay. #Type 2 diabetes mellitus -Diabetic management for patient is per the hospitalist team's discretion. Her serum glucose levels have been within acceptable range and morning level was 119. Thank you for allowing us to participate in the care of Kala while she is in ARU. Should any questions arise from a renal standpoint, please do contact us, thank you. VS, I&O, 24H, Fishbone Vital Signs/I&O Vital Signs Date Time Temp Pulse Resp B/P (MAP) Pulse Ox O2 Delivery O2 Flow Rate FiO2 08/28/19 20:00 98.2 94 18 144/64 (90) 97 Room Air I&O- Last 24 Hours up to 6 AM 08/28/19 06:00 Intake Total 440 ml Output Total 0 ml Balance 440 ml Laboratory Data 24H LABS Laboratory Tests 2 08/28/19 06:20: Bedside Glucose (Misc Panel) 123H 08/28/19 06:43: Immature Granulocyte % (Auto) 0.5, Neutrophils (%) (Auto) 67.8H, Lymphocytes (%) (Auto) 19.4L, Monocytes (%) (Auto) 8.5H, Eosinophils (%) (Auto) 3.3H, Basophils (%) (Auto) 0.5, Neutrophils # (Auto) 7.5, Lymphocytes # (Auto) 2.2, Monocytes # (Auto) 0.9H, Eosinophils # (Auto) 0.4, Basophils # (Auto) 0.1, Nucleated Red Blood Cells % (auto) 0.0, Anion Gap 6L, Glomerular Filtration Rate 36.2L, Calcium Level 8.4L 08/28/19 12:01: Bedside Glucose (Misc Panel) 187H 08/28/19 16:43: Bedside Glucose (Misc Panel) 185H 08/28/19 19:37: Bedside Glucose (Misc Panel) 191H CBC/BMP Laboratory Tests 08/28/19 06:43 GME ATTESTATION GME ATTESTATION My faculty preceptor for this patient encounter was physically present during the encounter and was fully available. All aspects of the patient interview, examination, medical decision making process, and medical care plan development were reviewed and approved by the faculty preceptor. The faculty preceptor is aware and concurs with the plan as stated in the body of this note and will attest to such by his/her cosignature. ATTENDING NOTE Continue diuretics for HFpEF. Renal function stable. Electrolyte repletion as per resident note. BRANDT RICHARDSON D.O. Aug 28, 2019 23:51 GANESH JAUREGUI MD Sep 25, 2019 21:51
[2019-08-29] MEDS: LEVOTHYROXINE 100MCG TABLET (0.1MG) PO SCH (05:18)
[2019-08-29 06:00] VITALS: BP 141/83
[2019-08-29] MEDS: ASCORBIC ACID 500 MG TAB PO SCH (08:33)
[2019-08-29] MEDS: FERROUS SULFATE 325MG TAB PO SCH (08:33)
[2019-08-29] MEDS: LACTOBACILLUS ACIDOPHILUS CAP (BACID) PO SCH (08:33)
[2019-08-29] MEDS: PANTOPRAZOLE 20 MG TAB PO SCH (08:33)
[2019-08-29] MEDS: DOCUSATE SODIUM 100 MG CAP PO SCH (08:33)
[2019-08-29] MEDS: HumaLOG INSULIN (NovoLOG) PER UNIT SC SCH (08:33)
[2019-08-29] MEDS: POTASSIUM CHLORIDE 10 MEQ SR TABLET PO SCH (08:34)
[2019-08-29] MEDS: CO-ENZYME Q10 50 MG CAP PO SCH (08:34)
[2019-08-29] MEDS: SPIRONOLACTONE 25 MG TAB PO SCH (08:34)
[2019-08-29] MEDS: GLIMEPIRIDE 1 MG TABLET PO SCH (08:39)
[2019-08-29] MEDS: RIVAROXABAN 15 MG TAB (XARELTO) PO SCH (08:39)
[2019-08-29] MEDS: TORSEMIDE 20 MG TAB PO SCH (08:40)
[2019-08-29] MEDS: NYSTATIN 100,000 UNITS/GM TOPICAL PWD 15 GM TOP SCH (08:41)
[2019-08-29] MEDS: POLYVINYL ALCOHOL OPHTH SOLN 15 ML(LIQUITEARS) OU SCH (08:41)
[2019-08-29] MEDS: REMEDY PHYTOPLEX Z-GUARD PASTE 113GM TUBE (FROM STOREROOM PRODUCT) TOP SCH (08:41)
[2019-08-31] MEDS ORDERED: ACETAMINOPHEN TAB 650MG DOSE (2X325MG) ONE (03:46)
[2019-08-31] MEDS ORDERED: LEVOTHYROXINE 100MCG TABLET (0.1MG) ONE (05:29)
[2019-08-31] MEDS ORDERED: POTASSIUM CHLORIDE 10 MEQ SR TABLET ONE (08:09)
[2019-08-31] MEDS ORDERED: DOCUSATE SODIUM 100 MG CAP ONE ×2 (08:09→21:03)
[2019-08-31] MEDS ORDERED: FERROUS SULFATE 325MG TAB ONE (08:09)
[2019-08-31] MEDS ORDERED: LACTOBACILLUS ACIDOPHILUS CAP (BACID) ONE ×3 (08:09→21:03)
[2019-08-31] MEDS ORDERED: ASCORBIC ACID 500 MG TAB ONE (08:09)
[2019-08-31] MEDS ORDERED: SPIRONOLACTONE 25 MG TAB ONE ×2 (08:10→21:03)
[2019-08-31] MEDS ORDERED: HumaLOG INSULIN (NovoLOG) PER UNIT ONE ×3 (08:10→17:04)
[2019-08-31] MEDS ORDERED: SPIRONOLACTONE 25 MG TAB As Ordered ONE ×2 (08:10→21:04)
[2019-08-31] MEDS ORDERED: CO-ENZYME Q10 50 MG CAP ONE ×2 (08:10→21:03)
[2019-08-31] MEDS ORDERED: GLIMEPIRIDE 1 MG TABLET ONE (08:11)
[2019-08-31] MEDS ORDERED: PANTOPRAZOLE 20 MG TAB ONE ×2 (08:11→21:03)
[2019-08-31] MEDS ORDERED: RIVAROXABAN 15 MG TAB (XARELTO) ONE ×2 (08:12→11:30)
[2019-08-31] MEDS ORDERED: GLIMEPIRIDE 2 MG TAB ONE (10:13)
[2019-08-31] MEDS ORDERED: TORSEMIDE 20 MG TAB ONE (16:29)
[2019-08-31] MEDS ORDERED: ATORVASTATIN 10 MG TAB ONE (21:03)
[2019-08-31] MEDS ORDERED: MAGNESIUM OXIDE 400 MG TAB (MAG-OX) ONE (21:03)
[2019-09-01] MEDS ORDERED: HumaLOG INSULIN (NovoLOG) PER UNIT ONE ×4 (01:28→07:24)
[2019-09-01] MEDS ORDERED: LACTOBACILLUS ACIDOPHILUS CAP (BACID) ONE ×4 (01:28→07:24)
[2019-09-01] MEDS ORDERED: SPIRONOLACTONE 25 MG TAB ONE ×2 (05:09→05:35)
[2019-09-01] MEDS ORDERED: PANTOPRAZOLE 20 MG TAB ONE ×2 (05:09→07:24)
[2019-09-01] MEDS ORDERED: DOCUSATE SODIUM 100 MG CAP ONE ×2 (05:09→05:35)
[2019-09-01] MEDS ORDERED: MAGNESIUM OXIDE 400 MG TAB (MAG-OX) ONE (05:09)
[2019-09-01] MEDS ORDERED: CO-ENZYME Q10 50 MG CAP ONE ×2 (05:09→05:35)
[2019-09-01] MEDS ORDERED: ATORVASTATIN 10 MG TAB ONE (05:09)
[2019-09-01] MEDS ORDERED: ACETAMINOPHEN TAB 650MG DOSE (2X325MG) ONE (05:09)
[2019-09-01] MEDS ORDERED: POTASSIUM CHLORIDE 10 MEQ SR TABLET ONE (05:35)
[2019-09-01] MEDS ORDERED: TORSEMIDE 20 MG TAB ONE (05:35)
[2019-09-01] MEDS ORDERED: ASCORBIC ACID 500 MG TAB ONE (05:35)
[2019-09-01] MEDS ORDERED: FERROUS SULFATE 325MG TAB ONE (05:35)
[2019-09-01] MEDS ORDERED: GLIMEPIRIDE 1 MG TABLET ONE (05:35)
[2019-09-01] MEDS ORDERED: LEVOTHYROXINE 100MCG TABLET (0.1MG) ONE (05:35)
[2019-09-01] MEDS ORDERED: SPIRONOLACTONE 25 MG TAB As Ordered ONE ×2 (07:23→20:36)
[2019-09-01] MEDS ORDERED: RIVAROXABAN 15 MG TAB (XARELTO) ONE (07:24)
[2019-09-02] MEDS ORDERED: LACTOBACILLUS ACIDOPHILUS CAP (BACID) ONE ×3 (05:32→12:08)
[2019-09-02] MEDS ORDERED: RIVAROXABAN 15 MG TAB (XARELTO) ONE (05:32)
[2019-09-02] MEDS ORDERED: TORSEMIDE 20 MG TAB ONE (05:32)
[2019-09-02] MEDS ORDERED: PANTOPRAZOLE 20 MG TAB ONE (05:32)
[2019-09-02] MEDS ORDERED: FERROUS SULFATE 325MG TAB ONE (05:32)
[2019-09-02] MEDS ORDERED: HumaLOG INSULIN (NovoLOG) PER UNIT ONE ×2 (05:32→12:08)
[2019-09-02] MEDS ORDERED: ACETAMINOPHEN TAB 650MG DOSE (2X325MG) ONE ×2 (05:32→12:08)
[2019-09-02] MEDS ORDERED: DOCUSATE SODIUM 100 MG CAP ONE ×2 (05:32→12:08)
[2019-09-02] MEDS ORDERED: ASCORBIC ACID 500 MG TAB ONE (05:32)
[2019-09-02] MEDS ORDERED: LEVOTHYROXINE 100MCG TABLET (0.1MG) ONE (05:32)
[2019-09-02] MEDS ORDERED: GLIMEPIRIDE 1 MG TABLET ONE (05:32)
[2019-09-02] MEDS ORDERED: CO-ENZYME Q10 50 MG CAP ONE ×2 (05:32→08:08)
[2019-09-02] MEDS ORDERED: POTASSIUM CHLORIDE 10 MEQ SR TABLET ONE (05:32)
[2019-09-02] MEDS ORDERED: SPIRONOLACTONE 25 MG TAB ONE ×2 (05:32→08:08)
[2019-09-02] MEDS ORDERED: ATORVASTATIN 10 MG TAB ONE (08:08)
[2019-09-02] MEDS ORDERED: MAGNESIUM OXIDE 400 MG TAB (MAG-OX) ONE (08:08)
[2019-09-02] MEDS ORDERED: SPIRONOLACTONE 25 MG TAB As Ordered ONE ×2 (08:24→20:08)
[2019-09-03] MEDS ORDERED: HumaLOG INSULIN (NovoLOG) PER UNIT ONE ×3 (01:12→06:15)
[2019-09-03] MEDS ORDERED: CO-ENZYME Q10 50 MG CAP ONE ×2 (06:12→08:28)
[2019-09-03] MEDS ORDERED: POTASSIUM CHLORIDE 10 MEQ SR TABLET ONE (06:12)
[2019-09-03] MEDS ORDERED: TORSEMIDE 20 MG TAB ONE ×2 (06:12→06:15)
[2019-09-03] MEDS ORDERED: LACTOBACILLUS ACIDOPHILUS CAP (BACID) ONE ×3 (06:12→08:28)
[2019-09-03] MEDS ORDERED: ASCORBIC ACID 500 MG TAB ONE (06:12)
[2019-09-03] MEDS ORDERED: FERROUS SULFATE 325MG TAB ONE (06:12)
[2019-09-03] MEDS ORDERED: SPIRONOLACTONE 25 MG TAB ONE ×2 (06:12→08:28)
[2019-09-03] MEDS ORDERED: LEVOTHYROXINE 100MCG TABLET (0.1MG) ONE (06:12)
[2019-09-03] MEDS ORDERED: RIVAROXABAN 15 MG TAB (XARELTO) ONE (06:12)
[2019-09-03] MEDS ORDERED: ACETAMINOPHEN TAB 650MG DOSE (2X325MG) ONE (06:15)
[2019-09-03] MEDS ORDERED: DOCUSATE SODIUM 100 MG CAP ONE (06:15)
[2019-09-03] MEDS ORDERED: SPIRONOLACTONE 25 MG TAB As Ordered ONE ×2 (07:32→20:28)
[2019-09-03] MEDS ORDERED: ATORVASTATIN 10 MG TAB ONE (08:28)
[2019-09-03] MEDS ORDERED: SENNA 8.6 MG TAB (SENOKOT) ONE (08:28)
[2019-09-03] MEDS ORDERED: MAGNESIUM OXIDE 400 MG TAB (MAG-OX) ONE (08:28)
[2019-09-04] MEDS ORDERED: SENNA 8.6 MG TAB (SENOKOT) ONE ×2 (00:10→12:10)
[2019-09-04] MEDS ORDERED: LEVOTHYROXINE 100MCG TABLET (0.1MG) ONE (05:32)
[2019-09-04] MEDS ORDERED: ACETAMINOPHEN TAB 650MG DOSE (2X325MG) ONE ×2 (06:18→20:34)
[2019-09-04] MEDS ORDERED: CO-ENZYME Q10 50 MG CAP ONE ×2 (08:00→20:34)
[2019-09-04] MEDS ORDERED: HumaLOG INSULIN (NovoLOG) PER UNIT ONE ×3 (08:00→17:17)
[2019-09-04] MEDS ORDERED: ASCORBIC ACID 500 MG TAB ONE (08:00)
[2019-09-04] MEDS ORDERED: SPIRONOLACTONE 25 MG TAB ONE ×2 (08:00→20:34)
[2019-09-04] MEDS ORDERED: FERROUS SULFATE 325MG TAB ONE (08:00)
[2019-09-04] MEDS ORDERED: DOCUSATE SODIUM 100 MG CAP ONE ×2 (08:00→20:34)
[2019-09-04] MEDS ORDERED: TORSEMIDE 20 MG TAB ONE ×2 (08:00→17:17)
[2019-09-04] MEDS ORDERED: POTASSIUM CHLORIDE 10 MEQ SR TABLET ONE (08:00)
[2019-09-04] MEDS ORDERED: LACTOBACILLUS ACIDOPHILUS CAP (BACID) ONE ×3 (08:00→20:34)
[2019-09-04] MEDS ORDERED: SPIRONOLACTONE 25 MG TAB As Ordered ONE ×2 (08:02→20:42)
[2019-09-04] MEDS ORDERED: RIVAROXABAN 15 MG TAB (XARELTO) ONE (08:03)
[2019-09-04] MEDS ORDERED: ANALGESIC BALM CRM 120 GM ONE (09:00)
[2019-09-04] MEDS ORDERED: GLIMEPIRIDE 2 MG TAB ONE (09:32)
[2019-09-04] MEDS ORDERED: GLIMEPIRIDE 2 MG TAB As Ordered ONE (09:32)
[2019-09-04] MEDS ORDERED: MAGNESIUM OXIDE 400 MG TAB (MAG-OX) ONE (20:34)
[2019-09-04] MEDS ORDERED: ATORVASTATIN 10 MG TAB ONE (20:34)
[2019-09-04] MEDS ORDERED: PANTOPRAZOLE 20 MG TAB ONE (20:34)
[2019-09-05] MEDS ORDERED: SPIRONOLACTONE 25 MG TAB ONE ×2 (06:07→21:28)
[2019-09-05] MEDS ORDERED: LEVOTHYROXINE 100MCG TABLET (0.1MG) ONE (06:07)
[2019-09-05] MEDS ORDERED: RIVAROXABAN 15 MG TAB (XARELTO) ONE (06:07)
[2019-09-05] MEDS ORDERED: TORSEMIDE 20 MG TAB ONE ×2 (06:07→15:55)
[2019-09-05] MEDS ORDERED: PANTOPRAZOLE 20 MG TAB ONE ×2 (06:07→21:28)
[2019-09-05] MEDS ORDERED: DOCUSATE SODIUM 100 MG CAP ONE ×2 (06:07→21:28)
[2019-09-05] MEDS ORDERED: GLIMEPIRIDE 2 MG TAB ONE (06:07)
[2019-09-05] MEDS ORDERED: FERROUS SULFATE 325MG TAB ONE (06:07)
[2019-09-05] MEDS ORDERED: CO-ENZYME Q10 50 MG CAP ONE ×2 (06:07→21:28)
[2019-09-05] MEDS ORDERED: HumaLOG INSULIN (NovoLOG) PER UNIT ONE ×3 (06:07→17:10)
[2019-09-05] MEDS ORDERED: LACTOBACILLUS ACIDOPHILUS CAP (BACID) ONE ×3 (06:07→21:28)
[2019-09-05] MEDS ORDERED: POTASSIUM CHLORIDE 10 MEQ SR TABLET ONE (06:07)
[2019-09-05] MEDS ORDERED: ASCORBIC ACID 500 MG TAB ONE (06:07)
[2019-09-05] MEDS ORDERED: SPIRONOLACTONE 25 MG TAB As Ordered ONE ×2 (07:36→21:29)
[2019-09-05] MEDS ORDERED: GLIMEPIRIDE 2 MG TAB As Ordered ONE (07:37)
[2019-09-05] MEDS ORDERED: ACETAMINOPHEN TAB 650MG DOSE (2X325MG) ONE (15:55)
[2019-09-05] MEDS ORDERED: ATORVASTATIN 10 MG TAB ONE (21:28)
[2019-09-05] MEDS ORDERED: MAGNESIUM OXIDE 400 MG TAB (MAG-OX) ONE (21:28)
[2019-09-06] MEDS ORDERED: SPIRONOLACTONE 25 MG TAB As Ordered ONE ×2 (10:35→20:06)
[2019-09-06] MEDS ORDERED: RIVAROXABAN 15 MG TAB (XARELTO) ONE (11:00)
[2019-09-06] MEDS ORDERED: PANTOPRAZOLE 20 MG TAB ONE (11:00)
[2019-09-07] MEDS ORDERED: GLIMEPIRIDE 2 MG TAB As Ordered ONE (09:29)
[2019-09-07] MEDS ORDERED: SPIRONOLACTONE 25 MG TAB As Ordered ONE ×2 (09:29→19:47)
[2019-09-07] MEDS ORDERED: TORSEMIDE 10 MG TABLET As Ordered ONE (09:29)
[2019-09-08] MEDS ORDERED: SPIRONOLACTONE 25 MG TAB As Ordered ONE ×2 (08:31→19:36)
[2019-09-08] MEDS ORDERED: GLIMEPIRIDE 2 MG TAB As Ordered ONE (08:32)
[2019-09-08] MEDS ORDERED: TORSEMIDE 10 MG TABLET As Ordered ONE ×2 (08:32→16:54)
[2019-09-09] MEDS ORDERED: SPIRONOLACTONE 25 MG TAB As Ordered ONE ×2 (08:18→20:26)
[2019-09-09] MEDS ORDERED: GLIMEPIRIDE 2 MG TAB As Ordered ONE (08:22)
[2019-09-09] MEDS ORDERED: RIVAROXABAN 15 MG TAB (XARELTO) ONE (12:59)
[2019-09-10] MEDS ORDERED: SPIRONOLACTONE 25 MG TAB As Ordered ONE ×2 (08:18→20:52)
[2019-09-10] MEDS ORDERED: GLIMEPIRIDE 2 MG TAB As Ordered ONE (08:18)
[2019-09-11] MEDS ORDERED: SPIRONOLACTONE 25 MG TAB As Ordered ONE ×2 (07:55→19:57)
[2019-09-11] MEDS ORDERED: GLIMEPIRIDE 2 MG TAB As Ordered ONE (07:55)
[2019-09-11] MEDS ORDERED: PANTOPRAZOLE 20 MG TAB ONE (11:00)
[2019-09-11] MEDS ORDERED: RIVAROXABAN 15 MG TAB (XARELTO) ONE (11:00)
[2019-09-12] MEDS ORDERED: LIDOCAINE 5% (LIDODERM) PATCH As Ordered ONE (07:12)
[2019-09-12] MEDS ORDERED: GABAPENTIN 100 MG CAP As Ordered ONE (07:12)
[2019-09-12] MEDS ORDERED: SERTRALINE HCL 50 MG TAB As Ordered ONE (07:13)
[2019-09-12] MEDS ORDERED: ACETAMINOPHEN 500 MG TAB As Ordered ONE (07:13)
[2019-09-12] MEDS ORDERED: MULTIVITAMINS/MINERALS THERAP 1 TAB As Ordered ONE (07:13)
[2019-09-12] MEDS ORDERED: PANTOPRAZOLE 40MG TAB (PROTONIX) As Ordered ONE (07:14)
[2019-09-12] MEDS ORDERED: SPIRONOLACTONE 25 MG TAB As Ordered ONE (07:25)
[2019-09-12] MEDS ORDERED: GLIMEPIRIDE 2 MG TAB As Ordered ONE (07:26)
[2019-09-12] MEDS ORDERED: FERROUS GLUCONATE 324 MG TAB As Ordered ONE (07:26)
--- NOTE | 2019-09-25 14:55 | IPNPDOC ---
PM&R Progress Note DATE OF SERVICE: Aug 29, 2019 [employer] Progress Note Subjective: Patient reporting she feels stronger and thinks she will be able to manage at home on her own. REVIEW OF SYSTEMS: The following is a completed review of systems and has been reviewed. Review of systems otherwise unremarkable. PAIN: Patient self reports no pain EYES: No recent vision changes EARS, NOSE, & THROAT: No throat pain, or dysphagia, or rhinorrhea CARDIOVASCULAR: Denies chest pain or palpitations PULMONARY: Denies shortness of breath GASTROINTESTINAL: Denies constipation/diarrhea GENITOURINARY: denies dysuria MUSCULOSKELETAL: generalized weakness NEUROLOGICAL: denies tremor or paresthesias HEMATOLOGICAL: +anemia SKIN: rash under breasts PSYCHIATRIC: Unremarkable All other review of systems found to be negative. PHYSICAL EXAMINATION: VITAL SIGNS: Please see below. GENERAL:Pleasant and cooperative. No acute distress. HEENT: PERRL. Extraocular movements intact. Clear conjunctiva CARDIOVASCULAR: Regular rate and rhythm. No murmurs, rubs, or gallops LUNGS: Clear to auscultation bilaterally. No wheezes. No rhonchi ABDOMEN: Soft, nontender, nondistended. Positive bowel sounds. Normal active bowel sounds NEUROLOGICAL: Alert and oriented times three. Cranial nerves II through XII grossly intact. Sensation grossly intact EXTREMITIES: 5-\\5 strength bilateral upper extremities. 5-\\5 strength right lower extremity. 5-/5 strength in left lower extremity. bilat LE swelling ASSESSMENT:79-year-old F with past medical history of CKD who presents status post sepsis carmen to UTI with ELISA PLAN: 1. Rehab- PT/OT advance gait and ADLs, strengthen/stretch/maintain ROM all 4limbs- ambulating with RW and standard walker at stand-by assist to Mod-I level 2. neuro- monitor for delirium 3. CArdiac- hx of chronic diastolic CHF, c/u daily weights, c/u fluid restriction to 1800cc and diuretics - medicine consulted to assist in overall management -CAD with Afib c/u beta-segun, Xarelto -patient's family requesting she be taken off of statin as she was not on one all year because it gives her muscle pain, c/u lower dose Atorvastatin dose to 10mg and monitor as patient with known cardiac disease, CKD, and DM 4. Resp- monitor for infection, encourage incentive spirometry 5. Endo hx of hypothyroidism, c/u synthroid -DM c/u glimepiride, c/u ISS 6. - s/p course of cefuroxime for UTI-denies dysuria 7. GI ppx- protonix 8. DVT ppx on xarelto 9. Pain- tylneol prn 10. Renal- recent ELISA in setting of CKD- renal consulted for fluid management, c/u spironolactone and torsemide (increased dose to 40mg BID) recs appreciated ,c/u daily potassium and monitor 11. [id number] to home, home eval scheduled 08-30-19 Allergies Coded Allergies: Tricyclic Compounds (Verified Allergy, Mild, rash, 05/16/18) Influenza Virus Vaccines (Verified Allergy, Unknown, 05/16/18) "never so sick in my life" amoxicillin (Verified Allergy, Unknown, 05/16/18) clavulanic acid (Verified Allergy, Unknown, 05/16/18) phenylephrine (Verified Allergy, Unknown, 05/16/18) morphine (Verified Adverse Reaction, Mild, nausea/vomitting, 05/16/18) Current Medications Current Medications Current Medications Medications (Trade) Dose Ordered Sig/Chaka Route PRN Reason Start Time Stop Time Status Last Admin Dose Admin Acetaminophen (Tylenol Tab) 650 mg Q4HP PRN PO fever/MILD PAIN (PS 1-4) 08/20/19 17:30 09/21/19 13:24 DC 08/27/19 01:40 Artificial Tears (Akwa Tears) 2 drop TID OU 08/20/19 21:00 09/21/19 13:25 DC 08/29/19 08:41 Ascorbic Acid (Vitamin C) 500 mg DAILY PO 08/21/19 09:00 09/21/19 13:25 DC 08/29/19 08:33 Atorvastatin Calcium (Lipitor) 10 mg QHS PO 08/26/19 21:00 09/24/19 07:41 DC 08/28/19 20:44 Atorvastatin Calcium (Lipitor) 20 mg QHS PO 08/20/19 21:00 08/26/19 09:54 DC 08/25/19 20:33 Cefuroxime Axetil (Ceftin) 500 mg BID PO 08/20/19 21:00 08/23/19 09:01 DC 08/23/19 09:38 Coenzyme Q10 (Coenzyme Q10) 100 mg BID PO 08/20/19 21:00 09/21/19 13:25 DC 08/29/19 08:34 Dextrose (Dextrose 50%) 25 ml ASDIRECTED PRN IV SEE LABEL COMMENTS 08/20/19 17:30 09/21/19 13:24 DC Docusate Sodium (Colace) 100 mg BID PO 08/20/19 21:00 09/21/19 13:25 DC 08/29/19 08:33 Ferrous Sulfate (Ferrous Sulfate) 325 mg DAILY PO 08/21/19 09:00 09/21/19 13:25 DC 08/29/19 08:33 Glimepiride (Amaryl) 1 mg DAILY@08 PO 08/21/19 08:00 08/23/19 09:59 DC 08/23/19 09:37 Glimepiride (Amaryl) 2 mg DAILY@08 PO 08/24/19 08:00 09/23/19 07:59 DC 08/29/19 08:39 Glucagon (Glucagon) 1 mg ASDIRECTED PRN SC SEE LABEL COMMENTS 08/20/19 17:30 09/21/19 13:24 DC Glucose (Glucose) 16 GM ASDIRECTED PRN PO SEE LABEL COMMENTS 08/20/19 17:30 09/21/19 13:24 DC Insulin Detemir (Levemir Insulin) 15 units QHS SC 08/22/19 21:00 08/26/19 09:49 DC 08/25/19 20:34 Insulin Human Lispro (HumaLOG INSULIN) SEE PROTOCOL TABLE AC SC 08/20/19 17:30 09/21/19 13:24 DC 08/29/19 12:21 Insulin Human Lispro (HumaLOG INSULIN) SEE PROTOCOL TABLE QHS [place] 08/20/19 21:00 09/21/19 13:25 DC 08/21/19 21:47 Lactobacillus Acidophilus (Bacid) 1 ea TID PO 08/20/19 21:00 09/21/19 13:25 DC 08/29/19 08:33 Levothyroxine Sodium (Synthroid) 100 mcg DAILY@06 PO 08/21/19 06:00 09/21/19 13:25 DC 08/29/19 05:18 Magnesium Hydroxide (Milk Of Magnesia) 30 ml DAILYPRN PRN PO CONSTIPATION 08/20/19 17:30 09/21/19 13:24 DC Magnesium Oxide (Mag-Ox) 400 mg QHS PO 08/20/19 21:00 09/21/19 13:25 DC 08/28/19 20:44 Nystatin (Mycostatin Powder, Nystop) apply to under emiliano... BID TOP 08/20/19 21:00 09/21/19 13:25 DC 08/29/19 08:41 Pantoprazole Sodium (Protonix) 20 mg BID PO 08/20/19 21:00 09/21/19 13:25 DC 08/29/19 08:33 Potassium Chloride (Micro-K Extencaps) 40 meq BID PO 08/20/19 21:00 08/21/19 08:01 DC 08/20/19 21:02 Potassium Chloride (Micro-K Extencaps) 40 meq DAILY PO 08/21/19 09:00 08/23/19 14:59 DC 08/23/19 09:37 Potassium Chloride (Micro-K Extencaps) 40 meq DAILY PO 08/26/19 10:00 09/24/19 07:41 DC 08/29/19 08:34 Rivaroxaban (Xarelto) 15 mg DAILY@0800 PO 08/21/19 08:00 08/26/19 09:49 DC 08/25/19 08:47 Rivaroxaban (Xarelto) 15 mg DAILY@0800 PO 08/26/19 08:00 09/21/19 13:16 DC 08/29/19 08:39 Senna (Senokot) 1 tab QHS PO 08/20/19 21:00 08/23/19 16:45 DC 08/21/19 21:46 Senna (Senokot) 1 tab QHS PRN PO constipation 08/23/19 17:00 09/22/19 16:59 DC Spironolactone (Aldactone) 12.5 mg DAILY PO 08/24/19 09:00 08/25/19 12:33 DC 08/25/19 08:47 Spironolactone (Aldactone) 25 mg DAILY PO 08/26/19 09:00 09/24/19 07:41 DC 08/29/19 08:34 Torsemide (Demadex) 20 mg BID@ PO 08/24/19 17:00 08/27/19 10:59 DC 08/27/19 09:36 Torsemide (Demadex) 40 mg BID@09,17 PO 08/27/19 17:00 09/24/19 07:41 DC 08/29/19 08:40 EMMA DIAZ MD Sep 25, 2019 14:55
[2019-10-03] MEDS ORDERED: PANTOPRAZOLE 20 MG TAB ONE (11:30)
== END 2019-08-30 | disposition home or self-care (01) | DRG 948 ==
LOC: M PM&R 17:45
PROVIDERS: ADMIT Physical Medicine & Rehabilitation; ATTEND Physical Medicine & Rehabilitation
DX: R53.1 Weakness (principal); I13.0 Hypertensive heart and chronic kidney disease with heart failure and stage 1 through stage 4 chronic kidney disease, or unspecified chronic kidney disease; I50.32 Chronic diastolic (congestive) heart failure; N39.0 Urinary tract infection, site not specified; N18.3 Chronic kidney disease, stage 3 (moderate); E11.22 Type 2 diabetes mellitus with diabetic chronic kidney disease; E03.9 Hypothyroidism, unspecified; K29.70 Gastritis, unspecified, without bleeding; M54.9 Dorsalgia, unspecified; D64.9 Anemia, unspecified; R21 Rash and other nonspecific skin eruption; Z95.5 Presence of coronary angioplasty implant and graft; I25.10 Atherosclerotic heart disease of native coronary artery without angina pectoris; R26.89 Other abnormalities of gait and mobility; Z79.01 Long term (current) use of anticoagulants; Z79.899 Other long term (current) drug therapy; Z79.84 Long term (current) use of oral hypoglycemic drugs; Z88.7 Allergy status to serum and vaccine; Z88.0 Allergy status to penicillin; Z88.5 Allergy status to narcotic agent; Z88.8 Allergy status to other drugs, medicaments and biological substances

== ENCOUNTER → 2019-09-17 | Outpatient (REF) | payer MEDICARE, MEDICAID ==
[~2019-09-17] MED LIST changes: +ACET-683 PO; +AMLO1TAB24 PO; -AMLO5TAB6 PO; +BACL10TA2 PO; +BALMOINT60 TOP; +CALC500T31 PO; +COEN100T PO; +DULC10SU2 PR; +ENEMENE PR; +GLIM2TAB29 PO; +GLUC1KIT IM; +JUVEPOW4 PO; +LIDO5DIS41 TD; +LIDO5TD TD; +LUBROIN4 OU; +MOM30SS2 PO; +NYST10006 TOP; +OXYC1TAB23 PO; -PANT20TA2 PO; +PANT20TA6 PO; +PERCOCET PO; +POTA1TAB14 PO; +POTA20TA6 PO; +TORS10TA3 PO; +TRAM50TA2 PO
[2019-11-12 04:23] LABS: PERCENT SATURATION 18.5 % (13.2-45.0)
== END ==
LOC: M LAB REF 06:29
PROVIDERS: ATTEND Physician Assistant Medical
DX: D64.9 Anemia, unspecified (principal)

== ENCOUNTER 2019-09-29 06:14 | Inpatient (IN) | payer MEDICARE, MEDICAID ==
[2019-09-29] VITALS (10 sets, daily range): BP systolic 99–136; BP diastolic 50–65
[~2019-09-29 06:14] MED LIST changes: -ACET-683 PO; -BACL10TA2 PO; -BALMOINT60 TOP; -CALC500T31 PO; -COEN100T PO; -DULC10SU2 PR; -ENEMENE PR; -GLIM2TAB29 PO; -GLUC1KIT IM; -JUVEPOW4 PO; -LIDO5DIS41 TD; -LIDO5TD TD; -LUBROIN4 OU; -MOM30SS2 PO; -NYST10006 TOP; -OXYC1TAB23 PO; -PERCOCET PO; -POTA1TAB14 PO; -POTA20TA6 PO; -TORS10TA3 PO; -TRAM50TA2 PO
[2019-09-29] MEDS ORDERED: ACETAMINOPHEN *IV* 650 MG in IV 1 EA IV ONE (07:00)
[2019-09-29 07:13] LABS: BASO % 0.2 % (0.0-1.0); EOS # 0.1 10^3/uL (0.0-0.5); EOS % 0.7 % (0.0-3.0); LYMPH # 1.8 10^3/uL (1.5-5.0); LYMPH % 10.6 % (24.0-44.0); MEAN CORPUSCULAR HEMOGLOBIN 31.8 pg (27.0-33.0); MEAN CORPUSCULAR HGB CONC 32.5 g/dl (32.0-36.5); MEAN CORPUSCULAR VOLUME 97.6 fl (80.0-96.0); NEUTROPHILS # 13.4 10^3/uL (1.5-8.5); NEUTROPHILS % 80.9 % (36.0-66.0); PLATELET COUNT, AUTOMATED 263 10^3/uL (150-450); RED BLOOD COUNT 2.11 10^6/uL (4.00-5.40); WHITE BLOOD COUNT 16.5 10^3/uL (4.0-10.0)
[2019-09-29 07:20] LABS: HEMATOCRIT 20.6 % (36.0-47.0)
[2019-09-29 07:21] LABS: HEMOGLOBIN 6.7 g/dl (12.0-15.5)
[2019-09-29 07:39] LABS: CALCIUM LEVEL 8.5 MG/DL (8.8-10.2); CREATININE FOR GFR 2.23 MG/DL (0.55-1.30); GLOMERULAR FILTRATION RATE 22.6 (>39); POTASSIUM SERUM 5.5 MEQ/L (3.5-5.1)
--- NOTE | 2019-09-29 08:00 | REPVR ---
PROCEDURE INFORMATION: Exam: CT Head Without Contrast Exam date and time: 09/29/2019 7:35 AM Age: 79 years old Clinical indication: Injury or trauma; Fall; Initial encounter; Blunt trauma (contusions or hematomas); Consciousness not specified; Additional info: [facility] TECHNIQUE: Imaging protocol: Computed tomography of the head without contrast. Radiation optimization: All CT scans at this facility use at least one of these dose optimization techniques: automated exposure control; mA and/or kV adjustment per patient size (includes targeted exams where dose is matched to clinical indication); or iterative reconstruction. COMPARISON: CT Head without contrast 02/08/2019 5:41 PM There is prominent motion artifact limiting the exam. FINDINGS: Brain: The brain demonstrates diffuse volume loss. There is white matter hypodensity most consistent with chronic small vessel ischemic change. Ventricles: The ventricles and CSF spaces are proportionately enlarged. Bones/joints: No definite acute fracture. Limited. Sinuses: There is partial opacification of the right sphenoid sinus. Mastoid air cells: Visualized mastoid air cells are well aerated. Orbits: There are postoperative changes from prior cataract surgery. Vasculature: There is atherosclerotic disease involving the vertebral basilar system and cavernous ICAs. Soft tissues: Unremarkable. IMPRESSION: 1. There is prominent motion artifact limiting the exam. 2. No acute intracranial abnormality. However, repeat imaging is recommended when the patient is able. Electronically signed by: Efrain Zhou On 09/29/2019 08:01:01 AM
[2019-09-29] MEDS ORDERED: PANTOPRAZOLE 40MG VIAL (C9113 PER 1) IV ONE (08:15)
--- NOTE | 2019-09-29 08:19 | REPVR ---
PROCEDURE INFORMATION: Exam: CT Chest Without Contrast Exam date and time: 09/29/2019 7:35 AM Age: 79 years old Clinical indication: Pain; Other: Rib; Additional info: Eval for fractures TECHNIQUE: Imaging protocol: Computed tomography of the chest without contrast. 3D rendering (Not supervised by radiologist): MIP and/or 3D reconstructed images were created by the technologist. Radiation optimization: All CT scans at this facility use at least one of these dose optimization techniques: automated exposure control; mA and/or kV adjustment per patient size (includes targeted exams where dose is matched to clinical indication); or iterative reconstruction. COMPARISON: CT ANGIO CHEST 06/08/2016 3:55 AM FINDINGS: Lungs: There is mild peripheral interstitial thickening toward the bases in both lungs. There is a small band of peripheral density in the lingula, unchanged and probably due to postinflammatory There is minimal, nonspecific dependent density in the lung bases, likely mild atelectasis. Pleural space: No pleural effusions or pneumothorax identified. Heart: There is mild cardiomegaly. Coronary artery stents and/or prominent calcifications are present. Aorta: The aorta demonstrates mild atherosclerotic calcification. No aortic aneurysm. Lymph nodes: No lymphadenopathy is seen. Bones/joints: Large flowing endplate spurs and ossification of the anterior longitudinal ligament of the spine are noted. There are fractures of the T7 and T8 vertebrae, which are predominantly transverse in orientation extending through the vertebral bodies . There is also a fracture through the ossified anterior longitudinal ligament at T7. There is no definite involvement of the posterior elements, but the fracture at T8 may involve the right pedicle. No rib fractures are identified. Advanced degenerative changes of the shoulders are noted, incompletely assessed. Ossified bodies are seen within the recesses of the shoulder joints bilaterally. Soft tissues: There is mild paraspinous soft tissue swelling around the T7 and T8 vertebral bodies. The soft tissues appear otherwise unremarkable. IMPRESSION: 1. Horizontally oriented fractures of the T7 and T8 vertebrae, and a fracture through the ossified anterior longitudinal ligament at T7. The T8 fracture may involve the right pedicle but no definite involvement of the posterior elements is identified. Consider further assessment with dedicated imaging of the thoracic spine. Large flowing endplate spurs and ossification of the anterior longitudinal ligament throughout the thoracic spine, probably related to diffuse idiopathic skeletal hyperostosis. 2. Mild peripheral interstitial thickening toward the lung bases. 3. Advanced degenerative changes of the shoulders bilaterally, with multiple ossified intra-articular bodies, incompletely assessed on this exam. COMMENTS: Findings were discussed with JHON VERGARA at 09/29/2019 8:13 AM EDT. Electronically signed by: Linda Thorpe On 09/29/2019 08:19:39 AM
[2019-09-29] MEDS: PANTOPRAZOLE SODIUM 40 MG in D5W 50 ML IV SCH ×4 (08:58→21:52)
[2019-09-29] MEDS: fentaNYL 100 MCG/2 ML INJECTION (J3010) IV PRN ×2 (08:58→09:47)
--- NOTE | 2019-09-29 09:03 | REPVR ---
PROCEDURE INFORMATION: Exam: CT Thoracic Spine Without Contrast Exam date and time: 09/29/2019 8:52 AM Age: 79 years old Clinical indication: Injury or trauma; Fall; Initial encounter; Blunt trauma (contusions or hematomas); Additional info: T7,[address] chest TECHNIQUE: Imaging protocol: Computed tomography images of the thoracic spine without contrast. Radiation optimization: All CT scans at this facility use at least one of these dose optimization techniques: automated exposure control; mA and/or kV adjustment per patient size (includes targeted exams where dose is matched to clinical indication); or iterative reconstruction. COMPARISON: No relevant prior studies available. FINDINGS: Vertebrae: There is a nondisplaced oblique fracture traversing the T7 and T8 vertebral bodies. There is a vertical fracture at the junction of the right pedicle and vertebral body of T8. There are flowing osteophytes throughout the thoracic spine with bony bridging consistent with DISH. Discs/Spinal canal/Neural foramina: There is loss of disc space height throughout related to degenerative disc disease. No severe spinal canal stenosis. No significant neural foraminal narrowing. Epidural space: There is no evidence of an epidural collection. Soft tissues: There is soft tissue swelling in the adjacent posterior mediastinum. Lungs: Peripheral interstitial thickening is re-identified at the lung bases with atelectasis. IMPRESSION: 1. Nondisplaced oblique fracture through the T7 and T8 vertebral bodies with a vertical fracture line involving the junction of the right pedicle of T8 with the vertebral body. 2. No epidural collection or subluxation. 3. Probable DISH. Electronically signed by: Efrain Zhou On 09/29/2019 09:02:58 AM
[2019-09-29 09:29] LABS: INR 1.62; PROTHROMBIN TIME 19.6 SECONDS (11.8-14.0)
[2019-09-29 09:30] LABS: PARTIAL THROMBOPLASTIN TIME 30.5 SECONDS (25.0-38.4)
[2019-09-29] MEDS ORDERED: ONDANSETRON 4MG/2ML VIAL IV ONE (09:30)
[2019-09-29] MEDS ORDERED: METF-838 PO (10:23)
[2019-09-29] MEDS ORDERED: TORS10TA3 PO (10:23)
[2019-09-29] MEDS ORDERED: LOSA25TA14 PO (10:23)
[2019-09-29] MEDS ORDERED: METO5TA PO (10:23)
[2019-09-29] MEDS ORDERED: POTA20TA6 PO (10:23)
[2019-09-29] MEDS ORDERED: SPIR-10 PO (10:23)
[2019-09-29] MEDS ORDERED: ACETAMINOPHEN *IV* 650 MG in IV 1 EA IV PRN (12:00)
[2019-09-29] MEDS: LIDOCAINE 5% (LIDODERM) PATCH TD SCH (12:43)
[2019-09-29] MEDS: PERCOCET 5MG/325MG TAB PO PRN (12:44)
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
[2019-09-29] MEDS: ACETAMINOPHEN TAB 650MG DOSE (2X325MG) PO PRN (14:24)
[2019-09-29 15:48] LABS: HEMATOCRIT 27.3 % (36.0-47.0); HEMOGLOBIN 8.6 g/dl (12.0-15.5); MEAN CORPUSCULAR HEMOGLOBIN 30.3 pg (27.0-33.0); MEAN CORPUSCULAR HGB CONC 31.5 g/dl (32.0-36.5); MEAN CORPUSCULAR VOLUME 96.1 fl (80.0-96.0); PLATELET COUNT, AUTOMATED 251 10^3/uL (150-450); RED BLOOD COUNT 2.84 10^6/uL (4.00-5.40); WHITE BLOOD COUNT 16.7 10^3/uL (4.0-10.0)
[2019-09-29 16:40] LABS: BILIRUBIN, URINE MANUAL NEGATIVE (NEGATIVE); GLUCOSE, URINE (UA) MANUAL NEGATIVE (NEGATIVE); KETONE, URINE MANUAL NEGATIVE (NEGATIVE); UROBILINOGEN, URINE MANUAL NORMAL (NORMAL)
[2019-09-29] MEDS: SODIUM BICARBONATE 75 MEQ in NS 0.45% 1,000 ML IV SCH (16:59)
[2019-09-29 17:26] LABS: AMORPHOUS SEDIMENT, URINE LARGE AMOUNT (NEGATIVE); BACTERIA, URINE NONE SEEN; MUCUS, URINE SMALL AMOUNT (NEGATIVE); RBC, URINE 0-1 /hpf (0-3); SQUAMOUS EPITHELIAL CELL URINE LARGE AMOUNT /hpf (SMALL AMT)
[2019-09-29 17:27] LABS: HYALINE CAST, URINE NONE SEEN /lpf (0-1)
[2019-09-29] MEDS ORDERED: PERCOCET 5MG/325MG TAB PO ONE (18:00)
[2019-09-29 18:25] LABS: HEMATOCRIT 27.3 % (36.0-47.0); HEMOGLOBIN 8.7 g/dl (12.0-15.5); MEAN CORPUSCULAR HEMOGLOBIN 30.6 pg (27.0-33.0); MEAN CORPUSCULAR HGB CONC 31.9 g/dl (32.0-36.5); MEAN CORPUSCULAR VOLUME 96.1 fl (80.0-96.0); PLATELET COUNT, AUTOMATED 224 10^3/uL (150-450); RED BLOOD COUNT 2.84 10^6/uL (4.00-5.40); WHITE BLOOD COUNT 16.3 10^3/uL (4.0-10.0)
[2019-09-29] MEDS ORDERED: GLUCAGON INJ 1MG VIAL SC PRN (19:30)
[2019-09-29] MEDS ORDERED: DEXTROSE 50% 50 ML SYRINGE IV PRN (19:30)
[2019-09-29] MEDS ORDERED: GLUCOSE 4GM CHEW TABLET PO PRN (19:30)
[2019-09-29] MEDS: HumaLOG INSULIN (NovoLOG) PER UNIT SC SCH (21:00)
[2019-09-29] MEDS: **NOTE PATIENT COMMENT** MISC XX SCH (21:31)
[2019-09-29] MEDS: NYSTATIN 100,000 UNITS/GM TOPICAL PWD 15 GM TOP SCH (21:31)
[2019-09-30] VITALS (9 sets, daily range): BP systolic 98–142; BP diastolic 56–71
[2019-09-30] MEDS: PERCOCET 5MG/325MG TAB PO PRN ×3 (00:19→17:55)
[2019-09-30] MEDS: PANTOPRAZOLE SODIUM 40 MG in D5W 50 ML IV SCH ×4 (04:35→21:09)
[2019-09-30] MEDS: SODIUM BICARBONATE 75 MEQ in NS 0.45% 1,000 ML IV SCH ×2 (04:36→23:17)
[2019-09-30 06:18] LABS: HEMATOCRIT 23.9 % (36.0-47.0); HEMOGLOBIN 7.8 g/dl (12.0-15.5); MEAN CORPUSCULAR HEMOGLOBIN 30.8 pg (27.0-33.0); MEAN CORPUSCULAR HGB CONC 32.6 g/dl (32.0-36.5); MEAN CORPUSCULAR VOLUME 94.5 fl (80.0-96.0); PLATELET COUNT, AUTOMATED 216 10^3/uL (150-450); RED BLOOD COUNT 2.53 10^6/uL (4.00-5.40); WHITE BLOOD COUNT 11.4 10^3/uL (4.0-10.0)
[2019-09-30 06:34] LABS: ALBUMIN 2.6 GM/DL (3.2-5.2); BILIRUBIN,TOTAL 0.5 MG/DL (0.2-1.0); CALCIUM LEVEL 7.9 MG/DL (8.8-10.2); CREATININE FOR GFR 1.99 MG/DL (0.55-1.30); GLOMERULAR FILTRATION RATE 25.7 (>39); POTASSIUM SERUM 5.4 MEQ/L (3.5-5.1); TOTAL PROTEIN 5.7 GM/DL (6.4-8.2)
[2019-09-30] MEDS: HumaLOG INSULIN (NovoLOG) PER UNIT SC SCH ×4 (07:30→21:00)
[2019-09-30] MEDS: LIDOCAINE 5% (LIDODERM) PATCH TD SCH (09:10)
[2019-09-30] MEDS: NYSTATIN 100,000 UNITS/GM TOPICAL PWD 15 GM TOP SCH ×2 (09:10→21:10)
--- NOTE | 2019-09-30 10:41 | IPNPDOC ---
Text Note Date of Service The patient was seen on 09/30/19. NOTE Subjective: Pt c/o of thoracic and rib pain with deep inspiration. No CP/palp itations/sob. No N/V/abd pain. No further episodes of bleeding. PHYSICAL EXAMINATION: Vitals: (see below) General: No acute distress, laying comfortably in bed. HEENT: Moist mucous membranes. Neck: No JVD or lymphadenopathy Cardiac: RRR, No murmurs Pulm: diminished at the bases b/l. No wheezing, rhonchi Abd: NT/ND + BS Ext: No edema or cyanosis Neuro: Strength 5/5 BUE and BLE. CN 2-12 intact. LABORATORY DATA: See below. IMAGING: CT Chest IMPRESSION: 1. Horizontally oriented fractures of the T7 and T8 vertebrae, and a fracture through the ossified anterior longitudinal ligament at T7. The T8 fracture may involve the right pedicle but no definite involvement of the posterior elements is identified. Consider further assessment with dedicated imaging of the thoracic spine. Large flowing endplate spurs and ossification of the anterior longitudinal ligament throughout the thoracic spine, probably related to diffuse idiopathic skeletal hyperostosis. 2. Mild peripheral interstitial thickening toward the lung bases. 3. Advanced degenerative changes of the shoulders bilaterally, with multiple ossified intra-articular bodies, incompletely assessed on this exam. CT Head IMPRESSION: 1. There is prominent motion artifact limiting the exam. 2. No acute intracranial abnormality. However, repeat imaging is recommended when the patient is able. CT thoracic spine IMPRESSION: 1. Nondisplaced oblique fracture through the T7 and T8 vertebral bodies with a vertical fracture line involving the junction of the right pedicle of T8 with the vertebral body. 2. No epidural collection or subluxation. 3. Probable DISH. ASSESSMENT/PLAN: 1. Upper GI Bleed on Xarelto. NPO. PPI drip. Hold Xarelto. 2U PRBC transfusion 09/28. Dr. Polanco on consult for possible endoscopy. Transfuse additional 1UPRBC today. 2. ELISA on ckd/ metabolic acidosis/hyperkalemia. Likely 2/2 above with episodes of hypotension. Hold diuretics and losartan. Started on bicarb drip per nephro. Appreciate Nephro input. 3. Diastolic HF; compensated; defer diuretics to nephro 4. T7/8 fx; Dr. Menon aware; consulted. notes nonsurgical 5.AF rate controlled. Hold xarelto given gi bleed 6. DM SSI. hold po agents. 7. hypothyroidism on synthroid DVT Prophy: SCDs DNR/DNI. May need placement VS,Fishbone, I+O VS, Fishbone, I+O Laboratory Tests 09/29/19 15:30 09/29/19 18:15 09/30/19 05:22 Vital Signs Date Time Temp Pulse Resp B/P (MAP) Pulse Ox O2 Delivery O2 Flow Rate FiO2 09/30/19 08:00 97.0 76 18 98/56 (70) 96 Room Air I&O- Last 24 Hours up to 6 AM 09/30/19 05:59 Intake Total 2540 ml Output Total 0 ml Balance 2540 ml ANITA PAT MD Sep 30, 2019 10:41
--- NOTE | 2019-09-30 11:42 | REPVR ---
PROCEDURE INFORMATION: Exam: XR Ribs, Bilateral Exam date and time: 09/30/2019 11:22 AM Age: 79 years old Clinical indication: Chest wall pain; Bilateral; Additional info: Rib pain R/O FX TECHNIQUE: Imaging protocol: XR of the bilateral ribs. Views: 3 views. COMPARISON: CT Chest without contrast 09/29/2019 7:34 AM FINDINGS: Bones/joints: Degenerative changes again involve the spine. Previously noted fractures of the T7 and T8 vertebrae are not as well visualized. Again, no rib fracture is identified. Vasculature: Atherosclerotic vascular calcifications are again present. Soft tissues: The soft tissues appear grossly unremarkable. IMPRESSION: No rib fracture identified, as on CT of 1 day prior. Electronically signed by: Jann Velez On 09/30/2019 11:42:31 AM
[2019-09-30 12:59] LABS: HEMATOCRIT 24.7 % (36.0-47.0); HEMOGLOBIN 8.1 g/dl (12.0-15.5); MEAN CORPUSCULAR HGB CONC 32.8 g/dl (32.0-36.5); MEAN CORPUSCULAR VOLUME 94.6 fl (80.0-96.0); PLATELET COUNT, AUTOMATED 230 10^3/uL (150-450); RED BLOOD COUNT 2.61 10^6/uL (4.00-5.40); WHITE BLOOD COUNT 12.1 10^3/uL (4.0-10.0)
[2019-09-30 20:33] LABS: HEMATOCRIT 32.4 % (36.0-47.0); HEMOGLOBIN 9.6 g/dl (12.0-15.5); MEAN CORPUSCULAR HEMOGLOBIN 30.7 pg (27.0-33.0); MEAN CORPUSCULAR HGB CONC 29.6 g/dl (32.0-36.5); MEAN CORPUSCULAR VOLUME 103.5 fl (80.0-96.0); PLATELET COUNT, AUTOMATED 203 10^3/uL (150-450); RED BLOOD COUNT 3.13 10^6/uL (4.00-5.40); WHITE BLOOD COUNT 11.5 10^3/uL (4.0-10.0)
[2019-09-30] MEDS ORDERED: PERCOCET PO (20:37)
--- NOTE | 2019-09-30 20:49 | DS.PDOC ---
Discharge Summary General Date of Admission Sep 29, 2019 at 11:33 Date of Discharge 09/30/19 Attending Physician: ANITA PAT MD Specialist/Consultants Involve: Bob Barnes MD Specialist/Consultants Involve Dr. Rausch Discharge Summary PROCEDURES PERFORMED DURING STAY: None. ADMITTING/DISCHARGE DIAGNOSES: 1. Burst Fracture T7, T8 2. Symptomatic anemia 2/2 GIB; xarelto held 3. ELISA on CKD 4. Metabolic acidosis 5. AF ; xarelto on hold 6. Diastolic HF, compensated COMPLICATIONS/CHIEF COMPLAINT: Falls HISTORY OF PRESENT ILLNESS/HOSPITAL COURSE: This is a 79-year-old female with history of chronic kidney disease stage III, hypertension, diabetes, chronic atrial fibrillation on anticoagulation, hypothyroidism, reflux, chronic diastolic heart failure, mild aortic sclerosis, mild mitral regurgitation, anemia, gastritis, moderate pulm onary hypertension, chronic back pain and stasis dermatitis with venous insufficiency who presents with multiple falls. Pt has been having melanotic bowel movements for the past 3 days. Recently d/c from ARU. Pt presents with symptomatic anemia, now getting 2U PRBC transfusion. No active bleeding at this time, although had melana earlier today. Pt also noted to be in ELISA with metabolic acidosis, hyperkalemia, borderline hypotension. On bicarb drip per nephro. Currently hemodynamically stable. Complaints of Thoracic pain s/p fall. Has T7,8 fx; Dr. Menon aware; notes non surgical. No focal deficits. Over the course of hospitalization the patient's Hb remained stable after [address] U PRBC. Discussed with Dr. Polanco, with no plan to scope pt at this time. Discussed with Dr. Rausch who recc d/c bicarb drip on transfer. Received a call from Dr. Barnes who notes that the T7,T8 fx is a burst fx and is unstable for him to manage, and recommends that i transfer pt out. I have called [place], however no beds available. I have called [facility], and Dr. De Paz has graciously accepted pt onto his service. Pt is hemodynamically stable. DISCHARGE MEDICATIONS: Please see below. ALLERGIES: Please see below. PHYSICAL EXAMINATION ON DISCHARGE: General: No acute distress, laying comfortably in bed. HEENT: Moist mucous membranes. Neck: No JVD or lymphadenopathy Cardiac: RRR, No murmurs Pulm: diminished at the bases b/l. No wheezing, rhonchi Abd: NT/ND + BS Ext: No edema or cyanosis Neuro: Strength 5/5 BUE and BLE. CN 2-12 intact. IMAGING: CT Chest IMPRESSION: 1. Horizontally oriented fractures of the T7 and T8 vertebrae, and a fracture through the ossified anterior longitudinal ligament at T7. The T8 fracture may involve the right pedicle but no definite involvement of the posterior elements is identified. Consider further assessment with dedicated imaging of the thoracic spine. Large flowing endplate spurs and ossification of the anterior longitudinal ligament throughout the thoracic spine, probably related to diffuse idiopathic skeletal hyperostosis. 2. Mild peripheral interstitial thickening toward the lung bases. 3. Advanced degenerative changes of the shoulders bilaterally, with multiple ossified intra-articular bodies, incompletely assessed on this exam. CT Head IMPRESSION: 1. There is prominent motion artifact limiting the exam. 2. No acute intracranial abnormality. However, repeat imaging is recommended when the patient is able. CT thoracic spine IMPRESSION: 1. Nondisplaced oblique fracture through the T7 and T8 vertebral bodies with a vertical fracture line involving the junction of the right pedicle of T8 with the vertebral body. 2. No epidural collection or subluxation. 3. Probable DISH. PROGNOSIS: Fair ACTIVITY: Bedrest DIET: Renal diet DISCHARGE PLAN/DISPOSITION: [facility] DISCHARGE INSTRUCTIONS: 1. F/u with PCP, Cardio, Renal, Ortho as recommended by [facility] DISCHARGE CONDITION: Stable. TIME SPENT ON DISCHARGE: Greater than 30 minutes. Vital Signs/I&Os Vital Signs Date Time Temp Pulse Resp B/P (MAP) Pulse Ox O2 Delivery O2 Flow Rate FiO2 09/30/19 17:55 18 Room Air 09/30/19 16:00 96.9 77 140/63 (88) 95 I&O- Last 24 Hours up to 6 AM 09/30/19 06:00 Intake Total 2540 ml Output Total 0 ml Balance 2540 ml Laboratory Data Labs 24H Laboratory Tests 2 09/30/19 05:22: Nucleated Red Blood Cells % (auto) 0.2H, Anion Gap 10, Glomerular Filtration Rate 25.7L, Calcium Level 7.9L, Magnesium Level 3.0H, Total Bilirubin 0.5, Aspartate Amino Transf (AST/SGOT) 18, Alanine Aminotransferase (ALT/SGPT) 21, Alkaline Phosphatase 109, Total Protein 5.7L, Albumin 2.6L, Albumin/Globulin Ratio 0.8L 8/24/20 12:30: Nucleated Red Blood Cells % (auto) 0.0 09/30/19 19:20: Nucleated Red Blood Cells % (auto) 0.0 CBC/BMP Laboratory Tests 09/30/19 05:22 09/30/19 12:30 09/30/19 19:20 Microbiology Microbiology 09/29/19 Urine Culture, Received Pending 09/29/19 Blood Culture - Preliminary, Resulted No growth after 24 hours . All specim... 09/29/19 Blood Culture - Preliminary, Resulted No growth after 24 hours . All specim... Discharge Medications Scheduled Ascorbic Acid (Vitamin C) 500 Mg Tablet, 500 MG PO DAILY, (Reported) Atenolol (Atenolol) 25 Mg Tablet, 25 MG PO DAILY, (Reported) Cholecalciferol (Vitamin D3) (Vitamin D3) 125 Mcg Capsule, 5,000 UNITS PO DAILY, (Reported) Chromium Picolinate (Chromium Picolinate) 1,000 Mcg Tablet, 1,000 MCG PO BID, (Reported) Dulaglutide (Trulicity) 1.5 Mg/0.5 Ml Pen.injctr, 1.5 MG SC QWEEK, (Reported) TUESDAYS Ferrous Sulfate (Iron) 325 Mg Tablet, 65 MG PO DAILY, (Reported) Glucosamine/D3/Boswellia Kayleen (Osteo Bi-Flex Caplet) 1 Each Tablet, 1 TAB PO BID, (Reported) Lactobacillus Acidophilus (Probiotic) 1 Each Capsule, 2 CAP PO BID, (Reported) Levothyroxine Sodium (Synthroid) 100 Mcg Tablet, 100 MCG PO DAILY, (Reported) TAKES AT 0500 Magnesium (Magnesium) 250 Mg Tablet, 500 MG PO QHS, (Reported) Mineral Oil/Petrolatum,White (Soothe Night Time Lub Eye Oint) 3.5 Gm Oint...g., 1 APLCT OU BID, (Reported) Pancreat/Betaine/Pepsin/Bromel (Super Enzyme Caps) 1 Each Capsule, 2 EACH PO QHS, (Reported) Ubidecarenone (Coq-10) 100 Mg Capsule, 100 MG PO BID, (Reported) [cinnergy] , 2 TAB PO DAILY, (Reported) [nattokinase-serrape] , 2 TAB PO QHS, (Reported) Scheduled PRN Oxycodone/Acetaminophen (Oxycodone-Acetaminophen 5-325) 1 Each Tablet, 1 TAB PO Q4HP PRN for severe pain S-Adenosylmethionine Sul Tosyl (Willard-E) 400 Mg Tablet, 400 MG PO BID PRN for DEPRESSION, (Reported) Allergies Coded Allergies: Tricyclic Compounds (Verified Allergy, Mild, rash, 05/16/18) Influenza Virus Vaccines (Verified Allergy, Unknown, 05/16/18) "never so sick in my life" amoxicillin (Verified Allergy, Unknown, 05/16/18) clavulanic acid (Verified Allergy, Unknown, 05/16/18) phenylephrine (Verified Allergy, Unknown, 05/16/18) morphine (Verified Adverse Reaction, Mild, nausea/vomiting, 09/29/19) ANITA PAT MD Sep 30, 2019 20:49
[2019-09-30] MEDS: **NOTE PATIENT COMMENT** MISC XX SCH (21:14)
[2019-10-01] VITALS: BP 124/58
[2019-10-01 00:59] LABS: HEMATOCRIT 28.2 % (36.0-47.0); HEMOGLOBIN 8.9 g/dl (12.0-15.5); MEAN CORPUSCULAR HEMOGLOBIN 30.2 pg (27.0-33.0); MEAN CORPUSCULAR HGB CONC 31.6 g/dl (32.0-36.5); MEAN CORPUSCULAR VOLUME 95.6 fl (80.0-96.0); PLATELET COUNT, AUTOMATED 215 10^3/uL (150-450); RED BLOOD COUNT 2.95 10^6/uL (4.00-5.40); WHITE BLOOD COUNT 13.4 10^3/uL (4.0-10.0)
[2019-10-01] MEDS: PERCOCET 5MG/325MG TAB PO PRN ×4 (02:05→20:03)
[2019-10-01] MEDS: PANTOPRAZOLE SODIUM 40 MG in D5W 50 ML IV SCH ×3 (02:05→14:52)
[2019-10-01 04:00] VITALS: BP 118/56
[2019-10-01 06:21] LABS: HEMATOCRIT 26.7 % (36.0-47.0); HEMOGLOBIN 8.6 g/dl (12.0-15.5); MEAN CORPUSCULAR HEMOGLOBIN 30.3 pg (27.0-33.0); MEAN CORPUSCULAR HGB CONC 32.2 g/dl (32.0-36.5); PLATELET COUNT, AUTOMATED 210 10^3/uL (150-450); RED BLOOD COUNT 2.84 10^6/uL (4.00-5.40); WHITE BLOOD COUNT 11.9 10^3/uL (4.0-10.0)
[2019-10-01] MEDS: HumaLOG INSULIN (NovoLOG) PER UNIT SC SCH ×4 (07:30→20:04)
[2019-10-01 08:00] VITALS: BP 133/70
[2019-10-01] MEDS: LIDOCAINE 5% (LIDODERM) PATCH TD SCH (08:24)
[2019-10-01] MEDS: NYSTATIN 100,000 UNITS/GM TOPICAL PWD 15 GM TOP SCH ×2 (08:26→20:04)
[2019-10-01] MEDS: SODIUM BICARBONATE 75 MEQ in NS 0.45% 1,000 ML IV SCH (11:32)
[2019-10-01 12:00] VITALS: BP_DIAS 139
[2019-10-01] MEDS ORDERED: FUROSEMIDE 40MG/4ML VIAL (J1940) IV ONE (12:30)
--- NOTE | 2019-10-01 14:56 | IPNPDOC ---
Text Note Date of Service The patient was seen on 10/01/19. NOTE Subjective: Pt c/o of thoracic pain, however better controlled. No N/V/abd p ain. No further episodes of bleeding. PHYSICAL EXAMINATION: Vitals: (see below) General: No acute distress, laying comfortably in bed. HEENT: Moist mucous membranes. Neck: No JVD or lymphadenopathy Cardiac: RRR, No murmurs Pulm: diminished at the bases b/l. No wheezing, rhonchi Abd: NT/ND + BS Ext: No edema or cyanosis Neuro: Strength 5/5 BUE and BLE. CN 2-12 intact. LABORATORY DATA: See below. IMAGING: CT Chest IMPRESSION: 1. Horizontally oriented fractures of the T7 and T8 vertebrae, and a fracture through the ossified anterior longitudinal ligament at T7. The T8 fracture may involve the right pedicle but no definite involvement of the posterior elements is identified. Consider further assessment with dedicated imaging of the thoracic spine. Large flowing endplate spurs and ossification of the anterior longitudinal ligament throughout the thoracic spine, probably related to diffuse idiopathic skeletal hyperostosis. 2. Mild peripheral interstitial thickening toward the lung bases. 3. Advanced degenerative changes of the shoulders bilaterally, with multiple ossified intra-articular bodies, incompletely assessed on this exam. CT Head IMPRESSION: 1. There is prominent motion artifact limiting the exam. 2. No acute intracranial abnormality. However, repeat imaging is recommended when the patient is able. CT thoracic spine IMPRESSION: 1. Nondisplaced oblique fracture through the T7 and T8 vertebral bodies with a vertical fracture line involving the junction of the right pedicle of T8 with the vertebral body. 2. No epidural collection or subluxation. 3. Probable DISH. ASSESSMENT/PLAN: 1. Upper GI Bleed while on Xarelto. Change PPI to IV BID. Hold Xarelto. s/p 3U PRBC transfusion. Dr. Polanco- [facility] no endoscopy at this time. Hb stable. 2. ELISA on ckd/ metabolic acidosis/hyperkalemia. Likely 2/2 above with episodes of hypotension. Hold diuretics and losartan. s/p bicarb drip per nephro. Appreciate Nephro input. 3. Volume overload; Diastolic HF; Lasix PRN per nephro 4. T7/8 fx; Dr. Menon aware; consulted. notes nonsurgical on admission; Dr. Barnes re-eval and notes this is a BURST Fx and pt needs to be transferred as we are unable to manage it here. Awaiting bed placement for transfer. 5.AF rate controlled. Hold xarelto given gi bleed 6. DM SSI. hold po agents. 7. hypothyroidism on synthroid DVT Prophy: SCDs DNR/DNI. Pending transfer for BURST fx T7,T8. VS,Fishbone, I+O VS, Fishbone, I+O Laboratory Tests 09/30/19 19:20 10/01/19 00:50 10/01/19 05:53 Vital Signs Date Time Temp Pulse Resp B/P (MAP) Pulse Ox O2 Delivery O2 Flow Rate FiO2 10/01/19 14:52 18 Room Air 10/01/19 12:00 97.5 77 /139 (93) 96 I&O- Last 24 Hours up to 6 AM 10/01/19 05:59 Intake Total 2000 ml Output Total 200 ml Balance 1800 ml ANITA PAT MD Oct 01, 2019 14:56
[2019-10-01 15:18] LABS: CALCIUM LEVEL 8.2 MG/DL (8.8-10.2); CREATININE FOR GFR 1.6 MG/DL (0.55-1.30); GLOMERULAR FILTRATION RATE 33.1 (>39); MAGNESIUM LEVEL 2.8 MG/DL (1.8-2.4); POTASSIUM SERUM 4.8 MEQ/L (3.5-5.1)
[2019-10-01 16:00] VITALS: BP 148/68
[2019-10-01 16:52] LABS: ALBUMIN 2.5 GM/DL (3.2-5.2); BILIRUBIN,TOTAL 0.5 MG/DL (0.2-1.0); CALCIUM LEVEL 8.1 MG/DL (8.8-10.2); CREATININE FOR GFR 1.58 MG/DL (0.55-1.30); GLOMERULAR FILTRATION RATE 33.6 (>39); MAGNESIUM LEVEL 2.7 MG/DL (1.8-2.4); POTASSIUM SERUM 4.5 MEQ/L (3.5-5.1)
[2019-10-01] MEDS: PANTOPRAZOLE 40MG VIAL (C9113 PER 1) IV SCH (17:00)
[2019-10-01 20:00] VITALS: BP 134/63
[2019-10-01] MEDS: **NOTE PATIENT COMMENT** MISC XX SCH (20:04)
[2019-10-01] MEDS: ACETAMINOPHEN TAB 650MG DOSE (2X325MG) PO PRN (22:41)
[2019-10-02] VITALS: BP 109/53
[2019-10-02] MEDS: PERCOCET 5MG/325MG TAB PO PRN ×6 (00:03→20:03)
[2019-10-02 04:00] VITALS: BP 124/58
[2019-10-02] MEDS ORDERED: ONDANSETRON 4MG/2ML VIAL IV SCH (04:00)
[2019-10-02] MEDS: PANTOPRAZOLE 40MG VIAL (C9113 PER 1) IV SCH ×2 (04:12→16:25)
[2019-10-02] MEDS: ONDANSETRON 4MG/2ML VIAL IV PRN ×2 (04:22→20:02)
[2019-10-02] MEDS: ACETAMINOPHEN TAB 650MG DOSE (2X325MG) PO PRN (06:40)
[2019-10-02] MEDS: HumaLOG INSULIN (NovoLOG) PER UNIT SC SCH ×3 (08:24→18:20)
[2019-10-02] MEDS: LIDOCAINE 5% (LIDODERM) PATCH TD SCH (08:43)
[2019-10-02 10:00] VITALS: BP 108/60
--- NOTE | 2019-10-02 11:12 | IPNPDOC ---
Text Note Date of Service The patient was seen on 10/02/19. NOTE Subjective: No acute changes overnight. No N/V/abd pain. No further episodes of bleeding. PHYSICAL EXAMINATION: Vitals: (see below) General: No acute distress, laying comfortably in bed. HEENT: Moist mucous membranes. Neck: No JVD or lymphadenopathy Cardiac: RRR, No murmurs Pulm: diminished at the bases b/l. No wheezing, rhonchi Abd: NT/ND + BS Ext: No edema or cyanosis Neuro: Strength 5/5 BUE and BLE. CN 2-12 intact. LABORATORY DATA: See below. IMAGING: CT Chest IMPRESSION: 1. Horizontally oriented fractures of the T7 and T8 vertebrae, and a fracture through the ossified anterior longitudinal ligament at T7. The T8 fracture may involve the right pedicle but no definite involvement of the posterior elements is identified. Consider further assessment with dedicated imaging of the thoracic spine. Large flowing endplate spurs and ossification of the anterior longitudinal ligament throughout the thoracic spine, probably related to diffuse idiopathic skeletal hyperostosis. 2. Mild peripheral interstitial thickening toward the lung bases. 3. Advanced degenerative changes of the shoulders bilaterally, with multiple ossified intra-articular bodies, incompletely assessed on this exam. CT Head IMPRESSION: 1. There is prominent motion artifact limiting the exam. 2. No acute intracranial abnormality. However, repeat imaging is recommended when the patient is able. CT thoracic spine IMPRESSION: 1. Nondisplaced oblique fracture through the T7 and T8 vertebral bodies with a vertical fracture line involving the junction of the right pedicle of T8 with the vertebral body. 2. No epidural collection or subluxation. 3. Probable DISH. ASSESSMENT/PLAN: 1. Upper GI Bleed while on Xarelto. cont PPI to IV BID. Hold Xarelto. s/p [facility] Hb stable. Advance diet 2. ELISA on ckd/ metabolic acidosis/hyperkalemia. Likely 2/2 above with episodes of hypotension. Hold losartan. Lasix PRN. s/p bicarb drip per nephro. Appreciate Nephro input. 3. Volume overload; Diastolic HF; Lasix PRN per nephro 4. T7/8 fx; Dr. Menon aware; consulted. notes nonsurgical on admission; Dr. Barnes re-eval and notes this is a BURST Fx and pt needs to be transferred as we are unable to manage it here. Awaiting bed placement for transfer. 5.AF rate controlled. Hold xarelto given gi bleed 6. DM SSI. hold po agents. 7. hypothyroidism on synthroid DVT Prophy: SCDs DNR/DNI. Pending transfer for BURST fx T7,T8. VS,Fishbone, I+O VS, Fishbone, I+O Laboratory Tests 10/01/19 15:35 Vital Signs Date Time Temp Pulse Resp B/P (MAP) Pulse Ox O2 Delivery O2 Flow Rate FiO2 10/02/19 10:00 97.9 81 16 108/60 (76) 98 Room Air I&O- Last 24 Hours up to 6 AM 10/02/19 05:59 Intake Total 1940 ml Output Total 1125 ml Balance 815 ml ANITA PAT MD Oct 02, 2019 11:12
[2019-10-02] MEDS: NYSTATIN 100,000 UNITS/GM TOPICAL PWD 15 GM TOP SCH (13:13)
[2019-10-02 14:00] VITALS: BP 106/60
[2019-10-02 14:56] LABS: BASO % 0.3 % (0.0-1.0); EOS # 0.4 10^3/uL (0.0-0.5); EOS % 3.4 % (0.0-3.0); HEMATOCRIT 30.1 % (36.0-47.0); HEMOGLOBIN 9.3 g/dl (12.0-15.5); LYMPH # 1.6 10^3/uL (1.5-5.0); LYMPH % 12.9 % (24.0-44.0); MEAN CORPUSCULAR HGB CONC 30.9 g/dl (32.0-36.5); MEAN CORPUSCULAR VOLUME 97.1 fl (80.0-96.0); MONO # 0.6 10^3/uL (0.0-0.8); MONO % 5.2 % (0.0-5.0); NEUTROPHILS # 9.3 10^3/uL (1.5-8.5); NEUTROPHILS % 77.5 % (36.0-66.0); PLATELET COUNT, AUTOMATED 238 10^3/uL (150-450)
[2019-10-02 14:59] LABS: CREATININE FOR GFR 1.55 MG/DL (0.55-1.30); GLOMERULAR FILTRATION RATE 34.3 (>39); POTASSIUM SERUM 4.4 MEQ/L (3.5-5.1)
[2019-10-02 19:05] VITALS: BP 110/50
--- NOTE | 2019-10-09 12:27 | CR ---
DATE: 09/29/2019 CHIEF COMPLAINT: T7 and T8 fractures. HISTORY OF PRESENT ILLNESS: This 79-year-old female had a fall a couple of weeks ago. She was experiencing rib pain. She had another fall at home trying to get out to a chair and she fell directly onto her bottom. She had difficulty mobilizing and lower back pain. She denied lower extremity numbness or weakness, as well as bowel or bladder dysfunction or changes and perianal numbness. She was admitted for symptomatic anemia and transfusion from gastrointestinal (GI) bleed. PAST MEDICAL HISTORY: - Chronic kidney disease (CKD) stage III. - Hypertension. - Diabetes. - AFib on anticoagulation. - Hypothyroidism. - Reflux. - Chronic diastolic heart failure. - Aortic sclerosis. - Mitral regurgitation. - Anemia. - Gastritis. - Pulmonary hypertension. - Chronic back pain. - Stasis dermatitis. - Multiple falls. MEDICATIONS: - vitamin C - Atenolol - vitamin D - chromium - Trulicity - iron - Glimepiride - losartan - levothyroxine - magnesium - metformin - metolazone - potassium - Xarelto - spironolactone - torsemide - Co-Q10 ALLERGIES: TRICYCLIC COMPOUNDS, INFLUENZA VACCINE, AMOXICILLIN, CLAVULANIC ACID, PHENYLEPHRINE, MORPHINE. PAST SURGICAL HISTORY: - Coronary artery stents. - Tonsillectomy. - Bilateral total knee arthroplasty. - Repair of mandibular fracture and clavicle. SOCIAL HISTORY: Denies tobacco, alcohol, or illicit drugs. She lives alone on her own. She lives in a house. She currently has a roommate. She is a nonsmoker. She usually walks with a walker. PHYSICAL EXAMINATION: A 79-year-old female who looks her stated age. She has increased BMI. No steps or gaps in her cervical, thoracic, or lumbar spine. She has pain to the mid thoracic spine, as well as pain in the left ribs. Normal sensation lower extremities. L2 to S1 2/2. In terms of the lower extremity strength exam, she has 4+/5 strength at L2 and L3, 5/5 L4 to S1. Plantars are downgoing. Reflexes equivocal. No clonus or hyperreflexia in the lower extremities. Feet are warm and well-perfused. Good dorsalis pedis pulses on both sides. DIAGNOSTIC STUDIES: Thoracic spine CT was reviewed by myself, as well as the radiologist. There is a minimally displaced oblique fracture between the T7 and T8 vertebral bodies with a vertical fracture line involving the junction of the right pedicle of T8 vertebral body. There is probable diffuse idiopathic skeletal hyperostosis (DISH). No obvious widening of the interspinous distance. ASSESSMENT AND PLAN: This is a 79-year-old female who has vertebral body fractures of T7 and T8. This may involve the posterior elements. She may also have an element of diffuse idiopathic skeletal hyperostosis (DISH) that is contributing to this fracture as well. In my opinion, the best course of action will likely be nonoperative; however, I recommend that she be on bed rest until she is able to be formally evaluated by a spine surgeon. Dr. Barnes is in the office tomorrow and I will let him know that I would appreciate his opinion on this womans management in regards to her spine. I suspect this will likely be nonoperative with a brace and eventual standing flexion and extension views of the thoracic spine to confirm no obvious instability; but for now, we will be safe and place her on bed rest until formal spine consult is able to be done. CUBA
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
--- NOTE | 2019-10-09 12:49 | CR ---
DATE: 09/29/2019 REASON FOR CONSULTATION: GI bleed. HISTORY OF PRESENT ILLNESS: The patient is a 79-year-old woman who suffers from multiple medical problems. She has morbid obesity. She has stage 3 chronic kidney disease, hypertension, diabetes, chronic atrial fibrillation, hypothyroidism, as well as some chronic diastolic heart failure. She has some chronic back pain and has recently been having some falls at home. She is on anticoagulation for her atrial fibrillation. Over the last several days she has noticed very dark black bowel movements. The patient had recently been in the acute rehabilitation unit following an admission for acute kidney injury in mid August. She presented to the Emergency Department today complaining of several recent falls with pain in her right posterolateral ribs. She was apparently weak at the time she was picked up by the ambulance. In the Emergency Department she was found to have a significant drop in her hemoglobin and hematocrit from her most recent lab work. She was also noted to be in acute renal failure with a BUN of 124 and a creatinine of 2.23. She has been admitted by the Hospitalist for management of her multiple medical issues and for transfusion. I was consulted to evaluate the patient in the event that endoscopy is felt to be warranted on a more urgent basis. MEDICAL HISTORY: The patient's past medical history is significant for: Morbid obesity. Diabetes mellitus type 2. History of hypertension. Coronary artery disease. Iron deficiency anemia with was evaluated with endoscopy last fall. Hypothyroidism. Atrial fibrillation, on anticoagulation with Xarelto. Hypertensive heart disease with some diastolic dysfunction. History of chronic kidney disease approximately stage 3. SURGICAL HISTORY: The patient's past surgical history is significant for: Bilateral cataract surgery. Tonsil and adenoid surgery. Coronary stents placed. D&C. She has undergone bilateral knee surgery. She had a right total knee in 2002. Left total knee in 2001. In October of 2018 the patient had undergone upper and lower endoscopy by Dr. Joseph. FAMILY HISTORY: The patient's family history is not helpful at this point. SOCIAL HISTORY: The patient denies smoking or significant alcohol intake. REVIEW OF SYSTEMS: The patient has been feeling weak. She is complaining bitterly of right posterior rib pain. She says she has fallen at home a number of times. She reports that she usually falls backwards and is uninjured but on this most recent occasion she fell differently and complains of pain in the ribs. Apparently this fall was several days ago at least. She is not having any chest pain other than from the ribs. She denies shortness of breath or wheezing. She is not having any abdominal pain at all. She has noted the dark stools. ALLERGIES: The patient has several reported allergies including influenza vaccine, tricyclic compounds, Amoxicillin, Clavulanic Acid, Morphine and Phenylephrine. MEDICATIONS: At the time of admission are listed as: - atenolol 25 mg p.o. daily - Dulaglutide 1.5 mg subcutaneously weekly, on Tuesdays - Glimepiride 2 mg p.o. daily - levothyroxine 100 mcg p.o. daily - Losartan 25 mg p.o. daily - Metformin one gram p.o. twice daily. - potassium Chloride 40 mEq p.o. daily - rivaroxaban 15 mg p.o. daily - spironolactone 25 mg p.o. daily - Torsemide 30 mg p.o. twice daily. - ascorbic acid - cholecalciferol - chromium picolinate - ferrous sulfate - glucosamine - D-3 Boswellia - lactobacillus acidophilus - magnesium - metolazone - mineral oil - Super enzyme caps - Willard-E - Co-Q 10 - Synergy - another DEEPAK kinase serape supplement LABORATORY STUDIES: Today white count of 16, hemoglobin of 6.7, hematocrit of 20.6 and a platelet count of 263,000. Her most recent labs on August 27 had shown a hemoglobin of 10, hematocrit of 31. Her chemistries today showed a sodium of 132, potassium 5.5, chloride 108, CO2 of 13, BUN of 124, creatinine 2.2 and a glucose of 167. Again, on August 27 her BUN was 43 with a creatinine of 1.48. IMAGING DATA: She had x-rays in the Emergency Department that included a thoracic spine CT, chest CT and head CT. The head CT was of limited value given motion artifact. The CT of the chest and the thoracic spine confirmed extensive bridging osteophytes and arthritic changes. She did have a fracture through the bodies of the T-7 and T-8 vertebral bodies. These were nondisplaced. There were no rib fractures apparent. PHYSICAL EXAMINATION: GENERAL APPEARANCE: The patient is sitting up in the bed, drinking clear liquids when I came to her room. She appears older than her stated age of 79 years. She does show evidence of morbid obesity. SKIN: Warm and dry. HEENT: Sclerae are anicteric. HEART: Regular rhythm. LUNGS: Generally clear. She does have some bruising over the right posterolateral ribs at about the T-6 through 8 level. She has a Lidoderm patch in place on this area. ABDOMEN: Obese, soft and without significant tenderness. IMPRESSION: Anemia with recent drop in hemoglobin and hematocrit suggestive of GI bleeding. This seems to be most likely related to an upper GI bleed associated with her history of gastritis and her use of Xarelto. Thoracic spine vertebral body fractures at T-7 and T-8 associated with recent fall. Atrial fibrillation, chronic. Acute kidney injury overlying chronic kidney disease stage 3. Morbid obesity. Diabetes mellitus type 2. Hypothyroidism. Hypertension. History of coronary artery disease, status post stenting. RECOMMENDATIONS: At this point the patient does not appear appropriate or in need of an urgent endoscopy. She has been passing some melena but her vital signs are stable and she has not had any bleeding very recently here in the hospital. She has received already one unit of blood and the second is transfusing. She has multiple medical issues as noted including her worsened renal failure. I would recommend holding her Xarelto for now. Management of her back pain in accordance with all the issues ongoing may make her care somewhat more difficult. If there is evidence of more acute bleeding, then an upper endoscopy would be my first recommendation. She did just have upper and lower endoscopies in October 2018. CUBA
--- NOTE | 2019-10-16 12:53 | ECGEPIP ---
[facility] - ED Test Date: 2019-09-29 Pat Name: CARMENCITA AYON Department: Room: Gender: Female Gore Maker: beverly : 1940 Requested By: JHON VERGARA Order Number: [id number] Reading MD: Ignacio Zaidi Measurements Intervals [place] Rate: 91 P: MS: 0 QRS: 62 QRSD: 114 T: 48 QT: 375 QTc: 461 Interpretive Statements ATRIAL FIBRILLATION MODERATE INTRAVENTRICULAR CONDUCTION DELAY ABNORMAL RHYTHM ECG SEE DOWNTIME SCANNED REPORT
--- NOTE | 2019-11-15 15:20 | IPN ---
DATE: 09/30/2019 SUBJECTIVE: Mrs. Melendez is seen this morning at her bedside. She is complaining of pain in her legs. She also has a complaint of pain in her ribcage. She denies any nausea or vomiting at present. She was admitted yesterday with possible upper GI bleed and has been transfused 2 units of packed RBCs. She is also receiving IV fluid with sodium bicarbonate due to acute kidney injury and metabolic acidosis. PHYSICAL EXAMINATION: VITAL SIGNS: Temperature 97 degrees Fahrenheit, heart rate is 76 per minute, respiratory rate 18 per minute. Blood pressure is 98/56 mmHg and oxygen saturation 96% on room air. HEENT: Head is atraumatic. NECK: Supple. JVD is moderately elevated. HEART: Heart sounds irregular in rhythm. LUNGS: Slightly diminished breath sounds at bases. ABDOMEN: Soft and nontender. A large anterior hernia in the lower abdominal is present which is chronic. EXTREMITIES: No cyanosis or clubbing. There is some edema on her lower legs. NEUROLOGIC: She is awake, alert and oriented x3. LABORATORY DATA: Todays labs showed a WBC count of 11.4, hemoglobin 7.8 and hematocrit 23.9, platelets 216,000. Sodium 138, potassium 5.4, CO2 16, BUN 119 and creatinine 1.99. Glucose 69 and calcium is 7.9. PROBLEMS: 1. Acute kidney injury superimposed on chronic kidney disease, improvement in BUN and creatinine is noted since yesterday. At this point, I would continue with IV fluid and monitor her kidney function on a daily basis. 2. Metabolic acidosis, slight improvement is noticed and will continue with sodium bicarbonate drip for now. Renal profile will be checked again tomorrow morning. 3. Hyperkalemia, slight improvement noticed and is likely to improve further as her kidney function and metabolic acidosis is improving. 4. GI bleed with symptomatic anemia. Patient had 2 units of packed RBCs transfused and probably will need further transfusion. She should have an upper endoscopy at least to find out the source of her bleeding. CUBA
--- NOTE | 2019-11-15 15:21 | IPN ---
DATE: 10/01/2019 SUBJECTIVE: Mrs. Melendez is seen this morning at her bedside. She reports no significant change in her overall condition. She still has pain around her chest wall and not eating much. She remains on IV fluid with sodium bicarbonate. She denies any dyspnea or chest pain at present. PHYSICAL EXAMINATION: VITAL SIGNS: Temperature is 97.6 degrees Fahrenheit, heart rate is 80 per minute and respiratory rate is 18 per minute. Blood pressure 133/70 mmHg and oxygen saturation 96% on room air. HEENT: Head is atraumatic. NECK: Supple. JVD is quite prominent today, even worse than yesterday. She is edentulous and without any thrush or ulcers. HEART: Irregular in rhythm. LUNGS: Slightly diminished breath sounds at bases. ABDOMEN: Obese, soft and nontender and bowel sounds are normal. EXTREMITIES: Without any cyanosis or clubbing. Lower extremity edema is 1+. NEUROLOGIC: She is at her baseline mentation without focal deficits. LABORATORY DATA: Todays CBC showed a WBC count of 11.9, hemoglobin 8.6 and hematocrit 26.7, platelets 210,000. Her chemistries are still pending as of now. We have called the lab and they are working on her chemistries. PROBLEMS: 1. Acute kidney injury superimposed on chronic kidney disease. Patient had most likely upper GI bleed with BUN of 124 on admission and creatinine 2.23. Yesterday, her BUN was down to 110 and creatinine 1.99. I anticipate further improvement in her kidney function. She is very well-hydrated now and I am going to stop her IV fluid. 2. Metabolic acidosis. Yesterday, her CO2 on the chemistry was 16 and she has been receiving intravenous sodium bicarbonate infusions since admission. I am going to stop her IV fluids now due to hypervolemia and pending her chemistries from today. 3. Congestive heart failure and hypervolemia. Volume status is somewhat decompensated although she is still oxygenating well. One dose of Lasix 40 mg intravenously will be given and her IV fluid is being stopped. 4. Hyperkalemia. Her potassium level is slightly improved to 5.4 yesterday. She has been receiving intravenous fluid with sodium bicarbonate. I anticipate further improvement in her potassium level today. Her chemistries are still pending. 5. Anemia with GI bleed. Patient had black colored stools and symptomatic anemia on admission. Her anemia is now improved since she was transfused. At this point, there is no emergent need for a transfusion. 6. Vertebral fractures. Patient is being considered for a transfer to [place]. In fact she is waiting for a bed. CUBA
--- NOTE | 2019-11-15 15:22 | IPN ---
DATE: 10/02/2019 SUBJECTIVE: Mrs. Melendez is seen this morning at her bedside. She is still waiting for a bed for transfer. She is feeling about the same and remains on a liquid diet. She was admitted with upper GI bleed and has required transfusions. Since initial transfusion, she has been stable. She was also found to have vertebral fractures, due to which she is being transferred to higher level of care. Patient had acute renal failure on admission, which improved significantly with I.V. fluid hydration and blood transfusion. She was also treated for metabolic acidosis with sodium bicarbonate infusion, which has now improved and her bicarbonate drip was stopped yesterday. She was given one dose of Lasix due to mild hypovolemia. PHYSICAL EXAMINATION: VITAL SIGNS: Temperature 97.9 degrees Fahrenheit, heart rate 80 per minute, respiratory rate 16 per minute, blood pressure 108/60 mmHg and oxygen saturation 98% on room air. HEENT: Head is atraumatic. NECK: Supple. JVD is about 5 cm above sternal angle. HEART: Heart sounds are irregular in rhythm. LUNGS: Slightly diminished breath sounds at bases. ABDOMEN: Soft, nontender, and bowel sounds are normal. A large abdominal hernia is unchanged. EXTREMITIES: Without any cyanosis or clubbing. Lower leg edema is present 1+ bilaterally. LABORATORY DATA: Todays labs: WBC 11.9, hemoglobin 8.6, hematocrit 26.7, platelets 210,000. Sodium 136, potassium 4.5, CO2 23, BUN 64, creatinine 1.58; these labs are from yesterday afternoon. Today she did not have any new labs. PROBLEMS: 1. Acute kidney injury superimposed on chronic kidney disease: Kidney function has improved almost back to her chronic baseline. At this point, we will continue to monitor her kidney function on an as needed basis. 2. Metabolic acidosis: Acidosis has also completely resolved and sodium bicarbonate infusion has already been stopped. 3. Anemia: She had acute GI bleed on admission and anemia has been stable since she was transfused. At this point, there is no emergent need for further transfusion. 4. Congestive heart failure and hypervolemia: Volume status seems to be slightly decompensated with peripheral edema, however, she is oxygenating 98% on room air. Her blood pressure is soft, so I am going to hold off on further diuresis at this point. [facility]
[2019-12-03] MEDS ORDERED: CALC500T31 PO (19:48)
[2019-12-03] MEDS ORDERED: GLUC1KIT IM (19:48)
[2019-12-03] MEDS ORDERED: ENEMENE PR (19:48)
[2019-12-03] MEDS ORDERED: ACET-683 PO (19:48)
[2019-12-03] MEDS ORDERED: DULC10SU2 PR (19:48)
[2019-12-03] MEDS ORDERED: XARE15TA PO (19:48)
[2019-12-03] MEDS ORDERED: LUBROIN4 OU (19:48)
[2019-12-03] MEDS ORDERED: TORS10TA3 PO (19:48)
[2019-12-03] MEDS ORDERED: OXYC1TAB23 PO (19:48)
[2019-12-03] MEDS ORDERED: COEN100T PO (19:48)
[2019-12-03] MEDS ORDERED: LIDO5DIS41 TD (19:48)
[2019-12-03] MEDS ORDERED: MOM30SS2 PO (19:48)
[2019-12-03] MEDS ORDERED: JUVEPOW4 PO (19:48)
== END 2019-10-02 20:11 | disposition short-term general hospital (02) | DRG 378 ==
LOC: M ED 06:14 → EDBD 06:14 → M ED INP 11:33 → M PCU 13:20 → M MSPAV 10-02 07:58
PROVIDERS: ADMIT Internal Medicine; ATTEND Internal Medicine
PROC: 30233N1 Transfusion of Nonautologous Red Blood Cells into Peripheral Vein, Percutaneous Approach (ICD-10-PCS; principal; 2019-09-29)
DX: K92.2 Gastrointestinal hemorrhage, unspecified (principal); N17.9 Acute kidney failure, unspecified; E87.2 Acidosis; I50.32 Chronic diastolic (congestive) heart failure; I13.0 Hypertensive heart and chronic kidney disease with heart failure and stage 1 through stage 4 chronic kidney disease, or unspecified chronic kidney disease; S22.061A Stable burst fracture of T7-T8 vertebra, initial encounter for closed fracture; I48.91 Unspecified atrial fibrillation; E03.9 Hypothyroidism, unspecified; E11.9 Type 2 diabetes mellitus without complications; E87.5 Hyperkalemia; Z79.899 Other long term (current) drug therapy; Z88.0 Allergy status to penicillin; Z88.8 Allergy status to other drugs, medicaments and biological substances; Z88.5 Allergy status to narcotic agent; Z88.7 Allergy status to serum and vaccine; N18.3 Chronic kidney disease, stage 3 (moderate); Z79.01 Long term (current) use of anticoagulants; K21.9 Gastro-esophageal reflux disease without esophagitis; I08.0 Rheumatic disorders of both mitral and aortic valves; D50.9 Iron deficiency anemia, unspecified; I27.20 Pulmonary hypertension, unspecified; R29.6 Repeated falls; Z95.2 Presence of prosthetic heart valve; Z96.651 Presence of right artificial knee joint; Z96.652 Presence of left artificial knee joint; W18.30XA Fall on same level, unspecified, initial encounter; Y92.9 Unspecified place or not applicable; E66.01 Morbid (severe) obesity due to excess calories

== ENCOUNTER 2019-10-12 02:56 | Inpatient (IN) | payer MEDICARE, MEDICAID ==
[~2019-10-12] VITALS: Ht 170.2 cm; Wt 103.6 kg
[2019-10-12 02:56] VITALS: BP 118/62
[~2019-10-12 02:56] MED LIST changes: +PERCOCET PO; +POTA20TA6 PO; +TORS10TA3 PO
[2019-10-12] MEDS ORDERED: LOSA25TA14 PO (04:20)
[2019-10-12] MEDS ORDERED: SPIR-10 PO (04:20)
[2019-10-12] MEDS ORDERED: METO5TA PO (04:20)
[2019-10-12] MEDS ORDERED: GLIM2TAB29 PO (04:20)
[2019-10-12] MEDS ORDERED: POTA1TAB14 PO (04:20)
[2019-10-12] MEDS ORDERED: TORS10TA3 PO (04:20)
[2019-10-12] MEDS ORDERED: XARE15TA PO (04:20)
[2019-10-12] MEDS ORDERED: METF-838 PO (04:20)
[2019-10-12] MEDS ORDERED: NORCO, ANEXSIA 5/325MG TABLET (HYDROcodone/ACETAMINOPHEN) PO ONE (04:30)
[2019-10-12] MEDS ORDERED: METHADONE 10 MG TAB (S0109) PO ONE (04:45)
[2019-10-12] MEDS ORDERED: MAALOX 30 ML SUSP *UDC PO PRN (05:15)
[2019-10-12] MEDS ORDERED: MOM 30ML SUSPENSION UDC PO PRN (05:15)
--- NOTE | 2019-10-12 05:29 | HPEPDOC ---
[facility] Medical History & Physical Date of Admission Oct 12, 2019 Date of Service: Oct 12, 2019 Attending Physician: CAT NAVARRO MD History and Physical TIME OF SERVICE: 415 AM CHIEF COMPLAINT: back pain HISTORY OF PRESENT ILLNESS: This 79 yr old F was admitted at [facility] from Sep 28 to . She presented w c/o multiple falls and was found to have a T7/T8 burst fx; based on the dc summary recommended transfer to [place] for a higher level of care. She was found to be anemic and transfused 2 units of PRBCs; this was discussed with who didnt recommend invasive procedures. During her stay at [facility], the patient reported that she didnt have surgery but didnt have much else to add except that she has back pain. Based on the transfer notes she was evaluated by neurosurgery who recommended conservative measures and that she may use a TLSO for comfort and work w PT/OT. She was also evaluated by the nephrology and geriatrics services. She had several imaging studies including those listed below Renal Us Oct 07: no hydronephrosis or nephrolithiasis MRI lumbar spine Oct 02: T7 and T8 compression fx Chest xray no PNA, small bilateral pleural effusions REVIEW OF SYSTEMS: 12 point review of systems negative except as listed in HPI PAST MEDICAL/ SURGICAL HISTORY: Newly diagnosed T7/T8 compression fx CKD 3 Chronic hypertension DM Chronic atrial fibrillation on anticoagulation Hypothyroidism GERD Chronic diastolic heart failure / moderate pulmonary hypertension Mild aortic sclerosis / mild mitral regurgitation Anemia Stasis dermatitis with venous insufficiency SOCIAL HISTORY: -tobacco /alcohol or drugs FAMILY HISTORY: None ALLERGIES: Please see below. HOME MEDICATIONS: Please see below. Vital Signs Date Time Temp Pulse Resp B/P (MAP) Pulse Ox O2 Delivery O2 Flow Rate FiO2 10/12/19 05:01 18 GENERAL APPEARANCE: obese/ well developed /NAD HEENT: no scleral icterus / EOMI CARDIOVASCULAR: RRR/NMRG / radial pulses intact LUNGS: CTAB on RA ABDOMEN: + ventral hernia / not tender w palpitation MUSCULOSKELETAL: NCAT INTEGUMENT: no generalized pallor NEUROLOGICAL: CN -12 intact / speech not dysarthric PSYCHIATRIC: A&O /able to understand and follow all commands LABORATORY DATA: 10/12/19 05:18 IMAGING: see HPI MICROBIOLOGY: Please see below. ASSESSMENT: is a 79 yr old w a hx chronic kidney disease stage III, hypertension, diabetes, chronic atrial fibrillation on anticoagulation, hypothyroidism, reflux, chronic diastolic heart failure, mild aortic sclerosis, mild mitral regurgitation, anemia, gastritis, moderate pulmonary hypertension, chronic back pain and stasis dermatitis with venous insufficiency who was recently diagnosed w T7/8 compression fx that have been managed conservatively; she will be admitted for tx of hyponatremia pending ARU eval. pls reconsult Ortho PLAN: 1 Hyponatremia Plan: admit to medical floor / f/u Uosmo, serum osmol, Mely prior to Nephro consult if need 2 Anemia s/p PRBC transfusions last admission Plan: f/u CBC / iron 3 T7/8 compression fxs Plan: flector patches, [place], PT/OT, ARU screen / consider consulting Ortho 4 CKD 3 Plan: f/u BMP 5 Chronic hypertension Plan: losartan, spironolactone, torsemide 6 DM A1C 5.7% in August (not sure if this is accurate bc of hx of anemia and CKD Plan: FSBS, SSI, Hypoglycemia protocol / f/u repeat A1C / trulicity and oral anti-glycemics on hold 7 Chronic atrial fibrillation Plan: atenolol, rivaroxaban, 8 Hypothyroidism Plan: levothyroxine 9 Chronic diastolic heart failure / moderate pulmonary hypertension Plan: f/u Is and Os, daily weight / torsemide w metolazone 10 Obesity BMI >40 complicates care DVT Px n/a bc on AC Dispo: possibly ARU after more than 2 midnights stay Vital Signs Vital Signs Date Time Temp Pulse Resp B/P (MAP) Pulse Ox O2 Delivery O2 Flow Rate FiO2 10/12/19 05:01 18 Home Medications Scheduled Ascorbic Acid (Vitamin C) 500 Mg Tablet, 500 MG PO DAILY Atenolol (Atenolol) 25 Mg Tablet, 25 MG PO DAILY Cholecalciferol (Vitamin D3) (Vitamin D3) 125 Mcg Capsule, 5,000 UNITS PO DAILY Chromium Picolinate (Chromium Picolinate) 1,000 Mcg Tablet, 1,000 MCG PO BID Dulaglutide (Trulicity) 1.5 Mg/0.5 Ml Pen.injctr, 1.5 MG SC QWEEK TUESDAYS Ferrous Sulfate (Iron) 325 Mg Tablet, 65 MG PO BID Glimepiride (Glimepiride) 2 Mg Tablet, 2 MG PO DAILY Glucosamine/D3/Boswellia Kayleen (Osteo Bi-Flex Caplet) 1 Each Tablet, 1 TAB PO BID Lactobacillus Acidophilus (Probiotic) 1 Each Capsule, 1 CAP PO BID Levothyroxine Sodium (Synthroid) 100 Mcg Tablet, 100 MCG PO DAILY TAKES AT 0500 Losartan Potassium (Losartan Potassium) 25 Mg Tablet, 25 MG PO DAILY Magnesium (Magnesium) 250 Mg Tablet, 500 MG PO QHS Metformin HCl (Metformin HCl ER) 500 Mg Tab.er.24h, 1,000 MG PO BID Metolazone (Metolazone) 5 Mg Tablet, 5 MG PO 2XWK MONDAY AND MONDAY Mineral Oil/Petrolatum,White (Soothe Night Time Lub Eye Oint) 3.5 Gm Oint...g., 1 APLCT OU BID Pancreat/Betaine/Pepsin/Bromel (Super Enzyme Caps) 1 Each Capsule, 2 EACH PO QHS Potassium Chloride (Potassium Chloride) 20 Meq Tablet.er, 40 MEQ PO DAILY Rivaroxaban (Xarelto) 15 Mg Tablet, 15 MG PO DAILY Spironolactone (Spironolactone) 25 Mg Tablet, 25 MG PO BID Torsemide (Torsemide) 10 Mg Tablet, 30 MG PO BID Ubidecarenone (Coq-10) 100 Mg Capsule, 100 MG PO BID [cinnergy] , 2 TAB PO DAILY [nattokinase-serrape] , 2 TAB PO QHS Scheduled PRN S-Adenosylmethionine Sul Tosyl (Willard-E) 400 Mg Tablet, 400 MG PO BID PRN for DEPRESSION Allergies Coded Allergies: Tricyclic Compounds (Verified Allergy, Mild, rash, 05/16/18) Influenza Virus Vaccines (Verified Allergy, Unknown, 05/16/18) "never so sick in my life" amoxicillin (Verified Allergy, Unknown, 05/16/18) clavulanic acid (Verified Allergy, Unknown, 05/16/18) phenylephrine (Verified Allergy, Unknown, 05/16/18) morphine (Verified Adverse Reaction, Mild, nausea/vomiting, 09/29/19) A-FIB/CHADSVASC A-FIB History Current/History of A-Fib/PAF?: Yes Current PO Anticoag Therapy: Yes CAT NAVARRO MD Oct 12, 2019 05:29
[2019-10-12] MEDS: LEVOTHYROXINE 100MCG TABLET (0.1MG) PO SCH (05:40)
[2019-10-12 06:00] VITALS: BP 110/56
[2019-10-12] MEDS ORDERED: GLUCAGON INJ 1MG VIAL SC PRN (06:00)
[2019-10-12] MEDS ORDERED: GLUCOSE 4GM CHEW TABLET PO PRN (06:00)
[2019-10-12] MEDS ORDERED: DEXTROSE 50% 50 ML SYRINGE IV PRN (06:00)
--- NOTE | 2019-10-12 06:07 | HPEPDOC ---
General Date of Admission Oct 12, 2019 at 02:56 Date of Service: Oct 12, 2019 Chief Complaint fall Source: Patient Exam Limitations: Other (Patient memory) Severity: Moderate Associated Symptoms: Mechanical fall, Other (Right rib cage pain) History of Present Illness Patient is a 79 yo female with history of CKD stage 3, HTN, DM chronic A. fib on anticoagulation presented to [facility] as a transfer from [place] with T7 and T8 vertebral body fracture after mechanical fall. She said that besides right rib cage pain that she has no other pain. She reported the pain is completely a m echanical fall. Patient said she had 2 falls on the same day about 1.5 week ago with first time hitting her abdomen and second time hitting her back. She denies any loss of consciousness. She reported that there is no dizziness/lightheadness/chest pain/palpitation prior to the fall or now. Reported hx of frequent falls. She reported hx of hematochezia and melena for years. It was noted that pt had required PRBC transfusion prior during last hospitalization. Pt reported very little water intake reported only one cup of water intake per day, reported limited salt intake. Denies any recent medication changes Home Medications Scheduled Ascorbic Acid (Vitamin C) 500 Mg Tablet, 500 MG PO DAILY, (Reported) Atenolol (Atenolol) 25 Mg Tablet, 25 MG PO DAILY, (Reported) Cholecalciferol (Vitamin D3) (Vitamin D3) 125 Mcg Capsule, 5,000 UNITS PO DAILY, (Reported) Chromium Picolinate (Chromium Picolinate) 1,000 Mcg Tablet, 1,000 MCG PO BID, (Reported) Dulaglutide (Trulicity) 1.5 Mg/0.5 Ml Pen.injctr, 1.5 MG SC QWEEK, (Reported) TUESDAYS Ferrous Sulfate (Iron) 325 Mg Tablet, 65 MG PO BID, (Reported) Glimepiride (Glimepiride) 2 Mg Tablet, 2 MG PO DAILY, (Reported) Glucosamine/D3/Boswellia Kayleen (Osteo Bi-Flex Caplet) 1 Each Tablet, 1 TAB PO BID, (Reported) Lactobacillus Acidophilus (Probiotic) 1 Each Capsule, 1 CAP PO BID, (Reported) Levothyroxine Sodium (Synthroid) 100 Mcg Tablet, 100 MCG PO DAILY, (Reported) TAKES AT 0500 Losartan Potassium (Losartan Potassium) 25 Mg Tablet, 25 MG PO DAILY, (Reported) Magnesium (Magnesium) 250 Mg Tablet, 500 MG PO QHS, (Reported) Metformin HCl (Metformin HCl ER) 500 Mg Tab.er.24h, 1,000 MG PO BID, (Reported) Metolazone (Metolazone) 5 Mg Tablet, 5 MG PO 2XWK, (Reported) MONDAY AND MONDAY Mineral Oil/Petrolatum,White (Soothe Night Time Lub Eye Oint) 3.5 Gm Oint...g., 1 APLCT OU BID, (Reported) Pancreat/Betaine/Pepsin/Bromel (Super Enzyme Caps) 1 Each Capsule, 2 EACH PO QHS, (Reported) Potassium Chloride (Potassium Chloride) 20 Meq Tablet.er, 40 MEQ PO DAILY, (Reported) Rivaroxaban (Xarelto) 15 Mg Tablet, 15 MG PO DAILY, (Reported) Spironolactone (Spironolactone) 25 Mg Tablet, 25 MG PO BID, (Reported) Torsemide (Torsemide) 10 Mg Tablet, 30 MG PO BID, (Reported) Ubidecarenone (Coq-10) 100 Mg Capsule, 100 MG PO BID, (Reported) [cinnergy] , 2 TAB PO DAILY, (Reported) [nattokinase-serrape] , 2 TAB PO QHS, (Reported) Scheduled PRN S-Adenosylmethionine Sul Tosyl (Willard-E) 400 Mg Tablet, 400 MG PO BID PRN for DEPRESSION, (Reported) Allergies Coded Allergies: Tricyclic Compounds (Verified Allergy, Mild, rash, 05/16/18) Influenza Virus Vaccines (Verified Allergy, Unknown, 05/16/18) "never so sick in my life" amoxicillin (Verified Allergy, Unknown, 05/16/18) clavulanic acid (Verified Allergy, Unknown, 05/16/18) phenylephrine (Verified Allergy, Unknown, 05/16/18) morphine (Verified Adverse Reaction, Mild, nausea/vomiting, 09/29/19) Past Medical History Medical History A. fib CKD DM Hypothyroidism GERD Pulmonary HYpertension MVR CHF Surgical History Coronary artery stentsX2 Bilateral knee surgeries Tonseillectomy mandibular fracture repair Clavicul fracture repair Social History * Smoker: Denies Alcohol: Denies Drugs: denies A-FIB/CHADSVASC A-FIB History Current/History of A-Fib/PAF?: Yes Current PO Anticoag Therapy: Yes Age/Risk Factor Scoring CHADSVASC: CHADSVASC Response (Comments) Value Age Risk Factor Age >/= 75 years old 2 Gender Risk Factor Female 1 Hx of CHF Yes 1 Hx of HTN Yes 1 Hx of Stroke/TIA/or VTE No 0 Hx of Diabetes Yes 1 Total 6 Review of Systems Constitutional: Denies: Chills, Fever Pulmonary: Denies: Dyspnea Cardiovascular: Denies: Chest Pain, Palpitations Gastrointestinal: Reports: Melena, Hematochezia; Denies: Vomiting Musculoskeletal: Reports: Other Symptoms (Right sided rib cage pain. B/l LE chronic edema) Neurological: Reports: Incoordination, Other Symptoms (Chronic walker use) Physical Examination General Exam: Positive: Alert, Mild Distress Eye Exam: Positive: Conjunctiva & lids normal; Negative: Sclera icteric ENT Exam: Positive: Mucous membr. moist/pink Neck Exam: Positive: Supple Chest Exam: Positive: Clear to auscultation, Normal air movement, Diminished; Negative: Rales, Rhonchi, Wheezing Heart Exam: Positive: Rate Normal; Negative: Murmurs Abdomen Exam: Positive: Normal bowel sounds, Soft Extremity Exam: Positive: Edema (b/l lower extremity edema left more swevere t jauregui right), Swelling Neuro Exam: Positive: Normal Speech, Normal Tone, Sensation Intact, Cranial Nerves 3-12 NL Psych Exam: Positive: Mental status NL, Mood NL, Memory Intact, Oriented x 3; Negative: Anxiety Vital Signs Vital Signs Date Time Temp Pulse Resp B/P (MAP) Pulse Ox O2 Delivery O2 Flow Rate FiO2 10/12/19 05:31 18 Assessment/Plan 1. T7 and T8 vertebral fracture after mechanical fall, bedrest for now. S/p neurosurgery eval in [facility], neuro intact, no further neurosurgical intervention per neurosurgical standpoint. MRI thoracic spine from [facility] showed compression fracture of T7 and T8. PT/OT/fall precaution. 2. Hypervolemia hyponatremia, per medial records from [facility](more than 90 pages), 24 pages were hand-written notes, it was noted that one hand- written note dated 10/10/2019 noted Na of 127 and another one dated 10/04/2019showed Na of 131. Will order urine Na and osmolality for hyponatremia workup. Serum osmolality ordered. Patient will be on fluid restriction. Seizure precaution. BMP Q6H. D/c home Toresemide. I&O, daily weight. 3. Anemia, normocytic. Noted to have GI bleed. Cont to monitor CBC for now. Cont home med Ferrous sulfate. 4. A. fib. Cont home med xarelto and atenolol. Pt will be on tele. 5. Diastolic CHF. Cont home med Metalzone and spironolactone for now. Strict I&O. Daily weight. 6. NIDDM. Consistent carbohydrate diet. Hold home PO DM meds. Insulin SS AC&HS. Glucose checks, hypoglyemia protocol 7. Hypothyroidism. Cont home med synthroid Plan / VTE VTE Prophylaxis Ordered?: Yes GME ATTESTATION GME ATTESTATION My faculty preceptor for this patient encounter was physically present during the encounter and was fully available. All aspects of the patient interview, examination, medical decision making process, and medical care plan development were reviewed and approved by the faculty preceptor. The faculty preceptor is aware and concurs with the plan as stated in the body of this note and will attest to such by his/her cosignature. ATTENDING NOTE I agree with the findings as documented except for the additions and changes outlined in my addendum from 10/12/19 KAJAL MCMAHAN DO Oct 12, 2019 06:07 CAT NAVARRO MD Oct 15, 2019 03:22
[2019-10-12 06:19] LABS: HEMATOCRIT 29.9 % (36.0-47.0); HEMOGLOBIN 9.7 g/dl (12.0-15.5); MEAN CORPUSCULAR HEMOGLOBIN 30.3 pg (27.0-33.0); MEAN CORPUSCULAR HGB CONC 32.4 g/dl (32.0-36.5); MEAN CORPUSCULAR VOLUME 93.4 fl (80.0-96.0); PLATELET COUNT, AUTOMATED 301 10^3/uL (150-450); WHITE BLOOD COUNT 13.9 10^3/uL (4.0-10.0)
[2019-10-12 06:29] LABS: INR 1.11; PROTHROMBIN TIME 14.5 SECONDS (11.8-14.0)
[2019-10-12 06:44] LABS: ALBUMIN 1.9 GM/DL (3.2-5.2); BILIRUBIN,TOTAL 0.8 MG/DL (0.2-1.0); CREATININE FOR GFR 1.25 MG/DL (0.55-1.30); POTASSIUM SERUM 3.9 MEQ/L (3.5-5.1)
[2019-10-12] MEDS: HumaLOG INSULIN (NovoLOG) PER UNIT SC SCH ×4 (08:58→21:00)
[2019-10-12] MEDS ORDERED: atenoloL 25 MG TAB PO SCH (09:00)
[2019-10-12] MEDS ORDERED: LOSARTAN 25 MG TAB PO SCH (09:00)
[2019-10-12] MEDS ORDERED: metOLazone 5 MG TAB PO SCH (09:00)
[2019-10-12] MEDS ORDERED: TORSEMIDE 10 MG TABLET PO SCH (09:00)
[2019-10-12] MEDS ORDERED: POTASSIUM CHLORIDE 10 MEQ SR TABLET PO SCH (09:00)
[2019-10-12] MEDS: VITAMIN D 1,000 INTERNATIONAL UNITS TABLET PO SCH (09:10)
[2019-10-12] MEDS: SPIRONOLACTONE 25 MG TAB PO SCH ×2 (09:11→21:17)
[2019-10-12] MEDS: NORCO, ANEXSIA 5/325MG TABLET (HYDROcodone/ACETAMINOPHEN) PO PRN ×2 (09:11→17:14)
[2019-10-12] MEDS: RIVAROXABAN 15 MG TAB (XARELTO) PO SCH (09:12)
[2019-10-12 09:13] VITALS: BP 117/58
[2019-10-12] MEDS: DICLOFENAC EPOLAMINE 1.3 % PATCH TOP SCH ×2 (09:13→21:18)
[2019-10-12] MEDS: FERROUS SULFATE 325MG TAB PO SCH ×2 (09:13→21:17)
[2019-10-12] MEDS: ASCORBIC ACID 500 MG TAB PO SCH (09:13)
[2019-10-12] MEDS ORDERED: POTASSIUM CHLORIDE 10 MEQ SR TABLET PO ONE (09:15)
[2019-10-12] MEDS ORDERED: MAG SULF 1GM/100ML (MAG RUN) 1 GM in IV 1 EA IV ONE (10:00)
[2019-10-12 12:01] LABS: CREATININE FOR GFR 1.37 MG/DL (0.55-1.30); GLOMERULAR FILTRATION RATE 39.6 (>39); POTASSIUM SERUM 4.1 MEQ/L (3.5-5.1)
[2019-10-12] MEDS: ACETAMINOPHEN TAB 650MG DOSE (2X325MG) PO PRN (13:04)
[2019-10-12 14:00] VITALS: BP 90/40
[2019-10-12 14:15] LABS: OSMOLALITY URINE 397 MOSM/KG (500-800)
[2019-10-12 14:36] LABS: SODIUM,RANDOM URINE < 10 MEQ/L
[2019-10-12 18:31] LABS: CREATININE FOR GFR 1.38 MG/DL (0.55-1.30); GLOMERULAR FILTRATION RATE 39.3 (>39); POTASSIUM SERUM 4.5 MEQ/L (3.5-5.1)
[2019-10-12 22:00] VITALS: BP 91/46
[2019-10-13] MEDS: NORCO, ANEXSIA 5/325MG TABLET (HYDROcodone/ACETAMINOPHEN) PO PRN ×4 (00:09→20:13)
[2019-10-13 00:11] LABS: CALCIUM LEVEL 8.2 MG/DL (8.8-10.2); CREATININE FOR GFR 1.48 MG/DL (0.55-1.30); GLOMERULAR FILTRATION RATE 36.2 (>39); POTASSIUM SERUM 4.6 MEQ/L (3.5-5.1)
[2019-10-13] MEDS: LEVOTHYROXINE 100MCG TABLET (0.1MG) PO SCH (05:53)
[2019-10-13 06:00] VITALS: BP 115/96
[2019-10-13 06:17] LABS: HEMATOCRIT 26.5 % (36.0-47.0); HEMOGLOBIN 8.4 g/dl (12.0-15.5); MEAN CORPUSCULAR HEMOGLOBIN 29.8 pg (27.0-33.0); MEAN CORPUSCULAR HGB CONC 31.7 g/dl (32.0-36.5); PLATELET COUNT, AUTOMATED 299 10^3/uL (150-450); RED BLOOD COUNT 2.82 10^6/uL (4.00-5.40); WHITE BLOOD COUNT 14.2 10^3/uL (4.0-10.0)
[2019-10-13 06:34] LABS: CREATININE FOR GFR 1.58 MG/DL (0.55-1.30); GLOMERULAR FILTRATION RATE 33.6 (>39); POTASSIUM SERUM 4.6 MEQ/L (3.5-5.1)
[2019-10-13 06:35] LABS: HEMOGLOBIN A1c 6.7 %
[2019-10-13] MEDS: SPIRONOLACTONE 25 MG TAB PO SCH (08:49)
[2019-10-13] MEDS: DICLOFENAC EPOLAMINE 1.3 % PATCH TOP SCH ×2 (08:49→20:13)
[2019-10-13] MEDS: FERROUS SULFATE 325MG TAB PO SCH ×2 (08:50→20:12)
[2019-10-13] MEDS: VITAMIN D 1,000 INTERNATIONAL UNITS TABLET PO SCH (08:50)
[2019-10-13] MEDS: HumaLOG INSULIN (NovoLOG) PER UNIT SC SCH ×4 (08:50→23:06)
[2019-10-13] MEDS: RIVAROXABAN 15 MG TAB (XARELTO) PO SCH (08:50)
[2019-10-13] MEDS: ASCORBIC ACID 500 MG TAB PO SCH (08:50)
--- NOTE | 2019-10-13 09:32 | REPVR ---
PROCEDURE INFORMATION: Exam: XR Chest, 1 View Exam date and time: 10/13/2019 9:06 AM Age: 79 years old Clinical indication: Other: SOB; Additional info: SOB R/O chf TECHNIQUE: Imaging protocol: XR of the chest Views: Frontal portable upright view of the chest. COMPARISON: CT Chest without contrast 09/29/2019 7:34 AM FINDINGS: Tubes, catheters and devices: EKG leads are present overlying the chest. Lungs: The pulmonary vasculature is normal. Right lower lobe pulmonary mild partial atelectasis. The pulmonary vasculature is mildly congested. Pleural space: Small-moderate right pleural effusion. No pneumothorax. Mild lateral left inferior pleural fibrosis redemonstrated. Heart/Mediastinum: Mild cardiomegaly. Mediastinum: Stable. Vasculature: Moderate aortic arch atherosclerotic calcification without ectasia. Mild aortic arch atherosclerotic calcification without ectasia. Bones/joints: Mild left, severe right glenohumeral joint primary osteoarthritis. Other findings: Right subcoracoid para-articular benign ossification. IMPRESSION: 1. Small-moderate right pleural effusion. 2. Mild lateral left inferior pleural fibrosis redemonstrated. 3. Right lower lobe pulmonary mild partial atelectasis. Superimposed pneumonitis is difficult to exclude. Clinical correlation is recommended. 4. Mild pulmonary vascular congestion. Electronically signed by: Oral Hernandez On 10/13/2019 09:32:33 AM
[2019-10-13 12:06] LABS: CALCIUM LEVEL 7.8 MG/DL (8.8-10.2); CREATININE FOR GFR 1.69 MG/DL (0.55-1.30); GLOMERULAR FILTRATION RATE 31.1 (>39); POTASSIUM SERUM 4.7 MEQ/L (3.5-5.1)
[2019-10-13 14:00] VITALS: BP 98/60
[2019-10-13 17:19] LABS: CREATININE FOR GFR 1.74 MG/DL (0.55-1.30); POTASSIUM SERUM 5.1 MEQ/L (3.5-5.1)
[2019-10-13 22:00] VITALS: BP 104/47
[2019-10-13] MEDS: ACETAMINOPHEN TAB 650MG DOSE (2X325MG) PO PRN (23:06)
[2019-10-13 23:33] LABS: CALCIUM LEVEL 8.4 MG/DL (8.8-10.2); CREATININE FOR GFR 1.81 MG/DL (0.55-1.30); GLOMERULAR FILTRATION RATE 28.7 (>39); POTASSIUM SERUM 4.7 MEQ/L (3.5-5.1)
[2019-10-14] MEDS: diphenhydrAMINE 50MG CAP PO PRN (01:01)
[2019-10-14 05:33] LABS: CALCIUM LEVEL 7.9 MG/DL (8.8-10.2); CREATININE FOR GFR 1.77 MG/DL (0.55-1.30); GLOMERULAR FILTRATION RATE 29.5 (>39); POTASSIUM SERUM 4.9 MEQ/L (3.5-5.1)
[2019-10-14] MEDS: LEVOTHYROXINE 100MCG TABLET (0.1MG) PO SCH (05:51)
[2019-10-14] MEDS: NORCO, ANEXSIA 5/325MG TABLET (HYDROcodone/ACETAMINOPHEN) PO PRN ×2 (05:52→11:53)
[2019-10-14 06:00] VITALS: BP 108/51
[2019-10-14] MEDS: HumaLOG INSULIN (NovoLOG) PER UNIT SC SCH ×4 (08:27→21:00)
[2019-10-14] MEDS: ASCORBIC ACID 500 MG TAB PO SCH (08:28)
[2019-10-14] MEDS: ceFAZolin SOD 1 GM in D5W MINI-BAG PLUS 50 ML IV SCH ×2 (08:28→17:39)
[2019-10-14] MEDS: FERROUS SULFATE 325MG TAB PO SCH ×2 (08:28→21:53)
[2019-10-14] MEDS: RIVAROXABAN 15 MG TAB (XARELTO) PO SCH (08:28)
[2019-10-14] MEDS: VITAMIN D 1,000 INTERNATIONAL UNITS TABLET PO SCH (08:28)
[2019-10-14] MEDS: DICLOFENAC EPOLAMINE 1.3 % PATCH TOP SCH ×2 (08:29→21:53)
[2019-10-14] MEDS ORDERED: NALOXONE INJ 0.4MG/1ML VIAL (J2310 PER 1MG) IV PRN (13:15)
[2019-10-14] MEDS: HYDROMORPHONE HCL 0.5 MG/ 0.5 ML SYRINGE (J1170 PER 1) IV PRN ×3 (13:40→23:14)
[2019-10-14 14:00] VITALS: BP 112/52
[2019-10-14] MEDS: ANEXSIA, NORCO 7.5MG/325MG TABLET(HYDROCODONE/APAP) PO PRN (21:55)
[2019-10-14 22:00] VITALS: BP 122/55
[2019-10-15] MEDS: ceFAZolin SOD 1 GM in D5W MINI-BAG PLUS 50 ML IV SCH ×3 (01:24→17:46)
[2019-10-15 06:00] VITALS: BP 119/57
[2019-10-15] MEDS: LEVOTHYROXINE 100MCG TABLET (0.1MG) PO SCH (06:05)
[2019-10-15] MEDS: HYDROMORPHONE HCL 0.5 MG/ 0.5 ML SYRINGE (J1170 PER 1) IV PRN ×5 (06:05→23:37)
[2019-10-15 06:09] LABS: HEMATOCRIT 28.8 % (36.0-47.0); HEMOGLOBIN 9.1 g/dl (12.0-15.5); MEAN CORPUSCULAR HEMOGLOBIN 29.8 pg (27.0-33.0); MEAN CORPUSCULAR HGB CONC 31.6 g/dl (32.0-36.5); MEAN CORPUSCULAR VOLUME 94.4 fl (80.0-96.0); PLATELET COUNT, AUTOMATED 348 10^3/uL (150-450); RED BLOOD COUNT 3.05 10^6/uL (4.00-5.40); WHITE BLOOD COUNT 8.9 10^3/uL (4.0-10.0)
[2019-10-15 06:34] LABS: CALCIUM LEVEL 8.2 MG/DL (8.8-10.2); CREATININE FOR GFR 1.45 MG/DL (0.55-1.30); GLOMERULAR FILTRATION RATE 37.1 (>39); POTASSIUM SERUM 4.6 MEQ/L (3.5-5.1)
[2019-10-15] MEDS: ASCORBIC ACID 500 MG TAB PO SCH (08:23)
[2019-10-15] MEDS: RIVAROXABAN 15 MG TAB (XARELTO) PO SCH (08:23)
[2019-10-15] MEDS: VITAMIN D 1,000 INTERNATIONAL UNITS TABLET PO SCH (08:23)
[2019-10-15] MEDS: DICLOFENAC EPOLAMINE 1.3 % PATCH TOP SCH ×2 (08:28→20:34)
[2019-10-15] MEDS: FERROUS SULFATE 325MG TAB PO SCH ×2 (08:28→20:33)
[2019-10-15] MEDS: HumaLOG INSULIN (NovoLOG) PER UNIT SC SCH ×4 (08:28→20:34)
[2019-10-15] MEDS ORDERED: LIDOCAINE 1% MDV 20ML VIAL As Ordered ONE (13:15)
[2019-10-15 14:00] VITALS: BP 127/63
[2019-10-15] MEDS ORDERED: LIDOCAINE W/EPINEPHRINE 1% 20ML VIAL SC ONE (14:00)
[2019-10-15] MEDS: ANEXSIA, NORCO 7.5MG/325MG TABLET(HYDROCODONE/APAP) PO PRN ×2 (16:05→20:33)
[2019-10-15 22:00] VITALS: BP 128/65
[2019-10-16] MEDS: ceFAZolin SOD 1 GM in D5W MINI-BAG PLUS 50 ML IV SCH (01:16)
[2019-10-16] MEDS: ANEXSIA, NORCO 7.5MG/325MG TABLET(HYDROCODONE/APAP) PO PRN ×4 (01:17→20:42)
[2019-10-16 02:00] VITALS: BP 106/49
[2019-10-16] MEDS: LEVOTHYROXINE 100MCG TABLET (0.1MG) PO SCH (05:48)
[2019-10-16] MEDS: HYDROMORPHONE HCL 0.5 MG/ 0.5 ML SYRINGE (J1170 PER 1) IV PRN ×2 (05:50→11:51)
[2019-10-16 06:00] VITALS: BP 115/57
[2019-10-16 06:28] LABS: HEMATOCRIT 29.2 % (36.0-47.0); HEMOGLOBIN 9.1 g/dl (12.0-15.5); MEAN CORPUSCULAR HEMOGLOBIN 29.4 pg (27.0-33.0); MEAN CORPUSCULAR HGB CONC 31.2 g/dl (32.0-36.5); MEAN CORPUSCULAR VOLUME 94.2 fl (80.0-96.0); PLATELET COUNT, AUTOMATED 365 10^3/uL (150-450); WHITE BLOOD COUNT 9.8 10^3/uL (4.0-10.0)
[2019-10-16 06:42] LABS: CALCIUM LEVEL 8.1 MG/DL (8.8-10.2); CREATININE FOR GFR 1.18 MG/DL (0.55-1.30); POTASSIUM SERUM 4.2 MEQ/L (3.5-5.1)
[2019-10-16] MEDS: HumaLOG INSULIN (NovoLOG) PER UNIT SC SCH ×4 (08:55→20:46)
[2019-10-16] MEDS: FERROUS SULFATE 325MG TAB PO SCH ×2 (08:55→20:41)
[2019-10-16] MEDS: VITAMIN D 1,000 INTERNATIONAL UNITS TABLET PO SCH (08:55)
[2019-10-16] MEDS: BACTRIM 160MG/800MG DS TAB PO SCH ×2 (08:55→20:41)
[2019-10-16] MEDS: ASCORBIC ACID 500 MG TAB PO SCH (08:55)
[2019-10-16] MEDS: RIVAROXABAN 15 MG TAB (XARELTO) PO SCH (08:55)
[2019-10-16] MEDS: DICLOFENAC EPOLAMINE 1.3 % PATCH TOP SCH ×2 (08:59→20:41)
[2019-10-16] MEDS: BALMEX CREAM 60GM TOP SCH (09:00)
[2019-10-16 10:00] VITALS: BP 111/53
[2019-10-16 14:00] VITALS: BP 117/55
--- NOTE | 2019-10-16 14:56 | REPVR ---
PROCEDURE INFORMATION: Exam: US Duplex Lower Extremity Veins, Bilateral Exam date and time: 10/16/2019 2:45 PM Age: 79 years old Clinical indication: Edema, localized; Lower extremity, bilateral; Additional info: Le edema R/O dvt TECHNIQUE: Imaging protocol: Real-time duplex ultrasound of the extremities with 2-D amado scale, color Doppler flow and spectral waveform analysis with image documentation. Complete exam focused on the bilateral lower extremity veins. COMPARISON: No relevant prior studies available. FINDINGS: Limitations: Body habitus. Right deep veins: Unremarkable. The common femoral, femoral, proximal profunda femoral and popliteal veins are patent without thrombus. Normal Doppler waveforms. Normal compressibility and/or augmentation response. Right superficial veins: Saphenofemoral junction is patent without thrombus. Left deep veins: The common femoral, femoral, proximal profunda femoral and popliteal veins are patent without thrombus. Normal Doppler waveforms. Normal compressibility and/or augmentation response. There is a linear echogenic focus in the distal femoral vein, with the vein again demonstrates normal compressibility and waveforms. Left superficial veins: Saphenofemoral junction is patent without thrombus. Soft tissues: Edema in the soft tissues of the calves bilaterally. IMPRESSION: 1. No deep venous thrombus demonstrated in the right lower extremity. 2. Linear echogenic structure in the distal left femoral vein, with an otherwise normal appearance of the vein, suggestive of chronic thrombus or phlebosclerosis with calcification, rather than acute deep venous thrombus. Comparison with any prior imaging would be of benefit if possible. No thrombus demonstrated in the left lower extremity elsewhere. Electronically signed by: Jann Velez On 10/16/2019 14:55:43 PM
[2019-10-16 18:00] VITALS: BP 112/57
[2019-10-16 22:00] VITALS: BP 104/48
[2019-10-16] MEDS: diphenhydrAMINE 50MG CAP PO PRN (22:41)
[2019-10-17] MEDS: ANEXSIA, NORCO 7.5MG/325MG TABLET(HYDROCODONE/APAP) PO PRN ×2 (01:08→05:36)
[2019-10-17 02:00] VITALS: BP 121/62
[2019-10-17] MEDS: LEVOTHYROXINE 100MCG TABLET (0.1MG) PO SCH (05:35)
[2019-10-17 06:00] VITALS: BP 116/76
[2019-10-17 06:03] LABS: HEMATOCRIT 27.6 % (36.0-47.0); HEMOGLOBIN 8.7 g/dl (12.0-15.5); MEAN CORPUSCULAR HEMOGLOBIN 29.9 pg (27.0-33.0); MEAN CORPUSCULAR HGB CONC 31.5 g/dl (32.0-36.5); MEAN CORPUSCULAR VOLUME 94.8 fl (80.0-96.0); PLATELET COUNT, AUTOMATED 354 10^3/uL (150-450); RED BLOOD COUNT 2.91 10^6/uL (4.00-5.40)
[2019-10-17 06:34] LABS: CALCIUM LEVEL 8.3 MG/DL (8.8-10.2); CREATININE FOR GFR 1.1 MG/DL (0.55-1.30); POTASSIUM SERUM 4.3 MEQ/L (3.5-5.1)
--- NOTE | 2019-10-17 07:00 | IPN ---
DATE: 10/14/2019 SUBJECTIVE: The patient is seen and examined at the bedside. Chart has been reviewed. Currently has no acute complaints. Patient otherwise denies any chest pain, pressure, tightness or shortness of breath. She has chronic back pain. PHYSICAL EXAMINATION: VITAL SIGNS: Temperature 98, pulse 80, respiratory rate 19, blood pressure 108/51, 98% on room air. GENERAL: Awake, alert and oriented to person and place, answering questions appropriately. HEENT: Face is symmetric. Tongue is midline. Moist mucous membranes. No icterus or jaundice. No conversational dyspnea. No tripod positioning. LUNGS: Clear to auscultation. No wheezing or rales. HEART: S1 and S2, irregularly irregular. ABDOMEN: Obese, soft, nontender and nondistended. EXTREMITIES: Chronic edema. LABORATORY DATA: White count 14, hemoglobin 8.4, hematocrit 26, platelet count of 299,000. Sodium today 130, potassium 4.9, chloride 99, bicarbonate 26, BUN 74, creatinine 1.77, glucose of 194. Wound culture: E. coli and Staph aureus sensitive to Cefazolin. ASSESSMENT AND PLAN: 1. Sacral wound sensitive to Cefazolin. Wound grew out E. coli and Staph aureus. General Surgery is to be consulted for debridement. Patient was not interested in resuming care with Dr. Winkler. 2. Chronic atrial fibrillation. 3. Chronic kidney disease Stage III. 4. Diabetes. 5. Hypothyroidism. 6. Reflux. 7. Pulmonary hypertension. 8. MVR. 9. History of congestive heart failure. 10. Acute on chronic renal failure Stage III. PLAN: Continue with home medications, Cefazolin has been added due to infected sacral ulcer, debridement by General Surgery. The patient did not wound care from Dr. Winkler. Will need wound care as an outpatient referral or General Surgery. [facility]
--- NOTE | 2019-10-17 07:03 | IPN ---
DATE: 10/13/2019 SUBJECTIVE: The patient was found to be hypotensive with systolic pressure less than 100, no complaints of dizziness or lightheadedness this morning. No shortness of breath, chest pain, pressure, fever or chills. OBJECTIVE/PHYSICAL EXAMINATION: VITALS: Temperature 97.9, pulse 67, respiratory rate 18, blood pressure 115/96, 95% on room air. GENERAL: Awake, alert, oriented to person only. Pleasantly confused and demented. HEENT: Pupils round and reactive. Extraocular muscles are intact. Dry mucous membranes. NECK: No JVD. No thyromegaly. LUNGS: Diminished but clear to auscultation. HEART: S1, S2, irregularly irregular. ABDOMEN: Obese, nontender, non-distended, positive bowel sounds x4 quadrants. No hepatosplenomegaly. EXTREMITIES: Trace edema bilateral lower extremities. LABORATORY DATA: White count 14, hemoglobin 8.4, hematocrit 26, platelet count 299,000. Sodium 128, potassium 4.6, chloride 97, bicarb 25, BUN 63, creatinine 1.58, glucose 184. A1C 6.7. Wound culture of decubitus pending. IMPRESSION: 1. Mechanical fall with T7, T8 vertebral fracture evaluated. 2. Hyponatremia. 3. Acute on chronic renal failure stage 3. 4. Chronic atrial fibrillation. 5. Chronic diastolic heart failure. 6. Sacral decubitus. 7. Hypothyroidism. 8. Anemia due to renal failure. PLAN: Patient's blood pressure medications have been temporarily held due to hypotension. Wound culture has been sent. Telemedicine with Dr. Winkler for her sacral ulcer. general surgery consulted for debridement. Resume back on the Xarelto. Resume patient's diuretics and Losartan once kidney function is improved. MTDD
--- NOTE | 2019-10-17 07:06 | IPN ---
DATE: 10/15/2019 SUBJECTIVE: Patient denies chest pain, pressure, tightness this morning. Denies any nausea, vomiting, abdominal pain. She complains of back pain while sitting at the bedside and increasing lower extremity edema with dependence of her bilateral lower extremities. Due to low blood pressure, patients Lasix has been held. Pressures have been running 90 to 91 systolic, currently improved to 119 and 122 systolic. No complaints of dizziness or lightheadedness. PHYSICAL EXAMINATION: VITALS: Temperature 97.1, pulse 72, respiratory rate 19, blood pressure 119/57, 97% on room air. GENERAL: Awake, alert, oriented to person, place. Answered questions appropriately. LUNGS: Diminished crackles bilateral bases. HEART: S1, S2, irregularly irregular. ABDOMEN: Obese, soft, nontender. EXTREMITIES: 3+ pitting edema to the sacrum. Sacral decubitus. LABORATORY DATA: White count 8.9, hemoglobin 9, hematocrit 28, platelet count 348,000. Sodium 132, potassium 4.6, chloride 99, bicarb 26, BUN 66, creatinine 1.45, glucose 185. ASSESSMENT AND PLAN: 1. This is a 79-year-old female admitted on 10/12/2019 with a mechanical fall, admitted for vertebral fracture T7, T8, status post neurosurgical evaluation in [place]: No further intervention. MRI of the thoracic spine showed compression T7, T8. PT/OT, ARU consulted. 2. Hyponatremia: Improving, off Torsemide. On strict I's and Os and daily weights. No mental status changes, headaches or confusion, or changes in vision. 3. Normocytic anemia with history of GI bleed: CBC is normal on ferrous sulfate. 4. Chronic atrial fibrillation: On chronic Xarelto and Atenolol. 5. Diastolic heart failure: Held patient's Torsemide, Spironolactone, Metolazone secondary to acute kidney injury, which is resolving. 6. Acute on chronic renal failure: Improved. Off Torsemide for now. 7. Sacral decubitus: General surgery has been consulted for debridement and wound management. 8. Type 2 diabetes with obesity: On sliding scale, hyperglycemic protocol and coverage. 9. Hypothyroidism: Continued on home dose of Synthroid. DISPOSITION: ARU evaluation. [facility]
[2019-10-17] MEDS: HumaLOG INSULIN (NovoLOG) PER UNIT SC SCH ×4 (08:21→21:00)
[2019-10-17] MEDS: RIVAROXABAN 15 MG TAB (XARELTO) PO SCH (08:22)
[2019-10-17] MEDS: BACTRIM 160MG/800MG DS TAB PO SCH ×2 (08:22→20:22)
[2019-10-17] MEDS: ASCORBIC ACID 500 MG TAB PO SCH (08:22)
[2019-10-17] MEDS: FERROUS SULFATE 325MG TAB PO SCH ×2 (08:22→20:22)
[2019-10-17] MEDS: VITAMIN D 1,000 INTERNATIONAL UNITS TABLET PO SCH (08:22)
[2019-10-17] MEDS: DICLOFENAC EPOLAMINE 1.3 % PATCH TOP SCH ×2 (08:22→20:22)
[2019-10-17] MEDS: ACETAMINOPHEN TAB 650MG DOSE (2X325MG) PO PRN (08:22)
[2019-10-17] MEDS: BALMEX CREAM 60GM TOP SCH (09:00)
[2019-10-17 10:00] VITALS: BP 98/52
[2019-10-17] MEDS ORDERED: NORCO, ANEXSIA 5/325MG TABLET (HYDROcodone/ACETAMINOPHEN) PO PRN (12:00)
[2019-10-17] MEDS: NORCO, ANEXSIA 5/325MG TABLET (HYDROcodone/ACETAMINOPHEN) PO PRN ×3 (12:09→20:23)
[2019-10-17 14:00] VITALS: BP 119/61
--- NOTE | 2019-10-17 14:10 | IPNPDOC ---
Date Seen The patient was seen on 10/17/19. Progress Note SUBJECTIVE: c/o 7/10 pain in mid back , shooting pain sharp on and off despite pain meds. no c/o upper extremities being weak or numb. despite being off diuretics, no c/o sob, cough. no fever or chills OBJECTIVE: PHYSICAL EXAMINATION: VITALS: SEE BELOW GENERAL: Awake, alert, oriented to person only. Pleasantly confused and demented. HEENT: Pupils round and reactive. Extraocular muscles are intact. Dry mucous membranes. NECK: No JVD. No thyromegaly. LUNGS: Diminished but clear to auscultation. HEART: S1, S2, irregularly irregular. ABDOMEN: Obese, nontender, non-distended, positive bowel sounds x4 quadrants. Nohepatosplenomegaly. EXTREMITIES: Trace edema bilateral lower extremities. LABORATORY DATA: SEE BELOW IMPRESSION: 1. Mechanical fall with T7, T8 vertebral fracture, pain 2. Hyponatremia,resolved. 3. Acute on chronic renal failure stage 3,resolved 4. Chronic atrial fibrillation. 5. Chronic diastolic heart failure. 6. Sacral decubitus. 7. Hypothyroidism. 8. Anemia due to renal failure. 9. chronic LE edema PLAN: pain meds adjusted for better control. pain mgt consulted due to comorbidities and risk of co2 retention with opioids, and chf history excluding NSAID use. Patient's blood pressure medications have been temporarily held due to hypotension. Wound culture has been sent. Telemedicine with Dr. Winkler for her sacral ulcer. general surgery consulted for debridement. Resumed back on the Xarelto. most likely subacute rehab placement as pt has not progressed along, with very slow recovery. VS, I&O, 24H, [facility] Vital Signs/I&O Vital Signs Date Time Temp Pulse Resp B/P (MAP) Pulse Ox O2 Delivery O2 Flow Rate FiO2 10/17/19 12:58 18 Room Air 10/17/19 10:00 99.1 88 98/52 (67) 96 I&O- Last 24 Hours up to 6 AM 10/17/19 05:59 Intake Total 680 ml Output Total 1000 ml Balance -320 ml Laboratory Data 24H LABS Laboratory Tests 2 10/16/19 16:33: Bedside Glucose (Misc Panel) 238H 10/16/19 19:59: Bedside Glucose (Misc Panel) 268H 10/17/19 05:13: Nucleated Red Blood Cells % (auto) 0.0, Anion Gap 6L, Glomerular Filtration Rate 51.0, Calcium Level 8.3L 10/17/19 11:31: Bedside Glucose (Misc Panel) 189H CBC/BMP Laboratory Tests 10/17/19 05:13 Microbiology Microbiology 10/14/19 Stool Occult Blood (YURY) - Final, Complete 10/12/19 Gram Stain - Final, Resulted 10/12/19 Wound Culture - Preliminary, Resulted Escherichia Coli#2 Escherichia Coli Staphylococcus Aureus HEMANT DENNY MD Oct 17, 2019 14:10
[2019-10-17 18:00] VITALS: BP 108/58
[2019-10-17] MEDS: diphenhydrAMINE 50MG CAP PO PRN (20:22)
[2019-10-17 22:00] VITALS: BP 114/81
[2019-10-18] VITALS (7 sets, daily range): BP systolic 109–129; BP diastolic 50–70
[2019-10-18] MEDS: NORCO, ANEXSIA 5/325MG TABLET (HYDROcodone/ACETAMINOPHEN) PO PRN ×5 (01:27→21:41)
[2019-10-18] MEDS: LEVOTHYROXINE 100MCG TABLET (0.1MG) PO SCH (05:45)
[2019-10-18 06:48] LABS: HEMATOCRIT 30.5 % (36.0-47.0); HEMOGLOBIN 9.4 g/dl (12.0-15.5); MEAN CORPUSCULAR HEMOGLOBIN 29.1 pg (27.0-33.0); MEAN CORPUSCULAR HGB CONC 30.8 g/dl (32.0-36.5); MEAN CORPUSCULAR VOLUME 94.4 fl (80.0-96.0); PLATELET COUNT, AUTOMATED 414 10^3/uL (150-450); RED BLOOD COUNT 3.23 10^6/uL (4.00-5.40); WHITE BLOOD COUNT 13.1 10^3/uL (4.0-10.0)
[2019-10-18 07:08] LABS: CALCIUM LEVEL 8.4 MG/DL (8.8-10.2); CREATININE FOR GFR 1.22 MG/DL (0.55-1.30); GLOMERULAR FILTRATION RATE 45.3 (>39); POTASSIUM SERUM 4.6 MEQ/L (3.5-5.1)
[2019-10-18] MEDS: HumaLOG INSULIN (NovoLOG) PER UNIT SC SCH ×4 (08:56→21:00)
[2019-10-18] MEDS: BALMEX CREAM 60GM TOP SCH (09:17)
[2019-10-18] MEDS: ASCORBIC ACID 500 MG TAB PO SCH (09:17)
[2019-10-18] MEDS: DICLOFENAC EPOLAMINE 1.3 % PATCH TOP SCH ×2 (09:17→21:40)
[2019-10-18] MEDS: VITAMIN D 1,000 INTERNATIONAL UNITS TABLET PO SCH (09:17)
[2019-10-18] MEDS: RIVAROXABAN 15 MG TAB (XARELTO) PO SCH (09:18)
[2019-10-18] MEDS: FERROUS SULFATE 325MG TAB PO SCH ×2 (09:18→21:41)
[2019-10-18] MEDS: BACTRIM 160MG/800MG DS TAB PO SCH ×2 (09:18→21:41)
[2019-10-18] MEDS ORDERED: MORPHINE 2 MG/ML 1ML VIAL (J2270) IV ONE (10:15)
[2019-10-18] MEDS ORDERED: FUROSEMIDE 20MG/2ML VIAL (J1940) IV ONE (12:00)
[2019-10-18] MEDS: FUROSEMIDE 20 MG TAB PO SCH (16:14)
[2019-10-19] MEDS: diphenhydrAMINE 50MG CAP PO PRN ×2 (00:11→20:49)
[2019-10-19] MEDS: ACETAMINOPHEN TAB 650MG DOSE (2X325MG) PO PRN ×2 (00:11→08:21)
[2019-10-19 06:00] VITALS: BP 111/61
[2019-10-19 06:00] LABS: HEMATOCRIT 28.6 % (36.0-47.0); HEMOGLOBIN 8.8 g/dl (12.0-15.5); MEAN CORPUSCULAR HEMOGLOBIN 29.2 pg (27.0-33.0); MEAN CORPUSCULAR HGB CONC 30.8 g/dl (32.0-36.5); PLATELET COUNT, AUTOMATED 356 10^3/uL (150-450); RED BLOOD COUNT 3.01 10^6/uL (4.00-5.40); WHITE BLOOD COUNT 10.3 10^3/uL (4.0-10.0)
[2019-10-19] MEDS: NORCO, ANEXSIA 5/325MG TABLET (HYDROcodone/ACETAMINOPHEN) PO PRN ×4 (06:10→20:50)
[2019-10-19] MEDS: LEVOTHYROXINE 100MCG TABLET (0.1MG) PO SCH (06:10)
[2019-10-19 06:24] LABS: CALCIUM LEVEL 8.4 MG/DL (8.8-10.2); CREATININE FOR GFR 1.27 MG/DL (0.55-1.30); GLOMERULAR FILTRATION RATE 43.2 (>39); POTASSIUM SERUM 4.6 MEQ/L (3.5-5.1)
[2019-10-19] MEDS: HumaLOG INSULIN (NovoLOG) PER UNIT SC SCH ×4 (08:16→20:51)
[2019-10-19] MEDS: VITAMIN D 1,000 INTERNATIONAL UNITS TABLET PO SCH (08:17)
[2019-10-19] MEDS: BACTRIM 160MG/800MG DS TAB PO SCH ×2 (08:18→20:49)
[2019-10-19] MEDS: FUROSEMIDE 20 MG TAB PO SCH ×2 (08:19→17:48)
[2019-10-19] MEDS: RIVAROXABAN 15 MG TAB (XARELTO) PO SCH (08:19)
[2019-10-19] MEDS: ASCORBIC ACID 500 MG TAB PO SCH (08:19)
[2019-10-19] MEDS: FERROUS SULFATE 325MG TAB PO SCH ×2 (08:19→20:49)
[2019-10-19] MEDS: DICLOFENAC EPOLAMINE 1.3 % PATCH TOP SCH ×2 (08:22→20:49)
[2019-10-19] MEDS: BALMEX CREAM 60GM TOP SCH (08:23)
[2019-10-19] MEDS: BACLOFEN 5MG PER 1/2 TABLET PO SCH ×2 (13:31→17:47)
[2019-10-19] MEDS: NYSTATIN 100,000 UNITS/GM TOPICAL PWD 15 GM TOP PRN (20:51)
[2019-10-20] MEDS: BACLOFEN 5MG PER 1/2 TABLET PO SCH ×5 (00:10→23:45)
[2019-10-20] MEDS: NORCO, ANEXSIA 5/325MG TABLET (HYDROcodone/ACETAMINOPHEN) PO PRN ×2 (01:20→07:31)
[2019-10-20 05:14] LABS: HEMATOCRIT 27.8 % (36.0-47.0); HEMOGLOBIN 8.5 g/dl (12.0-15.5); MEAN CORPUSCULAR HEMOGLOBIN 28.9 pg (27.0-33.0); MEAN CORPUSCULAR HGB CONC 30.6 g/dl (32.0-36.5); MEAN CORPUSCULAR VOLUME 94.6 fl (80.0-96.0); PLATELET COUNT, AUTOMATED 324 10^3/uL (150-450); RED BLOOD COUNT 2.94 10^6/uL (4.00-5.40); WHITE BLOOD COUNT 9.3 10^3/uL (4.0-10.0)
[2019-10-20 05:42] LABS: CALCIUM LEVEL 8.3 MG/DL (8.8-10.2); CREATININE FOR GFR 1.25 MG/DL (0.55-1.30); POTASSIUM SERUM 4.1 MEQ/L (3.5-5.1)
[2019-10-20 06:00] VITALS: BP 110/68
[2019-10-20] MEDS: LEVOTHYROXINE 100MCG TABLET (0.1MG) PO SCH (06:15)
[2019-10-20] MEDS: HumaLOG INSULIN (NovoLOG) PER UNIT SC SCH ×4 (08:15→21:00)
[2019-10-20] MEDS: BACTRIM 160MG/800MG DS TAB PO SCH ×2 (08:16→21:21)
[2019-10-20] MEDS: FERROUS SULFATE 325MG TAB PO SCH ×2 (08:16→21:17)
[2019-10-20] MEDS: FUROSEMIDE 20 MG TAB PO SCH ×2 (08:17→18:51)
[2019-10-20] MEDS: VITAMIN D 1,000 INTERNATIONAL UNITS TABLET PO SCH (08:17)
[2019-10-20] MEDS: RIVAROXABAN 15 MG TAB (XARELTO) PO SCH (08:17)
[2019-10-20] MEDS: ASCORBIC ACID 500 MG TAB PO SCH (08:17)
[2019-10-20] MEDS: BALMEX CREAM 60GM TOP SCH (08:18)
[2019-10-20] MEDS: NYSTATIN 100,000 UNITS/GM TOPICAL PWD 15 GM TOP PRN (08:19)
[2019-10-20] MEDS: DICLOFENAC EPOLAMINE 1.3 % PATCH TOP SCH ×2 (08:19→21:18)
--- NOTE | 2019-10-20 10:15 | IPN ---
DATE: 10/16/2019 HISTORY: The patient complains of left sided stabbing pain, on norco_ 7.5/325 one tab 3-4 hours as needed and Dilaudid IV for severe pain. The patient has no shortness of breath, no chest pain or pressure. Due to low pressure the patient's Lasix has been discontinued despite increased lower extremity edema. PHYSICAL EXAMINATION: VITAL SIGNS: Temperature 97.7, pulse 82, respiratory 20, blood pressure 111/53, 97% on room air. GENERAL APPEARANCE: Awake, alert, oriented to herself, answering questions appropriately. NECK: No JVD, no thyromegaly. HEART: S1, S2, sinus rhythm. ABDOMEN: Soft, nontender, nondistended. Positive bowel sounds. Obese abdomen. EXTREMITIES: 3+ pitting edema to the sacrum. LABORATORY DATA: White count 9.8, hemoglobin 9, hematocrit 29, platelet count 365. Sodium 130, potassium 4.2, chloride 99, bicarbonate 25, BUN 50, creatinine 1.18, glucose of 193. One culture decubitus E-coli and staph aureus, sensitive to Bactrim. ASSESSMENT AND PLAN: This is a 79-year-old female with a history of T-7, T-8 compression fractures, chronic kidney disease 3, chronic hypertension, diabetes, chronic atrial fibrillation on anticoagulation, chronic diastolic heart failure, chronic kidney disease stage 3, reflux, mild mitral regurgitation, mild aortic sclerosis, stasis dermatitis with venous insufficiency, had had recurrent falls, found to have a T-7, T-8 burst fracture with recommendations from Dr. Pace to transfer to [place], when she was found to be anemic, transfused 2 units RBC transfusion. At [place] the patient did not have surgery and was transferred back for conservative measures, to use GLSO for comfort and while working in physical therapy. ACTIVE ISSUES: 1. Hyponatremia resolved. 2. T-7, T-8 compression fracture. 3. Anemia, status post RBC transfusion during previous admission. 4. Chronic kidney disease stage 3, [id number] back to baseline. 5. Chronic hypertension. 6. Type 2 diabetes. 7. Chronic atrial fibrillation. 8. Hypothyroidism. 9. Chronic diastolic heart failure. 10. Obesity BMI greater than 40. 11. Sacral decubiti. PLAN: The patient's renal function has improved back to normal, currently at baseline, off of her Lasix. The patient is on Bactrim for sacral decubiti. Turn q. 2 hourly and reposition. On Hydrocodone for pain of the T-7, T-8 compression fracture. Dilaudid as needed IV for breakthrough pain and Narcan for emergent reversal of respiratory acidosis were to occur. The patient is continued on home dose of Xarelto. Lasix has been held. No decompensated heart failure due to renal dysfunction. Obtain Dopplers of the lower extremity, rule out DVT but continue patient on Xarelto. MTDD
--- NOTE | 2019-10-20 10:21 | IPN ---
DATE: 10/18/2019 SUBJECTIVE: The patient denies any chest pain, pressure, tightness or shortness of breath. After one dose of Lasix, patient's breathing is improved overnight. Denies dysuria, urgency, frequency. Complains of generalized weakness, but is working with physical therapy and is cooperative. No other issues per nursing. No fever or chills. Still on Hydrocortisone taper, maintaining systolic pressure 109 to 129. Patient complains of pain in the back, rating 7/10, but per nursing has been comfortable. PHYSICAL EXAMINATION: VITAL SIGNS: Temperature 97.3, pulse 85, respiratory 20, blood pressure 109/55, 96% on room air. GENERAL: Hard of hearing. Awake, alert, oriented to person only. No respiratory distress. Use of respiratory accessory muscles. Able to speak in full sentences without conversational dyspnea. NECK: No JVD or thyromegaly. LUNGS: Diminished but clear to auscultation. HEART: S1, S2, irregularly irregular. ABDOMEN: Obese, soft, nontender, nondistended. Positive bowel sounds x4 quadrants. No fluid wave or hepatosplenomegaly. EXTREMITIES: Trace edema bilaterally. LABORATORY DATA: White count 13, hemoglobin 9.4, hematocrit 30, platelet count 414,000. Sodium 134, potassium 4.6, chloride 101, bicarbonate 28, BUN 34, creatinine 1.22. ASSESSMENT AND PLAN: This is a 79-year-old female; status post a mechanical fall with T7, T8 vertebral fracture, seen in [place] and transferred back without any intervention. She was admitted due to hyponatremia, acute on chronic renal failure stage 3, which has resolved. CURRENT ISSUES: 1. Mechanical fall with T7, T8 vertebral fracture with worsening pain. 2. Hyponatremia, resolved. 3. Chronic atrial fibrillation. 4. Acute on chronic renal failure stage 3. 5. Chronic diastolic heart failure, compensated. 6. Chronic 3+ lower extremity edema, negative DVT. 7. Sacral decubitus present on hospital admission. 8. Hypothyroidism. 9. Anemia due to renal failure. PLAN: Patient currently has no acute medical issues. Pain medications are adequate according to nursing. Patient will need subacute rehab. General surgery has been consulted to manage patients sacral decubitus with E. coli being treated with Bactrim b.i.d. to complete a seven day course. Currently medically stable for transfer to [facility]
[2019-10-20] MEDS ORDERED: traMADol 50 MG TAB PO ONE (11:00)
[2019-10-20] MEDS ORDERED: KETOROLAC 30 MG/ML 1ML VIAL IV ONE (11:00)
[2019-10-20] MEDS: traMADol 50 MG TAB PO SCH ×3 (11:41→23:47)
[2019-10-20] MEDS: ACETAMINOPHEN 500 MG TAB PO SCH ×3 (12:49→21:17)
[2019-10-20 14:00] VITALS: BP 129/70
[2019-10-20] MEDS ORDERED: KETOROLAC TROMETHAMINE 10 MG TAB PO ONE (14:00)
[2019-10-20 22:00] VITALS: BP 110/59
[2019-10-21] MEDS: ONDANSETRON 4 MG ORAL DISINTEGRATING TAB SL PRN ×2 (01:40→08:07)
[2019-10-21 06:00] VITALS: BP 115/77
[2019-10-21] MEDS: LEVOTHYROXINE 100MCG TABLET (0.1MG) PO SCH (06:02)
[2019-10-21] MEDS: BACLOFEN 5MG PER 1/2 TABLET PO SCH ×3 (06:02→17:06)
[2019-10-21] MEDS: traMADol 50 MG TAB PO SCH ×3 (06:04→17:07)
[2019-10-21 06:22] LABS: HEMATOCRIT 29.2 % (36.0-47.0); HEMOGLOBIN 9.1 g/dl (12.0-15.5); MEAN CORPUSCULAR HEMOGLOBIN 29.4 pg (27.0-33.0); MEAN CORPUSCULAR HGB CONC 31.2 g/dl (32.0-36.5); MEAN CORPUSCULAR VOLUME 94.5 fl (80.0-96.0); PLATELET COUNT, AUTOMATED 352 10^3/uL (150-450); RED BLOOD COUNT 3.09 10^6/uL (4.00-5.40); WHITE BLOOD COUNT 9.9 10^3/uL (4.0-10.0)
[2019-10-21 06:51] LABS: CALCIUM LEVEL 8.3 MG/DL (8.8-10.2); CREATININE FOR GFR 1.36 MG/DL (0.55-1.30); GLOMERULAR FILTRATION RATE 39.9 (>39); POTASSIUM SERUM 4.9 MEQ/L (3.5-5.1)
[2019-10-21] MEDS: HumaLOG INSULIN (NovoLOG) PER UNIT SC SCH ×4 (07:30→20:44)
[2019-10-21] MEDS: DICLOFENAC EPOLAMINE 1.3 % PATCH TOP SCH ×2 (08:08→20:42)
[2019-10-21] MEDS: FERROUS SULFATE 325MG TAB PO SCH ×2 (08:08→20:43)
[2019-10-21] MEDS: BACTRIM 160MG/800MG DS TAB PO SCH ×2 (08:08→20:43)
[2019-10-21] MEDS: RIVAROXABAN 15 MG TAB (XARELTO) PO SCH (08:08)
[2019-10-21] MEDS: ACETAMINOPHEN 500 MG TAB PO SCH ×4 (08:09→20:43)
[2019-10-21] MEDS: ASCORBIC ACID 500 MG TAB PO SCH (08:10)
[2019-10-21] MEDS: FUROSEMIDE 20 MG TAB PO SCH (08:10)
[2019-10-21] MEDS: BALMEX CREAM 60GM TOP SCH (08:12)
[2019-10-21] MEDS: VITAMIN D 1,000 INTERNATIONAL UNITS TABLET PO SCH (08:12)
[2019-10-21] MEDS ORDERED: NS 1,000 ML IV SCH (11:00)
[2019-10-21 11:09] LABS: ALBUMIN 1.8 GM/DL (3.2-5.2); BILIRUBIN,DIRECT 0.1 MG/DL (0.0-0.2); BILIRUBIN,TOTAL 0.3 MG/DL (0.2-1.0); C REACTIVE PROTEIN QUANTITATIV 6.5 MG/DL (0.00-0.30); CK-MB VALUE MASS 1.5 NG/ML (<3.6); MB/CK RELATIVE INDEX 5.77 (< OR =4); TOTAL PROTEIN 5.4 GM/DL (6.4-8.2); TROPONIN I 0.08 NG/ML (< 0.10)
[2019-10-21 11:45] LABS: ERYTHROCYTE SEDIMENTATION RATE 56 mm/hr (0-30)
[2019-10-21] MEDS: METOCLOPRAMIDE INJ 10MG/2ML VIAL (J2765 PER 1) IV SCH ×3 (11:46→23:18)
[2019-10-21] MEDS: SENOKOT S TAB PO SCH ×2 (11:46→20:42)
[2019-10-21] MEDS: MOM 30ML SUSPENSION UDC PO PRN ×2 (11:47→20:43)
[2019-10-21 14:00] VITALS: BP 150/75
--- NOTE | 2019-10-21 17:55 | IPN ---
DATE: 10/21/2019 SUBJECTIVE: Per nursing, the patient has had worsening pain and was dry heaving this morning. The patient was noted to have acute kidney injury since Lasix and Toradol had been given. Despite, Percocet, [place] and Dilaudid previously given, the patient had worsening pain and altered mental status with increased sedation. She is now continued on Baclofen, Tramadol, and Tylenol. Lasix and Toradol have been discontinued. PHYSICAL EXAMINATION: VITAL SIGNS: Temperature is 97.7, pulse is 95, respiratory rate 18, blood pressure is 115/77, 99% on room air. GENERAL: Patient is awake, alert, and oriented to person, place and time lying still in bed, afraid to move. NECK: No JVD or thyromegaly. No icterus or jaundice. LUNGS: Diminished. Clear to auscultation. No wheezing or rales. HEART: S1 and S2, irregularly irregular. ABDOMEN: Obese, soft, nontender and nondistended. Reducible ventral hernia. EXTREMITIES: Chronic 2+ pitting edema. LABORATORY DATA: White count 9.9, hemoglobin 9, hematocrit 29, platelet count 352,000. Sodium was 134, potassium 4.9, chloride 103, bicarbonate 26, BUN 28, creatinine 1.36, glucose of 136. ASSESSMENT AND PLAN: This is a 79-year-old DNR/DNI female admitted on 10/12/19 with a history of recent fall with a T7-T8 burst fracture seen at [place] for higher level of care for orthopedic recommendation, transferred back without any neurosurgical intervention and was noted to have worsening pain. Patient is admitted for the following issues: 1. T7-T8 compression fracture, was previously on [place] and Flector Patch, discontinued due to altered mental status, increased sedation and acute kidney injury. Pain management has been consulted. Currently, on tramadol and acetaminophen. Deferred to Pain Management for further changes. 2. Acute kidney injury secondary to Bactrim being taken for sacral ulcer infection with pressure ulcer, Toradol for pain, and Lasix for her heart failure. All three medications have been now discontinued to allow the creatinine to return back to normal. 3. Chronic atrial fibrillation on atenolol and Rivaroxaban. 4. Hypothyroidism, on Synthroid. 5. Chronic diastolic heart failure and moderate pulmonary hypertension due to acute kidney injury. Patients torsemide and metolazone had been discontinued. 6. Hyponatremia secondary to diuretics, have been discontinued, now normal sodium level. 7. Anemia, status post RBC transfusion during the previous admission. No acute indication for RBC transfusion this time. 8. Type 2 diabetes, on consistent carbohydrate diet, fingersticks. DISPOSITION: Patient remains in ALC status. We have re-consulted Pain Management back in order to assist in management of patients pain control. CUBA
[2019-10-21 22:00] VITALS: BP 126/64
[2019-10-22] MEDS: METOCLOPRAMIDE INJ 10MG/2ML VIAL (J2765 PER 1) IV SCH ×3 (05:32→17:10)
[2019-10-22] MEDS: LEVOTHYROXINE 100MCG TABLET (0.1MG) PO SCH (05:32)
[2019-10-22] MEDS: traMADol 50 MG TAB PO SCH ×4 (05:43→18:25)
[2019-10-22] MEDS: BACLOFEN 5MG PER 1/2 TABLET PO SCH ×4 (05:43→17:10)
[2019-10-22 06:00] VITALS: BP 140/82
[2019-10-22] MEDS: HumaLOG INSULIN (NovoLOG) PER UNIT SC SCH ×4 (07:30→21:00)
[2019-10-22] MEDS: BACTRIM 160MG/800MG DS TAB PO SCH ×2 (08:46→21:50)
[2019-10-22] MEDS: VITAMIN D 1,000 INTERNATIONAL UNITS TABLET PO SCH (08:46)
[2019-10-22] MEDS: SENOKOT S TAB PO SCH (08:46)
[2019-10-22] MEDS: FERROUS SULFATE 325MG TAB PO SCH ×2 (08:46→21:50)
[2019-10-22] MEDS: ACETAMINOPHEN 500 MG TAB PO SCH ×4 (08:46→21:51)
[2019-10-22] MEDS: ASCORBIC ACID 500 MG TAB PO SCH (08:46)
[2019-10-22] MEDS: RIVAROXABAN 15 MG TAB (XARELTO) PO SCH (08:47)
[2019-10-22] MEDS: BALMEX CREAM 60GM TOP SCH (08:47)
[2019-10-22] MEDS: DICLOFENAC EPOLAMINE 1.3 % PATCH TOP SCH (08:47)
[2019-10-22 09:42] LABS: BASO # 0.1 10^3/uL (0.0-0.2); BASO % 0.4 % (0.0-1.0); EOS # 0.4 10^3/uL (0.0-0.5); EOS % 3.3 % (0.0-3.0); HEMATOCRIT 33.4 % (36.0-47.0); HEMOGLOBIN 10.4 g/dl (12.0-15.5); LYMPH # 2.2 10^3/uL (1.5-5.0); LYMPH % 18.5 % (24.0-44.0); MEAN CORPUSCULAR HEMOGLOBIN 29.5 pg (27.0-33.0); MEAN CORPUSCULAR HGB CONC 31.1 g/dl (32.0-36.5); MEAN CORPUSCULAR VOLUME 94.9 fl (80.0-96.0); MONO # 0.9 10^3/uL (0.0-0.8); MONO % 7.8 % (0.0-5.0); NEUTROPHILS # 8.1 10^3/uL (1.5-8.5); NEUTROPHILS % 69.1 % (36.0-66.0); PLATELET COUNT, AUTOMATED 438 10^3/uL (150-450); RED BLOOD COUNT 3.52 10^6/uL (4.00-5.40); WHITE BLOOD COUNT 11.7 10^3/uL (4.0-10.0)
[2019-10-22] MEDS ORDERED: metOLazone 5 MG TAB PO ONE (10:00)
[2019-10-22 10:01] VITALS: BP 142/79
[2019-10-22] MEDS ORDERED: FUROSEMIDE 20MG/2ML VIAL (J1940) IV ONE (10:30)
[2019-10-22] MEDS: LACTULOSE 20 GM/30 ML SYRUP UD PO PRN (10:45)
[2019-10-22] MEDS ORDERED: FLEET ENEMA PR PRN (10:45)
[2019-10-22 10:47] LABS: CALCIUM LEVEL 8.3 MG/DL (8.8-10.2); CK-MB VALUE MASS 1.8 NG/ML (<3.6); CREATININE FOR GFR 1.41 MG/DL (0.55-1.30); GLOMERULAR FILTRATION RATE 38.3 (>39); MB/CK RELATIVE INDEX 4.86 (< OR =4); POTASSIUM SERUM 4.8 MEQ/L (3.5-5.1); TROPONIN I 0.05 NG/ML (< 0.10)
[2019-10-22] MEDS ORDERED: POLYETHYLENE GLYCOL (MIRALAX) 238GM BOTTLE PO ONE (11:00)
[2019-10-22] MEDS ORDERED: FUROSEMIDE 40MG/4ML VIAL (J1940) IV ONE (13:00)
[2019-10-22 13:15] VITALS: BP 136/68
--- NOTE | 2019-10-22 14:49 | IPN ---
DATE: 10/22/2019 SUBJECTIVE: Patient complains of severe shortness of breath and generally the patient denies any chest pain, pressure or tightness. She complains of back pain and right flank pain from known history of compression fracture. Pain is described as 7 out of 10, they are there all the time even at rest. PHYSICAL EXAMINATION: VITAL SIGNS: Temperature is 97.7, pulse is 89, respiratory rate is 18, blood pressure is 140/82, 91% on room air. GENERAL: The patient is awake, alert and oriented to person, place and time, dyspneic and with use of respiratory accessory muscles, five word conversational dyspnea, positive JVD. No thyromegaly. LUNGS: Diminished with bilateral rales. HEART: S1 and S2. ABDOMEN: Soft, nontender and nondistended. EXTREMITIES: 2+ pitting edema. LABORATORY DATA: White count 11.7, hemoglobin 10, hematocrit 33, platelet count 438,000. Metabolic panel was still pending. ASSESSMENT AND PLAN: This is a 79-year-old female recently discharged from [place] with T7-T8 burst fracture with no neurosurgical intervention who presented to the Emergency Room with worsening pain. She had acute kidney injury and was subsequently taken off her diuretics for heart failure, now developed fluid overload. IMPRESSION: 1. Acute on chronic diastolic heart failure and moderate pulmonary hypertension, currently off of diuretics due to acute renal failure. Patient is currently on Lasix with Zaroxolyn, negative balance and keep strict I and Os. 2. T7-T8 compression fracture, previously on [place] and Flector Patch. Due to renal failure, Flector Patch has been discontinued, pain management has been consulted. 3. Acute kidney injury secondary to Toradol and Flector Patch. Patient is requiring Lasix right now due to congestive heart failure, we will continue to monitor for worsening azotemia. 4. Hypothyroidism, on Synthroid. 5. Chronic atrial fibrillation, on Atenolol and Rivaroxaban. 6. Hyponatremia due to diuretics which have been held recently but now restarted due to fluid overload from CHF. 7. Anemia, status post RBC transfusion during previous admission. 8. Type 2 diabetes, currently on consistent carbohydrate diet. DISPOSITION: Patient has been changed back to acute status due to congestive heart failure from fluid overload when her diuretics were held due to acute kidney injury. [facility]
[2019-10-22 16:11] LABS: IONIZED CALCIUM 4.4 MG/DL (4.5-5.3)
[2019-10-22 16:43] LABS: CREATININE FOR GFR 1.55 MG/DL (0.55-1.30); GLOMERULAR FILTRATION RATE 34.3 (>39); POTASSIUM SERUM 4.5 MEQ/L (3.5-5.1)
[2019-10-22 16:54] LABS: CALCIUM LEVEL 8.2 MG/DL (8.8-10.2)
[2019-10-22 22:00] VITALS: BP 137/77
[2019-10-23] MEDS: METOCLOPRAMIDE INJ 10MG/2ML VIAL (J2765 PER 1) IV SCH ×5 (01:01→22:55)
[2019-10-23] MEDS: BACLOFEN 5MG PER 1/2 TABLET PO SCH ×6 (01:02→22:58)
[2019-10-23] MEDS: DICLOFENAC EPOLAMINE 1.3 % PATCH TOP SCH ×3 (01:47→21:14)
[2019-10-23 06:00] VITALS: BP 135/77
[2019-10-23] MEDS: LEVOTHYROXINE 100MCG TABLET (0.1MG) PO SCH (06:11)
[2019-10-23] MEDS: traMADol 50 MG TAB PO SCH ×5 (06:13→22:54)
[2019-10-23] MEDS ORDERED: MIRALAX *UNIT DOSE* 17GM PACKET PO PRN (09:00)
[2019-10-23] MEDS: HumaLOG INSULIN (NovoLOG) PER UNIT SC SCH ×4 (09:57→21:00)
[2019-10-23] MEDS: VITAMIN D 1,000 INTERNATIONAL UNITS TABLET PO SCH (09:57)
[2019-10-23] MEDS: ACETAMINOPHEN 500 MG TAB PO SCH ×4 (09:58→21:15)
[2019-10-23] MEDS: ASCORBIC ACID 500 MG TAB PO SCH (09:58)
[2019-10-23] MEDS: RIVAROXABAN 15 MG TAB (XARELTO) PO SCH (09:58)
[2019-10-23] MEDS: FERROUS SULFATE 325MG TAB PO SCH ×2 (09:58→21:15)
[2019-10-23] MEDS: BISACODYL 5 MG TAB PO SCH (09:58)
[2019-10-23] MEDS ORDERED: FUROSEMIDE injection 250 MG in D5W 225 ML IV SCH (10:00)
[2019-10-23] MEDS: BALMEX CREAM 60GM TOP SCH (10:01)
[2019-10-23 12:50] LABS: CALCIUM LEVEL 8.1 MG/DL (8.8-10.2); CREATININE FOR GFR 1.45 MG/DL (0.55-1.30); GLOMERULAR FILTRATION RATE 37.1 (>39); MAGNESIUM LEVEL 2.1 MG/DL (1.8-2.4); POTASSIUM SERUM 4.1 MEQ/L (3.5-5.1)
[2019-10-23] MEDS ORDERED: LEVALBUTEROL 1.25 MG/0.5 ML CONCENTRATE NEB INH PRN (13:00)
[2019-10-23] MEDS ORDERED: FUROSEMIDE 100MG/10ML VIAL (J1940) IV ONE (13:00)
[2019-10-23 13:26] LABS: ABG HCO3 24.2 MEQ/L (22.0-26.0); ABG O2 SATURATION 92.2 % (95.0-99.0); ABG PARTIAL PRESSURE CO2 37.6 mmHg (35.0-45.0); ABG STANDARD HCO3 24.4 MEQ/L (22.0-26.0); ABG TOTAL CO2 25.4 MEQ/L (23.0-31.0); ABG pH (ARTERIAL) 7.427 UNITS (7.350-7.450)
--- NOTE | 2019-10-23 13:31 | REPVR ---
PROCEDURE INFORMATION: Exam: XR Chest, 1 View Exam date and time: 10/23/2019 1:07 PM Age: 79 years old Clinical indication: Shortness of breath; Additional info: SOB TECHNIQUE: Imaging protocol: XR of the chest Views: 1 view. COMPARISON: CR Chest, 2 view PA, Lat 10/21/2019 11:22 AM FINDINGS: Lungs: Interstitial prominence and newly developed airspace disease, disproportionately basilar in distribution. Pleural space: Bilateral pleural effusions. Heart/Mediastinum: Borderline cardiomegaly. Bones/joints: Osteopenia and degenerative change. Soft tissues: Calcified axillary lymph nodes. IMPRESSION: Worsening bilateral airspace disease and pleural effusions. Electronically signed by: Bob Encinas On 10/23/2019 13:31:09 PM
[2019-10-23 14:00] VITALS: BP 129/75
[2019-10-23 14:20] VITALS: BP 162/78
[2019-10-23 14:27] LABS: CK-MB VALUE MASS 2.6 NG/ML (<3.6); TROPONIN I 0.04 NG/ML (< 0.10)
[2019-10-23 16:00] VITALS: BP 164/76
[2019-10-23] MEDS ORDERED: LEVALBUTEROL 1.25 MG/0.5 ML CONCENTRATE NEB INH SCH (16:00)
[2019-10-23] MEDS: cefTRIAXone SOD 2 GM in D5W MINI-BAG PLUS 50 ML IV SCH (16:25)
[2019-10-23 16:35] VITALS: BP 141/74
--- NOTE | 2019-10-23 17:07 | IPNPDOC ---
Date Seen The patient was seen on 10/23/19. Progress Note Progress note dictated Impression Acute on Chronic CHF exacerbation Chronic Left LE thrombus Acute on CKD3 Thoracic fracture-nonsurgical Obesity BMI 44 Sacral ulcer, present on admission ?Pneumonia with diffuse infiltrates, but most likely CHF Plan since MAP>70, may use bolus of iv lasix q6hrs nephrology consult if worsening creatinine in am empiric rx for presumed PE with lovenox 1mg/kg sq q12h VQ scan in AM monitor serial BMP, card berger, and urine output 1.5liter fluid restriction completed bactrim for sacral ulcer transferred to PCU tele empiric ceftriaxone due to increased wbc VS, I&O, 24H, Fishbone Vital Signs/I&O Vital Signs Date Time Temp Pulse Resp B/P (MAP) Pulse Ox O2 Delivery O2 Flow Rate FiO2 10/23/19 16:35 97.9 98 24 141/74 (96) 97 Nasal Cannula 2.0 I&O- Last 24 Hours up to 6 AM 10/23/19 06:00 Intake Total 3165 ml Output Total 675 ml Balance 2490 ml Laboratory Data 24H LABS Laboratory Tests 2 10/22/19 17:40: Bedside Glucose (Misc Panel) 145H 10/22/19 20:11: Bedside Glucose (Misc Panel) 139H 10/23/19 06:46: Bedside Glucose (Misc Panel) 138H 10/23/19 11:46: Bedside Glucose (Misc Panel) 134H 10/23/19 11:55: Anion Gap 6L, Glomerular Filtration Rate 37.1L, Calcium Level 8.1L, Magnesium Level 2.1, Total Creatine Kinase 52, Creatine Kinase MB 2.6, Creatine Kinase MB Relative Index 5.00H, Troponin I 0.04, NW-Vvx-L-Type Natriuretic Peptide 5143H 10/23/19 13:12: Blood Gas Bicarbonate Standard 24.4, Arterial Blood pH 7.427, Arterial Blood Partial Pressure CO2 37.6, Arterial Blood Partial Pressure O2 65.0L, Arterial Blood Total CO2 25.4, Arterial Blood HCO3 24.2, Arterial Blood Base Excess 0.0, Arterial Blood Oxygen Saturation 92.2L CBC/BMP Laboratory Tests 10/23/19 11:55 Microbiology Microbiology 10/14/19 Stool Occult Blood (YURY) - Final, Complete HEMANT DENNY MD Oct 23, 2019 17:07
[2019-10-23 17:43] LABS: IONIZED CALCIUM 4.4 MG/DL (4.5-5.3)
[2019-10-23 17:52] LABS: BASO % 0.4 % (0.0-1.0); EOS # 0.3 10^3/uL (0.0-0.5); EOS % 2.5 % (0.0-3.0); HEMATOCRIT 32.4 % (36.0-47.0); HEMOGLOBIN 10.1 g/dl (12.0-15.5); LYMPH # 1.9 10^3/uL (1.5-5.0); LYMPH % 16.8 % (24.0-44.0); MEAN CORPUSCULAR HEMOGLOBIN 29.6 pg (27.0-33.0); MEAN CORPUSCULAR HGB CONC 31.2 g/dl (32.0-36.5); MONO # 0.9 10^3/uL (0.0-0.8); MONO % 8.1 % (0.0-5.0); NEUTROPHILS # 7.9 10^3/uL (1.5-8.5); NEUTROPHILS % 71.7 % (36.0-66.0); PLATELET COUNT, AUTOMATED 380 10^3/uL (150-450); RED BLOOD COUNT 3.41 10^6/uL (4.00-5.40); WHITE BLOOD COUNT 11.1 10^3/uL (4.0-10.0)
[2019-10-23] MEDS ORDERED: SLF 3 ML SYR IV PRN (18:15)
[2019-10-23] MEDS: FUROSEMIDE 100MG/10ML VIAL (J1940) IV SCH ×2 (18:21→22:56)
[2019-10-23 18:23] LABS: CALCIUM LEVEL 7.9 MG/DL (8.8-10.2); CK-MB VALUE MASS 2.5 NG/ML (<3.6); CREATININE FOR GFR 1.36 MG/DL (0.55-1.30); GLOMERULAR FILTRATION RATE 39.9 (>39); MAGNESIUM LEVEL 1.9 MG/DL (1.8-2.4); MB/CK RELATIVE INDEX 5.95 (< OR =4); POTASSIUM SERUM 4.2 MEQ/L (3.5-5.1); TROPONIN I 0.04 NG/ML (< 0.10)
[2019-10-23 20:00] VITALS: BP 137/63
[2019-10-23] MEDS: IPRATROPIUM HFA INHALER 12.9 GRAMS (ATROVENT HFA) INH SCH (20:47)
[2019-10-23] MEDS: SLF 3 ML SYR IV SCH (22:23)
[2019-10-24] VITALS (9 sets, daily range): BP systolic 122–147; BP diastolic 60–76
[2019-10-24 00:38] LABS: CALCIUM LEVEL 8.1 MG/DL (8.8-10.2); CREATININE FOR GFR 1.48 MG/DL (0.55-1.30); GLOMERULAR FILTRATION RATE 36.2 (>39); MAGNESIUM LEVEL 1.9 MG/DL (1.8-2.4); POTASSIUM SERUM 3.8 MEQ/L (3.5-5.1)
[2019-10-24] MEDS: IPRATROPIUM HFA INHALER 12.9 GRAMS (ATROVENT HFA) INH SCH ×4 (02:00→20:01)
[2019-10-24 05:22] LABS: BASO # 0.1 10^3/uL (0.0-0.2); BASO % 0.7 % (0.0-1.0); EOS # 0.4 10^3/uL (0.0-0.5); EOS % 4.6 % (0.0-3.0); HEMATOCRIT 27.2 % (36.0-47.0); HEMOGLOBIN 8.3 g/dl (12.0-15.5); LYMPH # 1.9 10^3/uL (1.5-5.0); LYMPH % 20.4 % (24.0-44.0); MEAN CORPUSCULAR HEMOGLOBIN 29.2 pg (27.0-33.0); MEAN CORPUSCULAR HGB CONC 30.5 g/dl (32.0-36.5); MEAN CORPUSCULAR VOLUME 95.8 fl (80.0-96.0); MONO # 0.8 10^3/uL (0.0-0.8); MONO % 8.8 % (0.0-5.0); NEUTROPHILS # 5.9 10^3/uL (1.5-8.5); NEUTROPHILS % 64.9 % (36.0-66.0); PLATELET COUNT, AUTOMATED 305 10^3/uL (150-450); RED BLOOD COUNT 2.84 10^6/uL (4.00-5.40); WHITE BLOOD COUNT 9.1 10^3/uL (4.0-10.0)
[2019-10-24 05:39] LABS: CALCIUM LEVEL 7.8 MG/DL (8.8-10.2); CREATININE FOR GFR 1.48 MG/DL (0.55-1.30); GLOMERULAR FILTRATION RATE 36.2 (>39); MAGNESIUM LEVEL 1.8 MG/DL (1.8-2.4); POTASSIUM SERUM 3.7 MEQ/L (3.5-5.1)
[2019-10-24] MEDS: LEVOTHYROXINE 100MCG TABLET (0.1MG) PO SCH (05:59)
[2019-10-24] MEDS: METOCLOPRAMIDE INJ 10MG/2ML VIAL (J2765 PER 1) IV SCH ×4 (05:59→23:40)
[2019-10-24] MEDS: traMADol 50 MG TAB PO SCH ×4 (06:00→23:41)
[2019-10-24] MEDS: FUROSEMIDE 100MG/10ML VIAL (J1940) IV SCH ×4 (06:00→23:40)
[2019-10-24] MEDS: BACLOFEN 5MG PER 1/2 TABLET PO SCH ×4 (06:00→23:41)
[2019-10-24] MEDS: SLF 3 ML SYR IV SCH ×3 (06:00→21:34)
[2019-10-24] MEDS: HumaLOG INSULIN (NovoLOG) PER UNIT SC SCH ×4 (07:30→21:00)
[2019-10-24] MEDS ORDERED: metOLazone 5 MG TAB PO ONE ×2 (08:00→08:30)
[2019-10-24] MEDS ORDERED: TORSEMIDE 20 MG TAB PO SCH (08:30)
[2019-10-24] MEDS: BALMEX CREAM 60GM TOP SCH (08:39)
[2019-10-24] MEDS: NYSTATIN 100,000 UNITS/GM TOPICAL PWD 15 GM TOP PRN (08:40)
[2019-10-24] MEDS: BISACODYL 5 MG TAB PO SCH (08:42)
[2019-10-24] MEDS ORDERED: ENOXAPARIN 150MG/ML SYRINGE (J1650 PER 10MG) SC SCH (09:00)
[2019-10-24] MEDS: ASCORBIC ACID 500 MG TAB PO SCH (09:18)
[2019-10-24] MEDS: ACETAMINOPHEN 500 MG TAB PO SCH ×4 (09:18→21:33)
[2019-10-24] MEDS: VITAMIN D 1,000 INTERNATIONAL UNITS TABLET PO SCH (09:19)
[2019-10-24] MEDS: ENOXAPARIN 150MG/ML SYRINGE (J1650 PER 10MG) SC SCH ×2 (09:21→21:32)
[2019-10-24] MEDS: FERROUS SULFATE 325MG TAB PO SCH (09:22)
[2019-10-24] MEDS: DICLOFENAC EPOLAMINE 1.3 % PATCH TOP SCH ×2 (09:49→21:34)
--- NOTE | 2019-10-24 10:32 | IPN ---
DATE: 10/23/2019 Patient complains of significant shortness of breath despite Lasix yesterday. Remained in positive balance. Only had an output of 700. Patient had two bowel movements. No complaints of nausea, vomiting, or retching this morning. No chest pain, pressure, or tightness. Patient complains of 7/10 back pain despite Tramadol and Tylenol scheduled, baclofen 5 every 6 hours, and Andriy-Fregoso and K-pad. VITAL SIGNS: Temperature 97.7, pulse 100, respiratory rate 22, blood pressure 135/77, 97% on room air. GENERAL: Awake, alert, oriented to person, place, and time. Positive jugular venous distention (JVD). No thyromegaly. Positive use of respiratory accessory muscles with abdominal muscle use. LUNGS: Diminished. Bilateral rales. HEART: S1, S2, irregularly irregular and tachycardic. ABDOMEN: Soft, nontender, nondistended. Positive bowel sounds. EXTREMITIES: Pitting edema 2+ bilaterally to the sacrum. Lab work still pending. ASSESSMENT AND PLAN: This is a 79-year-old female, recently transferred to [place] with T7-8 burst fracture with no surgical intervention who presented to the emergency room (ER) with worsening back pain, acute kidney injury, and had been taken off her diuretics for heart failure and has developed fluid overload with positive balance. She also has a sacral pressure decubiti, being treated with Bactrim. IMPRESSION: 1. Acute on chronic diastolic heart failure, moderate pulmonary hypertension. Diuretics had been resumed yesterday due to positive balance. Initial diuretics on admission were held because of acute kidney injury. T7-8 compression fracture, previously on [place] and Flector patch due to renal failure. Flector patch has been discontinued, and [place] has been discontinued due to altered mental status. Patient is currently on Tramadol, Tylenol, and baclofen. Pain management has been consulted. 2. Acute kidney injury due to Toradol, Flector patch, and Bactrim. Had discontinued the Bactrim, Toradol, and Flector patch. Now with heart failure. Will continue on Lasix for diuresis. Monitor every 6-hour basic metabolic profile (BMP). 3. Hypothyroidism, on Synthroid. 4. Chronic atrial fibrillation, on atenolol and rivaroxaban. 5. Hypernatremia due to diuretics, resolved. 6. Anemia. Had blood transfusion during previous admission. 7. Type 2 diabetes, on consistent-carbohydrate diet. 8. s/p n/v/dry retching. axr neg. lfts monitored. r/o biliary colic, monitor wbc, fever or recurrent ruq abd pain. may need us gallbladder or hida scan. high risk for lap sidney. if worsens and develops acute cholecystitis, will need to hold AC and order cholecystostomy tube and abx. MTDD
[2019-10-24] MEDS: SPIRONOLACTONE 25 MG TAB PO SCH ×2 (11:46→16:19)
[2019-10-24] MEDS ORDERED: POTASSIUM CHLORIDE 10 MEQ SR TABLET PO ONE (12:00)
[2019-10-24 12:47] LABS: CALCIUM LEVEL 8.1 MG/DL (8.8-10.2); CREATININE FOR GFR 1.38 MG/DL (0.55-1.30); GLOMERULAR FILTRATION RATE 39.3 (>39); MAGNESIUM LEVEL 1.9 MG/DL (1.8-2.4); POTASSIUM SERUM 3.7 MEQ/L (3.5-5.1)
[2019-10-24 13:35] LABS: PERCENT SATURATION 27.8 % (13.2-45.0)
[2019-10-24] MEDS: cefTRIAXone SOD 2 GM in D5W MINI-BAG PLUS 50 ML IV SCH (15:00)
[2019-10-24 19:09] LABS: CREATININE FOR GFR 1.49 MG/DL (0.55-1.30); GLOMERULAR FILTRATION RATE 35.9 (>39); MAGNESIUM LEVEL 1.7 MG/DL (1.8-2.4)
[2019-10-25] VITALS: BP 135/74
[2019-10-25 00:52] LABS: CALCIUM LEVEL 8.4 MG/DL (8.8-10.2); CREATININE FOR GFR 1.5 MG/DL (0.55-1.30); GLOMERULAR FILTRATION RATE 35.7 (>39); MAGNESIUM LEVEL 1.7 MG/DL (1.8-2.4); POTASSIUM SERUM 3.8 MEQ/L (3.5-5.1)
[2019-10-25] MEDS: IPRATROPIUM HFA INHALER 12.9 GRAMS (ATROVENT HFA) INH SCH ×4 (01:43→20:00)
[2019-10-25 04:00] VITALS: BP 130/80
[2019-10-25] MEDS: METOCLOPRAMIDE INJ 10MG/2ML VIAL (J2765 PER 1) IV SCH ×4 (05:37→22:58)
[2019-10-25] MEDS: LEVOTHYROXINE 100MCG TABLET (0.1MG) PO SCH (05:38)
[2019-10-25] MEDS: FUROSEMIDE 100MG/10ML VIAL (J1940) IV SCH ×4 (05:38→22:58)
[2019-10-25] MEDS: BACLOFEN 5MG PER 1/2 TABLET PO SCH ×4 (05:38→22:58)
[2019-10-25] MEDS: traMADol 50 MG TAB PO SCH ×4 (05:42→22:58)
[2019-10-25] MEDS: SLF 3 ML SYR IV SCH ×3 (05:47→22:40)
[2019-10-25 05:49] LABS: BASO # 0.1 10^3/uL (0.0-0.2); BASO % 0.7 % (0.0-1.0); EOS # 0.3 10^3/uL (0.0-0.5); EOS % 2.8 % (0.0-3.0); HEMATOCRIT 31.4 % (36.0-47.0); HEMOGLOBIN 9.7 g/dl (12.0-15.5); LYMPH % 22.8 % (24.0-44.0); MEAN CORPUSCULAR HEMOGLOBIN 29.2 pg (27.0-33.0); MEAN CORPUSCULAR HGB CONC 30.9 g/dl (32.0-36.5); MEAN CORPUSCULAR VOLUME 94.6 fl (80.0-96.0); MONO # 0.8 10^3/uL (0.0-0.8); MONO % 8.8 % (0.0-5.0); NEUTROPHILS # 5.7 10^3/uL (1.5-8.5); NEUTROPHILS % 64.2 % (36.0-66.0); PLATELET COUNT, AUTOMATED 364 10^3/uL (150-450); RED BLOOD COUNT 3.32 10^6/uL (4.00-5.40); WHITE BLOOD COUNT 8.9 10^3/uL (4.0-10.0)
[2019-10-25 06:13] LABS: CALCIUM LEVEL 8.3 MG/DL (8.8-10.2); CREATININE FOR GFR 1.45 MG/DL (0.55-1.30); GLOMERULAR FILTRATION RATE 37.1 (>39); MAGNESIUM LEVEL 1.6 MG/DL (1.8-2.4); POTASSIUM SERUM 3.5 MEQ/L (3.5-5.1)
[2019-10-25] MEDS: HumaLOG INSULIN (NovoLOG) PER UNIT SC SCH ×4 (07:30→21:00)
--- NOTE | 2019-10-25 07:55 | CR ---
DATE OF CONSULTATION: 10/24/2019 REQUESTING PHYSICIAN: Mellissa Bucio MD REASON FOR CONSULTATION: Management of CHF and hyponatremia in this patient with chronic kidney disease stage 3. CHIEF COMPLAINT: Patient presented to the hospital on 10/12/2019 because of a mechanical fall. HISTORY OF PRESENT ILLNESS: Kala Melendez is a 79-year-old female with a past medical history of chronic kidney disease stage 3, hypertension, diabetes, multiple other comorbidities including morbid obesity, who presented to the hospital on 10/12/2019 with a mechanical fall. She was found to have hypervolemic hyponatremia at this time and diastolic CHF. She was admitted under the hospitalist service and the last ten days almost, she actually has started to gain weight. She is persistently having mild hyponatremia and creatinine is still fluctuating around 1.4. So, nephrology service was called for further help in the management of this patient and optimize her diuretic regimen. I saw and evaluated the patient today morning at the bedside. She was laying in the bed wearing nasal cannula. She reports mild persistent shortness of breath. The rest of the history was obtained from patient's chart and previous hospitalizations. PAST MEDICAL HISTORY: Chronic kidney disease stage 3, diabetes mellitus type 2, hypothyroidism, gastroesophageal reflux disease, atrial fibrillation on anticoagulation, pulmonary hypertension, chronic diastolic congestive heart failure, anemia and chronic kidney disease, and morbid obesity. PAST SURGICAL HISTORY: Patient has a past surgical history of coronary artery stenting x2, bilateral knee surgeries, tonsillectomy, mandibular fracture repair and clavicle fracture repair. ALLERGIES: She is allergic to influenza virus, tricyclic compounds, amoxicillin, Clavulanic acid, morphine and Phenylephrine. FAMILY HISTORY: No significant family history of end-stage renal disease requiring hemodialysis. SOCIAL HISTORY: Patient denies any smoking or alcohol or drug abuse. REVIEW OF SYSTEMS: CONSTITUTIONAL: She denies any fevers or chills. EYES: She denies any blurry vision or double vision. ENT: She denies any dysphagia or odynophagia. CARDIOVASCULAR: Denies any chest pain, she does report lower extremity edema. RESPIRATORY: She reports shortness of breath. GI: She denies any nausea or vomiting. GENITOURINARY: She has an indwelling Roberts catheter at this time. MUSCULOSKELETAL: She reports lower extremity edema. SKIN: She reports ulcer in the back. PSYCHOLOGIC: She denies any depression or anxiety at this time. CUSTOM SHOEMAKER: She denies any strokes or seizures. All other review of systems is negative PHYSICAL EXAMINATION: GENERAL: Patient is awake, alert, and oriented x3, laying in bed. VITAL SIGNS: Temperature 97.7 degrees Fahrenheit, blood pressure 147/70, pulse 97, respiratory rate 14, saturating 100% on nasal cannula at 2 liters. INTAKE AND OUTPUT: Urine output recorded as 1.4 liters yesterday, 1.5 liters so far since overnight. HEAD AND NECK: Extraocular muscles intact. Pupils equally round and reactive to light. She is wearing nasal cannula. Neck is supple. Moderately elevated JVD. CARDIOVASCULAR: S1, S2. Irregularly irregular rate. 3+ edema of the bilateral lower extremities. RESPIRATORY: Decreased breath sounds bilaterally at the bases, otherwise no active rales or rhonchi. ABDOMEN: Soft, obese, positive bowel sounds. Abdominal wall edema was noted. She has umbilical hernia. GENITOURINARY: She has an indwelling Roberts catheter. MUSCULOSKELETAL: Patient has deformity of the fingers because of rheumatoid arthritis. CUSTOM SHOEMAKER: No focal deficit. She follows commands and moves bilateral upper extremities. LABORATORY DATA: CBC showed WBC 9.1, hemoglobin 8.3, platelets 305,000. When patient was admitted, she got the random urine sodium done which was less than 10. BMP done today showed sodium 134, potassium 3.7, chloride 99, bicarb 29, BUN 23, creatinine 1.4. Calcium 7.8, magnesium 1.8. IMAGING STUDIES: A chest x-ray was done yesterday, which showed bilateral worsening airspace disease and pleural effusions. CURRENT INPATIENT MEDICATIONS: The patient is getting Ceftriaxone 2 gram I.V. every 24 hours, Tylenol p.r.n., Mylanta p.r.n., Vitamin C 500 mg p.o. daily, Baclofen 5 mg p.o. every 6 hours, Benadryl p.r.n. for insomnia, Lovenox 130 mg subcutaneously every 12 hours, Iron tablets 324 mg p.o. twice a day, Lasix 60 mg I.V. one dose was given yesterday, insulin sliding scale, Lactulose p.r.n. for constipation, Levothyroxine 100 mcg p.o. daily, Metolazone 10 mg p.o. one dose was given today morning. I gave her a dose of potassium chloride 40 mEq. Her Xarelto has been stopped. I started her on Spironolactone 25 mg p.o. twice a day. She was started on Torsemide 40 mg p.o. twice a day, however, I had stopped it because I started the patient on Lasix 80 mg I.V. every 6 hours with next bag a day fluid balance target of 2.5 liters per 24 hours. She is on Vitamin D 5,000 units p.o. daily. ASSESSMENT: A 79-year-old female with history of CKD 3, acute on chronic diastolic CHF, chronic left lower extremity thrombus, compression fractures of thoracic spine, morbid obesity, sacral ulcer. PLAN: 1. Acute on chronic diastolic congestive heart failure: Patient is significantly volume overloaded. Oral diuretics have been stopped. Continue Lasix 80 mg I.V. every 6 hours. I have started her on Spironolactone 25 mg p.o. twice a day. She was already given dose of Metolazone 10 mg p.o. in the morning, which would help with sequential nephron blockade. Continue to monitor daily intake and output and daily weight. 2. Acute kidney injury superimposed on chronic kidney disease stage 3: Patients creatinine is fluctuating at around 1.4; best baseline creatinine is around 1.2. I would continue with the aggressive diuretics at this time because of evidence of pleural effusions and CHF on imaging and evidence of anasarca on clinical exam as well. 3. Hyponatremia: Patient has hypervolemic hyponatremia, it should get better with diuresis. 4. Infected sacral ulcer: Patient is currently getting I.V. Ceftriaxone. The rest of the management is as per surgical recommendations. Okay to continue Vitamin C 500 mg p.o. daily. 5. Chronic DVT of left lower extremity: Patient is currently on weight based Lovenox injections. 6. Anemia and chronic kidney disease: I am going to check the iron levels and give the patient I.V. iron while she is here. I would stop the oral iron since patient is already better and it would make her constipation worse. Thank you for involving me in the care of this patient. I am happy to follow the patient along with you tomorrow morning. [facility]ory
--- NOTE | 2019-10-25 07:57 | IPN ---
DATE: 10/24/2019 SUBJECTIVE: Patient is still quite dyspneic, had very little urine output about 500 mL despite Lasix and Zaroxolyn. Per previous notes, Dr. Hickey had recommended Torsemide, therefore patient had been given Zaroxolyn this morning and Torsemide increased to 40 mg b.i.d. She still complains of 3/10 pain when she is not moving of the mid back, which worsens to a 7/10 despite scheduled pain medication. PHYSICAL EXAMINATION: VITALS: Temperature 97.7, pulse 86, respiratory rate 12, blood pressure 122/76, 95% on 2 liters nasal cannula. GENERAL: Patient is awake, alert and oriented to herself. Answering questions appropriately. She does have moderate respiratory distress with use of abdominal respiratory muscles. No tracheal deviation. Positive JVD. Dry mucous membranes. LUNGS: Diminished, with bilateral rales. HEART: S1, S2, irregularly irregular and tachycardic. ABDOMEN: Obese, soft, nontender, non-distended, positive bowel sounds. No rebound or guarding. EXTREMITIES: 2+ pitting edema to the sacrum. LABORATORY DATA: White count 9, hemoglobin 8.3, hematocrit 27, platelet count 305,000. Sodium 134, potassium 3.7, chloride 99, bicarb 29, BUN 23, creatinine 1.48, glucose 135. Magnesium 1.8. On 10/12/2019, decubitus ulcer; all three E. Coli Strep gallolyticus, Staph Aureus. Hemoccult stool on 10/14/2019 is negative. Respiratory panel on 10/23/2019 negative COVID. IMAGING STUDIES: Repeat chest x-ray on 10/23/2019 revealed worsening bilateral airspace disease and pleural effusions. ASSESSMENT AND PLAN: This is a 79-year-old female discharged from [place] with T7, T8 burst fracture with no neurosurgical intervention, who presented to the Emergency Room with worsening pain and found to have hyponatremia, acute kidney injury and severe back pain. IMPRESSION: 1. Acute on chronic diastolic heart failure and moderate pulmonary hypertension. 2. T7, T8 compression fracture. 3. Acute on chronic kidney disease stage 3. 4. Hypothyroidism. 5. Chronic atrial fibrillation. 6. Electrolyte abnormalities with hypokalemia. 7. Type 2 diabetes. 8. Anemia due to chronic kidney disease. 9. Cholelithiasis / Biliary colic r/o acute cholecystitis PLAN: Patient did better with Torsemide, therefore Lasix has been discontinued. She is currently started on Zaroxolyn 30 minutes prior to Torsemide 40 mg b.i.d. dose. Kept on fluid restriction of 2 liters, strict I's and Os and daily weights. Due to renal failure, patient's Toradol has been discontinued and Flector patch. She is currently being evaluated for pulmonary embolism due to worsening respiratory distress. VQ scan has been ordered. Currently on Lovenox 130 mg every 12 hours. If negative PE, patient maybe restarted back on her home dose of Xarelto for atrial fibrillation. She is continued on Tylenol, Tramadol and Baclofen for chronic back pain. Will discontinue patient's antibiotics once chest x-ray clears. check liver profile and ruq us if biliary complaints persist, may need abx and cholecystostomy tube.surgical consult . [facility]
--- NOTE | 2019-10-25 07:59 | REP ---
ABDOMINAL RADIOGRAPH CLINICAL: Intractable nausea. TECHNIQUE: Two supine views of the abdomen and pelvis. FINDINGS: Bowel gas pattern is nonspecific. No organomegaly. No abnormal calcification. Skeletal structures demonstrate age-related degenerative changes. No evidence for bowel obstruction or obvious perforation. IMPRESSION: Nonspecific bowel gas pattern. MTDD
[2019-10-25 08:00] VITALS: BP 134/74
--- NOTE | 2019-10-25 08:00 | REP ---
CHEST X-RAY CLINICAL: Shortness of breath. TECHNIQUE: AP and lateral. FINDINGS: Cardiomegaly is appreciated along with indistinct pulmonary vasculature cephalization, bibasilar opacities, and moderate pleural effusions. Findings most compatible with congestive heart failure (CHF)/pulmonary edema. Underlying atelectasis/pneumonia cannot be excluded. No pneumothorax. IMPRESSION: Findings as described above suggesting congestive heart failure (CHF)/pulmonary edema. Less likely differential includes multifocal pneumonia and atelectasis. MTDD
--- NOTE | 2019-10-25 08:08 | REPVR ---
PROCEDURE INFORMATION: Exam: XR Chest, 1 View Exam date and time: 10/25/2019 7:21 AM Age: 79 years old Clinical indication: Other: Chf recheck; Additional info: Chf check resolution TECHNIQUE: Imaging protocol: XR of the chest Views: 1 view. COMPARISON: CR PORTABLE CHEST X-RAY 10/23/2019 12:59 PM FINDINGS: Lungs: The degree of pulmonary vascular congestion and edema has shown interval improvement. There are persistent small bilateral pleural effusions with associated atelectasis and/or consolidation at the lung bases. Pleural space: No evidence of pneumothorax. Heart/Mediastinum: Stable cardiomegaly and mediastinal contours. Bones/joints: Stable. Osteopenia. Degenerative changes. IMPRESSION: 1. Improving CHF. 2. Persistent small bilateral pleural effusions with bibasilar atelectasis/consolidation. Electronically signed by: Benjamin Anton On 10/25/2019 08:08:23 AM
[2019-10-25] MEDS ORDERED: MAG SULF 1GM/100ML (MAG RUN) 1 GM in IV 1 EA IV ONE (09:00)
[2019-10-25] MEDS ORDERED: POTASSIUM CHLORIDE 10 MEQ SR TABLET PO ONE ×2 (09:00→10:00)
[2019-10-25] MEDS: SPIRONOLACTONE 25 MG TAB PO SCH ×2 (09:00→16:16)
[2019-10-25] MEDS: ACETAMINOPHEN 500 MG TAB PO SCH ×4 (09:00→21:17)
[2019-10-25] MEDS: BALMEX CREAM 60GM TOP SCH (09:00)
[2019-10-25] MEDS: ASCORBIC ACID 500 MG TAB PO SCH ×2 (09:00→16:18)
[2019-10-25] MEDS: BISACODYL 5 MG TAB PO SCH ×2 (09:00→16:18)
[2019-10-25] MEDS: VITAMIN D 1,000 INTERNATIONAL UNITS TABLET PO SCH ×2 (09:00→16:19)
[2019-10-25] MEDS: ONDANSETRON 4 MG ORAL DISINTEGRATING TAB SL PRN ×2 (09:15→16:15)
[2019-10-25 10:00] VITALS: BP 148/76
[2019-10-25] MEDS ORDERED: metOLazone 5 MG TAB PO ONE ×2 (10:00→11:30)
[2019-10-25] MEDS: ENOXAPARIN 150MG/ML SYRINGE (J1650 PER 10MG) SC SCH (10:02)
[2019-10-25] MEDS: DICLOFENAC EPOLAMINE 1.3 % PATCH TOP SCH (10:04)
[2019-10-25 12:00] VITALS: BP 148/76
[2019-10-25 12:43] LABS: CALCIUM LEVEL 8.1 MG/DL (8.8-10.2); CREATININE FOR GFR 1.39 MG/DL (0.55-1.30); GLOMERULAR FILTRATION RATE 38.9 (>39); MAGNESIUM LEVEL 1.9 MG/DL (1.8-2.4); POTASSIUM SERUM 3.8 MEQ/L (3.5-5.1)
--- NOTE | 2019-10-25 14:06 | REPVR ---
PROCEDURE INFORMATION: Exam: XR Abdomen, 1 View Exam date and time: 10/25/2019 1:42 PM Age: 79 years old Clinical indication: Nausea and vomiting; Additional info: N/v R/O partial sbo TECHNIQUE: Imaging protocol: XR of the abdomen. Views: Frontal supine view of the abdomen. 1 View. COMPARISON: CR Abdomen,Flat Plate KUB 10/21/2019 11:22 AM FINDINGS: Tubes, catheters and devices: External monitoring devices. Gastrointestinal tract: Mildly distended air containing colon. Bones/joints: Degenerative disc disease. Severe osteoarthritis left hip with deformity of left hip and possibile underlying osteonecrosis. Hypertrophic bone formation right inferior pubic ramus. IMPRESSION: Mild colonic ileus Electronically signed by: Ade Land On 10/25/2019 14:06:09 PM
[2019-10-25] MEDS: RIVAROXABAN 15 MG TAB (XARELTO) PO SCH (18:02)
[2019-10-25 18:27] LABS: CALCIUM LEVEL 8.4 MG/DL (8.8-10.2); CREATININE FOR GFR 1.47 MG/DL (0.55-1.30); GLOMERULAR FILTRATION RATE 36.5 (>39); MAGNESIUM LEVEL 1.7 MG/DL (1.8-2.4); POTASSIUM SERUM 3.7 MEQ/L (3.5-5.1)
[2019-10-25 20:00] VITALS: BP 127/63
[2019-10-26] VITALS: BP 131/98
[2019-10-26] MEDS: IPRATROPIUM HFA INHALER 12.9 GRAMS (ATROVENT HFA) INH SCH ×4 (00:03→20:18)
[2019-10-26] MEDS: ONDANSETRON 4 MG ORAL DISINTEGRATING TAB SL PRN (02:36)
[2019-10-26] MEDS ORDERED: PERCOCET 5MG/325MG TAB PO ONE (03:15)
[2019-10-26 04:00] VITALS: BP 137/73
[2019-10-26] MEDS: METOCLOPRAMIDE INJ 10MG/2ML VIAL (J2765 PER 1) IV SCH ×4 (05:58→23:36)
[2019-10-26] MEDS: FUROSEMIDE 100MG/10ML VIAL (J1940) IV SCH ×4 (05:58→23:41)
[2019-10-26] MEDS: LEVOTHYROXINE 100MCG TABLET (0.1MG) PO SCH (05:58)
[2019-10-26 06:22] LABS: BASO # 0.1 10^3/uL (0.0-0.2); EOS # 0.5 10^3/uL (0.0-0.5); EOS % 5.9 % (0.0-3.0); HEMATOCRIT 31.4 % (36.0-47.0); HEMOGLOBIN 9.5 g/dl (12.0-15.5); LYMPH # 2.1 10^3/uL (1.5-5.0); LYMPH % 26.3 % (24.0-44.0); MEAN CORPUSCULAR HEMOGLOBIN 28.7 pg (27.0-33.0); MEAN CORPUSCULAR HGB CONC 30.3 g/dl (32.0-36.5); MEAN CORPUSCULAR VOLUME 94.9 fl (80.0-96.0); MONO # 0.9 10^3/uL (0.0-0.8); NEUTROPHILS # 4.3 10^3/uL (1.5-8.5); NEUTROPHILS % 55.2 % (36.0-66.0); PLATELET COUNT, AUTOMATED 331 10^3/uL (150-450); RED BLOOD COUNT 3.31 10^6/uL (4.00-5.40); WHITE BLOOD COUNT 7.8 10^3/uL (4.0-10.0)
[2019-10-26] MEDS ORDERED: HYDROMORPHONE HCL 0.5 MG/ 0.5 ML SYRINGE (J1170 PER 1) IV ONE (06:30)
[2019-10-26] MEDS: SLF 3 ML SYR IV SCH ×3 (06:32→20:24)
[2019-10-26] MEDS: BACLOFEN 5MG PER 1/2 TABLET PO SCH ×4 (07:03→23:36)
[2019-10-26] MEDS: traMADol 50 MG TAB PO SCH ×4 (07:03→23:37)
[2019-10-26] MEDS: HumaLOG INSULIN (NovoLOG) PER UNIT SC SCH ×5 (07:30→20:03)
--- NOTE | 2019-10-26 07:48 | REPVR ---
PROCEDURE INFORMATION: Exam: CT Abdomen And Pelvis Without Contrast Exam date and time: 10/26/2019 6:19 AM Age: 79 years old Clinical indication: Abdominal pain; Localized; Left lower quadrant (llq); Additional info: New llq abdominal pain TECHNIQUE: Imaging protocol: Computed tomography of the abdomen and pelvis without contrast. Radiation optimization: All CT scans at this facility use at least one of these dose optimization techniques: automated exposure control; mA and/or kV adjustment per patient size (includes targeted exams where dose is matched to clinical indication); or iterative reconstruction. COMPARISON: CT ABD/PEL W/IV CONTRAST ONLY 06/08/2016 3:55 AM FINDINGS: Tubes, catheters and devices: Roberts catheter in the urinary bladder. Lungs: Large bilateral effusions with adjacent compressive atelectasis. Atelectasis or scarring in lingula. Coarsely calcified aortic valve. Scattered parenchymal calcifications in the atelectatic bilateral lungs. Heart: Cardiomegaly. Liver: Hepatomegaly. Liver contour nodularity. Correlate for evidence of cirrhosis. Gallbladder and bile ducts: Markedly distended gallbladder containing innumerable calculi. Correlate clinically for evidence of acute cholecystitis. Pancreas: Normal. No ductal dilation. Spleen: Normal. No splenomegaly. Adrenals: Normal. No mass. Kidneys and ureters: Normal. No hydronephrosis. Stomach and bowel: Diverticulosis of the colon. No evidence of acute diverticulitis. Large midline ventral abdominal hernia containing segments of sigmoid and transverse as well as multiple loops of small bowel Appendix: No evidence of appendicitis. Intraperitoneal space: Unremarkable. No free air. No significant fluid collection. Vasculature: Atherosclerotic disease of coronary arteries. Atherosclerotic abdominal aorta. 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 Lymph nodes: Unremarkable. No enlarged lymph nodes. Bladder: Unremarkable as visualized. Reproductive: Bones/joints: Severe multilevel degenerative disease and facet hypertrophy. Stenosis of the spinal canal and neural foramina multiple levels. 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 Soft tissues: Skin induration and subcutaneous fat stranding along bilateral flanks. IMPRESSION: Markedly distended gallbladder containing innumerable calculi. Correlate clinically for evidence of acute cholecystitis. Large midline ventral abdominal hernia containing segments of sigmoid and transverse as well as multiple loops of small bowel. No obstruction. Large bilateral effusions with adjacent compressive atelectasis. Hepatomegaly. Liver contour nodularity. Correlate for evidence of cirrhosis. Electronically signed by: Eusebio Perry On 10/26/2019 07:47:36 AM
[2019-10-26 08:00] VITALS: BP 148/68
[2019-10-26] MEDS ORDERED: ONDANSETRON 4MG/2ML VIAL IV ONE (08:30)
[2019-10-26 08:41] LABS: CALCIUM LEVEL 8.2 MG/DL (8.8-10.2); CREATININE FOR GFR 1.35 MG/DL (0.55-1.30); GLOMERULAR FILTRATION RATE 40.3 (>39); MAGNESIUM LEVEL 1.7 MG/DL (1.8-2.4); POTASSIUM SERUM 3.9 MEQ/L (3.5-5.1)
[2019-10-26] MEDS ORDERED: MAG SULF 1GM/100ML (MAG RUN) 1 GM in IV 1 EA IV ONE (09:00)
[2019-10-26] MEDS ORDERED: POTASSIUM CHLORIDE 10 MEQ SR TABLET PO ONE (09:00)
[2019-10-26] MEDS: SPIRONOLACTONE 25 MG TAB PO SCH ×2 (09:20→18:12)
[2019-10-26] MEDS: ACETAMINOPHEN 500 MG TAB PO SCH ×4 (09:22→20:23)
[2019-10-26] MEDS: BALMEX CREAM 60GM TOP SCH (09:23)
[2019-10-26 10:29] LABS: ALBUMIN 1.9 GM/DL (3.2-5.2); BILIRUBIN,DIRECT 0.1 MG/DL (0.0-0.2); BILIRUBIN,TOTAL 0.3 MG/DL (0.2-1.0); TOTAL PROTEIN 5.8 GM/DL (6.4-8.2)
[2019-10-26] MEDS: CIPROFLOXACIN 200 MG in IV 1 EA IV SCH ×2 (11:36→23:36)
[2019-10-26 12:00] VITALS: BP 137/64
[2019-10-26] MEDS: metroNIDAZOLE 500 MG in IV 1 EA IV SCH ×2 (13:10→20:23)
[2019-10-26 16:00] VITALS: BP 133/61
--- NOTE | 2019-10-26 16:25 | REPVR ---
PROCEDURE INFORMATION: Exam: MR Abdomen Without Contrast Exam date and time: 10/26/2019 3:16 PM Age: 79 years old Clinical indication: Abdominal pain; Epigastric; Patient HX: Abd pain; Additional info: Cholelithiasis R/O choledocholithiasis TECHNIQUE: Imaging protocol: MR of the abdomen without contrast. 3D rendering (Not supervised by radiologist): MIP and/or 3D reconstructed images were created by the technologist. COMPARISON: CT ABD PELVIS W/O CONTRAST 10/26/2019 6:40 AM FINDINGS: Pleural space: Bilateral pleural effusions. Liver: No mass. Gallbladder and bile ducts: Multiple gallstones present within the gallbladder. The gallstones vary in size from 4 mm to 3.5 cm. The common bile duct measures 3.7 mm. Distally the duct tapers but shows some of some evidence of blunting distally. There is misregistration artifact noted on the axial source images. no definite choledocholithiasis. Pancreas: Focal Dilatation of the pancreatic duct at the pancreatic tail. 5 mm cyst noted within the pancreatic head. At least 3 cysts noted within the body/tail of the pancreas along the superior margin with the largest measuring 8 mm and demonstrating a connection to the main pancreatic duct. 1.9 cm cyst in the head of the pancreas anteriorly which appears to communicate with the main pancreatic duct Spleen: Unremarkable. No splenomegaly. Adrenals: Unremarkable. No mass. Kidneys and ureters: Unremarkable. No solid mass. No hydronephrosis. Stomach and bowel: Visualized stomach and intestines are unremarkable. Intraperitoneal space: No free fluid. Arteries: No abdominal aortic aneurysm. Bones/joints: Degenerative changes noted within the lumbar spine Soft tissues: Large infraumbilical midline abdominal hernia containing mesenteric fat and bowel IMPRESSION: 1. Distended and stone packed gallbladder with no intra or extrahepatic ductal dilatation and no definite choledocholithiasis. 2. Multiple small pancreatic cysts with defined connection to the main pancreatic duct suggests intra papillary mucinous neoplasm Reimage every 1 year for 5 years, then every 2 years for 4 years. Alternatively, EUS ? FNA. (Ela ZHONG, et al. ACR White Paper, August 2016) 3. Bilateral pleural effusions 4. Large infraumbilical midline abdominal hernia containing fat and bowel. Electronically signed by: Ade Land On 10/26/2019 16:25:02 PM
[2019-10-26] MEDS: RIVAROXABAN 15 MG TAB (XARELTO) PO SCH (18:12)
[2019-10-26 20:00] VITALS: BP 121/70
[2019-10-27] VITALS: BP 133/60
[2019-10-27] MEDS: IPRATROPIUM HFA INHALER 12.9 GRAMS (ATROVENT HFA) INH SCH ×4 (02:00→19:58)
[2019-10-27 04:00] VITALS: BP 137/67
[2019-10-27] MEDS: metroNIDAZOLE 500 MG in IV 1 EA IV SCH ×3 (05:09→20:24)
[2019-10-27] MEDS: METOCLOPRAMIDE INJ 10MG/2ML VIAL (J2765 PER 1) IV SCH ×4 (05:10→22:36)
[2019-10-27] MEDS: BACLOFEN 5MG PER 1/2 TABLET PO SCH ×3 (05:10→17:45)
[2019-10-27] MEDS: FUROSEMIDE 100MG/10ML VIAL (J1940) IV SCH ×3 (05:10→17:48)
[2019-10-27] MEDS: traMADol 50 MG TAB PO SCH ×3 (05:11→17:46)
[2019-10-27] MEDS: SLF 3 ML SYR IV SCH ×3 (05:11→20:39)
[2019-10-27] MEDS: LEVOTHYROXINE 100MCG TABLET (0.1MG) PO SCH (05:11)
[2019-10-27 06:23] LABS: BASO # 0.1 10^3/uL (0.0-0.2); BASO % 0.8 % (0.0-1.0); EOS # 0.5 10^3/uL (0.0-0.5); EOS % 5.9 % (0.0-3.0); HEMATOCRIT 32.7 % (36.0-47.0); HEMOGLOBIN 10.2 g/dl (12.0-15.5); LYMPH # 1.5 10^3/uL (1.5-5.0); LYMPH % 19.5 % (24.0-44.0); MEAN CORPUSCULAR HEMOGLOBIN 29.7 pg (27.0-33.0); MEAN CORPUSCULAR HGB CONC 31.2 g/dl (32.0-36.5); MEAN CORPUSCULAR VOLUME 95.1 fl (80.0-96.0); MONO # 0.9 10^3/uL (0.0-0.8); MONO % 11.3 % (0.0-5.0); NEUTROPHILS # 4.8 10^3/uL (1.5-8.5); NEUTROPHILS % 61.9 % (36.0-66.0); PLATELET COUNT, AUTOMATED 310 10^3/uL (150-450); RED BLOOD COUNT 3.44 10^6/uL (4.00-5.40); WHITE BLOOD COUNT 7.8 10^3/uL (4.0-10.0)
[2019-10-27 06:42] LABS: CALCIUM LEVEL 8.4 MG/DL (8.8-10.2); CREATININE FOR GFR 1.25 MG/DL (0.55-1.30); POTASSIUM SERUM 4.4 MEQ/L (3.5-5.1)
[2019-10-27] MEDS: HumaLOG INSULIN (NovoLOG) PER UNIT SC SCH ×4 (07:30→20:25)
[2019-10-27 08:00] VITALS: BP 134/74
[2019-10-27] MEDS: ACETAMINOPHEN 500 MG TAB PO SCH ×4 (09:56→20:25)
[2019-10-27] MEDS: SPIRONOLACTONE 25 MG TAB PO SCH ×2 (09:56→17:45)
[2019-10-27] MEDS: ASCORBIC ACID 500 MG TAB PO SCH (09:56)
[2019-10-27] MEDS: VITAMIN D 1,000 INTERNATIONAL UNITS TABLET PO SCH (09:56)
[2019-10-27] MEDS: BISACODYL 5 MG TAB PO SCH (09:56)
[2019-10-27] MEDS: BALMEX CREAM 60GM TOP SCH (09:57)
[2019-10-27] MEDS: CIPROFLOXACIN 200 MG in IV 1 EA IV SCH ×2 (10:03→22:36)
[2019-10-27] MEDS: NYSTATIN 100,000 UNITS/GM TOPICAL PWD 15 GM TOP PRN (10:03)
[2019-10-27 11:51] VITALS: BP 145/76
[2019-10-27 16:00] VITALS: BP 141/62
[2019-10-27] MEDS: RIVAROXABAN 15 MG TAB (XARELTO) PO SCH (17:46)
[2019-10-27 20:00] VITALS: BP 139/67
[2019-10-27] MEDS: LIDOCAINE 5% (LIDODERM) PATCH TD SCH (22:37)
[2019-10-28] VITALS: BP 142/74
[2019-10-28] MEDS: BACLOFEN 5MG PER 1/2 TABLET PO SCH ×5 (00:56→23:38)
[2019-10-28] MEDS: traMADol 50 MG TAB PO SCH ×5 (00:57→23:38)
[2019-10-28] MEDS: IPRATROPIUM HFA INHALER 12.9 GRAMS (ATROVENT HFA) INH SCH ×4 (02:00→20:20)
[2019-10-28 04:00] VITALS: BP 140/67
[2019-10-28] MEDS: metroNIDAZOLE 500 MG in IV 1 EA IV SCH ×3 (04:45→21:39)
[2019-10-28 04:55] LABS: BASO % 0.5 % (0.0-1.0); EOS # 0.4 10^3/uL (0.0-0.5); EOS % 4.9 % (0.0-3.0); HEMATOCRIT 32.9 % (36.0-47.0); LYMPH # 1.3 10^3/uL (1.5-5.0); LYMPH % 16.9 % (24.0-44.0); MEAN CORPUSCULAR HGB CONC 30.4 g/dl (32.0-36.5); MEAN CORPUSCULAR VOLUME 95.4 fl (80.0-96.0); MONO # 0.8 10^3/uL (0.0-0.8); MONO % 10.7 % (0.0-5.0); NEUTROPHILS # 4.9 10^3/uL (1.5-8.5); NEUTROPHILS % 66.5 % (36.0-66.0); PLATELET COUNT, AUTOMATED 289 10^3/uL (150-450); RED BLOOD COUNT 3.45 10^6/uL (4.00-5.40); WHITE BLOOD COUNT 7.4 10^3/uL (4.0-10.0)
[2019-10-28] MEDS: METOCLOPRAMIDE INJ 10MG/2ML VIAL (J2765 PER 1) IV SCH ×4 (05:01→23:38)
[2019-10-28] MEDS: FUROSEMIDE 100MG/10ML VIAL (J1940) IV SCH ×5 (05:01→23:43)
[2019-10-28] MEDS: LEVOTHYROXINE 100MCG TABLET (0.1MG) PO SCH (05:02)
[2019-10-28 05:19] LABS: CALCIUM LEVEL 8.4 MG/DL (8.8-10.2); CREATININE FOR GFR 1.24 MG/DL (0.55-1.30); GLOMERULAR FILTRATION RATE 44.4 (>39); POTASSIUM SERUM 4.2 MEQ/L (3.5-5.1)
[2019-10-28] MEDS: SLF 3 ML SYR IV SCH ×3 (05:29→21:39)
--- NOTE | 2019-10-28 07:08 | REPVR ---
PROCEDURE INFORMATION: Exam: XR Chest, 1 View Exam date and time: 10/28/2019 6:46 AM Age: 79 years old Clinical indication: Shortness of breath; Additional info: SOB TECHNIQUE: Imaging protocol: XR of the chest Views: 1 view. COMPARISON: CR PORTABLE CHEST X-RAY 10/25/2019 7:48 AM FINDINGS: Lungs: Stable bilateral perihilar and bibasilar opacities. Pleural space: Small bilateral pleural effusions. Heart/Mediastinum: Unremarkable. No cardiomegaly. Vasculature: Atherosclerotic disease of the thoracic aorta. Bones/joints: Osteopenia. Severe degenerative changes in the bilateral shoulders. IMPRESSION: No significant change. Electronically signed by: Eusebio Perry On 10/28/2019 07:08:10 AM
[2019-10-28 08:00] VITALS: BP 126/60
[2019-10-28] MEDS: HumaLOG INSULIN (NovoLOG) PER UNIT SC SCH ×4 (08:31→21:00)
[2019-10-28] MEDS: SPIRONOLACTONE 25 MG TAB PO SCH ×2 (08:31→18:12)
[2019-10-28] MEDS: BISACODYL 5 MG TAB PO SCH (08:42)
[2019-10-28] MEDS: ASCORBIC ACID 500 MG TAB PO SCH (08:42)
[2019-10-28] MEDS: VITAMIN D 1,000 INTERNATIONAL UNITS TABLET PO SCH (08:42)
[2019-10-28] MEDS: ACETAMINOPHEN 500 MG TAB PO SCH ×4 (08:42→21:39)
[2019-10-28] MEDS: **NOTE PATIENT COMMENT** MISC XX SCH (08:43)
[2019-10-28] MEDS: BALMEX CREAM 60GM TOP SCH (08:43)
[2019-10-28] MEDS: CIPROFLOXACIN 200 MG in IV 1 EA IV SCH ×2 (10:18→23:37)
[2019-10-28 16:00] VITALS: BP 143/73
[2019-10-28] MEDS: RIVAROXABAN 15 MG TAB (XARELTO) PO SCH (18:13)
[2019-10-28 20:00] VITALS: BP 126/62
[2019-10-28] MEDS: LIDOCAINE 5% (LIDODERM) PATCH TD SCH (21:39)
[2019-10-29] VITALS: BP 149/70
[2019-10-29] MEDS: IPRATROPIUM HFA INHALER 12.9 GRAMS (ATROVENT HFA) INH SCH ×4 (02:00→20:19)
[2019-10-29] MEDS: metroNIDAZOLE 500 MG in IV 1 EA IV SCH ×2 (04:32→12:04)
[2019-10-29] MEDS: METOCLOPRAMIDE INJ 10MG/2ML VIAL (J2765 PER 1) IV SCH ×2 (04:32→10:56)
[2019-10-29 05:06] LABS: BASO # 0.1 10^3/uL (0.0-0.2); BASO % 0.6 % (0.0-1.0); EOS # 0.4 10^3/uL (0.0-0.5); EOS % 4.6 % (0.0-3.0); HEMATOCRIT 33.6 % (36.0-47.0); HEMOGLOBIN 10.3 g/dl (12.0-15.5); LYMPH # 1.8 10^3/uL (1.5-5.0); MEAN CORPUSCULAR HGB CONC 30.7 g/dl (32.0-36.5); MEAN CORPUSCULAR VOLUME 94.6 fl (80.0-96.0); MONO # 0.9 10^3/uL (0.0-0.8); MONO % 11.7 % (0.0-5.0); NEUTROPHILS # 4.6 10^3/uL (1.5-8.5); NEUTROPHILS % 59.5 % (36.0-66.0); PLATELET COUNT, AUTOMATED 277 10^3/uL (150-450); RED BLOOD COUNT 3.55 10^6/uL (4.00-5.40); WHITE BLOOD COUNT 7.8 10^3/uL (4.0-10.0)
[2019-10-29 05:27] LABS: CALCIUM LEVEL 8.3 MG/DL (8.8-10.2); CREATININE FOR GFR 1.12 MG/DL (0.55-1.30); POTASSIUM SERUM 3.7 MEQ/L (3.5-5.1)
[2019-10-29] MEDS: traMADol 50 MG TAB PO SCH ×3 (06:22→20:29)
[2019-10-29] MEDS: LEVOTHYROXINE 100MCG TABLET (0.1MG) PO SCH (06:22)
[2019-10-29] MEDS: BACLOFEN 5MG PER 1/2 TABLET PO SCH ×2 (06:22→12:01)
[2019-10-29] MEDS: FUROSEMIDE 100MG/10ML VIAL (J1940) IV SCH ×3 (06:23→18:00)
[2019-10-29] MEDS: SLF 3 ML SYR IV SCH ×3 (06:23→20:30)
[2019-10-29 08:00] VITALS: BP 163/77
[2019-10-29] MEDS: VITAMIN D 1,000 INTERNATIONAL UNITS TABLET PO SCH (08:24)
[2019-10-29] MEDS: BISACODYL 5 MG TAB PO SCH (08:25)
[2019-10-29] MEDS: CIPROFLOXACIN 250MG TAB PO SCH ×2 (08:25→17:44)
[2019-10-29] MEDS: HumaLOG INSULIN (NovoLOG) PER UNIT SC SCH ×4 (08:25→20:29)
[2019-10-29] MEDS: SPIRONOLACTONE 25 MG TAB PO SCH ×2 (08:25→16:21)
[2019-10-29] MEDS: ACETAMINOPHEN 500 MG TAB PO SCH ×3 (08:26→20:28)
[2019-10-29] MEDS: ASCORBIC ACID 500 MG TAB PO SCH (08:26)
[2019-10-29] MEDS: BALMEX CREAM 60GM TOP SCH (08:27)
[2019-10-29] MEDS: **NOTE PATIENT COMMENT** MISC XX SCH (09:40)
[2019-10-29] MEDS ORDERED: METOCLOPRAMIDE INJ 10MG/2ML VIAL (J2765 PER 1) IV PRN (12:30)
--- NOTE | 2019-10-29 15:01 | IPNPDOC ---
Subjective Date Seen The patient was seen on 10/29/19. Subjective Chief Complaint/HPI Continues to have severe back pain which wraps around her upper abdomen. She cannot tolerate the brace. Not much progress with PT/OT. Lays down straight in bed with not much spontaneous movement side to side. Objective Physical Examination General Exam: Positive: Alert, No Acute Distress Eye Exam: Positive: Conjunctiva & lids normal; Negative: Sclera icteric ENT Exam: Positive: Mucous membr. moist/pink Neck Exam: Positive: Supple Chest Exam: Positive: Clear to auscultation, Normal air movement, Diminished; Negative: Rales, Rhonchi, Wheezing Heart Exam: Positive: Rate Normal, Irregular Rhythm; Negative: Murmurs Telemetry: Positive: Atrial fibrillation Abdomen Exam: Positive: Normal bowel sounds, Soft, Tenderness (across [place] upper abdomen) Extremity Exam: Positive: Edema, Swelling Skin Exam: Positive: Lesion (sacral decubiti) Neuro Exam: Positive: Normal Speech, Normal Tone, Sensation Intact Psych Exam: Positive: Mental status NL, Mood NL, Memory Intact, Oriented x 3; Negative: Anxiety Assessment /Plan Assessment New abdominal pain CT abd pelvis with GB stones and ? inflammation HIDA scan done, Dr Alicea consulted continue cipro and metronidazole for now. T7 and T8 vertebral fracture after mechanical fall S/p neurosurgery eval in [facility], neuro intact, no further neurosurgical intervention per neurosurgical standpoint. MRI thoracic spine from [facility] showed compression fracture of T7 and T8. PT/OT/fall precaution. will need to go to rehab after discharge. pain control with tramadol, tylenol, baclofen and percocet, lidoderm patch Acute on chronic diastolic congestive heart failure with anasarca on Lasix 80 mg I.V. every 6 hours. I have started her on Spironolactone 25 mg p.o. twice a day continue as per nephrology Acute kidney injury superimposed on chronic kidney disease stage 3 due to CHF exacerbation, fluid overload. improved with diuresis Hyponatremia Na stable Patient has hypervolemic hyponatremia on high dose diuretics. IV lasix, spironolactone, also recieved metalozone Infected sacral decubiti ulcer present on admission Chronic DVT of left lower extremity: Patient is currently on weight based Lovenox injections. Anemia and chronic kidney disease: I am going to check the iron levels and give the patient I.V. iron while she is here. I would stop the oral iron since patient is already better and it would make her constipation worse. Chronic A. fib. Cont home med xarelto and atenolol. NIDDM. Consistent carbohydrate diet. Insulin SS AC&HS. Glucose checks, hypoglyemia protocol Hypothyroidism. Cont home med synthroid Constipation on multiple bowel meds. Plan/VTE VTE Prophylaxis Ordered?: Yes VS, I&O, 24H, Fishbone Vital Signs/I&O Vital Signs Date Time Temp Pulse Resp B/P (MAP) Pulse Ox O2 Delivery O2 Flow Rate FiO2 10/29/19 12:02 18 Room Air 10/29/19 08:00 97.0 80 163/77 (105) 96 10/29/19 08:00 2.0 I&O- Last 24 Hours up to 6 AM 10/29/19 05:59 Intake Total 1295 ml Output Total 4175 ml Balance -2880 ml Laboratory Data 24H LABS Laboratory Tests 2 10/28/19 17:09: Bedside Glucose (Misc Panel) 137H 10/28/19 21:27: Bedside Glucose (Misc Panel) 181H 10/29/19 04:52: Immature Granulocyte % (Auto) 0.6, Neutrophils (%) (Auto) 59.5, Lymphocytes (%) (Auto) 23.0L, Monocytes (%) (Auto) 11.7H, Eosinophils (%) (Auto) 4.6H, Basophils (%) (Auto) 0.6, Neutrophils # (Auto) 4.6, Lymphocytes # (Auto) 1.8, Monocytes # (Auto) 0.9H, Eosinophils # (Auto) 0.4, Basophils # (Auto) 0.1, Nucleated Red Blood Cells % (auto) 0.0, Anion Gap 2L, Glomerular Filtration Rate 50.0, Calcium Level 8.3L 10/29/19 11:49: Bedside Glucose (Misc Panel) 142H CBC/BMP Laboratory Tests 10/29/19 04:52 Microbiology Microbiology 10/23/19 Respiratory Virus Panel (PCR) ([facility]) - Final, Complete MICHAELLE LAMBERT MD Oct 29, 2019 15:01
[2019-10-29 16:00] VITALS: BP 118/63
[2019-10-29] MEDS: metroNIDAZOLE (FLAGYL) 500MG TABLET PO SCH ×2 (16:21→20:27)
[2019-10-29] MEDS: RIVAROXABAN 15 MG TAB (XARELTO) PO SCH (17:43)
[2019-10-29] MEDS: PERCOCET 5MG/325MG TAB PO PRN (17:45)
[2019-10-29 20:00] VITALS: BP 130/58
[2019-10-29] MEDS: LIDOCAINE 5% (LIDODERM) PATCH TD SCH (20:36)
[2019-10-29 23:00] VITALS: BP 132/65
[2019-10-30 02:00] VITALS: BP 132/68
[2019-10-30] MEDS: IPRATROPIUM HFA INHALER 12.9 GRAMS (ATROVENT HFA) INH SCH ×4 (02:00→19:46)
[2019-10-30] MEDS: traMADol 50 MG TAB PO SCH ×3 (04:54→22:04)
[2019-10-30 06:00] VITALS: BP 132/70
[2019-10-30] MEDS: SLF 3 ML SYR IV SCH ×3 (06:39→22:06)
[2019-10-30] MEDS: CIPROFLOXACIN 250MG TAB PO SCH (06:40)
[2019-10-30] MEDS: PERCOCET 5MG/325MG TAB PO PRN ×3 (06:40→16:04)
[2019-10-30] MEDS: LEVOTHYROXINE 100MCG TABLET (0.1MG) PO SCH (06:40)
[2019-10-30 07:06] LABS: BASO # 0.1 10^3/uL (0.0-0.2); BASO % 0.7 % (0.0-1.0); EOS # 0.3 10^3/uL (0.0-0.5); HEMATOCRIT 34.2 % (36.0-47.0); HEMOGLOBIN 10.8 g/dl (12.0-15.5); LYMPH # 1.9 10^3/uL (1.5-5.0); LYMPH % 22.6 % (24.0-44.0); MEAN CORPUSCULAR HEMOGLOBIN 29.3 pg (27.0-33.0); MEAN CORPUSCULAR HGB CONC 31.6 g/dl (32.0-36.5); MEAN CORPUSCULAR VOLUME 92.7 fl (80.0-96.0); MONO % 11.4 % (0.0-5.0); NEUTROPHILS # 5.1 10^3/uL (1.5-8.5); NEUTROPHILS % 61.5 % (36.0-66.0); PLATELET COUNT, AUTOMATED 288 10^3/uL (150-450); RED BLOOD COUNT 3.69 10^6/uL (4.00-5.40); WHITE BLOOD COUNT 8.3 10^3/uL (4.0-10.0)
[2019-10-30 07:31] LABS: CALCIUM LEVEL 8.4 MG/DL (8.8-10.2); CREATININE FOR GFR 1.05 MG/DL (0.55-1.30); GLOMERULAR FILTRATION RATE 53.8 (>39)
[2019-10-30] MEDS: HumaLOG INSULIN (NovoLOG) PER UNIT SC SCH ×4 (08:48→21:00)
[2019-10-30] MEDS: BISACODYL 5 MG TAB PO SCH (08:49)
[2019-10-30] MEDS: SPIRONOLACTONE 25 MG TAB PO SCH ×2 (08:50→18:04)
[2019-10-30] MEDS: TORSEMIDE 20 MG TAB PO SCH ×2 (08:50→18:04)
[2019-10-30] MEDS: ACETAMINOPHEN 500 MG TAB PO SCH ×3 (08:50→22:04)
[2019-10-30] MEDS: ASCORBIC ACID 500 MG TAB PO SCH (08:51)
[2019-10-30] MEDS: VITAMIN D 1,000 INTERNATIONAL UNITS TABLET PO SCH (08:51)
[2019-10-30] MEDS: metroNIDAZOLE (FLAGYL) 500MG TABLET PO SCH ×2 (08:51→16:04)
[2019-10-30] MEDS: BALMEX CREAM 60GM TOP SCH (08:53)
[2019-10-30] MEDS: **NOTE PATIENT COMMENT** MISC XX SCH (08:53)
--- NOTE | 2019-10-30 12:03 | IPNPDOC ---
Subjective Date Seen The patient was seen on 10/30/19. Subjective Chief Complaint/HPI Back pain continues to bother her along with right sides rib cage pain. Tolerating food. Objective Physical Examination General Exam: Positive: Alert, Cooperative, No Acute Distress Eye Exam: Positive: Conjunctiva & lids normal; Negative: Sclera icteric ENT Exam: Positive: Mucous membr. moist/pink Neck Exam: Positive: Supple Chest Exam: Positive: Clear to auscultation, Diminished (at the bases); Negative: Rales, Rhonchi, Wheezing Heart Exam: Positive: Rate Normal, Irregular Rhythm; Negative: Murmurs Telemetry: Positive: Atrial fibrillation Abdomen Exam: Positive: Normal bowel sounds, Soft, Tenderness (across [place] upper abdomen) Extremity Exam: Positive: Edema, Swelling Skin Exam: Positive: Lesion (sacral decubiti) Neuro Exam: Positive: Normal Speech, Normal Tone, Sensation Intact Psych Exam: Positive: Mental status NL, Mood NL, Memory Intact, Oriented x 3; Negative: Anxiety Assessment /Plan Assessment This 79 yr old F with PMH of CKD stage 3, HTN, DM chronic A. fib, CHF, DVT, Anemia, was admitted at [facility] from Sep 28 to . She presented w c/o multiple falls and was found to have a T7/T8 burst fx; based on the dc summary recommended transfer to [facility] for a higher level of care. During her stay at [facility], she was evaluated by neurosurgery who recommended conservative measures and that she may use a TLSO for comfort and work w PT/OT. She had developed hyponatremia there. She was evaluated by the nephrology and geriatrics services. On transfer here she was found to have acute kidney injury, CHF exacerbation massive fluid overload, and had been taken off her diuretics. She also had a sacral pressure decubiti, being treated with Bactrim. Here in addition to the back pain she has been complaining of right lower rib cage and RUQ pain persistently so had an MRI of the abdomen New abdominal pain CT abd pelvis with GB stones and ? inflammation Liver: Hepatomegaly. Liver contour nodularity. Correlate for evidence of cirrhosis. Gallbladder and bile ducts: Markedly distended gallbladder containing innumerable calculi. Correlate clinically for evidence of acute cholecystitis. HIDA scan done, Dr Rust consulted continue cipro and metronidazole for now. T7 and T8 vertebral fracture after mechanical fall S/p neurosurgery eval in [facility], neuro intact, no further neurosurgical intervention per neurosurgical standpoint. MRI thoracic spine from [facility] showed compression fracture of T7 and T8. PT/OT/fall precaution. will need to go to rehab after discharge. pain control with tramadol, tylenol, baclofen and percocet, lidoderm patch Acute on chronic diastolic congestive heart failure with anasarca on torsemide and spironolactone. continue as per nephrology Acute kidney injury superimposed on chronic kidney disease stage 3 due to CHF exacerbation, fluid overload. improved with diuresis Hyponatremia improving with diuresis. Patient has hypervolemic hyponatremia due to CHF on high dose diuretics Infected sacral decubiti ulcer finished antibiotics. present on admission Chronic DVT of left lower extremity: Patient is currently on weight based Lovenox injections. Anemia and chronic kidney disease: I am going to check the iron levels and give the patient I.V. iron while she is here. I would stop the oral iron since patient is already better and it would make her constipation worse. Chronic A. fib. Cont home med xarelto and atenolol. NIDDM. Consistent carbohydrate diet. Insulin SS AC&HS. Glucose checks, hypoglyemia protocol Hypothyroidism. Cont home med synthroid Cirrhosis of liver as per radiological evidence. 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 Multiple small pancreatic cysts with defined connection to the main pancreatic duct suggests intra papillary mucinous neoplasm Reimage every 1 year for 5 years, then every 2 years for 4 years. Alternatively, EUS ? Spinal stenosis Severe multilevel degenerative disease and facet hypertrophy. Stenosis of the spinal canal and neural foramina multiple levels. 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 Large midline ventral abdominal hernia containing segments of sigmoid and transverse as well as multiple loops of small bowel. No obstruction. Constipation on multiple bowel meds. Plan/VTE VTE Prophylaxis Ordered?: Yes VS, I&O, 24H, Fishbone Vital Signs/I&O Vital Signs Date Time Temp Pulse Resp B/P (MAP) Pulse Ox O2 Delivery O2 Flow Rate FiO2 10/30/19 11:01 14 10/30/19 06:00 98.8 104 132/70 (90) 95 Room Air 10/29/19 08:00 2.0 I&O- Last 24 Hours up to 6 AM 10/30/19 06:00 Intake Total 1380 ml Output Total 2300 ml Balance -920 ml Laboratory Data 24H LABS Laboratory Tests 2 10/29/19 11:49: Bedside Glucose (Misc Panel) 142H 10/29/19 16:54: Bedside Glucose (Misc Panel) 154H 10/29/19 20:26: Bedside Glucose (Misc Panel) 154H 10/30/19 06:44: Immature Granulocyte % (Auto) 0.8, Neutrophils (%) (Auto) 61.5, Lymphocytes (%) (Auto) 22.6L, Monocytes (%) (Auto) 11.4H, Eosinophils (%) (Auto) 3.0, Basophils (%) (Auto) 0.7, Neutrophils # (Auto) 5.1, Lymphocytes # (Auto) 1.9, Monocytes # (Auto) 1.0H, Eosinophils # (Auto) 0.3, Basophils # (Auto) 0.1, Nucleated Red Blood Cells % (auto) 0.0, Anion Gap 6L, Glomerular Filtration Rate 53.8, Calcium Level 8.4L CBC/BMP Laboratory Tests 10/30/19 06:44 Microbiology Microbiology 10/23/19 Respiratory Virus Panel (PCR) ([facility]) - Final, Complete MICHAELLE LAMBERT MD Oct 30, 2019 12:03
[2019-10-30] MEDS: MIRALAX *UNIT DOSE* 17GM PACKET PO SCH ×2 (12:46→21:00)
[2019-10-30] MEDS: FLEET ENEMA PR SCH ×2 (13:30→21:00)
[2019-10-30 14:00] VITALS: BP 127/70
[2019-10-30] MEDS: RIVAROXABAN 15 MG TAB (XARELTO) PO SCH (18:04)
[2019-10-30 22:00] VITALS: BP 120/74
[2019-10-30] MEDS: LIDOCAINE 5% (LIDODERM) PATCH TD SCH (22:03)
[2019-10-30] MEDS: NYSTATIN 100,000 UNITS/GM TOPICAL PWD 15 GM TOP PRN (22:31)
[2019-10-31] MEDS: IPRATROPIUM HFA INHALER 12.9 GRAMS (ATROVENT HFA) INH SCH ×4 (00:52→19:23)
[2019-10-31] MEDS: PERCOCET 5MG/325MG TAB PO PRN ×2 (03:24→10:07)
[2019-10-31] MEDS: traMADol 50 MG TAB PO SCH ×3 (05:16→21:34)
[2019-10-31] MEDS: LEVOTHYROXINE 100MCG TABLET (0.1MG) PO SCH (05:17)
[2019-10-31] MEDS: SLF 3 ML SYR IV SCH ×3 (05:17→21:36)
[2019-10-31 06:00] VITALS: BP 133/76
[2019-10-31 07:23] LABS: ALBUMIN 2.2 GM/DL (3.2-5.2); CALCIUM LEVEL 8.5 MG/DL (8.8-10.2); CREATININE FOR GFR 1.17 MG/DL (0.55-1.30); GLOMERULAR FILTRATION RATE 47.5 (>39); PHOSPHORUS LEVEL 2.7 MG/DL (2.5-4.9); POTASSIUM SERUM 3.8 MEQ/L (3.5-5.1)
[2019-10-31] MEDS: BISACODYL 5 MG TAB PO SCH (08:32)
[2019-10-31] MEDS: SPIRONOLACTONE 25 MG TAB PO SCH ×2 (08:32→16:03)
[2019-10-31] MEDS: ASCORBIC ACID 500 MG TAB PO SCH (08:32)
[2019-10-31] MEDS: HumaLOG INSULIN (NovoLOG) PER UNIT SC SCH ×4 (08:32→20:53)
[2019-10-31] MEDS: VITAMIN D 1,000 INTERNATIONAL UNITS TABLET PO SCH (08:33)
[2019-10-31] MEDS: ACETAMINOPHEN 500 MG TAB PO SCH ×3 (08:33→21:35)
[2019-10-31] MEDS: TORSEMIDE 20 MG TAB PO SCH ×2 (08:33→16:04)
[2019-10-31] MEDS: MIRALAX *UNIT DOSE* 17GM PACKET PO SCH ×2 (08:33→21:00)
[2019-10-31] MEDS: BALMEX CREAM 60GM TOP SCH (08:34)
[2019-10-31] MEDS: FLEET ENEMA PR SCH ×2 (08:34→21:00)
[2019-10-31] MEDS: **NOTE PATIENT COMMENT** MISC XX SCH (08:34)
--- NOTE | 2019-10-31 13:12 | REP ---
VENTILATION PERFUSION LUNG SCAN HISTORY: Chronic lower extremity thrombus. Tachypnea and shortness of breath. Rule out pulmonary embolus. COMPARISON: Made with chest x-ray from the previous day. TECHNIQUE: 1.0 mCi of Technetium-99m DTPA aerosol was utilized for ventilation study and is followed by a 5.1 mCi dose of Technetium-99m MAA given intravenously for the perfusion study. A sequence of eight planar images are acquired for each portion of the study. SCINTIGRAPHIC FINDINGS: There is some moderate central bronchial deposition of inspired ventilatory tracer bilaterally consistent with some degree of chronic obstructive pulmonary disease (COPD). A modeled pattern of uptake is seen on the ventilation study bilaterally. The perfusion study shows more homogeneous uptake. There is a small match defect in the right lower lobe posteriorly. There is a match defect on the left laterally. No mismatched perfusion defect is seen. IMPRESSION: Low probability scan for pulmonary embolus. MTDD
--- NOTE | 2019-10-31 13:14 | REP ---
HEPATOBILIARY SCAN HISTORY: Biliary colic, rule out acute cholecystitis. COMPARISON: CT study 10/26/2019. MRI study 10/26/2019. Known cholelithiasis. TECHNIQUE: 6.4 mCi of Technetium-99m mebrofenin is injected and sequential anterior abdominal images are acquired. SCINTIGRAPHIC FINDINGS: The initial hepatocellular parenchymal uptake phase shows a horizontally oriented liver configuration, but no focal liver lesion. The gallbladder is first visualized at 10 minutes. It is seen to be somewhat enlarged and atypical in shape corresponding to its appearance on CT and MRI imaging. It is incompletely filled near the fundal region of the gallbladder due to the presence of multiple calculi as seen on CT. Intrahepatic and extrahepatic biliary tract is otherwise unremarkable. There is normal washout from the liver parenchymal into the gallbladder. Some small bowel labeling is seen as well. IMPRESSION: Somewhat dilated gallbladder fills at a normal time interval. There is no evidence to suggest cystic duct obstruction. MTDD
--- NOTE | 2019-10-31 13:18 | IPN ---
DATE: 10/25/2019 SUBJECTIVE: Patient was seen and examined at the bedside today morning. She is afebrile, hemodynamically stable. Her creatinine is actually improving with the IV diuretics that were started yesterday, she is having a good urine output. However, patient was nauseated today morning and she threw up and she was unable to take her potassium and metolazone dose that was ordered today morning. She was already given Zofran by the medical team. OBJECTIVE: Vital signs: Temperature is 97.4 degrees Fahrenheit, blood pressure 134/74, pulse is 112, respiratory rate of 17, saturating 97% on nasal cannula at two liters. Intake and output: Urine output recorded is 3.3 liters yesterday, 1.7 liters so far today since overnight. Weight in the bed scale was 126 kg yesterday. No bed scale weight is available today. PHYSICAL EXAMINATION: General: Patient is awake, alert, oriented times three, sitting up in the bed, mild distress because of nausea. Head and neck exam: Extraocular muscles intact. Pupils equally round and reactive to light. Mucous membranes are moist. Neck is supple. There is moderately elevated jugular venous distension (JVD). Cardiovascular: S1, S2, regular rate. 3+ edema of the bilateral lower extremities. Respiratory: Decreased breath sounds at the bases. Abdomen: Soft, obese, positive bowel sounds. Abdominal wall edema was noted. Musculoskeletal: She has 3+ edema of the bilateral lower extremities. Central nervous system (EMBOSSING CLERK): No focal deficit. Power is 5/5 in bilateral extremities. LABORATORY REVIEW: CBC showed WBC 8.9, hemoglobin 9.7, platelets are 364. BMP showed sodium 131, potassium 3.5, chloride 98, bicarbonate 30, BUN 24, creatinine 1.45, it was 1.5 yesterday, calcium 8.3, magnesium is 1.6. CURRENT INPATIENT MEDICATIONS: Patients medications were all reviewed by myself. She already got a dose of magnesium sulfate 1 gram IV today morning. She continues to be on ceftriaxone 2 grams IV every 24 hours. She was given a dose of potassium 40 mEq, a second dose was ordered which I have canceled. She continues to be on Lasix 80 mg IV every 6 hours. No other significant change in the medications today as compared with yesterday. ASSESSMENT AND PLAN: 1. Acute on chronic diastolic congestive heart failure. Patient is responding well to the IV diuretic regimen. She is on Lasix 80 mg IV every 6 hours with a net negative fluid balance goal of 2.5 liters/day. Continue current diuretic regimen. Continue daily weight. 2. Acute kidney injury superimposed on chronic kidney disease stage III. Her renal function is stable and actually improving with the diuretics. Continue the management of congestive heart failure (CHF) as mentioned above. 3. Hypervolemic hyponatremia. Continue aggressive diuresis at this time. 4. Infected sacral ulcer. Patient is currently on IV ceftriaxone. Rest of the management is as per surgical recommendations. 5. Chronic deep venous thrombosis (DVT) of the left lower extremity. She is currently on weight-based Lovenox injections. 6. Anemia in chronic kidney disease. Iron levels are adequate. Hemoglobin is 9.7 which is stable. If hemoglobin level drops to 9 or below she can be started on Aranesp injections. MTDD
--- NOTE | 2019-10-31 13:21 | IPN ---
DATE: 10/25/2019 Patients shortness of breath has improved, lower extremity edema is slowly decreasing. Continues to have abdominal distention with fluid waves. No complaints of chest pain, pressure, or tightness this morning. No nausea, vomiting, or epigastric pain. No fever, chills, or cough. Temperature 97.4, pulse 112, respiratory rate 17, blood pressure 134/74, 97% on two liters nasal cannula. Generally: Awake, alert, oriented to person, place, and time, answering questions appropriately. Positive jugular venous distension (JVD). No thyromegaly, no cervical lymphadenopathy. Lungs: Diminished with bilateral rales. Heart: S1, S2, tachycardic. Abdomen: Obese, soft, nontender, nondistended. Positive bowel sounds. Extremities: 2+ pitting edema bilaterally. Input 840, output 3300, negative 2460. From midnight, output 1725, negative 1395. Current weight is 126 kg. LABORATORY DATA: White count 8.9, hemoglobin 9.7, hematocrit 31, platelet count 364, sodium 131, potassium 3.5, chloride 98, bicarbonate 30, BUN 24, creatinine 1.45, glucose of 136. Chest x-ray: Improving congestive heart failure (CHF). Small bilateral effusions with bibasilar atelectasis and consolidation. ASSESSMENT AND PLAN: This is a 79-year-old female who presented from home with worsening thoracic compression fracture and pain after being discharged from [facility] with no neurosurgical intervention, was found to be in acute on chronic renal failure with hyponatremia, diuretics were held and developed fluid overload, now with the following issues: 1. Acute congestive heart failure (CHF) exacerbation, preserved systolic function, diastolic dysfunction. 2. Acute on chronic renal failure stage III. 3. Chronic pain from T7-8 compression fracture with no neurosurgical intervention. 4. Anemia of chronic disease. 5. Chronic hypertension. 6. Type 2 diabetes. 7. Chronic atrial fibrillation with rapid ventricular rate. 8. Hypothyroidism. 9. Obesity, body mass index (BMI) greater than 40. 10. Sacral decubiti status post Bactrim for 7 days. PLAN: Patient is currently being diuresed and managed by nephrology. She has remained net negative balance. Continue on spironolactone, Lasix IV every 6 hours. Patient is resumed back on her home dose of Xarelto. Antibiotics for presumed pneumonia has been discontinued as the patient most likely has infiltrates from congestive heart failure. Continue all other medications. MTDD
--- NOTE | 2019-10-31 13:23 | IPN ---
DATE: 10/26/2019 Patient complains of some nausea this morning. Has not had a bowel movement. Diuresing well overnight. No abdominal pain, fever, or chills. Pain in the back is controlled, /10. Has not received pain medications yet. VITAL SIGNS: Temperature 96.1, pulse 17, respiratory rate 17, pulse 80, blood pressure 137/73, 98% on 2 liters nasal cannula. Input 820, output 3.5 liters, 115 kg from peak weight of 127.9 kg. GENERAL: Awake, alert, oriented, answering questions appropriately. No jugular venous distention (JVD). No thyromegaly. No cervical lymphadenopathy. Moist mucous membranes. LUNGS: Diminished. Clear to auscultation. HEART: S1, S2, irregularly irregular. ABDOMEN: Obese. Positive fluid wave. EXTREMITIES: Pitting edema 2+. Sacral ulcer. LABORATORY DATA: Creatinine 1.47, potassium 3.7, magnesium 1.7. Hemoglobin 9.5, hematocrit 31. ASSESSMENT AND PLAN: This is a 79-year-old female with T7-8 burst fracture, sent to [facility] for evaluation. Recommended no intervention. Discharged home. Presented to the emergency room (ER) with intractable pain, hyponatremia, acute on chronic renal failure. Patient's diuretics were held and developed congestive heart failure, acute on chronic diastolic dysfunction. IMPRESSION: 1. Acute on chronic diastolic heart failure with preserved ejection fraction with moderate pulmonary hypertension. 2. Acute on chronic renal failure, stage III. 3. T7-8 compression fracture. 4. Acute kidney injury due Toradol, Flector patch, and Bactrim given for sacral decubitus. 5. Sacral decubitus status post Bactrim. 6. Hypothyroidism. 7. Chronic atrial fibrillation. 8. Hyponatremia due to diuretics, resolved. 9. Anemia, not required red blood cells (RBC) transfusion. 10. Type 2 diabetes. 11. Nausea, constipation. PLAN: Diuresis per nephrology. Patient has been net negative with decreasing weight. Patient is on a bowel regimen and antiemetics. Abdominal film shows nonspecific bowel-gas pattern. Pain management for compression fracture. Patient will need subacute rehabilitation. Telemetry is unremarkable. Remains in chronic atrial fibrillation. Back on her home dose of Xarelto. May be transferred to medical/surgical, telemetry. Continue with diuresis. MTDD
--- NOTE | 2019-10-31 13:32 | IPN ---
DATE: 10/26/2019 SUBJECTIVE: Mrs. Melendez is seen this morning on her bedside. She is complaining of nausea and remains short of breath. She has massive generalized edema. She has no fever or chills. She did have a CAT scan of her abdomen and pelvis done this morning, which showed gallstones and no hydronephrosis. She does have bilateral pleural effusions and a large hernia. PHYSICAL EXAMINATION: VITAL SIGNS: Temperature 97.5 degrees Fahrenheit, heart rate 95 per minute, respiratory rate 16 per minute, blood pressure 148/68 mmHg and oxygen saturation 99% on 2 liters of oxygen. HEENT: Head is atraumatic. Neck is supple and JVD is mildly elevated. HEART: Heart sounds are irregular in rhythm. LUNGS: Diminished breath sounds and bibasilar rales. ABDOMEN: Obese and a large ventral hernia is present. Bowel sounds are normal. EXTREMITIES: Without any cyanosis or clubbing. There is massive edema on lower extremities bilaterally. LABORATORY DATA: Todays labs showed WBC 7.8, hemoglobin 9.5 and hematocrit 31.4. Sodium 134, potassium 3.9, CO2 31, BUN 24, creatinine 1.35, glucose 113 and calcium 8.2. PROBLEMS: 1. Acute on chronic congestive heart failure: Volume status remains decompensated. She is responding to diuretics very well and will continue with the same. Yesterday, she was about 2.7 liters negative in fluid balance. 2. Acute kidney injury superimposed on chronic kidney disease: Kidney function has been gradually improving. We will continue to monitor closely. 3. Nausea and abdominal pain: She does have gallstones and may have acute or chronic cholecystitis. I recommend antibiotic coverage and surgical evaluation, though I do not feel that she is very stable for surgery at present due to her decompensated congestive heart failure. 4. Anemia: Her anemia is stable at present and we will continue to monitor closely. CUBA
--- NOTE | 2019-10-31 13:34 | IPN ---
DATE: 10/27/2019 SUBJECTIVE: The patient continues to have persistent intractable nausea and vomiting, right upper quadrant discomfort. No fever or chills currently, on IV Cipro and Flagyl due to Amoxicillin allergy. Zosyn could not be given. General Surgery has been consulted but does not believe a cholecystotomy tube would be of any benefit since the gallbladder is full gallstones. HIDA scan could not be performed until Monday. PHYSICAL EXAMINATION: VITAL SIGNS: Temperature 97.6, pulse 92, respiratory rate 20, blood pressure 134/74, 100% on 2 liters nasal cannula. GENERAL: Uncomfortable. Positive use of respiratory accessory muscles and abdominal muscles, retching at the bedside. NECK: No JVD. No thyromegaly. No cervical lymphadenopathy. LUNGS: Diminished coarse breath sounds. ABDOMEN: Tender right upper quadrant. No rebound or guarding. Positive bowel sounds, obese with positive fluid wave. EXTREMITIES: 2+ pitting edema. LABORATORY DATA: White count 7.8, hemoglobin 10, hematocrit 32, platelet count 310,000. Sodium 130, potassium 4.4, chloride 95, bicarbonate 32, BUN 24, creatinine is 1.25, glucose of 121. Wound culture: E. coli on 10/12/2019 status post Bactrim. Respiratory panel 10/22 is negative. ASSESSMENT AND PLAN: This is a 79-year-old discharged from [facility] where she was evaluated for a T7-8 burst fracture, no surgical intervention, presented to the Emergency Room with worsening back pain, acute kidney injury and low sodium, had been taken off her diuretics with improvement in her creatinine and sodium level, but developed congestive heart failure. She had been treated for her sacral decubitus with Bactrim as well. IMPRESSION: 1. Acute cholecystitis. 2. Cholelithiasis. 3. Acute on chronic diastolic heart failure. 4. Acute on chronic Stage III renal failure. 5. Hypothyroidism. 6. Chronic atrial fibrillation. 7. Hypernatremia, resolved. 8. Anemia of chronic disease. 9. Type 2 diabetes. PLAN: Patient is currently NPO on Cipro and Flagyl due to allergy to Amoxicillin, clavulanic acid, Zosyn, could not be used. She is currently on diuresis with spironolactone and Lasix but will need to monitor for dehydration in light of NPO status. General Surgery has been consulted but does not believe cholecystotomy tube would be helpful in light of severe gallstone disease. Patient may need to be medically optimized for a laparoscopic cholecystectomy. MTDD
--- NOTE | 2019-10-31 13:38 | IPN ---
DATE: 10/27/2019 SUBJECTIVE: Mrs. Melendez is seen this morning at her bedside. She remains nauseated and still not feeling well. She also has generalized edema and shortness of breath. She remains on oxygen. She is being diuresed and is responding to diuretic. PHYSICAL EXAMINATION: VITAL SIGNS: Temperature 97.0 degrees Fahrenheit, heart rate is 106 per minute and respiratory rate 16 per minute. Blood pressure 145/76 mmHg, and oxygen saturation 99% on 2 liters of oxygen. HEENT: Head is atraumatic. Oral mucosa is somewhat dry. NECK: Supple and JVD is markedly elevated. HEART: Heart sounds are tachycardic and irregular in rhythm. LUNGS: Diminished breath sounds at bases. ABDOMEN: Soft, minimal tenderness in the right upper quadrant. Bowel sounds are normal. Extremities without any cyanosis or clubbing. EXTREMITIES: Lower extremity edema is still at least 3+. NEUROLOGIC: She is at her baseline mentation without focal deficit. LABORATORY DATA: Todays labs showed WBC count of 7.8, hemoglobin 10.2 and hematocrit 32.7. Sodium 130, potassium 4.4, BUN 24 and creatinine 1.25. PROBLEMS: 1. Acute kidney injury superimposed on chronic kidney disease. Kidney function has improved and leveled off. She has no uremic symptoms. 2. Congestive heart failure. Her volume remains decompensated. She has diuresed very well so far with significant negative food balance between 2.5 to 3 liters for the last three days. We will continue with the diuretic and monitor her electrolytes and kidney function on a daily basis. 3. Hyponatremia, slightly worsening compared to yesterday related to diuretics. At this point, she is still volume overloaded and will continue to monitor her electrolytes while we are diuresing her. 4. Abdominal pain and nausea. She was noted to have gallstones and has been on Metronidazole and Ciprofloxacin. I am not sure if her nausea is caused by the antibiotics or her gallstone problems. She is being followed by surgery. CUBA
--- NOTE | 2019-10-31 13:40 | IPN ---
DATE: 10/28/2019 SUBJECTIVE: Mrs. Melendez is seen this morning at her bedside. She remains nauseated and reports pain in her back and right side. She denies any dyspnea or chest pain. There is no fever or chills. PHYSICAL EXAMINATION: VITAL SIGNS: Temperature 97.5 degrees Fahrenheit, heart rate is 83 per minute, respiratory rate is 18 per minute, blood pressure is 126/60 mmHg and oxygen saturation is 99% on 2 liters of oxygen. HEENT: Head is atraumatic. Oral mucosa is dry. NECK: Supple. JVD is still mildly elevated. HEART: Irregular rhythm. LUNGS: Slightly diminished breath sounds. ABDOMEN: Soft with minimal right upper quadrant tenderness. Large anterior hernia is unchanged. EXTREMITIES: No cyanosis or clubbing. Lower extremity edema is improving. LABORATORY DATA: Todays labs showed a WBC count of 7.4, hemoglobin 10.0 and hematocrit 32.9. Sodium 134, potassium 4.2, BUN 20 and creatinine 1.24. Glucose 111 and calcium 8.4. PROBLEMS: 1. Congestive heart failure, acute on chronic. Volume status is improving with diuresis and we will continue with the same. So far, she has been in negative fluid balance by about 11 liters since admission. 2. Hyponatremia. The sodium level has been stable between 130 and 134. We will continue with diuresis. 3. Acute kidney injury superimposed on chronic kidney disease. No significant change in kidney function over the last 24 hours. She did have improvement before that. I think this is her baseline kidney function and we will continue to monitor closely. Once her volume status reaches euvolemia then we can stop the diuretics. 4. Nausea and abdominal pain. She is waiting for a HIDA scan today. She remains on antibiotics and currently is afebrile. [facility]
--- NOTE | 2019-10-31 13:45 | IPN ---
DATE: 10/30/2019 Mrs. Melendez is seen this morning at her bedside. She still has pain in her right side of back and going around her chest wall. Her nausea is slightly better but still present. She denies any fever or chills. She has no abdominal pain. On physical examination, temperature 98.8 degrees Fahrenheit, Heart rate 104 per minute and respiratory rate 16 per minute. Blood pressure 132/70 mmHg and oxygen saturation 95% on room air. Head is atraumatic. Neck is supple and jugular venous distention (JVD) is still mildly elevated. Heart sounds are tachycardic and irregular. Lungs with slightly diminished breath sounds at the bases. Abdomen soft and nontender. A large, anterior abdominal hernia is unchanged. Extremities have no cyanosis or clubbing. Lower extremity edema is at least 1+. Neurologically, she is awake, alert and at her baseline mentation. Todays lab showed 8.3, hemoglobin 10.8 and hematocrit 34.2. Platelets 288. Sodium 132, potassium 4.0, BUN 18, and creatinine 1.05. Glucose 134 and calcium 8.4. Intake and output records from yesterday showed total intake 1520 and output 4300 with negative fluid balance of 2780 mL. Her weight is down to 108 kg. PROBLEMS: 1. [id number] congestive heart failure. Her volume status has improved significantly. I switched her diuretic to 40 of torsemide yesterday and I would like to see how her urine output goes today. I would like to keep her in a mild negative fluid balance. 2. Acute kidney injury superimposed on chronic kidney disease. Kidney function has improved significantly and her electrolytes have also improved. 3. Hyponatremia. Sodium level gradually improving as she is being diuresed. Overall, her sodium level has been stable between 130 and 134 for the last five days. 4. Anemia. Anemia is stable at present and does not need any urgent intervention. 5. Nausea and back pain. Probably, these are related; however, it is quite possible that nausea is caused by the antibiotics as she is on Cipro and metronidazole. I will defer to surgery and hospitalist service for decisions about her antibiotics. All-in-all from a renal standpoint, she is doing very well and we will watch her urine output for the next 24 hours before making any further changes in her diuretics. DAD
[2019-10-31 14:00] VITALS: BP 135/77
--- NOTE | 2019-10-31 14:34 | IPNPDOC ---
Subjective Date Seen The patient was seen on 10/31/19. Subjective Chief Complaint/HPI Patient working a little with PT. Continues to be in severe pain. On multiple pain meds will not increase any further as that may sedate the patient and then she will not be able to work with PT. Had a bowel movement yesterday. Objective Physical Examination General Exam: Positive: Alert, Cooperative, No Acute Distress Eye Exam: Positive: Conjunctiva & lids normal; Negative: Sclera icteric ENT Exam: Positive: Mucous membr. moist/pink Neck Exam: Positive: Supple Chest Exam: Positive: Clear to auscultation, Diminished (at the bases); Negative: Rales, Rhonchi, Wheezing Heart Exam: Positive: Rate Normal, Irregular Rhythm; Negative: Murmurs Telemetry: Positive: Atrial fibrillation Abdomen Exam: Positive: Normal bowel sounds, Soft, Tenderness (across [place] upper abdomen) Extremity Exam: Positive: Edema, Swelling Skin Exam: Positive: Lesion (sacral decubiti) Neuro Exam: Positive: Normal Speech, Normal Tone, Sensation Intact Psych Exam: Positive: Mental status NL, Mood NL, Memory Intact, Oriented x 3; Negative: Anxiety Assessment /Plan Assessment This 79 yr old F with PMH of CKD stage 3, HTN, DM chronic A. fib, CHF, DVT, Anemia, was admitted at [facility] from Sep 28 to . She presented w c/o multiple falls and was found to have a T7/T8 burst fx; based on the dc summary recommended transfer to [place] for a higher level of care. During her stay at [facility], she was evaluated by neurosurgery who recommended conservative measures and that she may use a TLSO for comfort and wo rk w PT/OT. She had developed hyponatremia there. She was evaluated by the nephrology and geriatrics services. On transfer here she was found to have acute kidney injury, CHF exacerbation massive fluid overload, and had been taken off her diuretics. She also had a sacral pressure decubiti, being treated with Bactrim. Here in addition to the back pain she has been complaining of right lower rib cage and RUQ pain persistently so had an MRI of the abdomen Abdominal pain resolved More lower right chest and back pain CT abd pelvis Liver: Hepatomegaly. Liver contour nodularity. Correlate for evidence of cirrhosis. Gallbladder and bile ducts: Markedly distended gallbladder containing innumerable calculi. Correlate clinically for evidence of acute cholecystitis. HIDA scan done negative No Acute Cholecystitis will dc antibiotics. T7 and T8 vertebral fracture after mechanical fall S/p neurosurgery eval in [facility], neuro intact, no further neurosurgical intervention per neurosurgical standpoint. MRI thoracic spine from [facility] showed compression fracture of T7 and T8. PT/OT/fall precaution. will need to go to rehab after discharge. pain control with tramadol, tylenol, baclofen and percocet, lidoderm patch Acute on chronic diastolic congestive heart failure with anasarca on torsemide and spironolactone. continue as per nephrology Acute kidney injury superimposed on chronic kidney disease stage 3 due to CHF exacerbation, fluid overload. improved with diuresis Hyponatremia improved with diuresis. Patient has hypervolemic hyponatremia due to CHF on high dose diuretics Small sacral decubiti. was not infection though did get empiric antibiotics. finished antibiotics. present on admission Chronic DVT of left lower extremity: On xarelto Anemia and chronic kidney disease HH stable h/o iron def Now Ferritin at 100. Can restart iron supplements on discharge. Chronic A. fib. Cont home med xarelto and atenolol. NIDDM. Consistent carbohydrate diet. Insulin SS AC&HS. Glucose checks, hypoglyemia protocol Hypothyroidism. Cont home med synthroid Cirrhosis of liver as per radiological evidence. 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 Multiple small pancreatic cysts with defined connection to the main pancreatic duct suggests intra papillary mucinous neoplasm Reimage every 1 year for 5 years, then every 2 years for 4 years. Alternatively, EUS ? Spinal stenosis Severe multilevel degenerative disease and facet hypertrophy. Stenosis of the spinal canal and neural foramina multiple levels. 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 Large midline ventral abdominal hernia containing segments of sigmoid and transverse as well as multiple loops of small bowel. No obstruction. Constipation on multiple bowel meds. Plan/VTE VTE Prophylaxis Ordered?: Yes VS, I&O, 24H, Fishbone Vital Signs/I&O Vital Signs Date Time Temp Pulse Resp B/P (MAP) Pulse Ox O2 Delivery O2 Flow Rate FiO2 10/31/19 12:32 16 10/31/19 06:00 98.9 94 133/76 (95) 95 Room Air 10/30/19 16:04 2.0 I&O- Last 24 Hours up to 6 AM 10/31/19 06:00 Intake Total 445 ml Output Total 1000 ml Balance -555 ml Laboratory Data 24H LABS Laboratory Tests 2 10/30/19 20:50: Bedside Glucose (Misc Panel) 123H 10/31/19 06:26: Anion Gap 9, Glomerular Filtration Rate 47.5, Calcium Level 8.5L, Phosphorus Level 2.7, Albumin 2.2L 10/31/19 11:55: Bedside Glucose (Misc Panel) 132H CBC/BMP Laboratory Tests 10/31/19 06:26 Microbiology Microbiology 10/23/19 Respiratory Virus Panel (PCR) ([facility]) - Final, Complete MICHAELLE LAMBERT MD Oct 31, 2019 14:34
[2019-10-31] MEDS: RIVAROXABAN 15 MG TAB (XARELTO) PO SCH (17:30)
[2019-10-31 19:49] VITALS: BP 126/76
[2019-10-31] MEDS: LIDOCAINE 5% (LIDODERM) PATCH TD SCH (21:34)
[2019-10-31] MEDS: NYSTATIN 100,000 UNITS/GM TOPICAL PWD 15 GM TOP PRN (21:37)
[2019-11-01] MEDS: IPRATROPIUM HFA INHALER 12.9 GRAMS (ATROVENT HFA) INH SCH ×4 (02:01→20:30)
[2019-11-01] MEDS: LEVOTHYROXINE 100MCG TABLET (0.1MG) PO SCH (05:19)
[2019-11-01] MEDS: traMADol 50 MG TAB PO SCH ×3 (05:20→21:58)
[2019-11-01] MEDS: SLF 3 ML SYR IV SCH ×3 (05:21→22:00)
[2019-11-01 06:00] VITALS: BP 127/76
[2019-11-01] MEDS: ONDANSETRON 4 MG ORAL DISINTEGRATING TAB SL PRN (07:07)
[2019-11-01] MEDS: TORSEMIDE 20 MG TAB PO SCH ×2 (08:40→16:06)
[2019-11-01] MEDS: SPIRONOLACTONE 25 MG TAB PO SCH ×2 (08:41→16:05)
[2019-11-01] MEDS: VITAMIN D 1,000 INTERNATIONAL UNITS TABLET PO SCH (08:41)
[2019-11-01] MEDS: ACETAMINOPHEN 500 MG TAB PO SCH ×3 (08:41→21:57)
[2019-11-01] MEDS: BISACODYL 5 MG TAB PO SCH (08:41)
[2019-11-01] MEDS: ASCORBIC ACID 500 MG TAB PO SCH (08:41)
[2019-11-01] MEDS: MIRALAX *UNIT DOSE* 17GM PACKET PO SCH ×2 (08:41→21:00)
[2019-11-01] MEDS: PERCOCET 5MG/325MG TAB PO PRN ×3 (08:42→23:08)
[2019-11-01] MEDS: HumaLOG INSULIN (NovoLOG) PER UNIT SC SCH ×4 (08:43→21:00)
[2019-11-01] MEDS: FLEET ENEMA PR SCH ×2 (09:00→21:00)
[2019-11-01] MEDS: BALMEX CREAM 60GM TOP SCH (09:32)
[2019-11-01] MEDS: **NOTE PATIENT COMMENT** MISC XX SCH (09:33)
[2019-11-01 10:00] VITALS: BP 120/83
[2019-11-01 14:00] VITALS: BP 126/24
[2019-11-01] MEDS: RIVAROXABAN 15 MG TAB (XARELTO) PO SCH (18:16)
[2019-11-01 19:44] VITALS: BP 126/75
[2019-11-01] MEDS: LIDOCAINE 5% (LIDODERM) PATCH TD SCH (21:59)
[2019-11-02] MEDS: LEVOTHYROXINE 100MCG TABLET (0.1MG) PO SCH (05:03)
[2019-11-02] MEDS: traMADol 50 MG TAB PO SCH ×3 (05:03→21:15)
[2019-11-02 06:08] VITALS: BP 126/76
[2019-11-02] MEDS: IPRATROPIUM HFA INHALER 12.9 GRAMS (ATROVENT HFA) INH SCH (07:39)
[2019-11-02] MEDS: VITAMIN D 1,000 INTERNATIONAL UNITS TABLET PO SCH (08:52)
[2019-11-02] MEDS: MIRALAX *UNIT DOSE* 17GM PACKET PO SCH ×2 (08:52→21:14)
[2019-11-02] MEDS: SPIRONOLACTONE 25 MG TAB PO SCH ×2 (08:52→16:46)
[2019-11-02] MEDS: HumaLOG INSULIN (NovoLOG) PER UNIT SC SCH ×3 (08:52→18:29)
[2019-11-02] MEDS: ASCORBIC ACID 500 MG TAB PO SCH (08:52)
[2019-11-02] MEDS: TORSEMIDE 20 MG TAB PO SCH ×2 (08:52→16:46)
[2019-11-02] MEDS: BISACODYL 5 MG TAB PO SCH (08:53)
[2019-11-02] MEDS: **NOTE PATIENT COMMENT** MISC XX SCH (08:53)
[2019-11-02] MEDS: BALMEX CREAM 60GM TOP SCH (08:53)
[2019-11-02] MEDS: FLEET ENEMA PR SCH ×2 (08:53→21:00)
[2019-11-02] MEDS: ACETAMINOPHEN 500 MG TAB PO SCH ×3 (08:53→21:15)
[2019-11-02] MEDS: RIVAROXABAN 15 MG TAB (XARELTO) PO SCH (18:29)
[2019-11-02 19:57] VITALS: BP 109/56
[2019-11-02] MEDS: LIDOCAINE 5% (LIDODERM) PATCH TD SCH (21:14)
[2019-11-02] MEDS: PERCOCET 5MG/325MG TAB PO PRN (23:34)
[2019-11-03] MEDS: traMADol 50 MG TAB PO SCH ×3 (04:17→20:51)
[2019-11-03 04:24] VITALS: BP 132/69
[2019-11-03] MEDS: LEVOTHYROXINE 100MCG TABLET (0.1MG) PO SCH (05:48)
[2019-11-03 08:29] LABS: CALCIUM LEVEL 7.8 MG/DL (8.8-10.2); CREATININE FOR GFR 1.16 MG/DL (0.55-1.30); POTASSIUM SERUM 3.7 MEQ/L (3.5-5.1)
[2019-11-03] MEDS: BISACODYL 5 MG TAB PO SCH (08:54)
[2019-11-03] MEDS: MIRALAX *UNIT DOSE* 17GM PACKET PO SCH ×2 (08:54→20:44)
[2019-11-03] MEDS: FLEET ENEMA PR SCH ×2 (08:54→20:43)
[2019-11-03] MEDS: GLIMEPIRIDE 2 MG TAB PO SCH (08:54)
[2019-11-03] MEDS: HumaLOG INSULIN (NovoLOG) PER UNIT SC SCH (08:54)
[2019-11-03] MEDS: LACTULOSE 20 GM/30 ML SYRUP UD PO PRN (08:54)
[2019-11-03] MEDS: NYSTATIN 100,000 UNITS/GM TOPICAL PWD 15 GM TOP PRN (08:54)
[2019-11-03] MEDS: ACETAMINOPHEN 500 MG TAB PO SCH ×3 (08:55→20:50)
[2019-11-03] MEDS: VITAMIN D 1,000 INTERNATIONAL UNITS TABLET PO SCH (08:55)
[2019-11-03] MEDS: TORSEMIDE 20 MG TAB PO SCH ×2 (08:55→16:55)
[2019-11-03] MEDS: ASCORBIC ACID 500 MG TAB PO SCH (08:55)
[2019-11-03] MEDS: BACLOFEN 5MG PER 1/2 TABLET PO PRN ×2 (08:55→17:57)
[2019-11-03] MEDS: SPIRONOLACTONE 25 MG TAB PO SCH ×2 (08:55→16:55)
[2019-11-03] MEDS: **NOTE PATIENT COMMENT** MISC XX SCH (08:56)
[2019-11-03] MEDS: BALMEX CREAM 60GM TOP SCH (08:56)
[2019-11-03] MEDS: RIVAROXABAN 15 MG TAB (XARELTO) PO SCH (16:56)
[2019-11-03] MEDS: LIDOCAINE 5% (LIDODERM) PATCH TD SCH (20:50)
[2019-11-03] MEDS: PERCOCET 5MG/325MG TAB PO PRN (23:37)
[2019-11-04] MEDS: traMADol 50 MG TAB PO SCH (04:10)
[2019-11-04] MEDS: LEVOTHYROXINE 100MCG TABLET (0.1MG) PO SCH (05:15)
[2019-11-04] MEDS: PERCOCET 5MG/325MG TAB PO PRN (05:15)
[2019-11-04 05:32] VITALS: BP 131/71
[2019-11-04] MEDS: FLEET ENEMA PR SCH (07:43)
[2019-11-04] MEDS: MIRALAX *UNIT DOSE* 17GM PACKET PO SCH (07:43)
[2019-11-04] MEDS: BISACODYL 5 MG TAB PO SCH (07:43)
[2019-11-04] MEDS: TORSEMIDE 20 MG TAB PO SCH (09:45)
[2019-11-04] MEDS: BACLOFEN 5MG PER 1/2 TABLET PO PRN (09:45)
[2019-11-04] MEDS: VITAMIN D 1,000 INTERNATIONAL UNITS TABLET PO SCH (09:45)
[2019-11-04] MEDS: GLIMEPIRIDE 2 MG TAB PO SCH (09:45)
[2019-11-04] MEDS: SPIRONOLACTONE 25 MG TAB PO SCH (09:45)
[2019-11-04] MEDS: **NOTE PATIENT COMMENT** MISC XX SCH (09:46)
[2019-11-04] MEDS: ASCORBIC ACID 500 MG TAB PO SCH (09:46)
[2019-11-04] MEDS: BALMEX CREAM 60GM TOP SCH (09:46)
[2019-11-04] MEDS: ACETAMINOPHEN 500 MG TAB PO SCH (09:46)
[2019-11-04] MEDS ORDERED: TORS20TA2 PO (09:50)
[2019-11-04] MEDS ORDERED: ACET-683 PO (09:50)
[2019-11-04] MEDS ORDERED: PERCOCET PO (09:50)
[2019-11-04] MEDS ORDERED: BALMOINT60 TOP (09:50)
[2019-11-04] MEDS ORDERED: NYST10006 TOP (09:50)
[2019-11-04] MEDS ORDERED: TRAM50TA2 PO (09:50)
[2019-11-04] MEDS ORDERED: BACL10TA2 PO (09:50)
[2019-11-04] MEDS ORDERED: LIDO5TD TD (09:50)
[2019-11-04] MEDS ORDERED: POTA1TAB14 PO (09:52)
--- NOTE | 2019-11-04 16:19 | DS.PDOC ---
Discharge Summary General Date of Admission Oct 12, 2019 at 02:56 Date of Discharge 11/04/19 Discharge Summary PROCEDURES PERFORMED DURING STAY: [None]. DISCHARGE DIAGNOSES: T7 and T8 vertebral fracture after mechanical fall Acute on chronic diastolic congestive heart failure with anasarca Acute kidney injury superimposed on chronic kidney disease stage 3 Hyponatremia Sacral Decubiti Chronic DVT left leg Cirrhosis of Liver as per CT scan compensated and asymptomatic Ventral hernia Pancreatic intra papillary mucinous neoplasm as per MRI follow up with reimaging DM Chronic anemia Iron deficiency Chronic Afib Hypothyroid Chronic constipation Spinal stenosis COMPLICATIONS/CHIEF COMPLAINT: Cole, Hyponatremia. HOSPITAL COURSE: This 79 yr old F with PMH of CKD stage 3, HTN, DM chronic A. fib, CHF, DVT, Anemia, was admitted at [facility] from Sep 28 to . She presented w c/o multiple falls and was found to have a T7/T8 burst fx; based on the dc summary recommended transfer to [place] for a higher level of care. During her stay at [facility], she was evaluated by neurosurgery who recommended conservative measures and that she may use a TLSO for comfort and work w PT/OT. She had developed hyponatremia there. She was evaluated by the nephrology and geriatrics services. On transfer here she was found to have acute kidney injury, CHF exacerbation massive fluid overload, and had been taken off her diuretics. She also had a sacral pressure decubiti, being treated with Bactrim. Here in addition to the back pain she has been complaining of right lower rib cage and RUQ pain persistently so had an MRI of the abdomen and HIDA scan. Patient was ruled out for acute cholecystitis. MRI abdomen also showed Pancreatic intra papillary mucinous neoplasm. Radiologist reccomended 1 year follow up imaging. MRI also showed cirrhosis of liver asymptomatic. T7 and T8 vertebral fracture after mechanical fall S/p neurosurgery eval in [facility], neuro intact, no further neurosurgical intervention per neurosurgical standpoint. MRI thoracic spine from [facility] showed compression fracture of T7 and T8. PT/OT/fall precaution. will need to go to rehab after discharge. pain control with tramadol, tylenol, baclofen and percocet, lidoderm patch Acute on chronic diastolic congestive heart failure with anasarca on torsemide and spironolactone. continue as per nephrology Acute kidney injury superimposed on chronic kidney disease stage 3 due to CHF exacerbation, fluid overload. improved with diuresis Hyponatremia improved with diuresis. Patient has hypervolemic hyponatremia due to CHF on high dose diuretics Small sacral decubiti. was not infected though did get empiric antibiotics. finished antibiotics. present on admission Abdominal pain resolved More lower right chest and back pain CT abd pelvis Liver: Hepatomegaly. Liver contour nodularity. Correlate for evidence of cirrhosis. Gallbladder and bile ducts: Markedly distended gallbladder containing innumerable calculi. Correlate clinically for evidence of acute cholecystitis. HIDA scan done negative No Acute Cholecystitis Chronic DVT of left lower extremity: On xarelto Anemia of chronic kidney disease HH stable h/o iron def Now Ferritin at 100. Can restart iron supplements on discharge. Chronic A. fib. Cont home med xarelto and atenolol. NIDDM. Consistent carbohydrate diet. Insulin SS AC&HS. Glucose checks, hypoglyemia protocol Hypothyroidism. Cont home med synthroid Cirrhosis of liver as per radiological evidence. 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 Multiple small pancreatic cysts with defined connection to the main pancreatic duct suggests intra papillary mucinous neoplasm Reimage every 1 year for 5 years, then every 2 years for 4 years. Alternatively, EUS ? Spinal stenosis Severe multilevel degenerative disease and facet hypertrophy. Stenosis of the spinal canal and neural foramina multiple levels. 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 Large midline ventral abdominal hernia containing segments of sigmoid and transverse as well as multiple loops of small bowel. No obstruction. Constipation on multiple bowel meds. DISCHARGE MEDICATIONS: Please see below. ALLERGIES: Please see below. PHYSICAL EXAMINATION ON DISCHARGE: VITAL SIGNS: Please see below. General Exam: Positive: Alert, Cooperative, No Acute Distress Eye Exam: Positive: Conjunctiva & lids normal; Negative: Sclera icteric ENT Exam: Positive: Mucous membr. moist/pink Neck Exam: Positive: Supple Chest Exam: Positive: Clear to auscultation, Diminished (at the bases); Negative: Rales, Rhonchi, Wheezing Heart Exam: Positive: Rate Normal, Irregular Rhythm; Negative: Murmurs Telemetry: Positive: Atrial fibrillation Abdomen Exam: Positive: Normal bowel sounds, Soft, Tenderness (across [place] upper abdomen) Extremity Exam: Positive: Edema, Swelling Skin Exam: Positive: Lesion (sacral decubiti) Neuro Exam: Positive: Normal Speech, Normal Tone, Sensation Intact Psych Exam: Positive: Mental status NL, Mood NL, Memory Intact, Oriented x 3; Negative: Anxiety LABORATORY DATA: Please see below. ACTIVITY: [As tolerated]. DIET: Carb consistent DISPOSITION: [facility]. DISCHARGE CONDITION: [Stable]. TIME SPENT ON DISCHARGE: 35 minutes. Vital Signs/I&Os Vital Signs Date Time Temp Pulse Resp B/P (MAP) Pulse Ox O2 Delivery O2 Flow Rate FiO2 11/04/19 05:45 16 11/04/19 05:32 98.3 97 131/71 (91) 94 Room Air 10/30/19 16:04 2.0 I&O- Last 24 Hours up to 6 AM 11/04/19 05:59 Intake Total 470 ml Output Total 2700 ml Balance -2230 ml Laboratory Data Labs 24H Laboratory Tests 2 11/03/19 16:46: Bedside Glucose (Misc Panel) 134H 11/04/19 09:48: Bedside Glucose (Misc Panel) 96 FSBS Laboratory Tests Test 11/03/19 16:46 11/04/19 09:48 Range/Units Bedside Glucose (Misc Panel) 134 96 83-110 MG/DL Discharge Medications Scheduled Acetaminophen (Acetaminophen) 500 Mg Tablet, 500 MG PO TID Ascorbic Acid (Vitamin C) 500 Mg Tablet, 500 MG PO DAILY, (Reported) Atenolol (Atenolol) 25 Mg Tablet, 25 MG PO DAILY, (Reported) Cholecalciferol (Vitamin D3) (Vitamin D3) 125 Mcg Capsule, 5,000 UNITS PO DAILY, (Reported) Dulaglutide (Trulicity) 1.5 Mg/0.5 Ml Pen.injctr, 1.5 MG SC QWEEK, (Reported) TUESDAYS Ferrous Sulfate (Iron) 325 Mg Tablet, 65 MG PO BID, (Reported) Glimepiride (Glimepiride) 2 Mg Tablet, 2 MG PO DAILY, (Reported) Glucosamine/D3/Boswellia Kayleen (Osteo Bi-Flex Caplet) 1 Each Tablet, 1 TAB PO BID, (Reported) Lactobacillus Acidophilus (Probiotic) 1 Each Capsule, 1 CAP PO BID, (Reported) Levothyroxine Sodium (Synthroid) 100 Mcg Tablet, 100 MCG PO DAILY, (Reported) TAKES AT 0500 Lidocaine (Lidocaine) 5% Adh..patch, 1 PATCH TD QHS Magnesium (Magnesium) 250 Mg Tablet, 500 MG PO QHS, (Reported) Metformin HCl (Metformin HCl ER) 500 Mg Tab.er.24h, 1,000 MG PO BID, (Reported) Potassium Chloride (Potassium Chloride) 20 Meq Tablet.er, 20 MEQ PO DAILY Rivaroxaban (Xarelto) 15 Mg Tablet, 15 MG PO DAILY, (Reported) Spironolactone (Spironolactone) 25 Mg Tablet, 25 MG PO BID, (Reported) Torsemide (Torsemide) 20 Mg Tablet, 40 MG PO BID@09,17 Tramadol HCl (Tramadol HCl) 50 Mg Tablet, 50 MG PO Q8H Ubidecarenone (Coq-10) 100 Mg Capsule, 100 MG PO BID, (Reported) Zinc Oxide/Panthenol/Vitamin E (Balmex Cmplt Protect 11.3% Crm) 56 Gm Cream..g., 0 DOSE TOP DAILY Scheduled PRN Baclofen (Baclofen) 10 Mg Tablet, 5 MG PO Q6H PRN for muscle spasm Nystatin (Nystop) 60 Gm Powder, 0 DOSE TOP BIDP PRN for RASH Oxycodone/Acetaminophen (Oxycodone-Acetaminophen 5-325) 1 Each Tablet, 1 TAB PO Q4HP PRN for MILD/MODERATE PAIN (PS 1-7) Allergies Coded Allergies: phenylephrine (Verified Allergy, Severe, itching and burning all over, 10/23/19) Tricyclic Compounds (Verified Allergy, Mild, rash, 05/16/18) Influenza Virus Vaccines (Verified Allergy, Unknown, "never so sick in my life", 10/23/19) amoxicillin (Verified Allergy, Unknown, 05/16/18) clavulanic acid (Verified Allergy, Unknown, 05/16/18) morphine (Verified Adverse Reaction, Mild, nausea/vomiting, 09/29/19) MICHAELLE LAMBERT MD Nov 04, 2019 16:19
--- NOTE | 2019-11-07 12:55 | IPN ---
DATE: 10/31/2019 SUBJECTIVE: Mrs. Melendez is seen this morning on her bedside. She is currently sitting in the recliner chair. She continues to have back pain, but denies any nausea, vomiting, dyspnea or chest pain. Her leg edema has improved significantly with diuresis. PHYSICAL EXAMINATION: VITAL SIGNS: Temperature 98.8 degrees Fahrenheit, heart rate 94 per minute, respiratory rate 16 per minute, blood pressure 133/76 mmHg and oxygen saturation 95% on room air. HEENT: Head is atraumatic. NECK: Supple and JVD mildly elevated. HEART: Irregular. LUNGS: Clear to auscultation. ABDOMEN: Soft and nontender. EXTREMITIES: Without any cyanosis or clubbing. Lower extremity edema is only 1+. LABORATORY DATA: Todays labs show sodium 132, potassium 3.8, chloride 90, CO2 33, BUN 18, creatinine 1.17. PROBLEMS: 1. Acute kidney injury superimposed on chronic kidney disease: Kidney function is essentially unchanged for the last three days. Slight fluctuations are related to diuretic use. 2. Acute on chronic congestive heart failure: She had significant diuresis and her volume status has improved significantly. I have already switched her to oral diuretic, which should be continued. Torsemide 40 mg b.i.d. 3. Hyponatremia: Sodium level has improved and has been stable between 130 and 134. No changes are being made today. DISPOSITION: Patient is likely to go for subacute rehab. From a renal standpoint, she seems to be ready for discharge and will follow-up as an outpatient. CUBA
[2019-12-03] MEDS ORDERED: COEN100T PO (19:48)
[2019-12-03] MEDS ORDERED: OXYC1TAB23 PO (19:48)
[2019-12-03] MEDS ORDERED: CALC500T31 PO (19:48)
[2019-12-03] MEDS ORDERED: DULC10SU2 PR (19:48)
[2019-12-03] MEDS ORDERED: MOM30SS2 PO (19:48)
[2019-12-03] MEDS ORDERED: JUVEPOW4 PO (19:48)
[2019-12-03] MEDS ORDERED: LUBROIN4 OU (19:48)
[2019-12-03] MEDS ORDERED: TORS10TA3 PO (19:48)
[2019-12-03] MEDS ORDERED: LIDO5DIS41 TD (19:48)
[2019-12-03] MEDS ORDERED: XARE15TA PO (19:48)
[2019-12-03] MEDS ORDERED: ENEMENE PR (19:48)
[2019-12-03] MEDS ORDERED: GLUC1KIT IM (19:48)
[2019-12-03] MEDS ORDERED: ACET-683 PO (19:48)
== END 2019-11-04 12:00 | DRG 551 ==
LOC: M MSPAV 02:56 → M PCU 10-23 14:12 → M MS5PR 10-29 22:49
PROVIDERS: ADMIT Internal Medicine; ATTEND Internal Medicine Nephrology
DX: S22.069A Unspecified fracture of T7-T8 vertebra, initial encounter for closed fracture (principal); I50.33 Acute on chronic diastolic (congestive) heart failure; I48.20 Chronic atrial fibrillation, unspecified; E87.1 Hypo-osmolality and hyponatremia; N17.9 Acute kidney failure, unspecified; I13.0 Hypertensive heart and chronic kidney disease with heart failure and stage 1 through stage 4 chronic kidney disease, or unspecified chronic kidney disease; Z68.41 Body mass index [BMI] 40.0-44.9, adult; K80.62 Calculus of gallbladder and bile duct with acute cholecystitis without obstruction; N18.3 Chronic kidney disease, stage 3 (moderate); E11.9 Type 2 diabetes mellitus without complications; D50.9 Iron deficiency anemia, unspecified; E03.9 Hypothyroidism, unspecified; K74.60 Unspecified cirrhosis of liver; L89.159 Pressure ulcer of sacral region, unspecified stage; K43.9 Ventral hernia without obstruction or gangrene; R29.6 Repeated falls; W18.30XA Fall on same level, unspecified, initial encounter; Y92.009 Unspecified place in unspecified non-institutional (private) residence as the place of occurrence of the external cause; D63.1 Anemia in chronic kidney disease; Z79.01 Long term (current) use of anticoagulants; Z86.718 Personal history of other venous thrombosis and embolism; K59.00 Constipation, unspecified; Z79.899 Other long term (current) drug therapy; Z88.5 Allergy status to narcotic agent; Z88.8 Allergy status to other drugs, medicaments and biological substances; Z88.1 Allergy status to other antibiotic agents; Z88.7 Allergy status to serum and vaccine; Z95.2 Presence of prosthetic heart valve; I27.20 Pulmonary hypertension, unspecified; K21.9 Gastro-esophageal reflux disease without esophagitis; B96.29 Other Escherichia coli [E. coli] as the cause of diseases classified elsewhere; B95.61 Methicillin susceptible Staphylococcus aureus infection as the cause of diseases classified elsewhere; E66.9 Obesity, unspecified

== ENCOUNTER → 2019-11-06 | Outpatient (REF) ==
[~2019-11-06] MED LIST changes: +ACET-683 PO; +BACL10TA2 PO; +BALMOINT60 TOP; +CALC500T31 PO; +COEN100T PO; +DULC10SU2 PR; +ENEMENE PR; +GLIM2TAB29 PO; +GLUC1KIT IM; +JUVEPOW4 PO; +LIDO5DIS41 TD; +LIDO5TD TD; +LUBROIN4 OU; +MOM30SS2 PO; +NYST10006 TOP; +OXYC1TAB23 PO; +POTA1TAB14 PO; +TRAM50TA2 PO
[2019-11-06 12:13] LABS: HEMOGLOBIN A1c 5.8 %
[2019-11-06 12:16] LABS: CALCIUM LEVEL 8.7 MG/DL (8.8-10.2); CREATININE FOR GFR 1.32 MG/DL (0.55-1.30); FREE T4 1.48 NG/DL (0.76-1.46); GLOMERULAR FILTRATION RATE 41.3 (>39); MAGNESIUM LEVEL 1.8 MG/DL (1.8-2.4); THYROID STIMULATING HORMONE 7.31 uIU/ML (0.358-3.740)
[2019-11-06 12:17] LABS: POTASSIUM SERUM 4.5 MEQ/L (3.5-5.1)
[2019-11-06 12:42] LABS: TOTAL 25(OH) VITAMIN D 59.1 NG/ML (30.0-100.0)
== END ==
LOC: SKLAB5 09:40
DX: E83.42 Hypomagnesemia (principal); I50.9 Heart failure, unspecified; M19.90 Unspecified osteoarthritis, unspecified site; E11.9 Type 2 diabetes mellitus without complications

== ENCOUNTER → 2019-11-22 | Outpatient (REF) ==
[2019-11-22 10:01] LABS: HEMATOCRIT 39.2 % (36.0-47.0); HEMOGLOBIN 12.8 g/dl (12.0-15.5); MEAN CORPUSCULAR HEMOGLOBIN 29.1 pg (27.0-33.0); MEAN CORPUSCULAR HGB CONC 32.7 g/dl (32.0-36.5); MEAN CORPUSCULAR VOLUME 89.1 fl (80.0-96.0); PLATELET COUNT, AUTOMATED 326 10^3/uL (150-450); WHITE BLOOD COUNT 10.6 10^3/uL (4.0-10.0)
[2019-11-22 10:29] LABS: ALBUMIN 2.7 GM/DL (3.2-5.2); BILIRUBIN,TOTAL 0.4 MG/DL (0.2-1.0); CALCIUM LEVEL 9.5 MG/DL (8.8-10.2); CREATININE FOR GFR 1.56 MG/DL (0.55-1.30); GLOMERULAR FILTRATION RATE 34.1 (>39); POTASSIUM SERUM 4.3 MEQ/L (3.5-5.1); TOTAL PROTEIN 7.2 GM/DL (6.4-8.2)
[2019-11-22 11:21] LABS: APPEARANCE, URINE HAZY (CLEAR); BACTERIA, URINE AUTO 2+ (NEGATIVE); BILIRUBIN, URINE AUTO NEGATIVE (NEGATIVE); BLOOD, URINE BLOOD 1+ (NEGATIVE); COLOR, URINE YELLOW (YELLOW); GLUCOSE, URINE (UA) AUTO NEGATIVE (NEGATIVE); KETONE, URINE AUTO NEGATIVE (NEGATIVE); LEUKOCYTE ESTERASE, URINE AUTO 3+ (NEGATIVE); NITRITE, URINE AUTO NEGATIVE (NEGATIVE); PROTEIN, URINE AUTO NEGATIVE (NEGATIVE); RBC, URINE AUTO 1 /HPF (0-3); SPECIFIC GRAVITY URINE AUTO 1.012 (1.002-1.035); SQUAMOUS EPITHELIAL CELL UR AU 1 /HPF (0-6); UROBILINOGEN, URINE AUTO 0.2 mg/dL (0.0-2.0); WBC, URINE AUTO 23 /HPF (0-3)
== END ==
LOC: SKLAB5 08:50
DX: R63.8 Other symptoms and signs concerning food and fluid intake (principal); E86.0 Dehydration

== ENCOUNTER → 2019-11-25 | Outpatient (REF) ==
[2019-11-25 07:22] LABS: CALCIUM LEVEL 9.3 MG/DL (8.8-10.2); CREATININE FOR GFR 1.1 MG/DL (0.55-1.30); POTASSIUM SERUM 4.6 MEQ/L (3.5-5.1)
== END ==
LOC: SKLAB5 10:18
DX: N18.4 Chronic kidney disease, stage 4 (severe) (principal)

== ENCOUNTER → 2019-11-27 | Outpatient (REF) | payer MEDICARE, MEDICAID ==
[2019-11-27 07:48] LABS: CALCIUM LEVEL 9.2 MG/DL (8.8-10.2); CREATININE FOR GFR 0.99 MG/DL (0.55-1.30); GLOMERULAR FILTRATION RATE 57.6 (>39); POTASSIUM SERUM 4.5 MEQ/L (3.5-5.1)
== END ==
LOC: SKLAB5 07:39
DX: I50.9 Heart failure, unspecified (principal)

== ENCOUNTER → 2019-12-03 | Outpatient (CLI) | payer MEDICARE, MEDICAID ==
--- NOTE | 2019-12-03 17:48 | REP ---
INDICATION: WEDGE COMPRESSION FX OF VERTEBRA. COMPARISON: CT thoracic spine 09/29/2019. TECHNIQUE/RADIOTRACER AND DOSE: Following the intravenous administration of 21.5 mCi technetium 99 M MDP, flow images are obtained of the thoracolumbar region in the anterior and posterior projections, followed by immediate blood pool and 3 hour delayed images of the thoracolumbar region in various projections. FINDINGS: There is increased blood pooling and delayed activity at the T7 and T8 levels at the site of the previously identified fractures. There appears to be mild arthritic uptake at the L2 and L4 levels. There is also arthritic uptake in both shoulders and sternoclavicular joints. IMPRESSION: There is increased blood pooling and delayed activity at the T7 and T8 levels at the site of the previously identified fractures. <Electronically signed by Kvng Cadena > 12/03/19 [id number]
== END ==
LOC: M RAD 08:48
PROVIDERS: ATTEND Orthopaedic Surgery
DX: S22.060A Wedge compression fracture of T7-T8 vertebra, initial encounter for closed fracture (principal); X58.XXXA Exposure to other specified factors, initial encounter; Y92.9 Unspecified place or not applicable
CPT/HCPCS: 78315; A9503

== ENCOUNTER → 2019-12-03 | Outpatient (REF) ==
[2019-12-03 08:45] LABS: CALCIUM LEVEL 9.1 MG/DL (8.8-10.2); CREATININE FOR GFR 1.05 MG/DL (0.55-1.30); GLOMERULAR FILTRATION RATE 53.8 (>39); POTASSIUM SERUM 4.1 MEQ/L (3.5-5.1)
== END ==
LOC: SKLAB5 13:36
DX: I50.9 Heart failure, unspecified (principal)

== ENCOUNTER → 2019-12-05 | Outpatient (REF) | payer MEDICARE ==
[2019-12-05 08:06] LABS: HEMOGLOBIN A1c 6.5 %
[2019-12-05 08:25] LABS: CALCIUM LEVEL 9.2 MG/DL (8.8-10.2); CREATININE FOR GFR 0.97 MG/DL (0.55-1.30); POTASSIUM SERUM 4.1 MEQ/L (3.5-5.1)
== END ==
LOC: SKLAB5 08:00
DX: E11.9 Type 2 diabetes mellitus without complications (principal)

== ENCOUNTER → 2019-12-12 | Outpatient (REF) | payer MEDICARE | LOC: SKLAB5 10:49 | DX: N18.9 Chronic kidney disease, unspecified (principal) ==

== ENCOUNTER → 2019-12-16 | Outpatient (REF) ==
--- NOTE | 2019-12-23 11:27 | SLEEPHOME ---
DATE: 12/16/2019 ORDERED BY: Dr. Grewal Diagnostic home sleep testing was performed due to concern for the obstructive sleep apnea syndrome. For testing, a nocturnal T3 respiratory monitoring device was used. Continuous record was made of pulse, oxygen saturation, air flow, chest and abdominal strain, and body position. There was 9 hours and 59 minutes of data reviewed. There was 8 hours and 45 minutes marked as time in bed. During the interval marked time in bed, there were 397 respiratory events identified of 10 seconds in duration or greater for a respiratory event index of 45.3. The events were obstructive with 103 mixed and central apneas. Baseline pulse rate 85. Pulse rate ranged 27-199. The high end pulse rate is likely artifactual. Baseline saturation was 96%. Lowest oxygen saturation appreciated 58%. Testing was performed both in the supine and nonsupine positions. IMPRESSION: Abnormal home sleep testing with repetitive respiratory events and oxygen desaturations to 58% with a respiratory event index of 45.3 is consistent with the obstructive sleep apnea syndrome. RECOMMENDATION: The patient should be encouraged to undergo formal sleep evaluation. [facility]
== END ==
LOC: M SLEEP HO 10:00
DX: G47.33 Obstructive sleep apnea (adult) (pediatric) (principal)

== ENCOUNTER → 2019-12-19 | Outpatient (REF) | payer MEDICARE ==
[2019-12-19 08:52] LABS: FREE T4 1.66 NG/DL (0.76-1.46)
[2019-12-19 11:52] LABS: THYROID PEROXIDASE ANTIBODY < 28.0 U/ML (<60.0)
== END ==
LOC: SKLAB5 08:04
DX: E03.9 Hypothyroidism, unspecified (principal)

== ENCOUNTER → 2020-01-01 | Outpatient (CLI) | payer MEDICARE, MEDICAID ==
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
== END ==
LOC: M PAIN 13:00
PROVIDERS: ATTEND Family Medicine
DX: M79.18 Myalgia, other site (principal); I13.0 Hypertensive heart and chronic kidney disease with heart failure and stage 1 through stage 4 chronic kidney disease, or unspecified chronic kidney disease; I50.32 Chronic diastolic (congestive) heart failure; N18.30 Chronic kidney disease, stage 3 unspecified; I48.91 Unspecified atrial fibrillation; E03.9 Hypothyroidism, unspecified; D64.9 Anemia, unspecified; E83.42 Hypomagnesemia; E87.6 Hypokalemia; F32.9 Major depressive disorder, single episode, unspecified; Z79.891 Long term (current) use of opiate analgesic; Z79.01 Long term (current) use of anticoagulants; Z79.899 Other long term (current) drug therapy; Z88.0 Allergy status to penicillin; Z88.5 Allergy status to narcotic agent; Z88.7 Allergy status to serum and vaccine; Z88.8 Allergy status to other drugs, medicaments and biological substances

== ENCOUNTER → 2020-01-08 | Outpatient (REF) | payer MEDICARE | LOC: SKLAB5 08:00 | PROVIDERS: ATTEND Internal Medicine | DX: Z20.828 Contact with and (suspected) exposure to other viral communicable diseases (principal) ==

== ENCOUNTER → 2020-01-09 | Outpatient (REF) | payer MEDICARE ==
[2020-01-09 08:15] LABS: HEMATOCRIT 38.1 % (36.0-47.0); HEMOGLOBIN 12.5 g/dl (12.0-15.5); MEAN CORPUSCULAR HEMOGLOBIN 29.6 pg (27.0-33.0); MEAN CORPUSCULAR HGB CONC 32.8 g/dl (32.0-36.5); MEAN CORPUSCULAR VOLUME 90.1 fl (80.0-96.0); PLATELET COUNT, AUTOMATED 260 10^3/uL (150-450); RED BLOOD COUNT 4.23 10^6/uL (4.00-5.40); WHITE BLOOD COUNT 10.5 10^3/uL (4.0-10.0)
[2020-01-09 08:39] LABS: HEMOGLOBIN A1c 7.9 %
== END ==
LOC: SKLAB5 07:20
DX: N18.9 Chronic kidney disease, unspecified (principal); E11.9 Type 2 diabetes mellitus without complications

== ENCOUNTER → 2020-01-11 | Outpatient (REF) | LOC: SKLAB5 13:15 | DX: Z01.818 Encounter for other preprocedural examination (principal); Z20.828 Contact with and (suspected) exposure to other viral communicable diseases ==

== ENCOUNTER → 2020-01-15 | Outpatient (REF) | payer MEDICARE | LOC: SKLAB5 06:57 | PROVIDERS: ATTEND Family Medicine | DX: Z20.828 Contact with and (suspected) exposure to other viral communicable diseases (principal) ==

== ENCOUNTER → 2020-01-16 | Outpatient (CLI) | payer MEDICARE, MEDICAID ==
[~2020-01-16] MED LIST changes: +BUPIVACAINE HCL 0.25% 10ML VIAL As Ordered ONE; +BUPIVACAINE HCL 0.25% 30ML VIAL As Ordered ONE
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
== END ==
LOC: M PAIN 09:30
PROVIDERS: ATTEND Anesthesiology
DX: M79.18 Myalgia, other site (principal); N28.9 Disorder of kidney and ureter, unspecified; E11.9 Type 2 diabetes mellitus without complications; E03.9 Hypothyroidism, unspecified; D50.9 Iron deficiency anemia, unspecified; Z86.59 Personal history of other mental and behavioral disorders; Z96.653 Presence of artificial knee joint, bilateral; Z95.5 Presence of coronary angioplasty implant and graft; Z88.1 Allergy status to other antibiotic agents; Z88.5 Allergy status to narcotic agent; Z88.7 Allergy status to serum and vaccine; Z88.8 Allergy status to other drugs, medicaments and biological substances; E66.01 Morbid (severe) obesity due to excess calories; Z68.42 Body mass index [BMI] 45.0-49.9, adult; Z79.01 Long term (current) use of anticoagulants; Z79.84 Long term (current) use of oral hypoglycemic drugs; Z79.899 Other long term (current) drug therapy

== ENCOUNTER → 2020-01-16 | Outpatient (REF) | payer MEDICARE ==
[~2020-01-16] MED LIST changes: -BUPIVACAINE HCL 0.25% 10ML VIAL As Ordered ONE; -BUPIVACAINE HCL 0.25% 30ML VIAL As Ordered ONE
[2020-01-16 09:59] LABS: HEMOGLOBIN A1c 8.4 %
== END ==
LOC: SKLAB5 12:18
DX: N28.9 Disorder of kidney and ureter, unspecified (principal)

== ENCOUNTER → 2020-01-22 | Outpatient (REF) | payer MEDICARE | LOC: SKLAB5 09:25 | DX: Z20.828 Contact with and (suspected) exposure to other viral communicable diseases (principal) ==

== ENCOUNTER → 2020-01-24 | Outpatient (REF) | payer MEDICARE | LOC: SKLAB6 08:00 | PROVIDERS: ATTEND Internal Medicine | DX: Z20.828 Contact with and (suspected) exposure to other viral communicable diseases (principal) ==

== ENCOUNTER → 2020-01-24 | Outpatient (REF) | payer MEDICARE | LOC: SKLAB5 08:00 | PROVIDERS: ATTEND Internal Medicine | DX: Z20.828 Contact with and (suspected) exposure to other viral communicable diseases (principal) ==

== ENCOUNTER → 2020-01-29 | Outpatient (REF) | payer MEDICARE | LOC: SKLAB5 06:15 | DX: Z20.828 Contact with and (suspected) exposure to other viral communicable diseases (principal) ==

== ENCOUNTER → 2020-01-29 | Outpatient (CLI) | payer MEDICARE, MEDICAID ==
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
== END ==
LOC: M PAIN 11:00
PROVIDERS: ATTEND Family Medicine
DX: M79.18 Myalgia, other site (principal); E11.9 Type 2 diabetes mellitus without complications; E03.9 Hypothyroidism, unspecified; D50.9 Iron deficiency anemia, unspecified; Z86.59 Personal history of other mental and behavioral disorders; Z96.653 Presence of artificial knee joint, bilateral; Z95.5 Presence of coronary angioplasty implant and graft; Z88.1 Allergy status to other antibiotic agents; Z88.5 Allergy status to narcotic agent; Z88.7 Allergy status to serum and vaccine; Z88.8 Allergy status to other drugs, medicaments and biological substances; E66.01 Morbid (severe) obesity due to excess calories; Z68.42 Body mass index [BMI] 45.0-49.9, adult; Z79.01 Long term (current) use of anticoagulants; Z79.84 Long term (current) use of oral hypoglycemic drugs; Z79.899 Other long term (current) drug therapy

== ENCOUNTER → 2020-01-30 | Outpatient (REF) | payer MEDICARE ==
[2020-01-30 08:40] LABS: CALCIUM LEVEL 9.1 MG/DL (8.8-10.2); CREATININE FOR GFR 1.06 MG/DL (0.55-1.30); GLOMERULAR FILTRATION RATE 53.2 (>39); POTASSIUM SERUM 4.3 MEQ/L (3.5-5.1)
== END ==
LOC: SKLAB5 08:10
DX: E11.9 Type 2 diabetes mellitus without complications (principal)

== ENCOUNTER → 2020-02-05 | Outpatient (REF) | payer MEDICARE | LOC: SKLAB5 06:44 | DX: Z20.828 Contact with and (suspected) exposure to other viral communicable diseases (principal) ==

== ENCOUNTER → 2020-02-12 | Outpatient (REF) | payer MEDICARE | LOC: SKLAB5 07:14 | DX: Z11.52 Encounter for screening for COVID-19 (principal) ==

== ENCOUNTER → 2020-02-19 | Outpatient (REF) | payer MEDICARE | LOC: SKLAB5 06:53 | PROVIDERS: ATTEND Internal Medicine | DX: Z20.822 Contact with and (suspected) exposure to COVID-19 (principal) ==

== ENCOUNTER → 2020-02-20 | Outpatient (REF) | payer MEDICARE ==
[2020-02-20 08:35] LABS: ALBUMIN 2.7 GM/DL (3.2-5.2); CALCIUM LEVEL 8.7 MG/DL (8.8-10.2); CREATININE FOR GFR 1.08 MG/DL (0.55-1.30); GLOMERULAR FILTRATION RATE 52.1 (>39); MAGNESIUM LEVEL 1.9 MG/DL (1.8-2.4); PHOSPHORUS LEVEL 3.1 MG/DL (2.5-4.9); POTASSIUM SERUM 4.3 MEQ/L (3.5-5.1); URIC ACID 6.5 MG/DL (2.6-6.0)
== END ==
LOC: SKLAB5 08:53
DX: N28.9 Disorder of kidney and ureter, unspecified (principal)

== ENCOUNTER → 2020-02-21 | Outpatient (REF) | payer MEDICARE ==
[2020-02-21 10:46] LABS: APPEARANCE, URINE HAZY (CLEAR); BACTERIA, URINE AUTO 1+ (NEGATIVE); BILIRUBIN, URINE AUTO NEGATIVE (NEGATIVE); BLOOD, URINE BLOOD NEGATIVE (NEGATIVE); COLOR, URINE YELLOW (YELLOW); GLUCOSE, URINE (UA) AUTO NEGATIVE (NEGATIVE); KETONE, URINE AUTO NEGATIVE (NEGATIVE); LEUKOCYTE ESTERASE, URINE AUTO 3+ (NEGATIVE); NITRITE, URINE AUTO POSITIVE (NEGATIVE); PROTEIN, URINE AUTO NEGATIVE (NEGATIVE); RBC, URINE AUTO 5 /HPF (0-3); SPECIFIC GRAVITY URINE AUTO 1.014 (1.002-1.035); SQUAMOUS EPITHELIAL CELL UR AU 0 /HPF (0-6); UROBILINOGEN, URINE AUTO 0.2 mg/dL (0.0-2.0); WBC, URINE AUTO 29 /HPF (0-3)
== END ==
LOC: SKLAB5 06:21
DX: N18.9 Chronic kidney disease, unspecified (principal)

== ENCOUNTER → 2020-02-26 | Outpatient (CLI) | payer MEDICARE, MEDICAID ==
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
== END ==
LOC: M PAIN 11:15
PROVIDERS: ATTEND Family Medicine
DX: M79.18 Myalgia, other site (principal); I12.9 Hypertensive chronic kidney disease with stage 1 through stage 4 chronic kidney disease, or unspecified chronic kidney disease; I48.91 Unspecified atrial fibrillation; I50.32 Chronic diastolic (congestive) heart failure; N18.30 Chronic kidney disease, stage 3 unspecified; E11.22 Type 2 diabetes mellitus with diabetic chronic kidney disease; E03.9 Hypothyroidism, unspecified; E83.42 Hypomagnesemia; F32.9 Major depressive disorder, single episode, unspecified; K74.60 Unspecified cirrhosis of liver; Z79.891 Long term (current) use of opiate analgesic; Z79.899 Other long term (current) drug therapy; Z88.0 Allergy status to penicillin; Z88.5 Allergy status to narcotic agent; Z88.7 Allergy status to serum and vaccine; Z88.8 Allergy status to other drugs, medicaments and biological substances

== ENCOUNTER → 2020-02-26 | Outpatient (REF) | payer MEDICARE | LOC: SKLAB5 07:29 | PROVIDERS: ATTEND Internal Medicine | DX: Z20.822 Contact with and (suspected) exposure to COVID-19 (principal) ==

== ENCOUNTER → 2020-03-04 | Outpatient (REF) | payer MEDICARE, MEDICAID | LOC: SKLAB5 06:45 | PROVIDERS: ATTEND Internal Medicine | DX: Z20.822 Contact with and (suspected) exposure to COVID-19 (principal) ==

== ENCOUNTER → 2020-03-11 | Outpatient (REF) | payer MEDICARE, MEDICAID | LOC: SKLAB5 07:32 | PROVIDERS: ATTEND Internal Medicine | DX: Z20.822 Contact with and (suspected) exposure to COVID-19 (principal) ==

== ENCOUNTER → 2020-03-18 | Outpatient (REF) | payer MEDICARE, MEDICAID | LOC: SKLAB5 06:33 | PROVIDERS: ATTEND Internal Medicine | DX: Z20.822 Contact with and (suspected) exposure to COVID-19 (principal) ==

== ENCOUNTER → 2020-03-23 | Outpatient (CLI) | payer MEDICARE, MEDICAID ==
[~2020-03-23] MED LIST changes: +BUPIVACAINE HCL 0.25% 10ML VIAL As Ordered ONE; +BUPIVACAINE HCL 0.25% 30ML VIAL As Ordered ONE
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
== END ==
LOC: M PAIN 12:30
PROVIDERS: ATTEND Anesthesiology
DX: M79.18 Myalgia, other site (principal); I13.0 Hypertensive heart and chronic kidney disease with heart failure and stage 1 through stage 4 chronic kidney disease, or unspecified chronic kidney disease; I48.91 Unspecified atrial fibrillation; I50.32 Chronic diastolic (congestive) heart failure; N18.30 Chronic kidney disease, stage 3 unspecified; E11.22 Type 2 diabetes mellitus with diabetic chronic kidney disease; F32.9 Major depressive disorder, single episode, unspecified; Z79.01 Long term (current) use of anticoagulants; Z79.84 Long term (current) use of oral hypoglycemic drugs; Z79.891 Long term (current) use of opiate analgesic; Z79.899 Other long term (current) drug therapy; Z88.0 Allergy status to penicillin; Z88.5 Allergy status to narcotic agent; Z88.7 Allergy status to serum and vaccine; Z88.8 Allergy status to other drugs, medicaments and biological substances

== ENCOUNTER → 2020-03-25 | Outpatient (REF) | payer MEDICARE, MEDICAID ==
[~2020-03-25] MED LIST changes: -BUPIVACAINE HCL 0.25% 10ML VIAL As Ordered ONE; -BUPIVACAINE HCL 0.25% 30ML VIAL As Ordered ONE
== END ==
LOC: SKLAB5 06:46
PROVIDERS: ATTEND Internal Medicine
DX: Z11.52 Encounter for screening for COVID-19 (principal)

== ENCOUNTER → 2020-04-01 | Outpatient (REF) | payer MEDICARE, MEDICAID | LOC: SKLAB5 07:19 | PROVIDERS: ATTEND Internal Medicine | DX: Z20.822 Contact with and (suspected) exposure to COVID-19 (principal) ==

== ENCOUNTER → 2020-04-09 | Outpatient (REF) | payer MEDICARE, MEDICAID ==
[2020-04-09 08:49] LABS: HEMATOCRIT 36.9 % (36.0-47.0); HEMOGLOBIN 11.6 g/dl (12.0-15.5); MEAN CORPUSCULAR HEMOGLOBIN 29.5 pg (27.0-33.0); MEAN CORPUSCULAR HGB CONC 31.4 g/dl (32.0-36.5); MEAN CORPUSCULAR VOLUME 93.9 fl (80.0-96.0); PLATELET COUNT, AUTOMATED 215 10^3/uL (150-450); RED BLOOD COUNT 3.93 10^6/uL (4.00-5.40); WHITE BLOOD COUNT 7.9 10^3/uL (4.0-10.0)
[2020-04-09 09:22] LABS: ALBUMIN 2.8 GM/DL (3.2-5.2); BILIRUBIN,TOTAL 0.4 MG/DL (0.2-1.0); CALCIUM LEVEL 8.6 MG/DL (8.8-10.2); CREATININE FOR GFR 1.18 MG/DL (0.55-1.30); FREE T4 1.24 NG/DL (0.76-1.46); POTASSIUM SERUM 5.3 MEQ/L (3.5-5.1); THYROID STIMULATING HORMONE 5.52 uIU/ML (0.358-3.740); TOTAL PROTEIN 6.7 GM/DL (6.4-8.2)
[2020-04-09 10:05] LABS: HEMOGLOBIN A1c 6.8 %
[2020-04-09 11:31] LABS: TOTAL 25(OH) VITAMIN D 55.9 NG/ML (30.0-100.0)
== END ==
LOC: SKLAB5 06:43
PROVIDERS: ATTEND Internal Medicine
DX: E03.9 Hypothyroidism, unspecified (principal); D64.9 Anemia, unspecified; E11.9 Type 2 diabetes mellitus without complications; Z20.822 Contact with and (suspected) exposure to COVID-19; Z79.899 Other long term (current) drug therapy
CPT/HCPCS: 36415; 80053; 82306; 83036; 83540; 84439; 84443; 85027; U0003

== ENCOUNTER → 2020-04-13 | Outpatient (CLI) | payer MEDICARE, MEDICAID ==
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
== END ==
LOC: M PAIN 10:15
PROVIDERS: ATTEND Family Medicine
DX: G89.29 Other chronic pain (principal); M79.18 Myalgia, other site; E03.9 Hypothyroidism, unspecified; D50.9 Iron deficiency anemia, unspecified; E87.5 Hyperkalemia; Z86.59 Personal history of other mental and behavioral disorders; Z96.653 Presence of artificial knee joint, bilateral; Z88.1 Allergy status to other antibiotic agents; Z88.5 Allergy status to narcotic agent; Z88.7 Allergy status to serum and vaccine; Z88.8 Allergy status to other drugs, medicaments and biological substances; Z79.01 Long term (current) use of anticoagulants; Z79.899 Other long term (current) drug therapy
CPT/HCPCS: 36415; 80048; G0463

== ENCOUNTER → 2020-04-13 | Outpatient (REF) | payer MEDICARE, MEDICAID ==
[2020-04-13 07:20] LABS: CALCIUM LEVEL 8.6 MG/DL (8.8-10.2); CREATININE FOR GFR 1.21 MG/DL (0.55-1.30); GLOMERULAR FILTRATION RATE 45.7 (>39); POTASSIUM SERUM 4.7 MEQ/L (3.5-5.1)
== END ==
LOC: SKLAB5 07:42
DX: E87.5 Hyperkalemia (principal)

== ENCOUNTER → 2020-04-15 | Outpatient (REF) | payer MEDICARE, MEDICAID | LOC: SKLAB5 06:43 | PROVIDERS: ATTEND Internal Medicine | DX: Z20.822 Contact with and (suspected) exposure to COVID-19 (principal) ==

== ENCOUNTER → 2020-04-22 | Outpatient (REF) | payer MEDICARE, MEDICAID | LOC: SKLAB5 07:12 | PROVIDERS: ATTEND Internal Medicine | DX: Z20.822 Contact with and (suspected) exposure to COVID-19 (principal) ==

== ENCOUNTER → 2020-05-08 | Outpatient (REF) | payer MEDICARE, MEDICAID | LOC: SKLAB5 06:57 | PROVIDERS: ATTEND Internal Medicine | DX: Z20.822 Contact with and (suspected) exposure to COVID-19 (principal) ==

== ENCOUNTER → 2020-05-11 | Outpatient (REF) | payer MEDICARE, MEDICAID ==
--- NOTE | 2020-05-11 14:43 | REP ---
INDICATION: LEFT HIP PAIN. COMPARISON: 11/21/2013. TECHNIQUE: There are two views. FINDINGS: There is severely deforming arthropathy of the left hip with marked erosion and deformity of the femoral head and acetabulum. There is no dislocation. No fracture. Mineralization appears normal. There appears to be an old healed fracture of the pubic symphysis and ischium on the right. 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 Or healed fracture of the right ischium and pubic symphysis. <Electronically signed by Kvng Suazo > 05/11/20 0641
== END ==
LOC: SKLAB5 10:33
DX: M12.852 Other specific arthropathies, not elsewhere classified, left hip (principal); Z87.81 Personal history of (healed) traumatic fracture

== ENCOUNTER → 2020-06-12 | Outpatient (CLI) | payer MEDICARE, MEDICAID ==
--- NOTE | 2020-06-16 13:42 | ECWPNPC ---
PATIENT NAME: CARMENCITA AYON : 1940 GENDER: FEMALE VISIT DATE: 06/12/2020 DISCHARGE DATE: 06/12/20 1038 VISIT LOCKED DATE TIME: PHYSICIAN: VALENTINE LUIS PHYSICIAN PAGER NO: ACTIVE RESOURCE: VALENTINE LUIS REASON FOR APPOINTMENT 1. BACK PAIN HISTORY OF PRESENT ILLNESS GENERAL: HPI 79-YEAR-OLD FEMALE IN FOR CHRONIC PAIN FOLLOW-UP. PATIENT RATES HER PAIN CURRENTLY AT A 2 OUT OF 10 BUT DOES ADMIT TO INCREASED PAIN DURING THE NIGHT.. -. FALL RISK SCREENING: SCREENING FEW FALLS REPORTED IN THE LAST YEAR WITHOUT INJURY. ONE WITH INJURY. PATIENT SOUGHT IMMEDIATE MEDICAL TREATMENT.. PAIN SCREENING: PATIENT HAS A COMPLAINT OF ACUTE OR CHRONIC PAIN :YES LOCATION OF PAIN:LOW BACK, LEFT HIP INTENSITY OF PAIN (SCALE OF 1 TO 10):2 PAIN WAS A 10 EARLY THIS MORNING AND LATE LAST NIGHT. WHAT DOES YOUR PAIN FEEL LIKE:STABBING DURATION:CONTINOUS, MAINLY DURING THE NIGHT, AWAKENS FROM SLEEP PAIN IS INCREASED BY:ACTIVITIES PAIN IS DECREASED BY:USE OF PAIN MEDICATIONS NURSING NOTE: -. PAIN CENTER INTAKE QUESTIONS: DO YOU HAVE A HISTORY OF MRSA? :NO DO YOU TAKE A BLOOD THINNERS? :NO DO YOU HAVE ANY BLEEDING DISORDERS? :NO ANY NEW NUMBNESS OR WEAKNESS IN YOUR LEGS OR ARMS? :NO ANY PACEMAKER,DEFIBRILLATOR, OR DORSAL COLUMN STIMULATOR? :NO DO YOU HAVE ANY RASHES OR OPEN SORES? :NO ARE YOU ALLERGIC TO IV DYE? :NO ARE YOU DIABETIC? :YES ANY NEW PROBLEMS WITH YOUR MEDICATIONS? :NO HAVE YOU RECEIVED A VACCINE IN THE PAST 30 DAYS? :NO DO YOU PLAN TO RECEIVE A VACCINE IN THE NEXT 21 DAYS? :NO DO YOU NEED ANY PRESCRIPTION? :NO DO YOU TAKE ANY IMMUNOSUPPRESSIVE MEDICATIONS? :NO DO YOU HAVE ANY KIDNEY OR LIVER DISEASE? :NO IS THERE A CHANCE YOU COULD BE ? :NO ARE YOU BREAST FEEDING? :NO CURRENT MEDICATIONS TAKING VITAMIN C 500 MG CAPSULE 1 CAP(S) P.O. ONCE A DAY TAKING VITAMIN D 125 MCG (5000 UT) CAPSULE 1 TAB(S) ORALLY ONCE A DAY TAKING LEVOTHYROXINE SODIUM 100 MCG TABLET 1 TABLET ON AN EMPTY STOMACH IN THE MORNING ORALLY ONCE A DAY, NOTES: AM TAKING XARELTO 15 MG TABLET 1 TABLET WITH FOOD ORALLY ONCE A DAY, NOTES: 03/22 1700 TAKING SOOTHE XP - SOLUTION DIRECTED OPHTHALMIC BID TAKING CO Q 10 100 MG CAPSULE 1 CAPSULE WITH A MEAL ORALLY BID, NOTES: 03/22 AM TAKING TYLENOL EXTRA STRENGTH 500 MG TABLET 1 TABLET NEEDED ORALLY EVERY 8 HRS, NOTES: 03/22 AM TAKING ATENOLOL 25 MG TABLET 1 TABLET ORALLY ONCE A DAY, NOTES: 03/23 AM TAKING FERROUS SULFATE 325 (65 FE) MG TABLET DELAYED RELEASE 1 TABLET ORALLY ONCE A DAY TAKING LIDOCAINE 5 % PATCH 1 PATCH REMOVE AFTER 12 HOURS EXTERNALLY ONCE A DAY, NOTES: 03/23 AM TAKING OYSTER SHELL CALCIUM 500 MG TABLET 1 TABLET ORALLY BID, NOTES: 03/22 AM TAKING TORSEMIDE 10 MG TABLET 1 TABLET ORALLY ONCE A DAY, NOTES: 03/23 0800 TAKING ENEMA DISPOSABLE - ENEMA DIRECTED RECTAL DAILY PRN TAKING DULCOLAX 10 MG SUPPOSITORY 1 SUPPOSITORY NEEDED RECTAL ONCE A DAY TAKING MILK OF MAGNESIA CONCENTRATE 2400 MG/10ML SUSPENSION 5 ML ORALLY DAILY PRN TAKING PERCOCET 5-325 MG TABLET 1 TABLET NEEDED ORALLY EVERY 6 HRS MDD=3, NOTES: 03/23 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 TAKING GLUCAGON HCL 1 MG SOLUTION RECONSTITUTED DIRECTED INJECTION , NOTES: NOT RECENTLY TAKING DENOSUMAB 60 MG/ML SOLUTION DIRECTED SUBCUTANEOUS EVERY 180 DAYS, NOTES: PROLIA 03/17/20 TAKING METFORMIN HCL 500 MG TABLET 1 TABLET WITH MEALS ORALLY TWICE A DAY, NOTES: 03/22 AM TAKING DULOXETINE HCL 30 MG CAPSULE DELAYED RELEASE PARTICLES 1 CAPSULE ORALLY ONCE A DAY TAKING SENNA 8.6 MG TABLET 2 TABLETS AT BEDTIME NEEDED ORALLY ONCE A DAY NOT-TAKING OSTEO BI-FLEX REGULAR STRENGTH 250-200 MG TABLET 1 TABLET WITH A MEAL ORALLY ONCE A DAY NOT-TAKING LAYO - PACKET DIRECTED ORALLY BID NOT-TAKING CALCIUM 500 + D 500-200 MG-IU TABLET 1 TAB(S) P.O. ONCE A DAY NOT-TAKING ACIDOPHILUS 500 MG CAPSULE 1 CAP(S) P.O. ONCE A DAY NOT-TAKING ELIQUIS 5 MG TABLET ORALLY NOT-TAKING GLIPIZIDE 5 MG TABLET 1 TABLET ORALLY ONCE A DAY NOT-TAKING LISINOPRIL 10 MG TABLET ORALLY NOT-TAKING TRADJENTA 5 MG TABLET 1 TABLET ORALLY ONCE A DAY NOT-TAKING FUROSEMIDE 20 MG TABLET 1 TABLET ORALLY ONCE A DAY NOT-TAKING PLAVIX 75 MG TABLET 1 TABLET ORALLY ONCE A DAY NOT-TAKING DIFLUCAN 150 MG TABLET 1 TABLET ORALLY TAKE ONE TODAY, MAY REPEAT AT 1 WK INTERVALS UNTIL CLEARED NOT-TAKING NYSTATIN-TRIAMCINOLONE 136396-5.1 UNIT/GM-% OINTMENT 1 APPLICATION TO AFFECTED AREA EXTERNALLY TO VULVA, THIGHS, UNDER ABDOMEN TWICE A DAY PRN REDNESS, ITCHING, IRRITATION MEDICATION LIST REVIEWED AND RECONCILED WITH THE PATIENT PAST MEDICAL HISTORY POSTMENOPAUSE CANDIDIASIS SKIN OA HYPERTENSION A. FIB DIASTOLIC HEART FAILURE CKD STAGE 3 DEHYDRATION DM TYPE 2 HYPOTHYROIDISM BENIGN NEOPLASM OF PANCREAS PRESSURE ULCER SACRAL REGION BACK PAIN - BURST OF COMPRESSION FRACTURE OF THORACIC VERTEBRAE ANEMIA HYPOMAGNESEMIA HYPONATREMIA HYPOKALEMIA MAJOR DEPRESSIVE DISORDER DRY EYE SYNDROME VENTRAL HERNIA CIRRHOSIS OF LIVER SPINAL STENOSIS ALLERGIES AMOXICILLIN: ALLERGY MORPHINE SULFATE: NAUSEA/VOMITING - ALLERGY CLAVULANIC ACID: ALLERGY INFLUENZA VIRUS VACCINES: ALLERGY PHENYLEPHRINE HCL: ALLERGY TRICYCLIC COMPOUNDS: ALLERGY SOCIAL HISTORY GENERAL: TOBACCO USE ARE YOU A:: NEVER SMOKER. LATEX QUESTIONNAIRE LATEX ALLERGY : HAVE YOU EVER DEVELOPED ANY TYPE OF REACTION AFTER HANDLING LATEX PRODUCTS SUCH RUBBER GLOVES, CONDOMS, DIAPHRAGMS, BALLOONS, SOCKS, OR UNDERWEAR?NO LATEX ALLERGY : HAVE YOU EVER DEVELOPED ANY TYPE OF REACTION DURING OR AFTER DENTAL APPOINTMENT, VAGINAL/RECTAL EXAMINATION, SURGICAL PROCEDURE, OR ANY OTHER EXPOSURE?NO LATEX RISK : HAVE YOU EVER HAD ANY DIFFICULTY BREATHING OR HIVES AFTER EATING OR HANDLING ANY FRUITS, OR VEGETABLES; SUCH KIWI, BANANAS, STONE FRUITS, OR CHESTNUTSNO LATEX RISK : DO YOU HAVE A PREVIOUS PERSONAL HISTORY OF MORE THAN NINE SURGERIES, SPINA BIFIDA, OR REPEATED CATHERIZATIONS? NO LATEX RISK : ARE YOU FREQUENTLY EXPOSED TO LATEX PRODUCTS IN YOUR OCCUPATION?NO DATE ASKED : 06/12/2020 ALCOHOL USE: NO. ALCOHOL SCREENING DID YOU HAVE A DRINK CONTAINING ALCOHOL IN THE PAST YEAR?NO POINTS0 INTERPRETATIONNEGATIVE RECREATIONAL DRUG USE DRUG USE?NO CAFFEINE CAFFEINE USE?YES OCCASIONAL MU-ISM NO HINDU BELIEFS THAT WOULD IMPACT HEALTH CARE. LANGUAGE DANISH. 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 DIET: NO HX EATING DISORDERS. EXERCISE: NO REGULAR EXERCISE. MARITAL STATUS: . - HAS THE PATIENT BEEN EDUCATED REGARDING HIS/HER PLAN OF CARE?YES HAS THE PATIENT BEEN EDUCATED REGARDING PAIN, THE RISK FOR PAIN, THE IMPORTANCE OF EFFECTIVE PAIN MANAGEMENT, AND THE PAIN ASSESSMENT PROCESS?YES HOUSING: [facility]. ADVANCE DIRECTIVE ADVANCE DIRECTIVE DISCUSSED WITH PATIENT:YES PATIENT HAS A DNR. STATES NO HCP. PATIENT IS A RESIDENT OF [facility] 5TH FLOOR. REVIEW OF SYSTEMS CONSTITUTIONAL: ANY RECENT FEVER NO . CHILLS NO . WEIGHT CHANGE OF UNKNOWN REASONS NO . GASTROENTEROLOGY: NEW UNEXPLAINABLE CHANGES IN BOWEL CONTROL NO . CONSTIPATION NO . GENITOURINARY: ANY NEW CHANGE IN BLADDER CONTROL? NO . NEUROLOGY: NEW ONSET DIZZINESS OR NEUROLOGICAL CHANGES NOT MENTIONED NO . NEW NUMBNESS OR PAIN PATTERNS NOT MENTIONED AND PERTINENT TO TODAY'S VISIT NO . CARDIOLOGY: NEW CHEST PRESSURE NO . PATIENT DENIES NO . RESPIRATORY: UNEXPLAINABLE COUGH NO . NEW SHORTNESS OF BREATH NO . VITAL SIGNS WT 207 LBS, HT 64.75 IN, BMI 34.71 INDEX, BP 143/67 MM HG, HR 87 /MIN, RR 18 /MIN, TEMP 93 F,0 F, OXYGEN SAT % 100%, NA INITIALS SC 09:57. EXAMINATION GENERAL EXAMINATION: GENERALNO ACUTE DISTRESS, WELL NOURISHED AND HYDRATED. PSYCHAPPROPRIATE MOOD AND AFFECT . LUNGS:CLEAR TO AUSCULTATION BILATERALLY, NO WHEEZES, RHONCHI, RALES. HEART:NO MURMURS, REGULAR RATE AND RHYTHM. ASSESSMENTS MYALGIA, OTHER SITE - M79.18 (PRIMARY) TREATMENT MYALGIA, OTHER SITE START TIZANIDINE HCL TABLET, 2 MG, 1 TABLET NEEDED, ORALLY, AT BEDTIME, 30 DAY(S), 30 NOTES: 79-YEAR-OLD FEMALE IN FOR CHRONIC PAIN FOLLOW-UP PRESENT SYMPTOMS RECOMMEND STARTING TIZANIDINE 2 MG AT NIGHT WITH FOLLOW-UP IN ONE MONTH TO DETERMINE OF EFFICACY OF TREATMENT. PATIENT HAS EXPRESSED UNDERSTANDING OF WAS IN AGREEMENT WITH TREATMENT PLAN. GIVEN TIME TO ASK QUESTIONS AND EXPRESS CONCERNS. PROCEDURE CODES FA211 ESTABILISHED PATIENT [facility] FACILITY CHARGE DISPOSITION & COMMUNICATION FOLLOW UP 4 WEEKS (REASON: NEW MEDICATION ) ELECTRONICALLY SIGNED BY RIANNA MILLER ON 06/15/2020 AT 12:17 PM EDT DISCLAIMER : THIS IS A VISIT SUMMARY EXTRACTED FROM THE [employer] CHART. IT IS NOT A COPY OF THE [employer] PROGRESS NOTE. MTDD
== END ==
LOC: M PAIN 09:30
PROVIDERS: ATTEND Family Medicine
DX: M79.18 Myalgia, other site (principal); I13.0 Hypertensive heart and chronic kidney disease with heart failure and stage 1 through stage 4 chronic kidney disease, or unspecified chronic kidney disease; I48.91 Unspecified atrial fibrillation; I50.32 Chronic diastolic (congestive) heart failure; N18.30 Chronic kidney disease, stage 3 unspecified; E11.22 Type 2 diabetes mellitus with diabetic chronic kidney disease; E03.9 Hypothyroidism, unspecified; D64.9 Anemia, unspecified; E83.42 Hypomagnesemia; E87.6 Hypokalemia; F32.9 Major depressive disorder, single episode, unspecified; K74.60 Unspecified cirrhosis of liver; H04.129 Dry eye syndrome of unspecified lacrimal gland; Z79.891 Long term (current) use of opiate analgesic; Z79.899 Other long term (current) drug therapy; Z88.0 Allergy status to penicillin; Z88.5 Allergy status to narcotic agent; Z88.7 Allergy status to serum and vaccine; Z88.8 Allergy status to other drugs, medicaments and biological substances

== ENCOUNTER → 2020-07-09 | Outpatient (REF) | payer MEDICARE, MEDICAID ==
[2020-07-09 09:55] LABS: ALBUMIN 2.9 GM/DL (3.2-5.2); BILIRUBIN,TOTAL 0.5 MG/DL (0.2-1.0); CALCIUM LEVEL 9.2 MG/DL (8.8-10.2); CREATININE FOR GFR 1.22 MG/DL (0.55-1.30); GLOMERULAR FILTRATION RATE 45.1 (>32); POTASSIUM SERUM 4.5 MEQ/L (3.5-5.1)
[2020-07-09 10:40] LABS: TOTAL 25(OH) VITAMIN D 46.3 NG/ML (30.0-100.0)
== END ==
LOC: SKLAB5 08:03
DX: N19 Unspecified kidney failure (principal); Z79.899 Other long term (current) drug therapy

== ENCOUNTER → 2020-07-30 | Outpatient (CLI) | payer MEDICARE, MEDICAID ==
--- NOTE | 2020-08-01 02:27 | ECWPNPC ---
PATIENT NAME: CARMENCITA AYON : 1940 GENDER: FEMALE VISIT DATE: 07/30/2020 DISCHARGE DATE: 07/30/20 1102 VISIT LOCKED DATE TIME: PHYSICIAN: VALENTINE LUIS PHYSICIAN PAGER NO: ACTIVE RESOURCE: VALENTINE LUIS REASON FOR APPOINTMENT 1. NEW MEDICATION HISTORY OF PRESENT ILLNESS GENERAL: HPI 80-YEAR-OLD FEMALE IN FOR CHRONIC PAIN FOLLOW-UP. SHE RATES HER PAIN CURRENTLY AT A 2 OUT OF 10 AND DESCRIBES IT ACHING AND INTERMITTENT. AT LAST CLINIC VISIT PATIENT WAS STARTED ON TIZANIDINE AND SHE ADMITS TODAY THAT THIS HAS BEEN BENEFICIAL.. -. FALL RISK SCREENING: SCREENING : NO FALLS REPORTED IN THE LAST YEAR. PAIN SCREENING: PATIENT HAS A COMPLAINT OF ACUTE OR CHRONIC PAIN :YES LOCATION OF PAIN:LOW BACK INTENSITY OF PAIN (SCALE OF 1 TO 10):2 WHAT DOES YOUR PAIN FEEL LIKE:ACHING, INTERMITTENT DURATION:INTERMITTENT, AWAKENS FROM SLEEP PAIN IS INCREASED BY:ACTIVITIES PAIN IS DECREASED BY:USE OF PAIN MEDICATIONS, SITTING NURSING NOTE: -. PAIN CENTER INTAKE QUESTIONS: DO YOU HAVE A HISTORY OF MRSA? :NO DO YOU TAKE A BLOOD THINNERS? :NO DO YOU HAVE ANY BLEEDING DISORDERS? :NO ANY NEW NUMBNESS OR WEAKNESS IN YOUR LEGS OR ARMS? :NO ANY PACEMAKER,DEFIBRILLATOR, OR DORSAL COLUMN STIMULATOR? :NO DO YOU HAVE ANY RASHES OR OPEN SORES? :NO ARE YOU ALLERGIC TO IV DYE? :NO ARE YOU DIABETIC? :YES ANY NEW PROBLEMS WITH YOUR MEDICATIONS? :NO HAVE YOU RECEIVED A VACCINE IN THE PAST 30 DAYS? :NO DO YOU PLAN TO RECEIVE A VACCINE IN THE NEXT 21 DAYS? :NO DO YOU NEED ANY PRESCRIPTION? :NO DO YOU TAKE ANY IMMUNOSUPPRESSIVE MEDICATIONS? :NO DO YOU HAVE ANY KIDNEY OR LIVER DISEASE? :NO IS THERE A CHANCE YOU COULD BE ? :NO ARE YOU BREAST FEEDING? :NO CURRENT MEDICATIONS TAKING VITAMIN C 500 MG CAPSULE 1 CAP(S) P.O. ONCE A DAY TAKING VITAMIN D 125 MCG (5000 UT) CAPSULE 1 TAB(S) ORALLY ONCE A DAY TAKING LEVOTHYROXINE SODIUM 100 MCG TABLET 1 TABLET ON AN EMPTY STOMACH IN THE MORNING ORALLY ONCE A DAY, NOTES: AM TAKING XARELTO 15 MG TABLET 1 TABLET WITH FOOD ORALLY ONCE A DAY, NOTES: 03/22 1700 TAKING SOOTHE XP - SOLUTION DIRECTED OPHTHALMIC BID TAKING CO Q 10 100 MG CAPSULE 1 CAPSULE WITH A MEAL ORALLY BID, NOTES: 03/22 AM TAKING TYLENOL EXTRA STRENGTH 500 MG TABLET 1 TABLET NEEDED ORALLY EVERY 8 HRS, NOTES: 03/22 AM TAKING ATENOLOL 25 MG TABLET 1 TABLET ORALLY ONCE A DAY, NOTES: 03/23 AM TAKING FERROUS SULFATE 325 (65 FE) MG TABLET DELAYED RELEASE 1 TABLET ORALLY ONCE A DAY TAKING LIDOCAINE 5 % PATCH 1 PATCH REMOVE AFTER 12 HOURS EXTERNALLY ONCE A DAY, NOTES: 03/23 AM TAKING OYSTER SHELL CALCIUM 500 MG TABLET 1 TABLET ORALLY BID, NOTES: 03/22 AM TAKING TORSEMIDE 10 MG TABLET 1 TABLET ORALLY ONCE A DAY, NOTES: 03/23 0800 TAKING ENEMA DISPOSABLE - ENEMA DIRECTED RECTAL DAILY PRN TAKING DULCOLAX 10 MG SUPPOSITORY 1 SUPPOSITORY NEEDED RECTAL ONCE A DAY TAKING MILK OF MAGNESIA CONCENTRATE 2400 MG/10ML SUSPENSION 5 ML ORALLY DAILY PRN TAKING PERCOCET 5-325 MG TABLET 1 TABLET NEEDED ORALLY EVERY 6 HRS MDD=3, 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 TAKING GLUCAGON HCL 1 MG SOLUTION RECONSTITUTED DIRECTED INJECTION , NOTES: NOT RECENTLY TAKING DENOSUMAB 60 MG/ML SOLUTION DIRECTED SUBCUTANEOUS EVERY 180 DAYS, NOTES: PROLIA 03/17/20 TAKING METFORMIN HCL 500 MG TABLET 1 TABLET WITH MEALS ORALLY TWICE A DAY, NOTES: 03/22 AM TAKING DULOXETINE HCL 30 MG CAPSULE DELAYED RELEASE PARTICLES 1 CAPSULE ORALLY ONCE A DAY TAKING SENNA 8.6 MG TABLET 2 TABLETS AT BEDTIME NEEDED ORALLY ONCE A DAY TAKING TIZANIDINE HCL 2 MG TABLET 1 TABLET NEEDED ORALLY AT BEDTIME TAKING PROLIA 60MG/ML TAKING SENNA 8.6 MG TABLET 2 TABLETS AT BEDTIME NEEDED ORALLY ONCE A DAY TAKING LIDOCAINE & ADHESIVE SHEET 5 % KIT DIRECTED EXTERNALLY NOT-TAKING OSTEO BI-FLEX REGULAR STRENGTH 250-200 MG TABLET 1 TABLET WITH A MEAL ORALLY ONCE A DAY NOT-TAKING LAYO - PACKET DIRECTED ORALLY BID NOT-TAKING CALCIUM 500 + D 500-200 MG-IU TABLET 1 TAB(S) P.O. ONCE A DAY NOT-TAKING ACIDOPHILUS 500 MG CAPSULE 1 CAP(S) P.O. ONCE A DAY NOT-TAKING ELIQUIS 5 MG TABLET ORALLY NOT-TAKING GLIPIZIDE 5 MG TABLET 1 TABLET ORALLY ONCE A DAY NOT-TAKING LISINOPRIL 10 MG TABLET ORALLY NOT-TAKING TRADJENTA 5 MG TABLET 1 TABLET ORALLY ONCE A DAY NOT-TAKING FUROSEMIDE 20 MG TABLET 1 TABLET ORALLY ONCE A DAY NOT-TAKING PLAVIX 75 MG TABLET 1 TABLET ORALLY ONCE A DAY NOT-TAKING DIFLUCAN 150 MG TABLET 1 TABLET ORALLY TAKE ONE TODAY, MAY REPEAT AT 1 WK INTERVALS UNTIL CLEARED NOT-TAKING NYSTATIN-TRIAMCINOLONE 615771-6.1 UNIT/GM-% OINTMENT 1 APPLICATION TO AFFECTED AREA EXTERNALLY TO VULVA, THIGHS, UNDER ABDOMEN TWICE A DAY PRN REDNESS, ITCHING, IRRITATION MEDICATION LIST REVIEWED AND RECONCILED WITH THE PATIENT PAST MEDICAL HISTORY POSTMENOPAUSE CANDIDIASIS SKIN OA HYPERTENSION A. FIB DIASTOLIC HEART FAILURE CKD STAGE 3 DEHYDRATION DM TYPE 2 HYPOTHYROIDISM BENIGN NEOPLASM OF PANCREAS PRESSURE ULCER SACRAL REGION BACK PAIN - BURST OF COMPRESSION FRACTURE OF THORACIC VERTEBRAE ANEMIA HYPOMAGNESEMIA HYPONATREMIA HYPOKALEMIA MAJOR DEPRESSIVE DISORDER DRY EYE SYNDROME VENTRAL HERNIA CIRRHOSIS OF LIVER SPINAL STENOSIS ALLERGIES AMOXICILLIN: ALLERGY MORPHINE SULFATE: NAUSEA/VOMITING - ALLERGY CLAVULANIC ACID: ALLERGY INFLUENZA VIRUS VACCINES: ALLERGY PHENYLEPHRINE HCL: ALLERGY TRICYCLIC COMPOUNDS: ALLERGY SOCIAL HISTORY GENERAL: TOBACCO USE ARE YOU A:: NEVER SMOKER. LATEX QUESTIONNAIRE LATEX ALLERGY : HAVE YOU EVER DEVELOPED ANY TYPE OF REACTION AFTER HANDLING LATEX PRODUCTS SUCH RUBBER GLOVES, CONDOMS, DIAPHRAGMS, BALLOONS, SOCKS, OR UNDERWEAR?NO LATEX ALLERGY : HAVE YOU EVER DEVELOPED ANY TYPE OF REACTION DURING OR AFTER DENTAL APPOINTMENT, VAGINAL/RECTAL EXAMINATION, SURGICAL PROCEDURE, OR ANY OTHER EXPOSURE?NO LATEX RISK : HAVE YOU EVER HAD ANY DIFFICULTY BREATHING OR HIVES AFTER EATING OR HANDLING ANY FRUITS, OR VEGETABLES; SUCH KIWI, BANANAS, STONE FRUITS, OR CHESTNUTSNO LATEX RISK : DO YOU HAVE A PREVIOUS PERSONAL HISTORY OF MORE THAN NINE SURGERIES, SPINA BIFIDA, OR REPEATED CATHERIZATIONS? NO LATEX RISK : ARE YOU FREQUENTLY EXPOSED TO LATEX PRODUCTS IN YOUR OCCUPATION?NO DATE ASKED : 07/30/2020 ALCOHOL USE: NO. ALCOHOL SCREENING DID YOU HAVE A DRINK CONTAINING ALCOHOL IN THE PAST YEAR?NO POINTS0 INTERPRETATIONNEGATIVE RECREATIONAL DRUG USE DRUG USE?NO CAFFEINE CAFFEINE USE?YES OCCASIONAL MORAVIAN NO BAHAI BELIEFS THAT WOULD IMPACT HEALTH CARE. LANGUAGE YI. 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 LEARNING BARRIERS / SPECIAL NEEDS CHANGE FROM LAST VISIT?YES BARRIERS TO LEARNING?NO HEARING IMPAIRED?NO VISION IMPAIRED?YES :CORRECTIVE LENSES COGNITIVELY IMPAIRED?NO READINESS TO LEARN?YES LEARNING PREFERENCES?YES :DEMONSTRATION/VERBAL INSTRUCTION LEARNING CAPABILITIES PRESENT?YES SPECIAL DEVICES?YES :WALKER, WHEELCHAIR ARGELIA STEADY [facility] FOR TRANSFERS STENOTYPIST NEEDED?NO OCCUPATION: RETIRED. DIET: NO HX EATING DISORDERS. EXERCISE: NO REGULAR EXERCISE. MARITAL STATUS: . - HAS THE PATIENT BEEN EDUCATED REGARDING HIS/HER PLAN OF CARE?YES HAS THE PATIENT BEEN EDUCATED REGARDING PAIN, THE RISK FOR PAIN, THE IMPORTANCE OF EFFECTIVE PAIN MANAGEMENT, AND THE PAIN ASSESSMENT PROCESS?YES HOUSING: [facility]. ADVANCE DIRECTIVE ADVANCE DIRECTIVE DISCUSSED WITH PATIENT:YES PATIENT HAS A DNR. STATES NO HCP. PATIENT IS A RESIDENT OF [facility]TH FLOOR. REVIEW OF SYSTEMS CONSTITUTIONAL: ANY RECENT FEVER NO . CHILLS NO . WEIGHT CHANGE OF UNKNOWN REASONS NO . GASTROENTEROLOGY: NEW UNEXPLAINABLE CHANGES IN BOWEL CONTROL NO . CONSTIPATION NO . GENITOURINARY: ANY NEW CHANGE IN BLADDER CONTROL? NO . NEUROLOGY: NEW ONSET DIZZINESS OR NEUROLOGICAL CHANGES NOT MENTIONED NO . NEW NUMBNESS OR PAIN PATTERNS NOT MENTIONED AND PERTINENT TO TODAY'S VISIT NO . CARDIOLOGY: NEW CHEST PRESSURE NO . PATIENT DENIES NO . RESPIRATORY: UNEXPLAINABLE COUGH NO . NEW SHORTNESS OF BREATH NO . VITAL SIGNS WT 207 LBS, HT 64.75 IN, BMI 34.71 INDEX, BP 179/76 MM HG, REPEAT BP 142/78 MANUAL, HR 73 /MIN, RR 18 /MIN, TEMP 97.6 F, OXYGEN SAT % 99%, SAFE IN ENV? (Y/N) YES, NA INITIALS SC 10:40, REVIEWED BY: FRANCISCA BP RECHECKED. 142/78. EXAMINATION GENERAL EXAMINATION: GENERALNO ACUTE DISTRESS, WELL NOURISHED AND HYDRATED. PSYCHAPPROPRIATE MOOD AND AFFECT . LUNGS:CLEAR TO AUSCULTATION BILATERALLY, NO WHEEZES, RHONCHI, RALES. HEART:NO MURMURS, REGULAR RATE AND RHYTHM. ASSESSMENTS MYALGIA, OTHER SITE - M79.18 (PRIMARY) TREATMENT MYALGIA, OTHER SITE NOTES: 80-YEAR-OLD FEMALE IN FOR CHRONIC PAIN FOLLOW-UP. GIVEN PRESENTING SYMPTOMS RECOMMEND CONTINUATION OF CURRENT MEDICATION REGIMEN WITH FOLLOW-UP IN 3 MONTHS. PATIENT HAS EXPRESSED UNDERSTANDING OF AND WAS IN AGREEMENT WITH TREATMENT PLAN. GIVEN TIME TO ASK QUESTIONS AND EXPRESS CONCERNS. PROCEDURE CODES FA211 ESTABILISHED PATIENT [facility] F[facility]ILITY CHARGE DISPOSITION & COMMUNICATION FOLLOW UP 3 MONTHS (REASON: MYALGIA ) ELECTRONICALLY SIGNED BY RIANNA MILLER ON 07/31/2020 AT 12:52 PM EDT DISCLAIMER : THIS IS A VISIT SUMMARY EXTRACTED FROM THE [employer] CHART. IT IS NOT A COPY OF THE [employer] PROGRESS NOTE. CUBA
== END ==
LOC: M PAIN 10:45
PROVIDERS: ATTEND Family Medicine
DX: M79.18 Myalgia, other site (principal); I13.0 Hypertensive heart and chronic kidney disease with heart failure and stage 1 through stage 4 chronic kidney disease, or unspecified chronic kidney disease; I48.91 Unspecified atrial fibrillation; I50.32 Chronic diastolic (congestive) heart failure; N18.30 Chronic kidney disease, stage 3 unspecified; E11.22 Type 2 diabetes mellitus with diabetic chronic kidney disease; E03.9 Hypothyroidism, unspecified; D64.9 Anemia, unspecified; E83.42 Hypomagnesemia; E87.1 Hypo-osmolality and hyponatremia; E87.6 Hypokalemia; F32.9 Major depressive disorder, single episode, unspecified; K74.60 Unspecified cirrhosis of liver; Z79.84 Long term (current) use of oral hypoglycemic drugs; Z79.899 Other long term (current) drug therapy; Z88.0 Allergy status to penicillin; Z88.5 Allergy status to narcotic agent; Z88.7 Allergy status to serum and vaccine; Z88.8 Allergy status to other drugs, medicaments and biological substances

== ENCOUNTER → 2020-10-08 | Outpatient (REF) | payer MEDICARE, MEDICAID ==
[~2020-10-08] MED LIST changes: -KLOR10TA76 PO; +LOSA25TA13 PO; -LOSA25TA14 PO; +LOSA50TA28 PO; -LOSA50TA88 PO; +POTA-136 PO; +POTA-151 PO; -POTA20TA6 PO
[2020-10-08 13:18] LABS: HEMATOCRIT 39.7 % (36.0-47.0); MEAN CORPUSCULAR HEMOGLOBIN 30.1 pg (27.0-33.0); MEAN CORPUSCULAR HGB CONC 32.7 g/dl (32.0-36.5); MEAN CORPUSCULAR VOLUME 91.9 fl (80.0-96.0); PLATELET COUNT, AUTOMATED 218 10^3/uL (150-450); RED BLOOD COUNT 4.32 10^6/uL (4.00-5.40); WHITE BLOOD COUNT 10.2 10^3/uL (4.0-10.0)
[2020-10-08 13:53] LABS: FREE T4 1.26 NG/DL (0.76-1.46); THYROID STIMULATING HORMONE 3.48 uIU/ML (0.358-3.740)
== END ==
LOC: SKLAB5 08:19
PROVIDERS: ATTEND Internal Medicine
DX: E11.9 Type 2 diabetes mellitus without complications (principal); D64.9 Anemia, unspecified

== ENCOUNTER → 2020-10-30 | Outpatient (CLI) | payer MEDICARE, MEDICAID ==
[~2020-10-30] MED LIST changes: -LOSA25TA13 PO; +LOSA25TA14 PO; -LOSA50TA28 PO; +LOSA50TA88 PO; -POTA-151 PO; +POTA20TA6 PO
== END ==
LOC: M PAIN 10:00
PROVIDERS: ATTEND Anesthesiology
DX: M79.10 Myalgia, unspecified site (principal); E11.9 Type 2 diabetes mellitus without complications; E03.9 Hypothyroidism, unspecified; Z86.59 Personal history of other mental and behavioral disorders; Z88.1 Allergy status to other antibiotic agents; Z88.5 Allergy status to narcotic agent; Z88.7 Allergy status to serum and vaccine; Z88.8 Allergy status to other drugs, medicaments and biological substances; Z79.01 Long term (current) use of anticoagulants; Z79.84 Long term (current) use of oral hypoglycemic drugs; Z79.899 Other long term (current) drug therapy

== ENCOUNTER → 2020-11-24 | Outpatient (REF) | payer MEDICARE, MEDICAID | LOC: SKLAB5 10:50 | PROVIDERS: ATTEND Internal Medicine | DX: Z20.822 Contact with and (suspected) exposure to COVID-19 (principal) ==

== ENCOUNTER → 2020-11-26 | Outpatient (REF) | payer MEDICARE, MEDICAID | LOC: SKLAB5 09:35 | PROVIDERS: ATTEND Internal Medicine | DX: Z20.822 Contact with and (suspected) exposure to COVID-19 (principal) ==

== ENCOUNTER → 2020-11-30 | Outpatient (REF) | payer MEDICARE, MEDICAID | LOC: SKLAB5 06:22 | PROVIDERS: ATTEND Internal Medicine | DX: Z20.822 Contact with and (suspected) exposure to COVID-19 (principal) ==

== ENCOUNTER → 2020-12-03 | Outpatient (REF) | payer MEDICARE, MEDICAID | LOC: SKLAB5 06:19 | PROVIDERS: ATTEND Internal Medicine | DX: Z20.822 Contact with and (suspected) exposure to COVID-19 (principal) ==

== ENCOUNTER → 2020-12-07 | Outpatient (REF) | payer MEDICARE, MEDICAID | LOC: SKLAB5 05:38 | PROVIDERS: ATTEND Internal Medicine | DX: Z20.822 Contact with and (suspected) exposure to COVID-19 (principal) ==

== ENCOUNTER → 2020-12-10 | Outpatient (REF) | payer MEDICARE, MEDICAID | LOC: SKLAB5 10:59 | PROVIDERS: ATTEND Internal Medicine | DX: Z20.822 Contact with and (suspected) exposure to COVID-19 (principal) ==

== ENCOUNTER → 2020-12-10 | Outpatient (REF) | payer MEDICARE, MEDICAID ==
--- NOTE | 2020-12-10 15:37 | REP ---
INDICATION: COVID 19 COUGH. COMPARISON: 10/28/2019 the latest prior also portable TECHNIQUE: Portable FINDINGS: The technique utilized in obtaining the radiograph has magnified the cardiac silhouette and accentuated the interstitial markings. The cardiomediastinal silhouette is unchanged. There is mild cardiomegaly accentuated by technique. There is a chronic left basilar opacity with chronic left CP angle blunting. The right lung is clear. There is, however, evidence of right hilar fullness representing a change prior exam. There is no change in the osseous structures. IMPRESSION: 1. Chronic left base changes. 2. Right hilar fullness. Adenopathy and a right upper lobe nodule cannot be ruled out. Contrast-enhanced CT examination chest is recommended. <Electronically signed by Ciaran Villegas > 12/10/20 [id number]
== END ==
LOC: SKLAB5 14:57
PROVIDERS: ATTEND Internal Medicine
DX: R05.9 Cough, unspecified (principal); R91.8 Other nonspecific abnormal finding of lung field; I51.7 Cardiomegaly

== ENCOUNTER → 2020-12-10 | Outpatient (REF) | payer MEDICARE, MEDICAID ==
[2020-12-10 13:18] LABS: HEMATOCRIT 40.3 % (36.0-47.0); HEMOGLOBIN 13.2 g/dl (12.0-15.5); MEAN CORPUSCULAR HEMOGLOBIN 30.5 pg (27.0-33.0); MEAN CORPUSCULAR HGB CONC 32.8 g/dl (32.0-36.5); MEAN CORPUSCULAR VOLUME 93.1 fl (80.0-96.0); PLATELET COUNT, AUTOMATED 175 10^3/uL (150-450); RED BLOOD COUNT 4.33 10^6/uL (4.00-5.40)
[2020-12-10 13:49] LABS: ALBUMIN 2.8 GM/DL (3.2-5.2); BILIRUBIN,TOTAL 0.3 MG/DL (0.2-1.0); CALCIUM LEVEL 9.3 MG/DL (8.8-10.2); CREATININE FOR GFR 1.26 MG/DL (0.55-1.30); GLOMERULAR FILTRATION RATE 43.5 (>32); POTASSIUM SERUM 4.1 MEQ/L (3.5-5.1); TOTAL PROTEIN 7.2 GM/DL (6.4-8.2)
== END ==
LOC: SKLAB5 11:28
PROVIDERS: ATTEND Internal Medicine
DX: I50.30 Unspecified diastolic (congestive) heart failure (principal); E11.9 Type 2 diabetes mellitus without complications

== ENCOUNTER → 2020-12-14 | Outpatient (REF) | payer MEDICARE, MEDICAID ==
[2020-12-14 09:28] LABS: HEMATOCRIT 38.9 % (36.0-47.0); HEMOGLOBIN 12.6 g/dl (12.0-15.5); MEAN CORPUSCULAR HEMOGLOBIN 29.5 pg (27.0-33.0); MEAN CORPUSCULAR HGB CONC 32.4 g/dl (32.0-36.5); MEAN CORPUSCULAR VOLUME 91.1 fl (80.0-96.0); PLATELET COUNT, AUTOMATED 156 10^3/uL (150-450); RED BLOOD COUNT 4.27 10^6/uL (4.00-5.40); WHITE BLOOD COUNT 6.8 10^3/uL (4.0-10.0)
[2020-12-14 09:59] LABS: ALBUMIN 2.5 GM/DL (3.2-5.2); BILIRUBIN,TOTAL 0.4 MG/DL (0.2-1.0); CALCIUM LEVEL 8.8 MG/DL (8.8-10.2); CREATININE FOR GFR 1.19 MG/DL (0.55-1.30); GLOMERULAR FILTRATION RATE 46.5 (>32); POTASSIUM SERUM 4.7 MEQ/L (3.5-5.1); TOTAL PROTEIN 6.4 GM/DL (6.4-8.2)
== END ==
LOC: SKLAB5 07:00
PROVIDERS: ATTEND Internal Medicine
DX: U07.1 COVID-19 (principal); Z79.899 Other long term (current) drug therapy

== ENCOUNTER → 2020-12-17 | Outpatient (REF) | payer MEDICARE, MEDICAID ==
[2020-12-17 09:55] LABS: HEMATOCRIT 42.1 % (36.0-47.0); HEMOGLOBIN 13.7 g/dl (12.0-15.5); MEAN CORPUSCULAR HEMOGLOBIN 29.8 pg (27.0-33.0); MEAN CORPUSCULAR HGB CONC 32.5 g/dl (32.0-36.5); MEAN CORPUSCULAR VOLUME 91.7 fl (80.0-96.0); PLATELET COUNT, AUTOMATED 238 10^3/uL (150-450); RED BLOOD COUNT 4.59 10^6/uL (4.00-5.40); WHITE BLOOD COUNT 10.6 10^3/uL (4.0-10.0)
[2020-12-17 10:33] LABS: ALBUMIN 2.8 GM/DL (3.2-5.2); BILIRUBIN,TOTAL 0.5 MG/DL (0.2-1.0); CALCIUM LEVEL 9.3 MG/DL (8.8-10.2); CREATININE FOR GFR 1.29 MG/DL (0.55-1.30); GLOMERULAR FILTRATION RATE 42.3 (>32); POTASSIUM SERUM 4.7 MEQ/L (3.5-5.1); TOTAL PROTEIN 6.9 GM/DL (6.4-8.2)
== END ==
LOC: SKLAB5 07:00
PROVIDERS: ATTEND Internal Medicine
DX: U07.1 COVID-19 (principal); Z79.899 Other long term (current) drug therapy

== ENCOUNTER → 2020-12-21 | Outpatient (REF) | payer MEDICARE, MEDICAID ==
[2020-12-21 10:02] LABS: HEMOGLOBIN 12.8 g/dl (12.0-15.5); MEAN CORPUSCULAR HEMOGLOBIN 29.7 pg (27.0-33.0); MEAN CORPUSCULAR HGB CONC 32.8 g/dl (32.0-36.5); MEAN CORPUSCULAR VOLUME 90.5 fl (80.0-96.0); PLATELET COUNT, AUTOMATED 286 10^3/uL (150-450); RED BLOOD COUNT 4.31 10^6/uL (4.00-5.40); WHITE BLOOD COUNT 11.6 10^3/uL (4.0-10.0)
[2020-12-21 10:45] LABS: ALBUMIN 2.7 GM/DL (3.2-5.2); BILIRUBIN,TOTAL 0.6 MG/DL (0.2-1.0); CALCIUM LEVEL 9.4 MG/DL (8.8-10.2); CREATININE FOR GFR 1.35 MG/DL (0.55-1.30); GLOMERULAR FILTRATION RATE 40.2 (>32); POTASSIUM SERUM 4.7 MEQ/L (3.5-5.1); TOTAL PROTEIN 6.8 GM/DL (6.4-8.2)
== END ==
LOC: SKLAB5 09:00
PROVIDERS: ATTEND Internal Medicine
DX: E11.9 Type 2 diabetes mellitus without complications (principal); I50.9 Heart failure, unspecified

== ENCOUNTER → 2020-12-24 | Outpatient (REF) | payer MEDICARE, MEDICAID ==
[2020-12-24 11:16] LABS: HEMATOCRIT 37.5 % (36.0-47.0); HEMOGLOBIN 12.3 g/dl (12.0-15.5); MEAN CORPUSCULAR HEMOGLOBIN 29.9 pg (27.0-33.0); MEAN CORPUSCULAR HGB CONC 32.8 g/dl (32.0-36.5); PLATELET COUNT, AUTOMATED 273 10^3/uL (150-450); RED BLOOD COUNT 4.12 10^6/uL (4.00-5.40); WHITE BLOOD COUNT 11.1 10^3/uL (4.0-10.0)
[2020-12-24 11:44] LABS: ALBUMIN 2.5 GM/DL (3.2-5.2); BILIRUBIN,TOTAL 0.5 MG/DL (0.2-1.0); CALCIUM LEVEL 9.3 MG/DL (8.8-10.2); CREATININE FOR GFR 1.3 MG/DL (0.55-1.30); POTASSIUM SERUM 4.3 MEQ/L (3.5-5.1); TOTAL PROTEIN 6.8 GM/DL (6.4-8.2)
== END ==
LOC: SKLAB5 09:00
PROVIDERS: ATTEND Internal Medicine
DX: U07.1 COVID-19 (principal); Z79.899 Other long term (current) drug therapy

== ENCOUNTER → 2021-01-06 | Outpatient (REF) | payer MEDICARE, MEDICAID ==
[~2021-01-06] MED LIST changes: +LOSA25TA13 PO; -LOSA25TA14 PO; +LOSA50TA28 PO; -LOSA50TA88 PO; +POTA-151 PO; -POTA20TA6 PO
== END ==
LOC: SKLAB5 07:45
PROVIDERS: ATTEND Internal Medicine
DX: Z53.9 Procedure and treatment not carried out, unspecified reason (principal)

== ENCOUNTER → 2021-01-07 | Outpatient (REF) | payer MEDICARE, MEDICAID ==
[~2021-01-07] MED LIST changes: -LOSA25TA13 PO; +LOSA25TA14 PO; -LOSA50TA28 PO; +LOSA50TA88 PO; -POTA-151 PO; +POTA20TA6 PO
[2021-01-07 11:05] LABS: HEMATOCRIT 37.2 % (36.0-47.0); HEMOGLOBIN 12.2 g/dl (12.0-15.5); MEAN CORPUSCULAR HEMOGLOBIN 30.4 pg (27.0-33.0); MEAN CORPUSCULAR HGB CONC 32.8 g/dl (32.0-36.5); MEAN CORPUSCULAR VOLUME 92.8 fl (80.0-96.0); PLATELET COUNT, AUTOMATED 228 10^3/uL (150-450); RED BLOOD COUNT 4.01 10^6/uL (4.00-5.40)
[2021-01-07 11:37] LABS: ALBUMIN 2.6 GM/DL (3.2-5.2); BILIRUBIN,TOTAL 0.4 MG/DL (0.2-1.0); CALCIUM LEVEL 9.1 MG/DL (8.8-10.2); CREATININE FOR GFR 1.22 MG/DL (0.55-1.30); GLOMERULAR FILTRATION RATE 45.1 (>32); POTASSIUM SERUM 4.4 MEQ/L (3.5-5.1); TOTAL PROTEIN 6.6 GM/DL (6.4-8.2)
[2021-01-07 12:07] LABS: TOTAL 25(OH) VITAMIN D 39.5 NG/ML (30.0-100.0)
== END ==
LOC: SKLAB5 07:00
PROVIDERS: ATTEND Internal Medicine
DX: I50.9 Heart failure, unspecified (principal); E11.9 Type 2 diabetes mellitus without complications; Z79.899 Other long term (current) drug therapy

== ENCOUNTER → 2021-01-07 | Outpatient (REF) | payer MEDICARE, MEDICAID ==
--- NOTE | 2021-01-08 02:27 | REP ---
INDICATION: RIGHT HILAR FULLNESS COMPARISON: 12/10/2020, 10/28/2019 TECHNIQUE: PA and lateral. FINDINGS: Right hilar fullness is again noted but may be secondary to vascular prominence. Lung pereira demonstrate chronic changes including chronic blunting to the left diaphragmatic surface. No obvious acute consolidation or effusion. No pneumothorax. Skeletal structures demonstrate age-related degenerative changes.. IMPRESSION: 1. Right hilar fullness likely secondary to prominent vascular markings. If the patient is symptomatic or there is continued concern, chest CT preferably with contrast may be considered. 2. Chronic changes. No obvious acute consolidation or effusion. <Electronically signed by Benjamin Chappell > 01/08/21 [id number]
== END ==
LOC: SKLAB5 12:26
PROVIDERS: ATTEND Internal Medicine
DX: R91.8 Other nonspecific abnormal finding of lung field (principal)

== ENCOUNTER → 2021-01-14 | Outpatient (REF) | payer MEDICARE, MEDICAID ==
[2021-01-14 09:58] LABS: HEMATOCRIT 39.4 % (36.0-47.0); HEMOGLOBIN 12.7 g/dl (12.0-15.5); MEAN CORPUSCULAR HEMOGLOBIN 30.1 pg (27.0-33.0); MEAN CORPUSCULAR HGB CONC 32.2 g/dl (32.0-36.5); MEAN CORPUSCULAR VOLUME 93.4 fl (80.0-96.0); PLATELET COUNT, AUTOMATED 264 10^3/uL (150-450); RED BLOOD COUNT 4.22 10^6/uL (4.00-5.40); WHITE BLOOD COUNT 9.7 10^3/uL (4.0-10.0)
== END ==
LOC: SKLAB5 07:00
PROVIDERS: ATTEND Internal Medicine
DX: D72.829 Elevated white blood cell count, unspecified (principal)

== ENCOUNTER → 2021-01-18 | Outpatient (REF) | payer MEDICARE, MEDICAID ==
[2021-01-18 14:46] LABS: APPEARANCE, URINE TURBID (CLEAR); BACTERIA, URINE AUTO 3+ (NEGATIVE); BILIRUBIN, URINE AUTO NEGATIVE (NEGATIVE); BLOOD, URINE BLOOD 1+ (NEGATIVE); COLOR, URINE YELLOW (YELLOW); GLUCOSE, URINE (UA) AUTO NEGATIVE (NEGATIVE); KETONE, URINE AUTO NEGATIVE (NEGATIVE); LEUKOCYTE ESTERASE, URINE AUTO 3+ (NEGATIVE); NITRITE, URINE AUTO POSITIVE (NEGATIVE); PROTEIN, URINE AUTO 1+ mg/dL (NEGATIVE); RBC, URINE AUTO 22 /HPF (0-3); SQUAMOUS EPITHELIAL CELL UR AU 0 /HPF (0-6); UROBILINOGEN, URINE AUTO 0.2 mg/dL (0.0-2.0); WBC, URINE AUTO TNTC /HPF (0-3)
== END ==
LOC: SKLAB5 13:53
PROVIDERS: ATTEND Internal Medicine
DX: R41.0 Disorientation, unspecified (principal)

== ENCOUNTER → 2021-04-22 | Outpatient (REF) | payer MEDICARE, MEDICAID ==
[~2021-04-22] MED LIST changes: +LOSA25TA13 PO; -LOSA25TA14 PO; +LOSA50TA28 PO; -LOSA50TA88 PO; +POTA-151 PO; -POTA20TA6 PO
[2021-04-22 11:49] LABS: HEMATOCRIT 37.5 % (36.0-47.0); HEMOGLOBIN 12.5 g/dl (12.0-15.5); MEAN CORPUSCULAR HEMOGLOBIN 29.8 pg (27.0-33.0); MEAN CORPUSCULAR HGB CONC 33.3 g/dl (32.0-36.5); MEAN CORPUSCULAR VOLUME 89.5 fl (80.0-96.0); PLATELET COUNT, AUTOMATED 214 10^3/uL (150-450); RED BLOOD COUNT 4.19 10^6/uL (4.00-5.40); WHITE BLOOD COUNT 9.6 10^3/uL (4.0-10.0)
[2021-04-22 12:29] LABS: THYROID STIMULATING HORMONE 3.34 uIU/ML (0.358-3.740)
[2021-04-22 16:12] LABS: HEMOGLOBIN A1c 8.4 %
== END ==
LOC: SKLAB5 07:00
PROVIDERS: ATTEND Internal Medicine
DX: E11.9 Type 2 diabetes mellitus without complications (principal); D64.9 Anemia, unspecified

== ENCOUNTER → 2021-04-29 | Outpatient (REF) | payer MEDICARE, MEDICAID ==
[2021-04-29 10:45] LABS: PHOSPHORUS LEVEL 3.9 MG/DL (2.5-4.9)
== END ==
LOC: SKLAB5 07:00
PROVIDERS: ATTEND Internal Medicine
DX: M81.0 Age-related osteoporosis without current pathological fracture (principal)

== ENCOUNTER → 2021-06-24 | Outpatient (REF) | payer MEDICARE, MEDICAID | LOC: SKLAB5 12:36 | PROVIDERS: ATTEND Internal Medicine | DX: E05.90 Thyrotoxicosis, unspecified without thyrotoxic crisis or storm (principal) ==

== ENCOUNTER → 2021-06-28 | Outpatient (REF) | payer MEDICARE, MEDICAID | LOC: SKLAB5 09:20 | PROVIDERS: ATTEND Nurse Practitioner Adult Health | DX: R91.8 Other nonspecific abnormal finding of lung field (principal) ==

== ENCOUNTER → 2021-07-08 | Outpatient (REF) | payer MEDICARE, MEDICAID ==
[2021-07-08 13:21] LABS: HEMATOCRIT 37.1 % (36.0-47.0); MEAN CORPUSCULAR HGB CONC 32.3 g/dl (32.0-36.5); MEAN CORPUSCULAR VOLUME 92.8 fl (80.0-96.0); PLATELET COUNT, AUTOMATED 206 10^3/uL (150-450); WHITE BLOOD COUNT 9.4 10^3/uL (4.0-10.0)
[2021-07-08 14:01] LABS: CALCIUM LEVEL 8.3 MG/DL (8.8-10.2); CREATININE FOR GFR 1.45 MG/DL (0.55-1.30); GLOMERULAR FILTRATION RATE 36.9 (>32); POTASSIUM SERUM 4.2 MEQ/L (3.5-5.1)
== END ==
LOC: SKLAB5 11:10
PROVIDERS: ATTEND Nurse Practitioner Adult Health
DX: I50.9 Heart failure, unspecified (principal); R60.9 Edema, unspecified

== ENCOUNTER → 2021-07-12 | Outpatient (REF) | payer MEDICARE, MEDICAID ==
[2021-07-12 09:50] LABS: CALCIUM LEVEL 9.4 MG/DL (8.8-10.2); CREATININE FOR GFR 1.35 MG/DL (0.55-1.30); GLOMERULAR FILTRATION RATE 40.1 (>32); POTASSIUM SERUM 4.7 MEQ/L (3.5-5.1)
== END ==
LOC: SKLAB5 09:44
PROVIDERS: ATTEND Nurse Practitioner Adult Health
DX: N18.9 Chronic kidney disease, unspecified (principal)

== ENCOUNTER → 2021-07-27 | Outpatient (REF) | payer MEDICARE, MEDICAID ==
[2021-07-27 07:56] LABS: BILIRUBIN,TOTAL 0.5 MG/DL (0.2-1.0); CALCIUM LEVEL 9.7 MG/DL (8.8-10.2); CREATININE FOR GFR 1.42 MG/DL (0.55-1.30); FREE T4 1.25 NG/DL (0.76-1.46); GLOMERULAR FILTRATION RATE 37.8 (>32); POTASSIUM SERUM 4.7 MEQ/L (3.5-5.1); TOTAL PROTEIN 7.4 GM/DL (6.4-8.2)
== END ==
LOC: SKLAB5 06:00
PROVIDERS: ATTEND Internal Medicine
DX: E03.9 Hypothyroidism, unspecified (principal); D64.9 Anemia, unspecified; E11.9 Type 2 diabetes mellitus without complications

== ENCOUNTER 2021-08-14 12:57 | Emergency (ER) | payer MEDICARE, MEDICAID ==
[~2021-08-14] VITALS: Ht 170.2 cm; Wt 86.4 kg
[2021-08-14] MEDS ORDERED: ACETAMINOPHEN 325 MG TAB PO ONE (13:45)
[2021-08-14 16:37] VITALS: BP 169/73
== END 2021-08-14 16:45 | disposition home or self-care (01) ==
LOC: M ED 12:57 → EDBD 12:57 → M ED 16:45
DX: S16.1XXA Strain of muscle, fascia and tendon at neck level, initial encounter (principal); S00.83XA Contusion of other part of head, initial encounter; W07.XXXA Fall from chair, initial encounter; Y92.018 Other place in single-family (private) house as the place of occurrence of the external cause; E11.9 Type 2 diabetes mellitus without complications; I10 Essential (primary) hypertension; I50.9 Heart failure, unspecified; N18.30 Chronic kidney disease, stage 3 unspecified; E03.9 Hypothyroidism, unspecified; Z95.5 Presence of coronary angioplasty implant and graft; Z88.0 Allergy status to penicillin; Z88.5 Allergy status to narcotic agent; Z88.7 Allergy status to serum and vaccine; Z88.8 Allergy status to other drugs, medicaments and biological substances; Z79.899 Other long term (current) drug therapy; Z79.01 Long term (current) use of anticoagulants

== ENCOUNTER → 2021-08-16 | Outpatient (REF) | payer MEDICARE, MEDICAID ==
[2021-08-16 16:16] LABS: HEMATOCRIT 40.4 % (36.0-47.0); HEMOGLOBIN 13.2 g/dl (12.0-15.5); MEAN CORPUSCULAR HEMOGLOBIN 29.9 pg (27.0-33.0); MEAN CORPUSCULAR HGB CONC 32.7 g/dl (32.0-36.5); MEAN CORPUSCULAR VOLUME 91.6 fl (80.0-96.0); PLATELET COUNT, AUTOMATED 261 10^3/uL (150-450); RED BLOOD COUNT 4.41 10^6/uL (4.00-5.40); WHITE BLOOD COUNT 12.2 10^3/uL (4.0-10.0)
[2021-08-16 16:40] LABS: CREATININE FOR GFR 1.57 MG/DL (0.55-1.30); GLOMERULAR FILTRATION RATE 33.7 (>32); POTASSIUM SERUM 4.7 MEQ/L (3.5-5.1)
== END ==
LOC: SKLAB5 14:44
PROVIDERS: ATTEND Nurse Practitioner Adult Health
DX: R41.82 Altered mental status, unspecified (principal)

== ENCOUNTER → 2021-08-17 | Outpatient (REF) | payer MEDICARE, MEDICAID ==
[2021-08-17 10:34] LABS: HEMATOCRIT 37.8 % (36.0-47.0); HEMOGLOBIN 12.6 g/dl (12.0-15.5); MEAN CORPUSCULAR HEMOGLOBIN 30.1 pg (27.0-33.0); MEAN CORPUSCULAR HGB CONC 33.3 g/dl (32.0-36.5); MEAN CORPUSCULAR VOLUME 90.4 fl (80.0-96.0); PLATELET COUNT, AUTOMATED 230 10^3/uL (150-450); RED BLOOD COUNT 4.18 10^6/uL (4.00-5.40); WHITE BLOOD COUNT 11.4 10^3/uL (4.0-10.0)
[2021-08-17 11:31] LABS: CALCIUM LEVEL 9.1 MG/DL (8.8-10.2); CREATININE FOR GFR 1.61 MG/DL (0.55-1.30); GLOMERULAR FILTRATION RATE 32.7 (>32); POTASSIUM SERUM 4.4 MEQ/L (3.5-5.1)
== END ==
LOC: SKLAB5 07:17
PROVIDERS: ATTEND Nurse Practitioner Adult Health
DX: D72.829 Elevated white blood cell count, unspecified (principal); E87.1 Hypo-osmolality and hyponatremia

== ENCOUNTER → 2021-08-17 | Outpatient (REF) ==
[2021-08-17 02:02] LABS: APPEARANCE, URINE HAZY (CLEAR); BACTERIA, URINE AUTO 1+ (NEGATIVE); BILIRUBIN, URINE AUTO NEGATIVE (NEGATIVE); BLOOD, URINE BLOOD 1+ (NEGATIVE); COLOR, URINE YELLOW (YELLOW); GLUCOSE, URINE (UA) AUTO NEGATIVE (NEGATIVE); KETONE, URINE AUTO NEGATIVE (NEGATIVE); LEUKOCYTE ESTERASE, URINE AUTO 3+ (NEGATIVE); MUCUS, URINE SMALL (NEGATIVE); NITRITE, URINE AUTO NEGATIVE (NEGATIVE); PROTEIN, URINE AUTO NEGATIVE (NEGATIVE); RBC, URINE AUTO 2 /HPF (0-3); SPECIFIC GRAVITY URINE AUTO 1.012 (1.002-1.035); SQUAMOUS EPITHELIAL CELL UR AU 1 /HPF (0-6); UROBILINOGEN, URINE AUTO 0.2 mg/dL (0.0-2.0); WBC, URINE AUTO 90 /HPF (0-3)
== END ==
LOC: SKLAB5 01:07
PROVIDERS: ATTEND Internal Medicine
DX: R41.82 Altered mental status, unspecified (principal); R82.90 Unspecified abnormal findings in urine

== ENCOUNTER → 2021-08-18 | Outpatient (REF) | payer MEDICARE, MEDICAID ==
[2021-08-18 07:08] LABS: HEMATOCRIT 36.4 % (36.0-47.0); HEMOGLOBIN 12.2 g/dl (12.0-15.5); MEAN CORPUSCULAR HEMOGLOBIN 30.7 pg (27.0-33.0); MEAN CORPUSCULAR HGB CONC 33.5 g/dl (32.0-36.5); MEAN CORPUSCULAR VOLUME 91.5 fl (80.0-96.0); PLATELET COUNT, AUTOMATED 221 10^3/uL (150-450); RED BLOOD COUNT 3.98 10^6/uL (4.00-5.40); WHITE BLOOD COUNT 10.2 10^3/uL (4.0-10.0)
[2021-08-18 07:30] LABS: ALBUMIN 2.7 GM/DL (3.2-5.2); BILIRUBIN,TOTAL 0.6 MG/DL (0.2-1.0); CALCIUM LEVEL 8.7 MG/DL (8.8-10.2); CREATININE FOR GFR 1.33 MG/DL (0.55-1.30); GLOMERULAR FILTRATION RATE 40.8 (>32); POTASSIUM SERUM 4.4 MEQ/L (3.5-5.1); TOTAL PROTEIN 6.7 GM/DL (6.4-8.2)
== END ==
LOC: SKLAB5 06:00
PROVIDERS: ATTEND Nurse Practitioner
DX: E86.0 Dehydration (principal)

== ENCOUNTER → 2021-08-20 | Outpatient (CLI) | payer MEDICARE, MEDICAID | LOC: M PLAIMG 14:39 | PROVIDERS: ATTEND Nurse Practitioner Adult Health | DX: I63.81 Other cerebral infarction due to occlusion or stenosis of small artery (principal); R41.82 Altered mental status, unspecified ==

== ENCOUNTER → 2021-08-21 | Outpatient (REF) | payer MEDICARE, MEDICAID ==
[2021-08-21 08:53] LABS: HEMATOCRIT 41.5 % (36.0-47.0); HEMOGLOBIN 13.5 g/dl (12.0-15.5); MEAN CORPUSCULAR HEMOGLOBIN 29.6 pg (27.0-33.0); MEAN CORPUSCULAR HGB CONC 32.5 g/dl (32.0-36.5); PLATELET COUNT, AUTOMATED 244 10^3/uL (150-450); RED BLOOD COUNT 4.56 10^6/uL (4.00-5.40); WHITE BLOOD COUNT 11.4 10^3/uL (4.0-10.0)
[2021-08-21 09:17] LABS: CALCIUM LEVEL 9.3 MG/DL (8.8-10.2); CREATININE FOR GFR 1.43 MG/DL (0.55-1.30); GLOMERULAR FILTRATION RATE 37.5 (>32); POTASSIUM SERUM 4.4 MEQ/L (3.5-5.1)
== END ==
LOC: SKLAB5 06:00
PROVIDERS: ATTEND Internal Medicine
DX: E86.0 Dehydration (principal)

== ENCOUNTER → 2021-08-23 | Outpatient (REF) | payer MEDICARE, MEDICAID ==
[2021-08-23 09:04] LABS: BASO # 0.1 10^3/uL (0.0-0.2); BASO % 0.8 % (0.0-1.0); EOS # 0.4 10^3/uL (0.0-0.5); EOS % 3.8 % (0.0-3.0); HEMATOCRIT 41.9 % (36.0-47.0); HEMOGLOBIN 13.7 g/dl (12.0-15.5); LYMPH # 2.3 10^3/uL (1.5-5.0); MEAN CORPUSCULAR HEMOGLOBIN 30.2 pg (27.0-33.0); MEAN CORPUSCULAR HGB CONC 32.7 g/dl (32.0-36.5); MEAN CORPUSCULAR VOLUME 92.3 fl (80.0-96.0); MONO # 0.8 10^3/uL (0.0-0.8); MONO % 8.1 % (2.0-8.0); NEUTROPHILS # 6.7 10^3/uL (1.5-8.5); NEUTROPHILS % 64.6 % (36.0-66.0); PLATELET COUNT, AUTOMATED 266 10^3/uL (150-450); RED BLOOD COUNT 4.54 10^6/uL (4.00-5.40); WHITE BLOOD COUNT 10.4 10^3/uL (4.0-10.0)
[2021-08-23 09:25] LABS: ALBUMIN 2.9 GM/DL (3.2-5.2); BILIRUBIN,TOTAL 0.9 MG/DL (0.2-1.0); CALCIUM LEVEL 9.4 MG/DL (8.8-10.2); CREATININE FOR GFR 1.53 MG/DL (0.55-1.30); GLOMERULAR FILTRATION RATE 34.7 (>32); POTASSIUM SERUM 4.4 MEQ/L (3.5-5.1); TOTAL PROTEIN 7.4 GM/DL (6.4-8.2)
== END ==
LOC: SKLAB5 07:33
PROVIDERS: ATTEND Internal Medicine
DX: R79.89 Other specified abnormal findings of blood chemistry (principal)

== ENCOUNTER 2021-08-28 10:21 | Inpatient (IN) | payer MEDICARE, MEDICAID ==
[~2021-08-28] VITALS: Ht 160 cm; Wt 111.6 kg
[2021-08-28 11:48] VITALS: BP 133/69
[2021-08-28 11:53] LABS: BASO # 0.1 10^3/uL (0.0-0.2); BASO % 0.4 % (0.0-1.0); EOS # 0.4 10^3/uL (0.0-0.5); EOS % 3.2 % (0.0-3.0); HEMOGLOBIN 13.7 g/dl (12.0-15.5); LYMPH # 2.2 10^3/uL (1.5-5.0); LYMPH % 18.3 % (24.0-44.0); MEAN CORPUSCULAR HEMOGLOBIN 29.9 pg (27.0-33.0); MEAN CORPUSCULAR HGB CONC 32.6 g/dl (32.0-36.5); MEAN CORPUSCULAR VOLUME 91.7 fl (80.0-96.0); MONO # 0.9 10^3/uL (0.0-0.8); MONO % 7.7 % (2.0-8.0); NEUTROPHILS # 8.5 10^3/uL (1.5-8.5); NEUTROPHILS % 69.8 % (36.0-66.0); PLATELET COUNT, AUTOMATED 242 10^3/uL (150-450); RED BLOOD COUNT 4.58 10^6/uL (4.00-5.40); WHITE BLOOD COUNT 12.2 10^3/uL (4.0-10.0)
[2021-08-28 12:12] LABS: INR 1.63; PROTHROMBIN TIME 19.7 SECONDS (12.7-14.5)
[2021-08-28 12:13] LABS: PARTIAL THROMBOPLASTIN TIME 36.6 SECONDS (25.9-37.0)
[2021-08-28 12:32] LABS: CALCIUM LEVEL 9.2 MG/DL (8.8-10.2); CREATININE FOR GFR 1.83 MG/DL (0.55-1.30); GLOMERULAR FILTRATION RATE 28.2 (>32); POTASSIUM SERUM 4.6 MEQ/L (3.5-5.1)
[2021-08-28] MEDS ORDERED: ACET-683 PO (12:47)
[2021-08-28] MEDS ORDERED: ATEN25TA PO (12:47)
[2021-08-28] MEDS ORDERED: BENG1CRE TOP (12:47)
[2021-08-28 12:50] LABS: RSV AMPLIFICATION NEGATIVE (NEGATIVE)
[2021-08-28 12:52] LABS: CK-MB VALUE MASS 2.6 NG/ML (<3.6); MB/CK RELATIVE INDEX 5.2 (< OR =4)
[2021-08-28] MEDS ORDERED: DULO30CA9 PO (12:54)
[2021-08-28] MEDS ORDERED: MAGN400O50 PO (12:54)
[2021-08-28] MEDS ORDERED: BISA10SU27 PR (12:54)
[2021-08-28] MEDS ORDERED: METF-839 PO (12:54)
[2021-08-28] MEDS ORDERED: GLUC1KIT IM (12:54)
[2021-08-28] MEDS ORDERED: FLEEENE12 PR (12:54)
[2021-08-28] MEDS ORDERED: LEVO100T5 PO (12:54)
[2021-08-28] MEDS ORDERED: CALC500T31 PO (12:54)
[2021-08-28] MEDS ORDERED: [UNRECOGNIZED DRUG - CODE] PO (13:00)
[2021-08-28] MEDS ORDERED: TORS10TA3 PO (13:00)
[2021-08-28] MEDS ORDERED: HOME MED LIST COMPLETE! XX SCH (13:00)
[2021-08-28] MEDS ORDERED: TIZA2CAP PO (13:00)
[2021-08-28] MEDS ORDERED: CHOL50002 PO (13:00)
[2021-08-28] MEDS ORDERED: XARE15TA PO (13:00)
[2021-08-28 13:57] LABS: CK-MB VALUE MASS 2.1 NG/ML (<3.6); MB/CK RELATIVE INDEX 4.29 (< OR =4)
[2021-08-28] MEDS ORDERED: BISACODYL 10 MG SUPP PR PRN (14:25)
[2021-08-28] MEDS ORDERED: ACETAMINOPHEN 500 MG TAB PO PRN (14:25)
[2021-08-28] MEDS ORDERED: MOM 30ML SUSPENSION UDC PO PRN (14:25)
[2021-08-28] MEDS ORDERED: FLEET ENEMA PR PRN (14:25)
[2021-08-28] MEDS ORDERED: NITROGLYCERIN 0.4 MG SUBL TABLET SL PRN (14:25)
[2021-08-28] MEDS ORDERED: DEXTROSE 50% 50 ML SYRINGE IV PRN (14:45)
[2021-08-28] MEDS ORDERED: GLUCAGON INJ 1MG VIAL SC PRN (14:45)
[2021-08-28] MEDS ORDERED: GLUCOSE 4GM CHEW TABLET PO PRN (14:45)
[2021-08-28] MEDS: ASPIRIN 81 MG CHEW TABLET PO SCH (15:13)
[2021-08-28 16:30] VITALS: BP 168/79
[2021-08-28] MEDS: INSULIN LISPRO (NovoLOG) PER UNIT SC SCH ×2 (18:00→20:27)
[2021-08-28] MEDS: LACTOBACILLUS ACIDOPHILUS CAP (BACID) PO SCH (18:00)
[2021-08-28] MEDS ORDERED: DOXYCYCLINE HYCLATE 100MG TABLET PO SCH (18:00)
[2021-08-28 18:37] LABS: CK-MB VALUE MASS 2.4 NG/ML (<3.6); MB/CK RELATIVE INDEX 5.33 (< OR =4)
[2021-08-28] MEDS: DOXYCYCLINE HYCLATE 100MG TABLET PO SCH (18:41)
[2021-08-28 20:00] VITALS: BP 150/82
[2021-08-28] MEDS: OYSTER SHELL CALCIUM 500 MG TAB PO SCH (20:39)
[2021-08-28] MEDS: ROSUVASTATIN 10 MG TAB (CRESTOR) PO SCH (20:39)
[2021-08-29] VITALS (7 sets, daily range): BP systolic 119–171; BP diastolic 55–88
[2021-08-29 01:10] LABS: CK-MB VALUE MASS 2.6 NG/ML (<3.6); MB/CK RELATIVE INDEX 5.31 (< OR =4)
[2021-08-29] MEDS: DOXYCYCLINE HYCLATE 100MG TABLET PO SCH ×2 (06:03→17:38)
[2021-08-29] MEDS: LEVOTHYROXINE 100MCG TABLET (0.1MG) PO SCH (06:03)
[2021-08-29 06:25] LABS: HEMATOCRIT 42.5 % (36.0-47.0); HEMOGLOBIN 13.8 g/dl (12.0-15.5); MEAN CORPUSCULAR HEMOGLOBIN 29.2 pg (27.0-33.0); MEAN CORPUSCULAR HGB CONC 32.5 g/dl (32.0-36.5); PLATELET COUNT, AUTOMATED 255 10^3/uL (150-450); RED BLOOD COUNT 4.72 10^6/uL (4.00-5.40); WHITE BLOOD COUNT 11.8 10^3/uL (4.0-10.0)
[2021-08-29 06:40] LABS: HEMOGLOBIN A1c 7.8 %
[2021-08-29 06:45] LABS: CALCIUM LEVEL 9.4 MG/DL (8.8-10.2); CREATININE FOR GFR 1.6 MG/DL (0.55-1.30); GLOMERULAR FILTRATION RATE 32.9 (>32); POTASSIUM SERUM 4.2 MEQ/L (3.5-5.1)
[2021-08-29 06:50] LABS: CK-MB VALUE MASS 1.9 NG/ML (<3.6); MB/CK RELATIVE INDEX 4.52 (< OR =4)
[2021-08-29 06:59] LABS: ALBUMIN 2.8 GM/DL (3.2-5.2); BILIRUBIN,DIRECT 0.3 MG/DL (0.0-0.2); BILIRUBIN,TOTAL 0.7 MG/DL (0.2-1.0); CHOLESTEROL RISK RATIO 3.785 (<5); THYROID STIMULATING HORMONE 3.36 uIU/ML (0.358-3.740); TOTAL PROTEIN 6.7 GM/DL (6.4-8.2)
[2021-08-29] MEDS: OYSTER SHELL CALCIUM 500 MG TAB PO SCH ×2 (08:55→21:10)
[2021-08-29] MEDS: ASPIRIN 81 MG CHEW TABLET PO SCH (08:55)
[2021-08-29] MEDS: LACTOBACILLUS ACIDOPHILUS CAP (BACID) PO SCH ×3 (08:55→17:38)
[2021-08-29] MEDS: INSULIN LISPRO (NovoLOG) PER UNIT SC SCH ×4 (08:56→21:00)
[2021-08-29] MEDS ORDERED: TORSEMIDE 10 MG TABLET PO SCH (09:00)
[2021-08-29] MEDS ORDERED: atenoloL 25 MG TAB PO SCH (09:00)
[2021-08-29] MEDS ORDERED: ASPIRIN 81 MG CHEW TABLET PO SCH (09:00)
[2021-08-29 12:39] LABS: CK-MB VALUE MASS 1.7 NG/ML (<3.6); MB/CK RELATIVE INDEX 4.59 (< OR =4)
[2021-08-29 18:43] LABS: CK-MB VALUE MASS 1.6 NG/ML (<3.6); MB/CK RELATIVE INDEX 3.64 (< OR =4)
[2021-08-29] MEDS: ROSUVASTATIN 10 MG TAB (CRESTOR) PO SCH (21:10)
[2021-08-30] VITALS (7 sets, daily range): BP systolic 99–172; BP diastolic 50–99
[2021-08-30 05:46] LABS: HEMATOCRIT 41.4 % (36.0-47.0); HEMOGLOBIN 13.6 g/dl (12.0-15.5); MEAN CORPUSCULAR HEMOGLOBIN 29.4 pg (27.0-33.0); MEAN CORPUSCULAR HGB CONC 32.9 g/dl (32.0-36.5); MEAN CORPUSCULAR VOLUME 89.4 fl (80.0-96.0); PLATELET COUNT, AUTOMATED 264 10^3/uL (150-450); RED BLOOD COUNT 4.63 10^6/uL (4.00-5.40); WHITE BLOOD COUNT 12.9 10^3/uL (4.0-10.0)
[2021-08-30 06:13] LABS: CALCIUM LEVEL 9.2 MG/DL (8.8-10.2); CREATININE FOR GFR 1.8 MG/DL (0.55-1.30); GLOMERULAR FILTRATION RATE 28.7 (>32)
[2021-08-30] MEDS: DOXYCYCLINE HYCLATE 100MG TABLET PO SCH (06:34)
[2021-08-30] MEDS: LEVOTHYROXINE 100MCG TABLET (0.1MG) PO SCH (06:34)
[2021-08-30] MEDS ORDERED: ASPI81CH8 PO (07:50)
[2021-08-30] MEDS ORDERED: METO1TAB87 PO (07:50)
[2021-08-30] MEDS ORDERED: RISATAB3 PO (07:50)
[2021-08-30] MEDS ORDERED: DOXY100T PO (07:50)
[2021-08-30] MEDS: METOPROLOL TART 25 MG TABLET PO SCH ×2 (07:54→12:49)
[2021-08-30] MEDS: INSULIN LISPRO (NovoLOG) PER UNIT SC SCH ×4 (07:55→21:00)
[2021-08-30] MEDS: LACTOBACILLUS ACIDOPHILUS CAP (BACID) PO SCH ×2 (07:55→12:49)
[2021-08-30] MEDS: ASPIRIN 81 MG CHEW TABLET PO SCH (08:33)
[2021-08-30] MEDS: OYSTER SHELL CALCIUM 500 MG TAB PO SCH (08:33)
[2021-08-30] MEDS ORDERED: ACETAMINOPHEN 500 MG TAB PO ONE (10:50)
[2021-08-30] MEDS ORDERED: METOPROLOL 5 MG/5 ML VIAL IV PRN (14:50)
[2021-08-30] MEDS ORDERED: LIDOCAINE 1% MDV 20ML VIAL As Ordered ONE (15:15)
[2021-08-30] MEDS ORDERED: NS 1,000 ML IV ONE (17:30)
[2021-08-30] MEDS ORDERED: NS 500 ML IV STA (17:54)
[2021-08-30] MEDS ORDERED: SODIUM CHLORIDE 0.9% INJ 10 ML SYR IV PRN (18:00)
[2021-08-30] MEDS: NS 1,000 ML IV SCH (18:50)
[2021-08-30] MEDS: DOXYCYCLINE HYCLATE 100 MG in D5W MINI-BAG PLUS 100 ML IV SCH (18:50)
[2021-08-30] MEDS: SODIUM CHLORIDE 0.9% INJ 10 ML SYR IV SCH (18:50)
[2021-08-30] MEDS: CLOPIDOGREL 75 MG TAB PO SCH (18:52)
[2021-08-31] MEDS: NS 1,000 ML IV SCH ×2 (03:24→14:34)
[2021-08-31 04:05] VITALS: BP 133/61
[2021-08-31 05:06] LABS: HEMATOCRIT 43.2 % (36.0-47.0); HEMOGLOBIN 13.8 g/dl (12.0-15.5); MEAN CORPUSCULAR HEMOGLOBIN 29.7 pg (27.0-33.0); MEAN CORPUSCULAR HGB CONC 31.9 g/dl (32.0-36.5); MEAN CORPUSCULAR VOLUME 93.1 fl (80.0-96.0); PLATELET COUNT, AUTOMATED 219 10^3/uL (150-450); RED BLOOD COUNT 4.64 10^6/uL (4.00-5.40); WHITE BLOOD COUNT 13.6 10^3/uL (4.0-10.0)
[2021-08-31 05:44] LABS: CREATININE FOR GFR 1.42 MG/DL (0.55-1.30); GLOMERULAR FILTRATION RATE 37.8 (>32); POTASSIUM SERUM 4.2 MEQ/L (3.5-5.1)
[2021-08-31 05:45] LABS: CALCIUM LEVEL 9.2 MG/DL (8.8-10.2)
[2021-08-31] MEDS: DOXYCYCLINE HYCLATE 100 MG in D5W MINI-BAG PLUS 100 ML IV SCH ×2 (05:57→17:28)
[2021-08-31] MEDS: LEVOTHYROXINE 100MCG (0.1MG) 5ML SDV PF (SOLUTION FORM) IV SCH (05:57)
[2021-08-31] MEDS: SODIUM CHLORIDE 0.9% INJ 10 ML SYR IV SCH ×2 (06:00→17:29)
[2021-08-31] MEDS: INSULIN LISPRO (NovoLOG) PER UNIT SC SCH ×4 (07:30→20:12)
[2021-08-31 07:41] VITALS: BP 142/64
[2021-08-31] MEDS: CLOPIDOGREL 75 MG TAB PO SCH (08:36)
[2021-08-31] MEDS: ASPIRIN 81 MG CHEW TABLET PO SCH (08:36)
[2021-08-31] MEDS ORDERED: ASPIRIN 300 MG SUPP PR SCH (09:00)
[2021-08-31 12:20] VITALS: BP 145/61
[2021-08-31 15:48] VITALS: BP 140/61
[2021-08-31 20:00] VITALS: BP 150/70
[2021-08-31] MEDS ORDERED: ACETAMINOPHEN 1000MG 100ML IV BTL (OFIRMEV) (J0131 PER 10MG) IV ONE (22:00)
[2021-09-01] VITALS: BP 113/61
[2021-09-01 02:02] LABS: BILIRUBIN, URINE MANUAL NEGATIVE (NEGATIVE); GLUCOSE, URINE (UA) MANUAL NEGATIVE (NEGATIVE); KETONE, URINE MANUAL NEGATIVE (NEGATIVE); UROBILINOGEN, URINE MANUAL NORMAL (NORMAL)
[2021-09-01 02:11] LABS: BACTERIA, URINE SMALL AMOUNT; HYALINE CAST, URINE NONE SEEN /lpf (0-1); SQUAMOUS EPITHELIAL CELL URINE LARGE AMOUNT /hpf (SMALL AMT)
[2021-09-01 02:12] LABS: AMORPHOUS SEDIMENT, URINE SMALL AMOUNT (NEGATIVE); YEAST, URINE LARGE AMOUNT
[2021-09-01 04:00] VITALS: BP 143/70
[2021-09-01] MEDS: DOXYCYCLINE HYCLATE 100 MG in D5W MINI-BAG PLUS 100 ML IV SCH ×2 (05:07→18:12)
[2021-09-01] MEDS: LEVOTHYROXINE 100MCG (0.1MG) 5ML SDV PF (SOLUTION FORM) IV SCH (05:07)
[2021-09-01] MEDS: SODIUM CHLORIDE 0.9% INJ 10 ML SYR IV SCH ×2 (05:07→18:13)
[2021-09-01 05:30] LABS: HEMATOCRIT 39.5 % (36.0-47.0); HEMOGLOBIN 12.9 g/dl (12.0-15.5); MEAN CORPUSCULAR HGB CONC 32.7 g/dl (32.0-36.5); MEAN CORPUSCULAR VOLUME 91.9 fl (80.0-96.0); PLATELET COUNT, AUTOMATED 217 10^3/uL (150-450); WHITE BLOOD COUNT 12.8 10^3/uL (4.0-10.0)
[2021-09-01 05:58] LABS: CALCIUM LEVEL 8.3 MG/DL (8.8-10.2); CREATININE FOR GFR 1.22 MG/DL (0.55-1.30); POTASSIUM SERUM 4.1 MEQ/L (3.5-5.1)
[2021-09-01 08:04] VITALS: BP 146/62
[2021-09-01] MEDS: CLOPIDOGREL 75 MG TAB PO SCH (08:44)
[2021-09-01] MEDS: INSULIN LISPRO (NovoLOG) PER UNIT SC SCH ×4 (08:44→20:12)
[2021-09-01] MEDS: ASPIRIN 81 MG CHEW TABLET PO SCH (08:44)
[2021-09-01] MEDS: NS 1,000 ML IV SCH ×3 (09:35→21:51)
[2021-09-01 12:30] VITALS: BP 128/71
[2021-09-01 16:46] VITALS: BP 155/77
[2021-09-01 20:00] VITALS: BP 179/88
[2021-09-02] VITALS: BP 162/73
[2021-09-02 04:00] VITALS: BP 160/74
[2021-09-02] MEDS: LEVOTHYROXINE 100MCG (0.1MG) 5ML SDV PF (SOLUTION FORM) IV SCH (05:32)
[2021-09-02] MEDS: DOXYCYCLINE HYCLATE 100 MG in D5W MINI-BAG PLUS 100 ML IV SCH (05:33)
[2021-09-02] MEDS: SODIUM CHLORIDE 0.9% INJ 10 ML SYR IV SCH ×2 (05:33→18:00)
[2021-09-02 06:25] LABS: HEMATOCRIT 38.8 % (36.0-47.0); HEMOGLOBIN 12.5 g/dl (12.0-15.5); MEAN CORPUSCULAR HEMOGLOBIN 29.7 pg (27.0-33.0); MEAN CORPUSCULAR HGB CONC 32.2 g/dl (32.0-36.5); MEAN CORPUSCULAR VOLUME 92.2 fl (80.0-96.0); PLATELET COUNT, AUTOMATED 222 10^3/uL (150-450); RED BLOOD COUNT 4.21 10^6/uL (4.00-5.40)
[2021-09-02 07:25] LABS: CALCIUM LEVEL 8.5 MG/DL (8.8-10.2); CREATININE FOR GFR 1.06 MG/DL (0.55-1.30)
[2021-09-02] MEDS: NS 1,000 ML IV SCH (07:25)
[2021-09-02 08:00] VITALS: BP 174/79
[2021-09-02] MEDS: CLOPIDOGREL 75 MG TAB PO SCH (09:03)
[2021-09-02] MEDS: ASPIRIN 81 MG CHEW TABLET PO SCH (09:03)
[2021-09-02] MEDS: INSULIN LISPRO (NovoLOG) PER UNIT SC SCH ×4 (09:03→20:36)
[2021-09-02 11:48] VITALS: BP 148/83
[2021-09-02 15:48] VITALS: BP 170/80
[2021-09-02 16:30] VITALS: BP 162/72
[2021-09-02] MEDS: DOXYCYCLINE HYCLATE 100MG TABLET PO SCH (20:36)
[2021-09-03] VITALS: BP 188/89
[2021-09-03 04:00] VITALS: BP 180/83
[2021-09-03] MEDS ORDERED: LEVOTHYROXINE 100MCG TABLET (0.1MG) PO SCH (06:00)
[2021-09-03 07:21] VITALS: BP 158/86
[2021-09-03] MEDS: INSULIN LISPRO (NovoLOG) PER UNIT SC SCH (07:30)
[2021-09-03 07:34] LABS: HEMATOCRIT 38.4 % (36.0-47.0); HEMOGLOBIN 12.5 g/dl (12.0-15.5); MEAN CORPUSCULAR HEMOGLOBIN 30.2 pg (27.0-33.0); MEAN CORPUSCULAR HGB CONC 32.6 g/dl (32.0-36.5); MEAN CORPUSCULAR VOLUME 92.8 fl (80.0-96.0); PLATELET COUNT, AUTOMATED 224 10^3/uL (150-450); RED BLOOD COUNT 4.14 10^6/uL (4.00-5.40)
[2021-09-03 08:11] LABS: CALCIUM LEVEL 8.8 MG/DL (8.8-10.2); GLOMERULAR FILTRATION RATE 56.6 (>32); POTASSIUM SERUM 4.2 MEQ/L (3.5-5.1)
[2021-09-03] MEDS: ASPIRIN 81 MG CHEW TABLET PO SCH (08:40)
[2021-09-03] MEDS: CLOPIDOGREL 75 MG TAB PO SCH (08:41)
[2021-09-03] MEDS: DOXYCYCLINE HYCLATE 100MG TABLET PO SCH (08:41)
[2021-09-03] MEDS ORDERED: XARE15TA PO (10:51)
[2021-09-03] MEDS ORDERED: CEFU50TA PO (12:34)
== END 2021-09-03 12:26 | DRG 64 ==
LOC: M ED 10:21 → EDBD 10:21 → M ED INP 14:21 → M PCU 16:19
PROVIDERS: ADMIT General Practice; ATTEND General Practice
PROC: 02HV33Z Insertion of Infusion Device into Superior Vena Cava, Percutaneous Approach (ICD-10-PCS; principal; 2021-08-30 15:20)
DX: I63.511 Cerebral infarction due to unspecified occlusion or stenosis of right middle cerebral artery (principal); I21.A1 Myocardial infarction type 2; I48.21 Permanent atrial fibrillation; I69.354 Hemiplegia and hemiparesis following cerebral infarction affecting left non-dominant side; I50.32 Chronic diastolic (congestive) heart failure; N18.30 Chronic kidney disease, stage 3 unspecified; R29.6 Repeated falls; J32.9 Chronic sinusitis, unspecified; E11.22 Type 2 diabetes mellitus with diabetic chronic kidney disease; E03.9 Hypothyroidism, unspecified; S00.83XA Contusion of other part of head, initial encounter; K21.9 Gastro-esophageal reflux disease without esophagitis; I27.20 Pulmonary hypertension, unspecified; Z66 Do not resuscitate; H57.89 Other specified disorders of eye and adnexa; R47.01 Aphasia; R47.1 Dysarthria and anarthria; I65.21 Occlusion and stenosis of right carotid artery; H91.93 Unspecified hearing loss, bilateral; R29.810 Facial weakness; I16.0 Hypertensive urgency; Z95.5 Presence of coronary angioplasty implant and graft; Z87.81 Personal history of (healed) traumatic fracture; Z79.01 Long term (current) use of anticoagulants; Z79.890 Hormone replacement therapy; Z79.899 Other long term (current) drug therapy; Z88.0 Allergy status to penicillin; Z88.5 Allergy status to narcotic agent; Z88.7 Allergy status to serum and vaccine; Z88.8 Allergy status to other drugs, medicaments and biological substances; W19.XXXA Unspecified fall, initial encounter; Y93.9 Activity, unspecified; Y99.8 Other external cause status; Y92.128 Other place in nursing home as the place of occurrence of the external cause

== ENCOUNTER → 2021-09-08 | Outpatient (REF) | payer MEDICARE, MEDICAID ==
[~2021-09-08] MED LIST changes: +ASPI81CH8 PO; +BENG1CRE TOP; +BISA10SU27 PR; +CHOL50002 PO; +DOXY100T PO; +DULO30CA9 PO; +FLEEENE12 PR; +LEVO100T5 PO; +METF-839 PO; +METO1TAB87 PO; +RISATAB3 PO; +SFHMOMUDC PO; +TIZA2CAP PO; +[UNRECOGNIZED DRUG - CODE] PO
== END ==
LOC: SKLAB5 08:56
PROVIDERS: ATTEND Nurse Practitioner Family
DX: Z53.9 Procedure and treatment not carried out, unspecified reason (principal)

== ENCOUNTER → 2021-10-02 | Outpatient (REF) ==
[2021-10-02 20:29] LABS: BASO # 0.1 10^3/uL (0.0-0.2); BASO % 0.5 % (0.0-1.0); EOS # 0.4 10^3/uL (0.0-0.5); EOS % 3.5 % (0.0-3.0); HEMATOCRIT 40.7 % (36.0-47.0); HEMOGLOBIN 13.2 g/dl (12.0-15.5); LYMPH % 15.9 % (24.0-44.0); MEAN CORPUSCULAR HEMOGLOBIN 29.8 pg (27.0-33.0); MEAN CORPUSCULAR HGB CONC 32.4 g/dl (32.0-36.5); MEAN CORPUSCULAR VOLUME 91.9 fl (80.0-96.0); MONO % 7.9 % (2.0-8.0); NEUTROPHILS # 8.8 10^3/uL (1.5-8.5); NEUTROPHILS % 71.6 % (36.0-66.0); PLATELET COUNT, AUTOMATED 280 10^3/uL (150-450); RED BLOOD COUNT 4.43 10^6/uL (4.00-5.40); WHITE BLOOD COUNT 12.3 10^3/uL (4.0-10.0)
[2021-10-02 21:14] LABS: ALBUMIN 2.4 GM/DL (3.2-5.2); ALT/SGPT 39 U/L (12-78); BILIRUBIN,TOTAL 1.1 MG/DL (0.2-1.0); BLOOD UREA NITROGEN 15 MG/DL (7-18); CALCIUM LEVEL 8.4 MG/DL (8.8-10.2); CARBON DIOXIDE LEVEL 22 MEQ/L (21-32); CHLORIDE LEVEL 102 MEQ/L (98-107); CREATININE FOR GFR 0.81 MG/DL (0.55-1.30); GLOMERULAR FILTRATION RATE > 60.0 (>32); GLUCOSE, FASTING 183 MG/DL (70-100); NT-PRO BNP 1984 PG/ML (<450); POTASSIUM SERUM 4.7 MEQ/L (3.5-5.1); SODIUM LEVEL 132 MEQ/L (136-145); TOTAL PROTEIN 6.4 GM/DL (6.4-8.2)
== END ==
LOC: SKLAB5 14:33
PROVIDERS: ATTEND Internal Medicine
DX: R06.2 Wheezing (principal)